=== PATIENT | male | born 1945 | race Caucasian/White ===

== ENCOUNTER 2018-02-20 14:49 | Inpatient (IN) | payer MEDICARE, OTHER ==
[~2018-02-20] VITALS: Ht 175.3 cm; Wt 68.3 kg
[2018-02-20 15:29] LABS: BASO # 0.1 x10^3/uL (0.0-0.2); BASO % 1 % (0-3); EOS # 0.2 x10^3/uL (0.0-0.7); EOS % 2 % (0-3); HEMATOCRIT 39.7 % (39.0-53.0); HEMOGLOBIN 13.5 g/dL (13.0-17.5); LYMPH # 1.2 x10^3/uL (1.0-4.8); LYMPH % 14 % (24-48); MEAN CORPUSCULAR HEMOGLOBIN 32 pg (25-35); MEAN CORPUSCULAR HGB CONC 34 g/dL (31-37); MEAN CORPUSCULAR VOLUME 95 fL (79-100); MONO # 0.9 x10^3/uL (0.0-1.1); MONO % 10 % (0-9); NEUT # 6.6 x10^3uL (1.8-7.7); NEUT % 74 % (31-73); PLATELET COUNT 337 x10^3/uL (140-400); RED BLOOD COUNT 4.16 x10^6/uL (4.30-5.70); RED CELL DISTRIBUTION WIDTH 12.3 % (11.5-14.5)
--- NOTE | 2018-02-20 15:29 | PHYS DOC ---
Adult General Chief Complaint Chief Complaint: PSYCH EVALUATION HPI HPI 72-year-old male presents via EMS for medical clearance and behavioral health admission. The patient has precluded her with her behavioral health department. The patient was stated to be agitated and aggressive at his care facility. He was given 1 g of Depakote in the last 12 hours. He was also given Ativan and Haldol though it is unclear exactly when and what doses. EMS reports that he was pretty "out of it" when they arrived on scene. The patient is sleepy in the ER but arousable. He denies any medical complaints to me. Review of Systems Review of Systems Constitutional: Denies fever or chills [] Eyes: Denies change in visual acuity, redness, or eye pain [] HENT: Denies nasal congestion or sore throat [] Respiratory: Denies cough or shortness of breath [] Cardiovascular: No additional information not addressed in HPI [] GI: Denies abdominal pain, nausea, vomiting, bloody stools or diarrhea [] : Denies dysuria or hematuria [] Musculoskeletal: Denies back pain or joint pain [] Integument: Denies rash or skin lesions [] Neurologic: Denies headache, focal weakness or sensory changes [] Endocrine: Denies polyuria or polydipsia [] All other systems were reviewed and found to be within normal limits, except as documented in this note. Physical Exam Physical Exam Constitutional: Well developed, well nourished, no acute distress, non-toxic appearance. Sleepy.[] HENT: Normocephalic, atraumatic, bilateral external ears normal, oropharynx moist, no oral exudates, nose normal. [] Eyes: PERRLA, EOMI, conjunctiva normal, no discharge. [] Neck: Normal range of motion, no tenderness, supple, no stridor. [] Cardiovascular:Heart rate regular rhythm, no murmur [] Lungs & Thorax: Bilateral breath sounds clear to auscultation [] Abdomen: Bowel sounds normal, soft, no tenderness, no masses, no pulsatile masses. [] Skin: Warm, dry, no erythema, no rash. [] Back: No tenderness, no CVA tenderness. [] Extremities: No tenderness, no cyanosis, no clubbing, ROM intact, no edema. [] Neurologic: Alert, normal motor function, normal sensory function, no focal deficits noted. Dementia[] Psychologic: Affect normal, judgement normal, mood normal. : Catheter in place[] EKG EKG Sinus rhythm, rate 60, leftward axis, no ST elevations or depressions.[] Radiology/Procedures Radiology/Procedures [] Course & Med Decision Making Course & Med Decision Making Pertinent Labs and Imaging studies reviewed. (See chart for details) Patient's labs are unremarkable. His EKG is unremarkable. The patient is much more awake, alert and responsive since arrival. He is medically stable for admission to special care hospital. [] Dragon Disclaimer Dragon Disclaimer This electronic medical record was generated, in whole or in part, using a voice recognition dictation system. Departure Departure: Referrals: NON,STAFF (PCP) LOTTIE FARRELL DO Feb 20, 2018 15:29
[2018-02-20 15:41] LABS: AMORPHOUS SEDIMENT,UR PRESENT /HPF; BACTERIA,URINE FEW /HPF (0-FEW); BILIRUBIN,URINE NEG (NEG); CLARITY,URINE HAZY; COLOR,URINE YELLOW; GLUCOSE,URINE NEG (NEG); NITRITE,URINE NEG (NEG); SQUAMOUS EPITHELIAL CELL,UR OCC /LPF; UROBILINOGEN,URINE 1 mg/dL (0.2 mg/dL)
[2018-02-20 15:46] LABS: ALBUMIN 2.6 g/dL (3.4-5.0); ALBUMIN/GLOBULIN RATIO 0.7 (1.0-1.7); CALCIUM 8.8 mg/dL (8.5-10.1); CREATININE 1.1 mg/dL (0.7-1.3); MAGNESIUM 2.2 mg/dL (1.8-2.4); POTASSIUM 4.1 mmol/L (3.5-5.1); TOTAL BILIRUBIN 0.9 mg/dL (0.2-1.0); TOTAL PROTEIN 6.6 g/dL (6.4-8.2)
[2018-02-20 16:20] LABS: VAL ACID 57 mcg/mL (50-100)
[2018-02-20 17:45] VITALS: BP 119/78
[2018-02-20] MEDS ORDERED: TAMSULOSIN 0.4 MG CAP.ER.24H. PO PRN (18:30)
[2018-02-20] MEDS ORDERED: ATOR20TA58 PO (18:34)
[2018-02-20] MEDS ORDERED: ATEN100T PO (18:34)
[2018-02-20] MEDS ORDERED: TAMS0.4C97 PO (18:34)
[2018-02-20] MEDS ORDERED: ACET325T9 PO (18:34)
[2018-02-20] MEDS ORDERED: CHOL100013 PO (18:34)
[2018-02-20] MEDS ORDERED: LORA0.5T PO (18:34)
[2018-02-20] MEDS ORDERED: CLOP75TA57 PO (18:34)
[2018-02-20] MEDS ORDERED: DIVA125C2 PO (18:34)
[2018-02-20] MEDS ORDERED: DOCU-109 PO (18:34)
[2018-02-20] MEDS ORDERED: MAG HYDROX/AL HYDROX/SIMETH 30 ML ORAL.SUSP PO PRN (18:45)
[2018-02-20] MEDS ORDERED: MAGNESIUM HYDROXIDE 2,400 MG/30 ML ORAL.SUSP. PO PRN (18:45)
[2018-02-20] MEDS: DOCUSATE SODIUM 100 MG CAPSULE PO SCH (21:28)
[2018-02-20] MEDS: ATORVASTATIN CALCIUM 20 MG TABLET PO SCH (21:28)
[2018-02-20] MEDS: DIVALPROEX 125 MG CAP.SPRINK PO SCH (21:28)
[2018-02-20] MEDS: NYSTATIN TOPICAL POWDER 15GM BOTTLE. TP SCH (21:29)
--- NOTE | 2018-02-20 23:06 | EKG ---
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
[2018-02-21 05:17] VITALS: BP 122/75
[2018-02-21] MEDS: DIVALPROEX 125 MG CAP.SPRINK PO SCH ×4 (08:44→19:53)
[2018-02-21] MEDS: DOCUSATE SODIUM 100 MG CAPSULE PO SCH ×3 (08:44→19:53)
[2018-02-21] MEDS: CLOPIDOGREL BISULFATE 75 MG TABLET PO SCH ×2 (08:48→08:58)
[2018-02-21] MEDS: CHOLECALCIFEROL (VITAMIN D3) 1,000 UNIT TABLET PO SCH ×2 (08:48→08:59)
[2018-02-21] MEDS: NYSTATIN TOPICAL POWDER 15GM BOTTLE. TP SCH ×3 (08:49→19:53)
[2018-02-21] MEDS: ATENOLOL 50 MG TABLET PO SCH ×2 (08:49→08:59)
[2018-02-21 10:38] LABS: THYROID STIM HORMONE (TSH) 1.021 uIU/mL (0.358-3.740)
[2018-02-21 11:09] LABS: THYROXINE 6.1 ug/dL (4.5-12.0)
--- NOTE | 2018-02-21 14:27 | CONS ---
DATE OF CONSULTATION: 02/20/2018 REASON FOR CONSULTATION: Medical management. HISTORY OF PRESENT ILLNESS: The patient is a 72-year-old male patient, a resident at [facility], who was admitted to Senior Behavioral Unit on account of refusing medication. He is agitated and hallucinating. He was physically and verbally aggressive, all this in a background of dementia with behavioral disturbances and was here for inpatient psychiatric stabilization. PAST MEDICAL HISTORY: Significant for hypertension, hyperlipidemia, benign prostatic hypertrophy. The patient has also history of TIA, urinary retention, and subdural hematoma together with Parkinson's disease. PAST SURGICAL HISTORY: Unobtainable. ALLERGIES: He has no known drug allergies. MEDICATIONS: He is currently on following medications: He is on tamsulosin for Flomax 0.4 mg at bedtime, Plavix 75 mg daily, atorvastatin 20 mg at bedtime, atenolol 100 mg daily, acetaminophen 650 mg every 4 hours, Depakote Sprinkle 500 mg 3 times a day, lorazepam 1 mg every 8 hours, Colace 100 mg p.o. b.i.d., cholecalciferol or vitamin D [employer] once a day. REVIEW OF SYSTEMS: Unobtainable. FAMILY HISTORY: Unobtainable. SOCIAL HISTORY: The patient said he is . He has 2 children. He never smoked, does not drink alcohol; however, he refused to answer his previous occupation. PHYSICAL EXAMINATION: GENERAL: When I examined him, he was sitting comfortably in his chair, in no apparent respiratory distress. There was no pallor, jaundice, cyanosis, or thyromegaly. No jugular venous distention. No lower limb edema. VITAL SIGNS: His heart rate was 70, blood pressure was 122/75, temperature was 97.8, respiratory rate was 18, and oxygen saturation was 97%. HEAD, EYES, EARS, NOSE, AND THROAT: Showed normocephalic, atraumatic. NECK: Supple. HEART: Showed normal first and second heart sounds. No gallop, rub, or murmur. CHEST: Clear to auscultation. No crepitation or rhonchi. ABDOMEN: Distended, soft, nontender. No guarding or rigidity. No organomegaly. All hernial orifices intact. Bowel sounds normal. NEUROLOGIC: He was demented, but there is no obvious lateralizing sign. All his cranial nerves are intact. He moves extremities without difficulty; however, he seemed to be mostly chair bound, although he managed to transfer with minimal assistance. SKIN: Showed that he has seborrheic dermatitis. He has apparently benign prostatic hypertrophy with urinary retention requiring indwelling Pires catheter. LABORATORY DATA: His lab work showed a white cell count of 9000, hemoglobin 13.5, hematocrit 39.7, MCV 95, and platelet count of 337,000 with normal manual differential. His serum sodium was 143, potassium 4.1, chloride 104, bicarbonate 29, anion gap of 10, BUN 11, creatinine is 1.1, estimated GFR was 66 mL per minute. His glucose was 92, calcium was 8.8, magnesium was 2.2. His serum iron was 47, TIBC 146, and iron saturation was 32%. His total bilirubin, AST, ALT, alkaline phosphatase were normal. Total protein was 6.6, albumin was 2.6. Serum triglyceride was 52, total cholesterol 136, LDL was 95, VLDL was 10, and HDL cholesterol was 31, total cholesterol to HDL cholesterol ratio was 4. TSH was 1.021. Total T4 and total T3 were within normal range. His urinalysis was essentially unremarkable and the urine was negative for nitrite, leukocyte esterase, and there is no bacteria. His valproic acid was 57 mcg/mL, which is well within therapeutic range. IMPRESSION: In summary, this is a 72-year-old male patient who was admitted on account of refusing his medications, agitated, hallucinating, physically and verbally aggressive, all this in a background of dementia with behavioral disturbances. The patient has multiple medical problems including hyperlipidemia, hypertension, benign prostatic hypertrophy. He has also urinary retention, subdural hematoma, Parkinson's disease and very prominent seborrheic dermatitis. The patient seems to be stable from medical point of view. I will obviously review all the lab work that are still pending at the time of this dictation and make any necessary recommendations. Thank you, Dr. Rice, for allowing me to participate in the care of this patient. LUIGI MCKEON MD DR: YENI/lilly JOB#: [id number] / [id number]
[2018-02-21 16:12] VITALS: BP 146/82
[2018-02-21] MEDS: ATORVASTATIN CALCIUM 20 MG TABLET PO SCH (19:53)
[2018-02-21 23:07] LABS: HEMOGLOBIN A1C 5.2 % (4.8-5.6)
--- NOTE | 2018-02-22 00:16 | PSYEV ---
DATE OF SERVICE: SUBJECTIVE: This 72-year-old male was admitted to inpatient program, Senior Behavioral Unit at [facility] as a transfer from the medical floor. The patient apparently a resident at [facility] and according to the staff, he has been refusing medications, increased agitation, having hallucinations physically and verbally abusive towards the staff and other residents. The patient was tried on Ativan 1 mg, also Haldol IM, tried on Depakote, but the patient continues to exhibit problems which is not controllable and staff at the [facility] not able to manage his behavior. The patient also has been confused. He has a diagnosis of dementia. HISTORY OF PRESENT ILLNESS: The patient has been a resident at [place], [place]. The patient has a diagnosis of dementia and the patient has been a management problem. The patient also difficult to redirect. The patient currently withdrawn, able to make eye contact, but most of the answers were monosyllabic. He was not able to hold a conversation. The patient is also on wheelchair, he is a fall risk. The patient requires total assistance with ADLs. PAST PSYCHIATRIC HISTORY: No information available whether the patient being hospitalized to any Psych Unit before. The patient currently on Depakote 500 mg t.i.d., lorazepam 1 mg q. 8 hours p.r.n. PAST MEDICAL HISTORY: He has a history of hypertension, hyperlipidemia, benign prostate hypertrophy. The patient has a history of TIA, history of falls, subdural hematoma, also Parkinson's disease. ALLERGIES: The patient is not having any allergies to medications. MEDICATIONS: The patient's current medication for his medical problems include Flomax 0.4 mg at bedtime, Plavix 75 mg daily, Lipitor 20 mg at bedtime, atenolol 100 mg daily. PSYCHOSOCIAL HISTORY: The patient is unable to give much information. Most of the answers are monosyllabic. The patient is , has 2 children. No history of any alcohol or drugs in the past. The patient apparently admitted to the half-way at [facility] on 02/07/2018. Apparently he had a UTI. The patient had multiple falls. Also, history of urinary retention. The patient was sent to [facility] for medical problems. The patient is also incontinent of bowel and has Pires catheter in place. The patient is unable to provide much information with regard to his past history, his education and the job. His is the DPOA. FAMILY HISTORY: None available. MENTAL STATUS EXAMINATION: The patient appeared to be of stated age, able to make eye contact, but slow to respond to questions mostly monosyllabic answers. The patient is on wheelchair. He is a high fall risk. Speech is monotone, decreased rate and rhythm. The patient is not able to hold a conversation. The patient also having problems with his executive functioning. The patient is not able to take care of his needs. The patient has to be fed. The patient is disoriented to time, place and person. His memory is not testable. The patient's judgment is impaired. Insight limited. STRENGTHS: Supportive family. WEAKNESSES: The patient is totally dependent on the staff for his ADLs and also has significant dementia and multiple medical problems. ADMITTING DIAGNOSES: AXIS I: 1. Dementia, most likely Alzheimer's versus vascular with behavior problems. 2. Generalized anxiety disorder. 3. Impulse control disorder, unspecified. AXIS II: None. AXIS III: Hypertension, hyperlipidemia, history of transient ischemic attacks, history of subdural hematoma, Parkinson's disease, benign prostatic hypertrophy, and fall risk. INITIAL TREATMENT PLAN: The patient is admitted to the unit for further observation and treatment. The patient will continue on his medications including Depakote and lorazepam p.r.n. for the time being. We will check his Depakote level. Dr. Sanchez will be following for medical issues. The patient will be encouraged to attend all the activities. The patient will be also monitored for fall risk. ESTIMATED LENGTH OF STAY: 7-10 days. KYA BARNEY MD DR: GIRISH/lilly JOB#: [id number] / [id number]
[2018-02-22 05:50] VITALS: BP 161/84
[2018-02-22] MEDS: LORazepam 1 MG TABLET PO PRN (06:07)
[2018-02-22] MEDS: DOCUSATE SODIUM 100 MG CAPSULE PO SCH ×3 (08:29→19:45)
[2018-02-22] MEDS: CLOPIDOGREL BISULFATE 75 MG TABLET PO SCH (08:29)
[2018-02-22] MEDS: DIVALPROEX 125 MG CAP.SPRINK PO SCH ×3 (08:29→19:45)
[2018-02-22] MEDS: ATENOLOL 50 MG TABLET PO SCH (08:30)
[2018-02-22] MEDS: CHOLECALCIFEROL (VITAMIN D3) 1,000 UNIT TABLET PO SCH (08:30)
[2018-02-22] MEDS: NYSTATIN TOPICAL POWDER 15GM BOTTLE. TP SCH ×2 (08:32→19:48)
[2018-02-22 17:18] VITALS: BP 113/58
--- NOTE | 2018-02-22 18:57 | PN ---
DATE: 02/22/2018 SUBJECTIVE: The patient was seen today, met with the staff, chart reviewed. The patient's behavior remains the same, is withdrawn, isolative, on wheelchair. The patient responds with monosyllabic answers, able to make eye contact, but not able to hold a conversation. He is confused, limited interaction. OBSERVATION: VITAL SIGNS: Temperature 97.7, blood pressure 161/84, pulse 91, respirations 19, O2 sat 100%. Slept about 5 hours last night. The patient's appetite is fair. MEDICATIONS: The patient's medications reviewed. Currently on Depakote 500 mg t.i.d. p.o., lorazepam 1 mg q. 8 hours p.r.n. The patient's lab reviewed. ASSESSMENT: Dementia, most likely Alzheimer's versus vascular with behavior problems, generalized anxiety disorder, impulse control disorder, unspecified. The patient's Depakote level was 57. PLAN: To continue with the treatment. KYA BARNEY MD DR: GIRISH/lilly JOB#: [id number] / [id number]
[2018-02-22] MEDS: ATORVASTATIN CALCIUM 20 MG TABLET PO SCH (19:45)
[2018-02-23 06:12] VITALS: BP 152/94
[2018-02-23] MEDS: CHOLECALCIFEROL (VITAMIN D3) 1,000 UNIT TABLET PO SCH (08:50)
[2018-02-23] MEDS: DIVALPROEX 125 MG CAP.SPRINK PO SCH ×3 (08:50→20:47)
[2018-02-23] MEDS: CLOPIDOGREL BISULFATE 75 MG TABLET PO SCH (08:50)
[2018-02-23] MEDS: NYSTATIN TOPICAL POWDER 15GM BOTTLE. TP SCH ×2 (08:51→20:48)
[2018-02-23] MEDS: DOCUSATE SODIUM 100 MG CAPSULE PO SCH ×2 (08:52→20:47)
[2018-02-23] MEDS: ATENOLOL 50 MG TABLET PO SCH (08:53)
[2018-02-23] MEDS: LORazepam 1 MG TABLET PO PRN (08:57)
[2018-02-23 15:55] VITALS: BP 117/69
--- NOTE | 2018-02-23 19:58 | PDOC ---
Exam Note: Pavel Note: Please also refer to the separate dictated note~for this date of service dictated separately.~Patient seen individually. Discussed the patient with Nursing staff reviewed the chart.~Reviewed interim history and current functioning. Reviewed vital signs,~Labs/ Radiology~and current medications noted below. Continue current treatment with the changes noted in the dictated addendum note Assessment: Vital Signs: Vital Signs Date Time Temp Pulse Resp B/P (MAP) Pulse Ox O2 Delivery O2 Flow Rate FiO2 02/23/18 15:55 98.9 73 16 117/69 (85) 99 02/22/18 05:50 Room Air I&O Intake and Output 02/23/18 07:00 Intake Total 460 ml Output Total 650 ml Balance -190 ml Intake Oral 460 ml Output Urine Total 650 ml Current Medications: Meds: Current Medications Acetaminophen (Tylenol) 650 mg PRN Q4HRS PRN PO PAIN / TEMP; Start 02/20/18 at 18:30 Atorvastatin Calcium (Lipitor) 20 mg QHS PO Last administered on 02/22/18at 19: 45; Start 02/20/18 at 21:00 Clopidogrel Bisulfate (Plavix) 75 mg DAILY PO Last administered on 02/23/18at 08:50; Start 02/21/18 at 09:00 Tamsulosin HCl (Flomax) 0.4 mg PRN QHS PRN PO retention; Start 02/20/18 at 18: 30 Atenolol (Tenormin) 100 mg DAILY PO Last administered on 02/23/18at 08:53; Start 02/21/18 at 09:00 Vitamin D (Vitamin D3) 2,000 unit DAILY PO Last administered on 02/23/18at 08: 50; Start 02/21/18 at 09:00 Divalproex Sodium (Depakote Sprinkles) 500 mg TID PO Last administered on 02/23at 13:14; Start 02/20/18 at 21:00 Docusate Sodium (Colace) 100 mg BID PO Last administered on 02/23/18at 08:52; Start 02/20/18 at 21:00 Lorazepam (Ativan) 1 mg PRN Q8HRS PRN PO ANXIETY / AGITATION Last administered on 02/23/18at 08:57; Start 02/20/18 at 19:00 Multi-Ingredient Ointment (Analgesic [place]) 1 devika PRN QID PRN TP MUSCLE PAIN; Start 02/20/18 at 18:45 Al Hydroxide/Mg Hydroxide (Mylanta Plus Xs) 15 ml PRN AFTMEALHC PRN PO DYSPEPSIA; Start 02/20/18 at 18:45 Magnesium Hydroxide (Milk Of Magnesia) 2,400 mg PRN QHS PRN PO CONSTIPATION; Start 02/20/18 at 18:45 Nystatin (Nystop) 1 devika BID TP Last administered on 02/23/18at 08:51; Start at 21:00 Bupropion HCl (Wellbutrin) 75 mg DAILY PO ; Start 02/24/18 at 09:00; Stop at 08:59 Bupropion HCl (Wellbutrin) 75 mg BIDACBL PO ; Start 02/27/18 at 08:00 Active Scripts Active Reported Plavix (Clopidogrel Bisulfate) 75 Mg Tablet 75 Mg PO DAILY Lorazepam 0.5 Mg Tablet 1 Mg PO PRN Q8HRS PRN Flomax (Tamsulosin Hcl) 0.4 Mg Cap.er.24h 0.4 Mg PO HS PRN Depakote Sprinkle (Divalproex Sodium) 125 Mg Cap.sprink 500 Mg PO TID Colace (Docusate Sodium) 100 Mg Capsule 100 Mg PO BID Vitamin D (Cholecalciferol (Vitamin D3)) 1,000 Unit Capsule 2,000 Unit PO DAILY Atorvastatin Calcium 20 Mg Tablet 20 Mg PO QHS Atenolol 100 Mg Tablet 100 Mg PO DAILY Tylenol (Acetaminophen) 325 Mg Tablet 650 Mg PO PRN Q4HRS PRN I have reviewed the current psychotropics carefully including drug interactions. Risk benefit ratio favors no change other than as noted in my dictated progress note. CANDELARIA JORGE MD Feb 23, 2018 19:58
[2018-02-23] MEDS: ATORVASTATIN CALCIUM 20 MG TABLET PO SCH (20:47)
[2018-02-24 06:14] VITALS: BP 133/83
[2018-02-24 06:41] VITALS: BP 147/87
[2018-02-24] MEDS: LORazepam 1 MG TABLET PO PRN (08:38)
[2018-02-24] MEDS: DIVALPROEX 125 MG CAP.SPRINK PO SCH ×3 (08:39→20:59)
[2018-02-24] MEDS: ATENOLOL 50 MG TABLET PO SCH (08:44)
[2018-02-24] MEDS: DOCUSATE SODIUM 100 MG CAPSULE PO SCH ×2 (08:44→20:59)
[2018-02-24] MEDS: CHOLECALCIFEROL (VITAMIN D3) 1,000 UNIT TABLET PO SCH (08:45)
[2018-02-24] MEDS: CLOPIDOGREL BISULFATE 75 MG TABLET PO SCH (08:45)
[2018-02-24] MEDS: buPROPion 75 MG TABLET PO SCH (08:46)
[2018-02-24] MEDS: NYSTATIN TOPICAL POWDER 15GM BOTTLE. TP SCH ×2 (14:45→20:59)
[2018-02-24 16:30] VITALS: BP 160/74
--- NOTE | 2018-02-24 19:48 | PDOC ---
Exam Note: Pavel Note: Please also refer to the separate dictated note~for this date of service dictated separately.~Patient seen individually. Discussed the patient with Nursing staff reviewed the chart.~Reviewed interim history and current functioning. Reviewed vital signs,~Labs/ Radiology~and current medications noted below. Continue current treatment with the changes noted in the dictated addendum note Assessment: Vital Signs: Vital Signs Date Time Temp Pulse Resp B/P (MAP) Pulse Ox O2 Delivery O2 Flow Rate FiO2 02/24/18 16:30 98.8 79 18 160/74 (102) 98 02/22/18 05:50 Room Air I&O Intake and Output 02/24/18 07:00 Intake Total 720 ml Balance 720 ml Intake Oral 720 ml # Bowel Movements 2 Current Medications: Meds: Current Medications Acetaminophen (Tylenol) 650 mg PRN Q4HRS PRN PO PAIN / TEMP; Start 02/20/18 at 18:30 Atorvastatin Calcium (Lipitor) 20 mg QHS PO Last administered on 02/23/18at 20: 47; Start 02/20/18 at 21:00 Clopidogrel Bisulfate (Plavix) 75 mg DAILY PO Last administered on 02/24/18at 08:45; Start 02/21/18 at 09:00 Tamsulosin HCl (Flomax) 0.4 mg PRN QHS PRN PO retention; Start 02/20/18 at 18: 30 Atenolol (Tenormin) 100 mg DAILY PO Last administered on 02/24/18at 08:44; Start 02/21/18 at 09:00 Vitamin D (Vitamin D3) 2,000 unit DAILY PO Last administered on 02/24/18at 08: 45; Start 02/21/18 at 09:00 Divalproex Sodium (Depakote Sprinkles) 500 mg TID PO Last administered on 02/24at 14:35; Start 02/20/18 at 21:00 Docusate Sodium (Colace) 100 mg BID PO Last administered on 02/24/18at 08:44; Start 02/20/18 at 21:00 Lorazepam (Ativan) 1 mg PRN Q8HRS PRN PO ANXIETY / AGITATION Last administered on 02/24/18at 08:38; Start 02/20/18 at 19:00 Multi-Ingredient Ointment (Analgesic [place]) 1 devika PRN QID PRN TP MUSCLE PAIN; Start 02/20/18 at 18:45 Al Hydroxide/Mg Hydroxide (Mylanta Plus Xs) 15 ml PRN AFTMEALHC PRN PO DYSPEPSIA; Start 02/20/18 at 18:45 Magnesium Hydroxide (Milk Of Magnesia) 2,400 mg PRN QHS PRN PO CONSTIPATION; Start 02/20/18 at 18:45 Nystatin (Nystop) 1 devika BID TP Last administered on 02/24/18at 14:45; Start at 21:00 Bupropion HCl (Wellbutrin) 75 mg DAILY PO Last administered on 02/24/18at 08:46 ; Start 02/24/18 at 09:00; Stop 02/27/18 at 08:59 Bupropion HCl (Wellbutrin) 75 mg BIDACBL PO ; Start 02/27/18 at 08:00 Active Scripts Active Reported Plavix (Clopidogrel Bisulfate) 75 Mg Tablet 75 Mg PO DAILY Lorazepam 0.5 Mg Tablet 1 Mg PO PRN Q8HRS PRN Flomax (Tamsulosin Hcl) 0.4 Mg Cap.er.24h 0.4 Mg PO HS PRN Depakote Sprinkle (Divalproex Sodium) 125 Mg Cap.sprink 500 Mg PO TID Colace (Docusate Sodium) 100 Mg Capsule 100 Mg PO BID Vitamin D (Cholecalciferol (Vitamin D3)) 1,000 Unit Capsule 2,000 Unit PO DAILY Atorvastatin Calcium 20 Mg Tablet 20 Mg PO QHS Atenolol 100 Mg Tablet 100 Mg PO DAILY Tylenol (Acetaminophen) 325 Mg Tablet 650 Mg PO PRN Q4HRS PRN I have reviewed the current psychotropics carefully including drug interactions. Risk benefit ratio favors no change other than as noted in my dictated progress note. 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
[2018-02-24] MEDS: ATORVASTATIN CALCIUM 20 MG TABLET PO SCH (20:59)
--- NOTE | 2018-02-25 01:29 | PN ---
DATE: 02/23/2018 PSYCHIATRIC PROGRESS NOTE This late entry 02/23/2018 covers elements not covered in my initial note. SUBJECTIVE: I met with the patient in the evening. The patient slept 6-1/2 hours previous evening. He remains confused, anxious at times. Nursing staff feels he is alert, oriented x 3. Apparently he seemed to know he was at [place] and it was near [place], but when I assessed him, this was not so. REVIEW OF SYSTEMS: Ambulation impaired, in wheelchair. No CV, , pulmonary, eye, ENT system symptoms on review. Reliability poor. MENTAL STATUS EXAM: Oriented to himself. Insight, judgment, recent memory is impaired. Language function intact. He was trying to grab me and my arm, and was aggressive and nursing staff and the staff assisted me. No active suicidal or homicidal ideation. LABORATORY DATA: Reviewed. IMPRESSION: Major neurocognitive disorder, Alzheimer, vascular, rule out Lewy body with delusion, depression, behavioral disturbance; anxiety disorder, unspecified; impulse control disorder, unspecified; psychotic disorder, unspecified. PLAN: Continue Depakote 500 b.i.d., Ativan p.r.n., Valproic acid level therapeutic at 57. Start Wellbutrin 75 mg a.m. for 3 days, then 75 mg b.i.d. as a mood stabilizer and to help with some of his mood lability, mood symptoms. CANDELARIA JORGE MD DR: LOVE/lilly JOB#: [id number] / [id number]
[2018-02-25 05:56] VITALS: BP 134/85
[2018-02-25] MEDS: DOCUSATE SODIUM 100 MG CAPSULE PO SCH ×2 (09:19→19:02)
[2018-02-25] MEDS: buPROPion 75 MG TABLET PO SCH (09:19)
[2018-02-25] MEDS: CHOLECALCIFEROL (VITAMIN D3) 1,000 UNIT TABLET PO SCH (09:19)
[2018-02-25] MEDS: CLOPIDOGREL BISULFATE 75 MG TABLET PO SCH (09:19)
[2018-02-25] MEDS: ATENOLOL 50 MG TABLET PO SCH (09:20)
[2018-02-25] MEDS: NYSTATIN TOPICAL POWDER 15GM BOTTLE. TP SCH ×2 (09:20→19:03)
[2018-02-25] MEDS: DIVALPROEX 125 MG CAP.SPRINK PO SCH ×3 (09:20→19:02)
[2018-02-25 16:07] VITALS: BP 125/78
[2018-02-25] MEDS: ATORVASTATIN CALCIUM 20 MG TABLET PO SCH (19:02)
--- NOTE | 2018-02-25 20:06 | PDOC ---
Exam Note: Pavel Note: Please also refer to the separate dictated note~for this date of service dictated separately.~Patient seen individually. Discussed the patient with Nursing staff reviewed the chart.~Reviewed interim history and current functioning. Reviewed vital signs,~Labs/ Radiology~and current medications noted below. Continue current treatment with the changes noted in the dictated addendum note Assessment: Vital Signs: Vital Signs Date Time Temp Pulse Resp B/P (MAP) Pulse Ox O2 Delivery O2 Flow Rate FiO2 02/25/18 16:07 98.7 70 16 125/78 (94) 98 02/22/18 05:50 Room Air I&O Intake and Output 02/25/18 07:00 Intake Total 1300 ml Balance 1300 ml Intake Oral 1300 ml Current Medications: Meds: Current Medications Acetaminophen (Tylenol) 650 mg PRN Q4HRS PRN PO PAIN / TEMP; Start 02/20/18 at 18:30 Atorvastatin Calcium (Lipitor) 20 mg QHS PO Last administered on 02/25/18at 19: 02; Start 02/20/18 at 21:00 Clopidogrel Bisulfate (Plavix) 75 mg DAILY PO Last administered on 02/25/18at 09:19; Start 02/21/18 at 09:00 Tamsulosin HCl (Flomax) 0.4 mg PRN QHS PRN PO retention; Start 02/20/18 at 18: 30 Atenolol (Tenormin) 100 mg DAILY PO Last administered on 02/25/18at 09:20; Start 02/21/18 at 09:00 Vitamin D (Vitamin D3) 2,000 unit DAILY PO Last administered on 02/25/18at 09: 19; Start 02/21/18 at 09:00 Divalproex Sodium (Depakote Sprinkles) 500 mg TID PO Last administered on 02/25at 19:02; Start 02/20/18 at 21:00 Docusate Sodium (Colace) 100 mg BID PO Last administered on 02/25/18at 19:02; Start 02/20/18 at 21:00 Lorazepam (Ativan) 1 mg PRN Q8HRS PRN PO ANXIETY / AGITATION Last administered on 02/24/18at 08:38; Start 02/20/18 at 19:00 Multi-Ingredient Ointment (Analgesic [place]) 1 devika PRN QID PRN TP MUSCLE PAIN; Start 02/20/18 at 18:45 Al Hydroxide/Mg Hydroxide (Mylanta Plus Xs) 15 ml PRN AFTMEALHC PRN PO DYSPEPSIA; Start 02/20/18 at 18:45 Magnesium Hydroxide (Milk Of Magnesia) 2,400 mg PRN QHS PRN PO CONSTIPATION; Start 02/20/18 at 18:45 Nystatin (Nystop) 1 devika BID TP Last administered on 02/25/18at 19:03; Start at 21:00 Bupropion HCl (Wellbutrin) 75 mg DAILY PO Last administered on 02/25/18at 09:19 ; Start 02/24/18 at 09:00; Stop 02/27/18 at 08:59 Bupropion HCl (Wellbutrin) 75 mg BIDACBL PO ; Start 02/27/18 at 08:00 Active Scripts Active Reported Plavix (Clopidogrel Bisulfate) 75 Mg Tablet 75 Mg PO DAILY Lorazepam 0.5 Mg Tablet 1 Mg PO PRN Q8HRS PRN Flomax (Tamsulosin Hcl) 0.4 Mg Cap.er.24h 0.4 Mg PO HS PRN Depakote Sprinkle (Divalproex Sodium) 125 Mg Cap.sprink 500 Mg PO TID Colace (Docusate Sodium) 100 Mg Capsule 100 Mg PO BID Vitamin D (Cholecalciferol (Vitamin D3)) 1,000 Unit Capsule 2,000 Unit PO DAILY Atorvastatin Calcium 20 Mg Tablet 20 Mg PO QHS Atenolol 100 Mg Tablet 100 Mg PO DAILY Tylenol (Acetaminophen) 325 Mg Tablet 650 Mg PO PRN Q4HRS PRN I have reviewed the current psychotropics carefully including drug interactions. Risk benefit ratio favors no change other than as noted in my dictated progress note. 

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
[2018-02-26 05:57] VITALS: BP 141/77
[2018-02-26] MEDS: buPROPion 75 MG TABLET PO SCH (07:53)
[2018-02-26] MEDS: DIVALPROEX 125 MG CAP.SPRINK PO SCH (07:53)
[2018-02-26] MEDS: DOCUSATE SODIUM 100 MG CAPSULE PO SCH ×2 (07:53→20:20)
[2018-02-26] MEDS: CHOLECALCIFEROL (VITAMIN D3) 1,000 UNIT TABLET PO SCH (07:53)
[2018-02-26] MEDS: ATENOLOL 50 MG TABLET PO SCH (07:54)
[2018-02-26] MEDS: NYSTATIN TOPICAL POWDER 15GM BOTTLE. TP SCH ×2 (07:54→20:23)
[2018-02-26] MEDS: CLOPIDOGREL BISULFATE 75 MG TABLET PO SCH (07:54)
[2018-02-26 15:45] VITALS: BP 124/75
[2018-02-26] MEDS: ATORVASTATIN CALCIUM 20 MG TABLET PO SCH (20:20)
[2018-02-26] MEDS: DIVALPROEX ER 500 MG TAB.ER.24H PO SCH (20:23)
--- NOTE | 2018-02-26 23:09 | PDOC ---
Exam Note: Pavel Note: Please also refer to the separate dictated note~for this date of service dictated separately.~Patient seen individually. Discussed the patient with Nursing staff reviewed the chart.~Reviewed interim history and current functioning. Reviewed vital signs,~Labs/ Radiology~and current medications noted below. Continue current treatment with the changes noted in the dictated addendum note Assessment: Vital Signs: Vital Signs Date Time Temp Pulse Resp B/P (MAP) Pulse Ox O2 Delivery O2 Flow Rate FiO2 02/26/18 15:45 98.0 66 16 124/75 (91) 100 Room Air I&O Intake and Output 02/26/18 07:01 Intake Total 960 ml Balance 960 ml Intake Oral 960 ml # Bowel Movements 1 Current Medications: Meds: Current Medications Acetaminophen (Tylenol) 650 mg PRN Q4HRS PRN PO PAIN / TEMP; Start 02/20/18 at 18:30 Atorvastatin Calcium (Lipitor) 20 mg QHS PO Last administered on 02/26/18at 20: 20; Start 02/20/18 at 21:00 Clopidogrel Bisulfate (Plavix) 75 mg DAILY PO Last administered on 02/26/18at 07:54; Start 02/21/18 at 09:00 Tamsulosin HCl (Flomax) 0.4 mg PRN QHS PRN PO retention; Start 02/20/18 at 18: 30 Atenolol (Tenormin) 100 mg DAILY PO Last administered on 02/26/18at 07:54; Start 02/21/18 at 09:00 Vitamin D (Vitamin D3) 2,000 unit DAILY PO Last administered on 02/26/18at 07: 53; Start 02/21/18 at 09:00 Divalproex Sodium (Depakote Sprinkles) 500 mg TID PO Last administered on 02/26at 07:53; Start 02/20/18 at 21:00; Stop 02/26/18 at 10:36; Status DC Docusate Sodium (Colace) 100 mg BID PO Last administered on 02/26/18at 20:20; Start 02/20/18 at 21:00 Lorazepam (Ativan) 1 mg PRN Q8HRS PRN PO ANXIETY / AGITATION Last administered on 02/24/18at 08:38; Start 02/20/18 at 19:00 Multi-Ingredient Ointment (Analgesic [place]) 1 devika PRN QID PRN TP MUSCLE PAIN; Start 02/20/18 at 18:45 Al Hydroxide/Mg Hydroxide (Mylanta Plus Xs) 15 ml PRN AFTMEALHC PRN PO DYSPEPSIA; Start 02/20/18 at 18:45 Magnesium Hydroxide (Milk Of Magnesia) 2,400 mg PRN QHS PRN PO CONSTIPATION; Start 02/20/18 at 18:45 Nystatin (Nystop) 1 devika BID TP Last administered on 02/26/18at 20:23; Start at 21:00 Bupropion HCl (Wellbutrin) 75 mg DAILY PO Last administered on 02/26/18at 07:53 ; Start 02/24/18 at 09:00; Stop 02/27/18 at 08:59 Bupropion HCl (Wellbutrin) 75 mg BIDACBL PO ; Start 02/27/18 at 08:00 Divalproex Sodium (Depakote Er) 1,000 mg QHS PO Last administered on at 20:23; Start 02/26/18 at 21:00 Active Scripts Active Reported Plavix (Clopidogrel Bisulfate) 75 Mg Tablet 75 Mg PO DAILY Lorazepam 0.5 Mg Tablet 1 Mg PO PRN Q8HRS PRN Flomax (Tamsulosin Hcl) 0.4 Mg Cap.er.24h 0.4 Mg PO HS PRN Depakote Sprinkle (Divalproex Sodium) 125 Mg Cap.sprink 500 Mg PO TID Colace (Docusate Sodium) 100 Mg Capsule 100 Mg PO BID Vitamin D (Cholecalciferol (Vitamin D3)) 1,000 Unit Capsule 2,000 Unit PO DAILY Atorvastatin Calcium 20 Mg Tablet 20 Mg PO QHS Atenolol 100 Mg Tablet 100 Mg PO DAILY Tylenol (Acetaminophen) 325 Mg Tablet 650 Mg PO PRN Q4HRS PRN I have reviewed the current psychotropics carefully including drug interactions. Risk benefit ratio favors no change other than as noted in my dictated progress note. 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
[2018-02-27 06:34] VITALS: BP 164/99
[2018-02-27] MEDS: NYSTATIN TOPICAL POWDER 15GM BOTTLE. TP SCH ×2 (07:51→19:47)
[2018-02-27] MEDS: buPROPion 75 MG TABLET PO SCH ×3 (07:51→11:30)
[2018-02-27] MEDS: CHOLECALCIFEROL (VITAMIN D3) 1,000 UNIT TABLET PO SCH ×2 (07:51→09:00)
[2018-02-27] MEDS: ATENOLOL 50 MG TABLET PO SCH ×2 (07:51→09:00)
[2018-02-27] MEDS: DOCUSATE SODIUM 100 MG CAPSULE PO SCH ×3 (07:51→19:46)
[2018-02-27] MEDS: CLOPIDOGREL BISULFATE 75 MG TABLET PO SCH ×2 (07:51→09:00)
[2018-02-27 10:10] LABS: BASO # 0.1 x10^3/uL (0.0-0.2); BASO % 1 % (0-3); EOS # 0.1 x10^3/uL (0.0-0.7); EOS % 1 % (0-3); HEMATOCRIT 42.3 % (39.0-53.0); HEMOGLOBIN 14.2 g/dL (13.0-17.5); LYMPH # 1.3 x10^3/uL (1.0-4.8); LYMPH % 11 % (24-48); MEAN CORPUSCULAR HEMOGLOBIN 32 pg (25-35); MEAN CORPUSCULAR HGB CONC 34 g/dL (31-37); MEAN CORPUSCULAR VOLUME 96 fL (79-100); MONO # 0.9 x10^3/uL (0.0-1.1); MONO % 7 % (0-9); NEUT # 9.8 x10^3uL (1.8-7.7); NEUT % 81 % (31-73); PLATELET COUNT 243 x10^3/uL (140-400); RED BLOOD COUNT 4.41 x10^6/uL (4.30-5.70); RED CELL DISTRIBUTION WIDTH 12.6 % (11.5-14.5); WHITE BLOOD COUNT 12.1 x10^3/uL (4.0-11.0)
[2018-02-27 10:17] LABS: ALBUMIN 2.9 g/dL (3.4-5.0); ALBUMIN/GLOBULIN RATIO 0.7 (1.0-1.7); CALCIUM 8.8 mg/dL (8.5-10.1); CREATININE 1.5 mg/dL (0.7-1.3); GFR 46.1; POTASSIUM 4.3 mmol/L (3.5-5.1); TOTAL BILIRUBIN 0.7 mg/dL (0.2-1.0); TOTAL PROTEIN 6.9 g/dL (6.4-8.2)
[2018-02-27 15:31] VITALS: BP 117/78
[2018-02-27] MEDS: DIVALPROEX ER 500 MG TAB.ER.24H PO SCH (19:46)
[2018-02-27] MEDS: ATORVASTATIN CALCIUM 20 MG TABLET PO SCH (19:46)
[2018-02-27 22:38] LABS: BILIRUBIN,URINE NEG (NEG); CLARITY,URINE TURBID; COLOR,URINE AMBER; GLUCOSE,URINE NEG (NEG)
[2018-02-27 22:39] LABS: BACTERIA,URINE MOD /HPF (0-FEW); HYALINE CASTS, URINE MANY /HPF; NITRITE,URINE NEG (NEG); UROBILINOGEN,URINE 0.2 mg/dL (0.2 mg/dL)
--- NOTE | 2018-02-27 22:39 | PN ---
DATE: 02/25/2018 This is a late entry for 02/25/2018 and covers elements not covered in my initial note. SUBJECTIVE: I met with the patient in the evening. The patient slept 4-3/4 hours previous night. He sleeps off and on during the day, less aggressive. REVIEW OF SYSTEMS: Ambulation impaired, in wheelchair. No CV, , pulmonary, eye, ENT system symptoms on review. MENTAL STATUS EXAM: Oriented to himself and situation. Speech has moderate latency, often responses monosyllabic. Abstraction fair, computation impaired, language function intact. Mood and affect somewhat anxious, labile, but improved. LABORATORY DATA: Reviewed. IMPRESSION: Unchanged from initial note. PLAN: No change from initial note. MAN Diony JORGE MD DR: LOVE/lilly JOB#: [id number] / [id number]
--- NOTE | 2018-02-27 22:49 | PDOC ---
Exam Note: Pavel Note: Please also refer to the separate dictated note~for this date of service dictated separately.~Patient seen individually. Discussed the patient with Nursing staff reviewed the chart.~Reviewed interim history and current functioning. Reviewed vital signs,~Labs/ Radiology~and current medications noted below. Continue current treatment with the changes noted in the dictated addendum note Assessment: Vital Signs: Vital Signs Date Time Temp Pulse Resp B/P (MAP) Pulse Ox O2 Delivery O2 Flow Rate FiO2 02/27/18 15:31 98.8 74 20 117/78 (91) 99 02/27/18 06:34 Room Air I&O Intake and Output 02/27/18 07:01 Intake Total 965 ml Balance 965 ml Intake Oral 965 ml # Bowel Movements 1 Labs: Laboratory Tests Test 02/27/18 09:40 02/27/18 21:30 White Blood Count 12.1 x10^3/uL (4.0-11.0) H Red Blood Count 4.41 x10^6/uL (4.30-5.70) Hemoglobin 14.2 g/dL (13.0-17.5) Hematocrit 42.3 % (39.0-53.0) Mean Corpuscular Volume 96 fL (79-100) Mean Corpuscular Hemoglobin 32 pg (25-35) Mean Corpuscular Hemoglobin Concent 34 g/dL (31-37) Red Cell Distribution Width 12.6 % (11.5-14.5) Platelet Count 243 x10^3/uL (140-400) Neutrophils (%) (Auto) 81 % (31-73) H Lymphocytes (%) (Auto) 11 % (24-48) L Monocytes (%) (Auto) 7 % (0-9) Eosinophils (%) (Auto) 1 % (0-3) Basophils (%) (Auto) 1 % (0-3) Neutrophils # (Auto) 9.8 x10^3uL (1.8-7.7) H Lymphocytes # (Auto) 1.3 x10^3/uL (1.0-4.8) Monocytes # (Auto) 0.9 x10^3/uL (0.0-1.1) Eosinophils # (Auto) 0.1 x10^3/uL (0.0-0.7) Basophils # (Auto) 0.1 x10^3/uL (0.0-0.2) Sodium Level 141 mmol/L (136-145) Potassium Level 4.3 mmol/L (3.5-5.1) Chloride Level 104 mmol/L (98-107) Carbon Dioxide Level 26 mmol/L (21-32) Anion Gap 11 (6-14) Blood Urea Nitrogen 18 mg/dL (8-26) Creatinine 1.5 mg/dL (0.7-1.3) H Estimated GFR (Cockcroft-Gault) 46.1 BUN/Creatinine Ratio 12 (6-20) Glucose Level 145 mg/dL (70-99) H Calcium Level 8.8 mg/dL (8.5-10.1) Total Bilirubin 0.7 mg/dL (0.2-1.0) Aspartate Amino Transferase (AST) 18 U/L (15-37) Alanine Aminotransferase (ALT) 18 U/L (16-63) Alkaline Phosphatase 65 U/L (46-116) Total Protein 6.9 g/dL (6.4-8.2) Albumin 2.9 g/dL (3.4-5.0) L Albumin/Globulin Ratio 0.7 (1.0-1.7) L Urine Collection Type Unknown Urine Color Cyn Urine Clarity Turbid Urine pH 5.5 Urine Specific [place] 1.025 Urine Protein 100 mg/dl (NEG-TRACE) Urine Glucose (UA) Neg mg/dL (NEG) Urine Ketones (Stick) 15 mg/dL (NEG) Urine Blood Neg (NEG) Urine Nitrite Neg (NEG) Urine Bilirubin Neg (NEG) Urine Urobilinogen Dipstick 0.2 mg/dL (0.2 mg/dL) Urine Leukocyte Esterase Trace (NEG) Urine RBC 3-5 /HPF (0-2) Urine WBC 11-20 /HPF (0-4) Urine Squamous Epithelial Cells None /LPF Urine Bacteria Mod /HPF (0-FEW) Urine Hyaline Casts Many /HPF Urine Mucus Marked /LPF Current Medications: Meds: Current Medications Acetaminophen (Tylenol) 650 mg PRN Q4HRS PRN PO PAIN / TEMP; Start 02/20/18 at 18:30 Atorvastatin Calcium (Lipitor) 20 mg QHS PO Last administered on 02/27/18at 19: 46; Start 02/20/18 at 21:00 Clopidogrel Bisulfate (Plavix) 75 mg DAILY PO Last administered on 02/26/18at 07:54; Start 02/21/18 at 09:00 Tamsulosin HCl (Flomax) 0.4 mg PRN QHS PRN PO retention; Start 02/20/18 at 18: 30 Atenolol (Tenormin) 100 mg DAILY PO Last administered on 02/26/18 07:54; Start 02/21/18 at 09:00 Vitamin D (Vitamin D3) 2,000 unit DAILY PO Last administered on 02/26/18 07: 53; Start 02/21/18 at 09:00 Divalproex Sodium (Depakote Sprinkles) 500 mg TID PO Last administered on 02/26 07:53; Start 02/20/18 at 21:00; Stop 02/26/18 at 10:36; Status DC Docusate Sodium (Colace) 100 mg BID PO Last administered on 02/27/18at 19:46; Start 02/20/18 at 21:00 Lorazepam (Ativan) 1 mg PRN Q8HRS PRN PO ANXIETY / AGITATION Last administered on 02/24/18at 08:38; Start 02/20/18 at 19:00 Multi-Ingredient Ointment (Analgesic [place]) 1 devika PRN QID PRN TP MUSCLE PAIN; Start 02/20/18 at 18:45 Al Hydroxide/Mg Hydroxide (Mylanta Plus Xs) 15 ml PRN AFTMEALHC PRN PO DYSPEPSIA; Start 02/20/18 at 18:45 Magnesium Hydroxide (Milk Of Magnesia) 2,400 mg PRN QHS PRN PO CONSTIPATION; Start 02/20/18 at 18:45 Nystatin (Nystop) 1 devika BID TP Last administered on 02/27/18at 19:47; Start at 21:00 Bupropion HCl (Wellbutrin) 75 mg DAILY PO Last administered on 02/26/18at 07:53 ; Start 02/24/18 at 09:00; Stop 02/27/18 at 08:59; Status DC Bupropion HCl (Wellbutrin) 75 mg BIDACBL PO ; Start 02/27/18 at 08:00 Divalproex Sodium (Depakote Er) 1,000 mg QHS PO Last administered on at 19:46; Start 02/26/18 at 21:00 Active Scripts Active Reported Plavix (Clopidogrel Bisulfate) 75 Mg Tablet 75 Mg PO DAILY Lorazepam 0.5 Mg Tablet 1 Mg PO PRN Q8HRS PRN Flomax (Tamsulosin Hcl) 0.4 Mg Cap.er.24h 0.4 Mg PO HS PRN Depakote Sprinkle (Divalproex Sodium) 125 Mg Cap.sprink 500 Mg PO TID Colace (Docusate Sodium) 100 Mg Capsule 100 Mg PO BID Vitamin D (Cholecalciferol (Vitamin D3)) 1,000 Unit Capsule 2,000 Unit PO DAILY Atorvastatin Calcium 20 Mg Tablet 20 Mg PO QHS Atenolol 100 Mg Tablet 100 Mg PO DAILY Tylenol (Acetaminophen) 325 Mg Tablet 650 Mg PO PRN Q4HRS PRN I have reviewed the current psychotropics carefully including drug interactions. Risk benefit ratio favors no change other than as noted in my dictated progress note. 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
[2018-02-28 06:39] VITALS: BP 136/77
[2018-02-28] MEDS: ATENOLOL 50 MG TABLET PO SCH (07:31)
[2018-02-28] MEDS: DOCUSATE SODIUM 100 MG CAPSULE PO SCH ×2 (07:31→19:36)
[2018-02-28] MEDS: buPROPion 75 MG TABLET PO SCH ×2 (07:32→13:40)
[2018-02-28] MEDS: CLOPIDOGREL BISULFATE 75 MG TABLET PO SCH (07:32)
[2018-02-28] MEDS: CHOLECALCIFEROL (VITAMIN D3) 1,000 UNIT TABLET PO SCH (07:32)
[2018-02-28] MEDS: NYSTATIN TOPICAL POWDER 15GM BOTTLE. TP SCH ×2 (07:32→19:49)
--- NOTE | 2018-02-28 09:27 | RAD ---
PROCEDURE: CHEST AP ONLY CLINICAL INDICATION: Leukocytosis. Pt unable to follow breathing instructions COMPARISON: None FINDINGS: No pneumothorax identified. Cardiac and mediastinal contours unremarkable. No pulmonary consolidation or acute airspace disease. No acute osseous abnormalities identified. IMPRESSION: No pulmonary consolidation or acute airspace disease. Electronically signed by: John Cobos DO (02/28/2018 9:23 AM) [facility]
[2018-02-28 16:20] VITALS: BP 130/71
--- NOTE | 2018-02-28 18:38 | PN ---
DATE: 02/26/2018 This late entry 02/26/2018 covers elements not covered in my initial note. SUBJECTIVE: I met with the patient in the evening, staffed at a treatment team meeting with the entire team in the morning and the patient's , Roxanne, attended the conference. Reviewed the patient's diagnosis, progress. feels he takes his medications better with pudding. He does have an expressive aphasia and then the Parkinson's makes his expression even worse. He naps off and on during the day. His past hobbies included sports and reading a lot and spending much time at work. REVIEW OF SYSTEMS: Ambulation impaired, in wheelchair. No CV, , pulmonary, eye, ENT system symptoms on review. Reliability poor. MENTAL STATUS EXAMINATION: Oriented to himself. Insight, judgment, recent and remote memory, attention, concentration, fund of knowledge poor, consistent with his diagnosis. IMPRESSION: Major depressive disorder, recurrent with psychotic features; major neurocognitive disorder, Alzheimer, vascular, possibly Lewy body with delusion, depression, behavioral disturbance. PLAN: The patient is on Depakote Sprinkles 500 mg t.i.d. He is somewhat sedated during the day. We will change it to Depakote ER 1000 mg p.o. at bedtime. Continue Wellbutrin, which is being gradually increased to 75 mg twice a day. Continue rest unchanged for now. CANDELARIA JORGE MD DR: LOVE/lilly JOB#: [id number] / [id number]
[2018-02-28] MEDS: ATORVASTATIN CALCIUM 20 MG TABLET PO SCH (19:36)
[2018-02-28] MEDS: DIVALPROEX 125 MG CAP.SPRINK PO SCH (19:39)
[2018-02-28] MEDS: LORazepam 1 MG TABLET PO PRN (21:30)
--- NOTE | 2018-02-28 22:11 | PDOC ---
Exam Note: Pavel Note: Please also refer to the separate dictated note~for this date of service dictated separately.~Patient seen individually. Discussed the patient with Nursing staff reviewed the chart.~Reviewed interim history and current functioning. Reviewed vital signs,~Labs/ Radiology~and current medications noted below. Continue current treatment with the changes noted in the dictated addendum note Assessment: Vital Signs: Vital Signs Date Time Temp Pulse Resp B/P (MAP) Pulse Ox O2 Delivery O2 Flow Rate FiO2 02/28/18 16:20 97.9 84 20 130/71 (90) 96 02/27/18 06:34 Room Air I&O Intake and Output 02/28/18 07:01 Intake Total 0 ml Balance 0 ml Intake Oral 0 ml Current Medications: Meds: Current Medications Acetaminophen (Tylenol) 650 mg PRN Q4HRS PRN PO PAIN / TEMP; Start 02/20/18 at 18:30 Atorvastatin Calcium (Lipitor) 20 mg QHS PO Last administered on 02/28/18at 19: 36; Start 02/20/18 at 21:00 Clopidogrel Bisulfate (Plavix) 75 mg DAILY PO Last administered on 02/28/18at 07:32; Start 02/21/18 at 09:00 Tamsulosin HCl (Flomax) 0.4 mg PRN QHS PRN PO retention; Start 02/20/18 at 18: 30 Atenolol (Tenormin) 100 mg DAILY PO Last administered on 02/28/18at 07:31; Start 02/21/18 at 09:00 Vitamin D (Vitamin D3) 2,000 unit DAILY PO Last administered on 02/28/18at 07: 32; Start 02/21/18 at 09:00 Divalproex Sodium (Depakote Sprinkles) 500 mg TID PO Last administered on 02/26at 07:53; Start 02/20/18 at 21:00; Stop 02/26/18 at 10:36; Status DC Docusate Sodium (Colace) 100 mg BID PO Last administered on 02/28/18at 19:36; Start 02/20/18 at 21:00 Lorazepam (Ativan) 1 mg PRN Q8HRS PRN PO ANXIETY / AGITATION Last administered on 02/28/18at 21:30; Start 02/20/18 at 19:00 Multi-Ingredient Ointment (Analgesic [place]) 1 devika PRN QID PRN TP MUSCLE PAIN; Start 02/20/18 at 18:45 Al Hydroxide/Mg Hydroxide (Mylanta Plus Xs) 15 ml PRN AFTMEALHC PRN PO DYSPEPSIA; Start 02/20/18 at 18:45 Magnesium Hydroxide (Milk Of Magnesia) 2,400 mg PRN QHS PRN PO CONSTIPATION; Start 02/20/18 at 18:45 Nystatin (Nystop) 1 devika BID TP Last administered on 02/28/18at 19:49; Start at 21:00 Bupropion HCl (Wellbutrin) 75 mg DAILY PO Last administered on 02/26/18at 07:53 ; Start 02/24/18 at 09:00; Stop 02/27/18 at 08:59; Status DC Bupropion HCl (Wellbutrin) 75 mg BIDACBL PO Last administered on 02/28/18at 13: 40; Start 02/27/18 at 08:00 Divalproex Sodium (Depakote Er) 1,000 mg QHS PO Last administered on at 19:46; Start 02/26/18 at 21:00; Stop 02/28/18 at 19:35; Status DC Divalproex Sodium (Depakote Sprinkles) 1,000 mg HS PO Last administered on at 19:39; Start 02/28/18 at 21:00 Active Scripts Active Reported Plavix (Clopidogrel Bisulfate) 75 Mg Tablet 75 Mg PO DAILY Lorazepam 0.5 Mg Tablet 1 Mg PO PRN Q8HRS PRN Flomax (Tamsulosin Hcl) 0.4 Mg Cap.er.24h 0.4 Mg PO HS PRN Depakote Sprinkle (Divalproex Sodium) 125 Mg Cap.sprink 500 Mg PO TID Colace (Docusate Sodium) 100 Mg Capsule 100 Mg PO BID Vitamin D (Cholecalciferol (Vitamin D3)) 1,000 Unit Capsule 2,000 Unit PO DAILY Atorvastatin Calcium 20 Mg Tablet 20 Mg PO QHS Atenolol 100 Mg Tablet 100 Mg PO DAILY Tylenol (Acetaminophen) 325 Mg Tablet 650 Mg PO PRN Q4HRS PRN I have reviewed the current psychotropics carefully including drug interactions. Risk benefit ratio favors no change other than as noted in my dictated progress note. 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
[2018-03-01 06:36] VITALS: BP 142/78
[2018-03-01] MEDS: CLOPIDOGREL BISULFATE 75 MG TABLET PO SCH (07:35)
[2018-03-01] MEDS: DOCUSATE SODIUM 100 MG CAPSULE PO SCH ×2 (07:35→21:32)
[2018-03-01] MEDS: ATENOLOL 50 MG TABLET PO SCH (07:35)
[2018-03-01] MEDS: buPROPion 75 MG TABLET PO SCH ×2 (07:35→13:29)
[2018-03-01] MEDS: NYSTATIN TOPICAL POWDER 15GM BOTTLE. TP SCH ×2 (07:36→21:00)
[2018-03-01] MEDS: CHOLECALCIFEROL (VITAMIN D3) 1,000 UNIT TABLET PO SCH (07:36)
[2018-03-01 16:34] VITALS: BP 130/86
--- NOTE | 2018-03-01 17:11 | PN ---
DATE: 03/01/2018 PSYCHIATRIC PROGRESS NOTE This late entry 02/27/2018 covers elements not covered in my initial note. SUBJECTIVE: I met with the patient in the evening. The patient slept 4-3/4 hours previous evening. He remains quite confused, withdrawn. His indicated that he used to love to read and watch sports, but other than that, he would work almost all day every day long hours. may re-share this information. He is compliant with his medications in pudding, has expressive aphasia, somewhat confused, possibly Lewy body dementia with his Parkinson's. He has been somewhat lethargic, slept through breakfast and lunch. Creatinine has increased. He has a Pires is in place, we will defer to Dr. Sanchez. REVIEW OF SYSTEMS: Ambulation impaired, in Broda chair. No CV, , pulmonary, eye, ENT system symptoms on review. Reliability poor. MENTAL STATUS EXAM: Oriented to himself. Insight, judgment, recent and remote memory, attention, concentration, fund of knowledge poor, consistent with his diagnosis mentioned in my initial note. PLAN: No change from initial note. MAN Diony JORGE MD DR: LOVE/lilly JOB#: [id number] / [id number]
--- NOTE | 2018-03-01 17:23 | PN ---
DATE: 02/28/2018 This is a late entry 02/28/2018 covers elements not covered in my initial note. SUBJECTIVE: I met with the patient in the evening. The patient slept 6-3/4 hours previous night. He remains somewhat withdrawn. More awake during the day as compared to the day before. Took his medications. REVIEW OF SYSTEMS: Ambulation impaired, in Broda chair. No CV, , pulmonary, eye, ENT system symptoms on review. MENTAL STATUS EXAM: Oriented to himself. Insight, judgment, recent and remote memory, attention, concentration, fund of knowledge poor, consistent with his diagnosis mentioned in my initial note. IMPRESSION: Major neurocognitive disorder, possibly a Lewy body with delusion, depression, behavioral disturbance, major depressive disorder with psychotic features. Rest unchanged. PLAN: Start Seroquel 25 mg p.o. at bedtime for his mood lability. Gradually increase the Depakote. Maintain Wellbutrin, which is being increased. MAN Diony JORGE MD DR: LOVE/lilly JOB#: [id number] / [id number]
[2018-03-01] MEDS: TAMSULOSIN 0.4 MG CAP.ER.24H. PO SCH (21:32)
[2018-03-01] MEDS: QUEtiapine 25 MG TABLET. PO SCH (21:33)
[2018-03-01] MEDS: MIRTAZAPINE 7.5 MG TABLET. PO SCH (21:33)
[2018-03-01] MEDS: DIVALPROEX 125 MG CAP.SPRINK PO SCH (21:33)
[2018-03-01] MEDS: ATORVASTATIN CALCIUM 20 MG TABLET PO SCH (21:33)
--- NOTE | 2018-03-01 22:57 | PDOC ---
Exam Note: Pavel Note: Please also refer to the separate dictated note~for this date of service dictated separately.~Patient seen individually. Discussed the patient with Nursing staff reviewed the chart.~Reviewed interim history and current functioning. Reviewed vital signs,~Labs/ Radiology~and current medications noted below. Continue current treatment with the changes noted in the dictated addendum note Assessment: Vital Signs: Vital Signs Date Time Temp Pulse Resp B/P (MAP) Pulse Ox O2 Delivery O2 Flow Rate FiO2 03/01/18 16:34 98.5 72 18 130/86 (101) 97 03/01/18 06:36 Room Air I&O Intake and Output 03/01/18 07:01 Intake Total 720 ml Balance 720 ml Intake Oral 720 ml # Bowel Movements 3 Current Medications: Meds: Current Medications Acetaminophen (Tylenol) 650 mg PRN Q4HRS PRN PO PAIN / TEMP; Start 02/20/18 at 18:30 Atorvastatin Calcium (Lipitor) 20 mg QHS PO Last administered on 03/01/18at 21: 33; Start 02/20/18 at 21:00 Clopidogrel Bisulfate (Plavix) 75 mg DAILY PO Last administered on 03/01/18at 07:35; Start 02/21/18 at 09:00 Tamsulosin HCl (Flomax) 0.4 mg PRN QHS PRN PO retention; Start 02/20/18 at 18: 30; Stop 03/01/18 at 11:14; Status DC Atenolol (Tenormin) 100 mg DAILY PO Last administered on 03/01/18at 07:35; Start 02/21/18 at 09:00 Vitamin D (Vitamin D3) 2,000 unit DAILY PO Last administered on 03/01/18at 07: 36; Start 02/21/18 at 09:00 Divalproex Sodium (Depakote Sprinkles) 500 mg TID PO Last administered on 02/26at 07:53; Start 02/20/18 at 21:00; Stop 02/26/18 at 10:36; Status DC Docusate Sodium (Colace) 100 mg BID PO Last administered on 03/01/18at 21:32; Start 02/20/18 at 21:00 Lorazepam (Ativan) 1 mg PRN Q8HRS PRN PO ANXIETY / AGITATION Last administered on 02/28/18at 21:30; Start 02/20/18 at 19:00 Multi-Ingredient Ointment (Analgesic [place]) 1 devika PRN QID PRN TP MUSCLE PAIN; Start 02/20/18 at 18:45 Al Hydroxide/Mg Hydroxide (Mylanta Plus Xs) 15 ml PRN AFTMEALHC PRN PO DYSPEPSIA; Start 02/20/18 at 18:45 Magnesium Hydroxide (Milk Of Magnesia) 2,400 mg PRN QHS PRN PO CONSTIPATION; Start 02/20/18 at 18:45 Nystatin (Nystop) 1 devika BID TP Last administered on 03/01/18at 21:00; Start at 21:00 Bupropion HCl (Wellbutrin) 75 mg DAILY PO Last administered on 02/26/18at 07:53 ; Start 02/24/18 at 09:00; Stop 02/27/18 at 08:59; Status DC Bupropion HCl (Wellbutrin) 75 mg BIDACBL PO Last administered on 03/01/18at 13: 29; Start 02/27/18 at 08:00 Divalproex Sodium (Depakote Er) 1,000 mg QHS PO Last administered on at 19:46; Start 02/26/18 at 21:00; Stop 02/28/18 at 19:35; Status DC Divalproex Sodium (Depakote Sprinkles) 1,000 mg HS PO Last administered on at 21:33; Start 02/28/18 at 21:00 Quetiapine Fumarate (SEROquel) 25 mg QHS PO Last administered on 03/01/18at 21: 33; Start 03/01/18 at 21:00 Tamsulosin HCl (Flomax) 0.4 mg HS PO Last administered on 03/01/18at 21:32; Start 03/01/18 at 21:00 Mirtazapine (Remeron) 7.5 mg QHS PO Last administered on 03/01/18 21:33; Start 03/01/18 at 21:00 Active Scripts Active Reported Plavix (Clopidogrel Bisulfate) 75 Mg Tablet 75 Mg PO DAILY Lorazepam 0.5 Mg Tablet 1 Mg PO PRN Q8HRS PRN Flomax (Tamsulosin Hcl) 0.4 Mg Cap.er.24h 0.4 Mg PO HS PRN Depakote Sprinkle (Divalproex Sodium) 125 Mg Cap.sprink 500 Mg PO TID Colace (Docusate Sodium) 100 Mg Capsule 100 Mg PO BID Vitamin D (Cholecalciferol (Vitamin D3)) 1,000 Unit Capsule 2,000 Unit PO DAILY Atorvastatin Calcium 20 Mg Tablet 20 Mg PO QHS Atenolol 100 Mg Tablet 100 Mg PO DAILY Tylenol (Acetaminophen) 325 Mg Tablet 650 Mg PO PRN Q4HRS PRN I have reviewed the current psychotropics carefully including drug interactions. Risk benefit ratio favors no change other than as noted in my dictated progress note. 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
[2018-03-02 06:27] VITALS: BP 139/85
[2018-03-02 07:07] LABS: BASO # 0.1 x10^3/uL (0.0-0.2); BASO % 1 % (0-3); EOS # 0.2 x10^3/uL (0.0-0.7); EOS % 2 % (0-3); HEMATOCRIT 40.6 % (39.0-53.0); HEMOGLOBIN 13.5 g/dL (13.0-17.5); LYMPH % 26 % (24-48); MEAN CORPUSCULAR HEMOGLOBIN 32 pg (25-35); MEAN CORPUSCULAR HGB CONC 33 g/dL (31-37); MEAN CORPUSCULAR VOLUME 96 fL (79-100); MONO # 1.2 x10^3/uL (0.0-1.1); MONO % 15 % (0-9); NEUT # 4.4 x10^3uL (1.8-7.7); NEUT % 56 % (31-73); PLATELET COUNT 156 x10^3/uL (140-400); RED BLOOD COUNT 4.22 x10^6/uL (4.30-5.70); RED CELL DISTRIBUTION WIDTH 13.2 % (11.5-14.5); WHITE BLOOD COUNT 7.8 x10^3/uL (4.0-11.0)
[2018-03-02 07:31] LABS: ALBUMIN 2.8 g/dL (3.4-5.0); ALBUMIN/GLOBULIN RATIO 0.8 (1.0-1.7); ALK PHOS 56 U/L (46-116); ALT (SGPT) 32 U/L (16-63); ANION GAP 9 (6-14); AST (SGOT) 28 U/L (15-37); BLOOD UREA NITROGEN 29 mg/dL (8-26); BUN/CREATININE RATIO 24 (6-20); CALCIUM 8.6 mg/dL (8.5-10.1); CARBON DIOXIDE 28 mmol/L (21-32); CHLORIDE 110 mmol/L (98-107); CREATININE 1.2 mg/dL (0.7-1.3); GFR 59.7; GLUCOSE 79 mg/dL (70-99); POTASSIUM 3.6 mmol/L (3.5-5.1); SODIUM 147 mmol/L (136-145); TOTAL BILIRUBIN 0.3 mg/dL (0.2-1.0); TOTAL PROTEIN 6.3 g/dL (6.4-8.2)
[2018-03-02 07:32] LABS: VAL ACID 33 mcg/mL (50-100)
[2018-03-02] MEDS: ATENOLOL 50 MG TABLET PO SCH (07:44)
[2018-03-02] MEDS: CLOPIDOGREL BISULFATE 75 MG TABLET PO SCH (07:44)
[2018-03-02] MEDS: NYSTATIN TOPICAL POWDER 15GM BOTTLE. TP SCH ×2 (07:44→20:26)
[2018-03-02] MEDS: buPROPion 75 MG TABLET PO SCH ×2 (07:44→12:12)
[2018-03-02] MEDS: DOCUSATE SODIUM 100 MG CAPSULE PO SCH ×2 (07:44→20:25)
[2018-03-02] MEDS: CHOLECALCIFEROL (VITAMIN D3) 1,000 UNIT TABLET PO SCH (07:44)
[2018-03-02 16:21] VITALS: BP 109/69
--- NOTE | 2018-03-02 18:58 | PDOC ---
Exam Note: Pavel Note: Please also refer to the separate dictated note~for this date of service dictated separately.~Patient seen individually. Discussed the patient with Nursing staff reviewed the chart.~Reviewed interim history and current functioning. Reviewed vital signs,~Labs/ Radiology~and current medications noted below. Continue current treatment with the changes noted in the dictated addendum note Assessment: Vital Signs: Vital Signs Date Time Temp Pulse Resp B/P (MAP) Pulse Ox O2 Delivery O2 Flow Rate FiO2 03/02/18 16:21 98.0 64 18 109/69 (82) 97 Room Air I&O Intake and Output 03/02/18 07:01 Intake Total 1440 ml Output Total 500 ml Balance 940 ml Intake Oral 1440 ml Output Urine Total 500 ml Labs: Laboratory Tests Test 03/02/18 06:52 White Blood Count 7.8 x10^3/uL (4.0-11.0) Red Blood Count 4.22 x10^6/uL (4.30-5.70) L Hemoglobin 13.5 g/dL (13.0-17.5) Hematocrit 40.6 % (39.0-53.0) Mean Corpuscular Volume 96 fL (79-100) Mean Corpuscular Hemoglobin 32 pg (25-35) Mean Corpuscular Hemoglobin Concent 33 g/dL (31-37) Red Cell Distribution Width 13.2 % (11.5-14.5) Platelet Count 156 x10^3/uL (140-400) Neutrophils (%) (Auto) 56 % (31-73) Lymphocytes (%) (Auto) 26 % (24-48) Monocytes (%) (Auto) 15 % (0-9) H Eosinophils (%) (Auto) 2 % (0-3) Basophils (%) (Auto) 1 % (0-3) Neutrophils # (Auto) 4.4 x10^3uL (1.8-7.7) Lymphocytes # (Auto) 2.0 x10^3/uL (1.0-4.8) Monocytes # (Auto) 1.2 x10^3/uL (0.0-1.1) H Eosinophils # (Auto) 0.2 x10^3/uL (0.0-0.7) Basophils # (Auto) 0.1 x10^3/uL (0.0-0.2) Sodium Level 147 mmol/L (136-145) H Potassium Level 3.6 mmol/L (3.5-5.1) Chloride Level 110 mmol/L (98-107) H Carbon Dioxide Level 28 mmol/L (21-32) Anion Gap 9 (6-14) Blood Urea Nitrogen 29 mg/dL (8-26) H Creatinine 1.2 mg/dL (0.7-1.3) Estimated GFR (Cockcroft-Gault) 59.7 BUN/Creatinine Ratio 24 (6-20) H Glucose Level 79 mg/dL (70-99) Calcium Level 8.6 mg/dL (8.5-10.1) Total Bilirubin 0.3 mg/dL (0.2-1.0) Aspartate Amino Transferase (AST) 28 U/L (15-37) Alanine Aminotransferase (ALT) 32 U/L (16-63) Alkaline Phosphatase 56 U/L (46-116) Total Protein 6.3 g/dL (6.4-8.2) L Albumin 2.8 g/dL (3.4-5.0) L Albumin/Globulin Ratio 0.8 (1.0-1.7) L Valproic Acid Level 33 mcg/mL (50-100) L Valproic Acid Last Dose Date 03/01/18 Valproic Acid Last Dose Time 2100 Current Medications: Meds: Current Medications Acetaminophen (Tylenol) 650 mg PRN Q4HRS PRN PO PAIN / TEMP; Start 02/20/18 at 18:30 Atorvastatin Calcium (Lipitor) 20 mg QHS PO Last administered on 03/01/18at 21: 33; Start 02/20/18 at 21:00 Clopidogrel Bisulfate (Plavix) 75 mg DAILY PO Last administered on 03/02/18at 07:44; Start 02/21/18 at 09:00 Tamsulosin HCl (Flomax) 0.4 mg PRN QHS PRN PO retention; Start 02/20/18 at 18: 30; Stop 03/01/18 at 11:14; Status DC Atenolol (Tenormin) 100 mg DAILY PO Last administered on 03/02/18at 07:44; Start 02/21/18 at 09:00 Vitamin D (Vitamin D3) 2,000 unit DAILY PO Last administered on 03/02/18at 07: 44; Start 02/21/18 at 09:00 Divalproex Sodium (Depakote Sprinkles) 500 mg TID PO Last administered on 02/26at 07:53; Start 02/20/18 at 21:00; Stop 02/26/18 at 10:36; Status DC Docusate Sodium (Colace) 100 mg BID PO Last administered on 03/02/18at 07:44; Start 02/20/18 at 21:00 Lorazepam (Ativan) 1 mg PRN Q8HRS PRN PO ANXIETY / AGITATION Last administered on 02/28/18at 21:30; Start 02/20/18 at 19:00 Multi-Ingredient Ointment (Analgesic [place]) 1 devika PRN QID PRN TP MUSCLE PAIN; Start 02/20/18 at 18:45 Al Hydroxide/Mg Hydroxide (Mylanta Plus Xs) 15 ml PRN AFTMEALHC PRN PO DYSPEPSIA; Start 02/20/18 at 18:45 Magnesium Hydroxide (Milk Of Magnesia) 2,400 mg PRN QHS PRN PO CONSTIPATION; Start 02/20/18 at 18:45 Nystatin (Nystop) 1 devika BID TP Last administered on 03/01/18at 21:00; Start at 21:00 Bupropion HCl (Wellbutrin) 75 mg DAILY PO Last administered on 02/26/18at 07:53 ; Start 02/24/18 at 09:00; Stop 02/27/18 at 08:59; Status DC Bupropion HCl (Wellbutrin) 75 mg BIDACBL PO Last administered on 03/02/18at 12: 12; Start 02/27/18 at 08:00 Divalproex Sodium (Depakote Er) 1,000 mg QHS PO Last administered on at 19:46; Start 02/26/18 at 21:00; Stop 02/28/18 at 19:35; Status DC Divalproex Sodium (Depakote Sprinkles) 1,000 mg HS PO Last administered on at 21:33; Start 02/28/18 at 21:00 Quetiapine Fumarate (SEROquel) 25 mg QHS PO Last administered on 03/01/18at 21: 33; Start 12/23/18 at 21:00 Tamsulosin HCl (Flomax) 0.4 mg HS PO Last administered on 03/01/18at 21:32; Start 03/01/18 at 21:00 Mirtazapine (Remeron) 7.5 mg QHS PO Last administered on 03/01/18at 21:33; Start 03/01/18 at 21:00 Active Scripts Active Reported Plavix (Clopidogrel Bisulfate) 75 Mg Tablet 75 Mg PO DAILY Lorazepam 0.5 Mg Tablet 1 Mg PO PRN Q8HRS PRN Flomax (Tamsulosin Hcl) 0.4 Mg Cap.er.24h 0.4 Mg PO HS PRN Depakote Sprinkle (Divalproex Sodium) 125 Mg Cap.sprink 500 Mg PO TID Colace (Docusate Sodium) 100 Mg Capsule 100 Mg PO BID Vitamin D (Cholecalciferol (Vitamin D3)) 1,000 Unit Capsule 2,000 Unit PO DAILY Atorvastatin Calcium 20 Mg Tablet 20 Mg PO QHS Atenolol 100 Mg Tablet 100 Mg PO DAILY Tylenol (Acetaminophen) 325 Mg Tablet 650 Mg PO PRN Q4HRS PRN I have reviewed the current psychotropics carefully including drug interactions. Risk benefit ratio favors no change other than as noted in my dictated progress note. 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
[2018-03-02] MEDS: QUEtiapine 25 MG TABLET. PO SCH (20:25)
[2018-03-02] MEDS: MIRTAZAPINE 7.5 MG TABLET. PO SCH (20:25)
[2018-03-02] MEDS: ATORVASTATIN CALCIUM 20 MG TABLET PO SCH (20:25)
[2018-03-02] MEDS: TAMSULOSIN 0.4 MG CAP.ER.24H. PO SCH (20:26)
[2018-03-02] MEDS: DIVALPROEX 125 MG CAP.SPRINK PO SCH (20:26)
[2018-03-03 06:11] VITALS: BP 121/77
[2018-03-03] MEDS: DOCUSATE SODIUM 100 MG CAPSULE PO SCH ×2 (07:35→18:50)
[2018-03-03] MEDS: CLOPIDOGREL BISULFATE 75 MG TABLET PO SCH (07:35)
[2018-03-03] MEDS: CHOLECALCIFEROL (VITAMIN D3) 1,000 UNIT TABLET PO SCH (07:36)
[2018-03-03] MEDS: ATENOLOL 50 MG TABLET PO SCH (07:36)
[2018-03-03] MEDS: buPROPion 75 MG TABLET PO SCH ×2 (07:36→13:48)
[2018-03-03] MEDS: NYSTATIN TOPICAL POWDER 15GM BOTTLE. TP SCH ×2 (07:37→18:50)
[2018-03-03 16:49] VITALS: BP 98/58
[2018-03-03] MEDS: LORazepam 1 MG TABLET PO PRN (17:50)
[2018-03-03] MEDS: ATORVASTATIN CALCIUM 20 MG TABLET PO SCH (18:50)
[2018-03-03] MEDS: QUEtiapine 25 MG TABLET. PO SCH (18:50)
[2018-03-03] MEDS: MIRTAZAPINE 7.5 MG TABLET. PO SCH (18:50)
[2018-03-03] MEDS: DIVALPROEX 125 MG CAP.SPRINK PO SCH (18:50)
[2018-03-03] MEDS: TAMSULOSIN 0.4 MG CAP.ER.24H. PO SCH (18:50)
--- NOTE | 2018-03-03 19:05 | PDOC ---
Exam Note: Pavel Note: Please also refer to the separate dictated note~for this date of service dictated separately.~Patient seen individually. Discussed the patient with Nursing staff reviewed the chart.~Reviewed interim history and current functioning. Reviewed vital signs,~Labs/ Radiology~and current medications noted below. Continue current treatment with the changes noted in the dictated addendum note Assessment: Vital Signs: Vital Signs Date Time Temp Pulse Resp B/P (MAP) Pulse Ox O2 Delivery O2 Flow Rate FiO2 03/03/18 16:49 98.0 92 18 98/58 (71) 95 03/03/18 06:11 Room Air I&O Intake and Output 03/03/18 07:01 Intake Total 1200 ml Output Total 300 ml Balance 900 ml Intake Oral 1200 ml Output Urine Total 300 ml Current Medications: Meds: Current Medications Acetaminophen (Tylenol) 650 mg PRN Q4HRS PRN PO PAIN / TEMP; Start 02/20/18 at 18:30 Atorvastatin Calcium (Lipitor) 20 mg QHS PO Last administered on 03/03/18at 18: 50; Start 02/20/18 at 21:00 Clopidogrel Bisulfate (Plavix) 75 mg DAILY PO Last administered on 03/03/18at 07:35; Start 02/21/18 at 09:00 Tamsulosin HCl (Flomax) 0.4 mg PRN QHS PRN PO retention; Start 02/20/18 at 18: 30; Stop 03/01/18 at 11:14; Status DC Atenolol (Tenormin) 100 mg DAILY PO Last administered on 03/03/18 07:36; Start 02/21/18 at 09:00 Vitamin D (Vitamin D3) 2,000 unit DAILY PO Last administered on 03/03/18at 07: 36; Start 02/21/18 at 09:00 Divalproex Sodium (Depakote Sprinkles) 500 mg TID PO Last administered on 02/26at 07:53; Start 02/20/18 at 21:00; Stop 02/26/18 at 10:36; Status DC Docusate Sodium (Colace) 100 mg BID PO Last administered on 03/03/18at 18:50; Start 02/20/18 at 21:00 Lorazepam (Ativan) 1 mg PRN Q8HRS PRN PO ANXIETY / AGITATION Last administered on 03/03/18 17:50; Start 02/20/18 at 19:00 Multi-Ingredient Ointment (Analgesic [place]) 1 devika PRN QID PRN TP MUSCLE PAIN; Start 02/20/18 at 18:45 Al Hydroxide/Mg Hydroxide (Mylanta Plus Xs) 15 ml PRN AFTMEALHC PRN PO DYSPEPSIA; Start 02/20/18 at 18:45 Magnesium Hydroxide (Milk Of Magnesia) 2,400 mg PRN QHS PRN PO CONSTIPATION; Start 02/20/18 at 18:45 Nystatin (Nystop) 1 devika BID TP Last administered on 03/03/18 18:50; Start at 21:00 Bupropion HCl (Wellbutrin) 75 mg DAILY PO Last administered on 02/26/18at 07:53 ; Start 02/24/18 at 09:00; Stop 02/27/18 at 08:59; Status DC Bupropion HCl (Wellbutrin) 75 mg BIDACBL PO Last administered on 03/03/18at 13: 48; Start 02/27/18 at 08:00 Divalproex Sodium (Depakote Er) 1,000 mg QHS PO Last administered on at 19:46; Start 02/26/18 at 21:00; Stop 02/28/18 at 19:35; Status DC Divalproex Sodium (Depakote Sprinkles) 1,000 mg HS PO Last administered on at 18:50; Start 02/28/18 at 21:00 Quetiapine Fumarate (SEROquel) 25 mg QHS PO Last administered on 03/03/18at 18: 50; Start 03/01/18 at 21:00 Tamsulosin HCl (Flomax) 0.4 mg HS PO Last administered on 03/02/18at 20:26; Start 03/01/18 at 21:00; Stop 03/03/18 at 12:25; Status DC Mirtazapine (Remeron) 7.5 mg QHS PO Last administered on 03/03/18at 18:50; Start 03/01/18 at 21:00 Tamsulosin HCl (Flomax) 0.4 mg BID PO Last administered on 03/03/18at 18:50; Start 03/03/18 at 21:00 Active Scripts Active Reported Plavix (Clopidogrel Bisulfate) 75 Mg Tablet 75 Mg PO DAILY Lorazepam 0.5 Mg Tablet 1 Mg PO PRN Q8HRS PRN Flomax (Tamsulosin Hcl) 0.4 Mg Cap.er.24h 0.4 Mg PO HS PRN Depakote Sprinkle (Divalproex Sodium) 125 Mg Cap.sprink 500 Mg PO TID Colace (Docusate Sodium) 100 Mg Capsule 100 Mg PO BID Vitamin D (Cholecalciferol (Vitamin D3)) 1,000 Unit Capsule 2,000 Unit PO DAILY Atorvastatin Calcium 20 Mg Tablet 20 Mg PO QHS Atenolol 100 Mg Tablet 100 Mg PO DAILY Tylenol (Acetaminophen) 325 Mg Tablet 650 Mg PO PRN Q4HRS PRN I have reviewed the current psychotropics carefully including drug interactions. Risk benefit ratio favors no change other than as noted in my dictated progress note. 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
--- NOTE | 2018-03-03 19:24 | PN ---
DATE: 03/01/2018 PSYCHIATRIC PROGRESS NOTE This late entry 03/01/2018 covers elements not covered in my initial note. SUBJECTIVE: I met with the patient in the evening. The patient slept just half hour previous night and he was combative at night, received Ativan by syringe. REVIEW OF SYSTEMS: No CV, , pulmonary, eye system symptoms on review. Ambulation impaired, in Broda chair. MENTAL STATUS EXAM: Oriented to himself. Insight, judgment, recent and remote memory, attention, concentration, fund of knowledge poor, consistent with his diagnosis. IMPRESSION: Major neurocognitive disorder, multifactorial, Alzheimer, vascular, possibly Lewy body with delusion, depression, behavioral disturbance; anxiety disorder, unspecified; impulse control disorder, unspecified. PLAN: Start Remeron 7.5 mg p.o. at bedtime. Continue Depakote, Ativan p.r.n., Wellbutrin, Seroquel for now. CANDELARIA JORGE MD DR: LOVE/lilly JOB#: [id number] / [id number]
--- NOTE | 2018-03-03 19:41 | PN ---
DATE: 03/02/2018 This is a late entry 03/02/2018 covers elements not covered in my initial note. SUBJECTIVE: I met with the patient in the evening. The patient slept 5-1/2 hours previous night, which is quite an improvement from the night before. He slept just half an hour. Remeron seems to be helping this. He remains confused, somewhat labile at times, but less so than before. REVIEW OF SYSTEMS: Ambulation impaired, in broda chair. No CV, , pulmonary, eye, ENT system symptoms on review. Reliability poor. MENTAL STATUS EXAM: Oriented to himself. Insight, judgment, recent and remote memory, attention, concentration, fund of knowledge poor, consistent with his diagnosis. IMPRESSION: Major neurocognitive disorder, Alzheimer, vascular, possibly Lewy body with delusion, depression, behavioral disturbance; anxiety disorder, unspecified. Rest unchanged. PLAN: No change from initial note. MAN Diony JORGE MD DR: LOVE/lilly JOB#: [id number] / [id number]
[2018-03-04 05:45] VITALS: BP 153/81
[2018-03-04] MEDS: buPROPion 75 MG TABLET PO SCH ×2 (08:01→11:48)
[2018-03-04] MEDS: CHOLECALCIFEROL (VITAMIN D3) 1,000 UNIT TABLET PO SCH (08:01)
[2018-03-04] MEDS: CLOPIDOGREL BISULFATE 75 MG TABLET PO SCH (08:01)
[2018-03-04] MEDS: ATENOLOL 50 MG TABLET PO SCH (08:02)
[2018-03-04] MEDS: DOCUSATE SODIUM 100 MG CAPSULE PO SCH ×2 (08:02→19:34)
[2018-03-04] MEDS: TAMSULOSIN 0.4 MG CAP.ER.24H. PO SCH ×2 (08:04→19:34)
[2018-03-04] MEDS: NYSTATIN TOPICAL POWDER 15GM BOTTLE. TP SCH ×2 (08:04→19:44)
[2018-03-04 16:50] VITALS: BP 108/69
[2018-03-04 19:26] LABS: VAL ACID 38 mcg/mL (50-100)
[2018-03-04] MEDS: MIRTAZAPINE 7.5 MG TABLET. PO SCH (19:33)
[2018-03-04] MEDS: QUEtiapine 25 MG TABLET. PO SCH (19:33)
[2018-03-04] MEDS: ATORVASTATIN CALCIUM 20 MG TABLET PO SCH (19:33)
[2018-03-04] MEDS: DIVALPROEX ER 500 MG TAB.ER.24H PO SCH (19:44)
[2018-03-04] MEDS: AMOXICILLIN 250 MG CAPSULE PO SCH (19:44)
--- NOTE | 2018-03-04 22:50 | PDOC ---
Exam Note: Pavel Note: Please also refer to the separate dictated note~for this date of service dictated separately.~Patient seen individually. Discussed the patient with Nursing staff reviewed the chart.~Reviewed interim history and current functioning. Reviewed vital signs,~Labs/ Radiology~and current medications noted below. Continue current treatment with the changes noted in the dictated addendum note Assessment: Vital Signs: Vital Signs Date Time Temp Pulse Resp B/P (MAP) Pulse Ox O2 Delivery O2 Flow Rate FiO2 03/04/18 16:50 98.6 64 16 108/69 (82) 98 03/04/18 05:45 Room Air I&O Intake and Output 03/04/18 07:01 Intake Total 1280 ml Balance 1280 ml Intake Oral 1280 ml Labs: Laboratory Tests Test 03/04/18 18:45 Valproic Acid Level 38 mcg/mL (50-100) L Valproic Acid Last Dose Date 03/03/18 Valproic Acid Last Dose Time 2100 Current Medications: Meds: Current Medications Acetaminophen (Tylenol) 650 mg PRN Q4HRS PRN PO PAIN / TEMP; Start 02/20/18 at 18:30 Atorvastatin Calcium (Lipitor) 20 mg QHS PO Last administered on 03/04/18at 19: 33; Start 02/20/18 at 21:00 Clopidogrel Bisulfate (Plavix) 75 mg DAILY PO Last administered on 03/04/18at 08:01; Start 02/21/18 at 09:00 Tamsulosin HCl (Flomax) 0.4 mg PRN QHS PRN PO retention; Start 02/20/18 at 18: 30; Stop 03/01/18 at 11:14; Status DC Atenolol (Tenormin) 100 mg DAILY PO Last administered on 03/04/18at 08:02; Start 02/21/18 at 09:00 Vitamin D (Vitamin D3) 2,000 unit DAILY PO Last administered on 03/04/18at 08: 01; Start 02/21/18 at 09:00 Divalproex Sodium (Depakote Sprinkles) 500 mg TID PO Last administered on 02/26at 07:53; Start 02/20/18 at 21:00; Stop 02/26/18 at 10:36; Status DC Docusate Sodium (Colace) 100 mg BID PO Last administered on 03/04/18at 19:34; Start 02/20/18 at 21:00 Lorazepam (Ativan) 1 mg PRN Q8HRS PRN PO ANXIETY / AGITATION Last administered on 03/03/18 17:50; Start 02/20/18 at 19:00 Multi-Ingredient Ointment (Analgesic [place]) 1 devika PRN QID PRN TP MUSCLE PAIN; Start 02/20/18 at 18:45 Al Hydroxide/Mg Hydroxide (Mylanta Plus Xs) 15 ml PRN AFTMEALHC PRN PO DYSPEPSIA; Start 02/20/18 at 18:45 Magnesium Hydroxide (Milk Of Magnesia) 2,400 mg PRN QHS PRN PO CONSTIPATION; Start 02/20/18 at 18:45 Nystatin (Nystop) 1 devika BID TP Last administered on 03/04/18at 19:44; Start at 21:00 Bupropion HCl (Wellbutrin) 75 mg DAILY PO Last administered on 02/26/18 07:53 ; Start 02/24/18 at 09:00; Stop 02/27/18 at 08:59; Status DC Bupropion HCl (Wellbutrin) 75 mg BIDACBL PO Last administered on 03/04/18at 11: 48; Start 02/27/18 at 08:00 Divalproex Sodium (Depakote Er) 1,000 mg QHS PO Last administered on at 19:46; Start 02/26/18 at 21:00; Stop 02/28/18 at 19:35; Status DC Divalproex Sodium (Depakote Sprinkles) 1,000 mg HS PO Last administered on at 18:50; Start 02/28/18 at 21:00; Stop 03/04/18 at 18:24; Status DC Quetiapine Fumarate (SEROquel) 25 mg QHS PO Last administered on 03/04/18at 19: 33; Start 03/01/18 at 21:00 Tamsulosin HCl (Flomax) 0.4 mg HS PO Last administered on 03/02/18at 20:26; Start 03/01/18 at 21:00; Stop 03/03/18 at 12:25; Status DC Mirtazapine (Remeron) 7.5 mg QHS PO Last administered on 03/04/18 19:33; Start 03/01/18 at 21:00 Tamsulosin HCl (Flomax) 0.4 mg BID PO Last administered on 03/04/18 19:34; Start 03/03/18 at 21:00 Amoxicillin (Amoxil) 500 mg [id number] PO Last administered on 03/04/18 19:44; Start 03/04/18 at 21:00; Stop 03/11/20 at 20:59 Divalproex Sodium (Depakote Er) 500 mg BID PO Last administered on 03/04/18 19:44; Start 03/04/18 at 21:00 Active Scripts Active Reported Plavix (Clopidogrel Bisulfate) 75 Mg Tablet 75 Mg PO DAILY Lorazepam 0.5 Mg Tablet 1 Mg PO PRN Q8HRS PRN Flomax (Tamsulosin Hcl) 0.4 Mg Cap.er.24h 0.4 Mg PO HS PRN Depakote Sprinkle (Divalproex Sodium) 125 Mg Cap.sprink 500 Mg PO TID Colace (Docusate Sodium) 100 Mg Capsule 100 Mg PO BID Vitamin D (Cholecalciferol (Vitamin D3)) 1,000 Unit Capsule 2,000 Unit PO DAILY Atorvastatin Calcium 20 Mg Tablet 20 Mg PO QHS Atenolol 100 Mg Tablet 100 Mg PO DAILY Tylenol (Acetaminophen) 325 Mg Tablet 650 Mg PO PRN Q4HRS PRN I have reviewed the current psychotropics carefully including drug interactions. Risk benefit ratio favors no change other than as noted in my dictated progress note. 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
--- NOTE | 2018-03-05 01:10 | PN ---
DATE: 03/03/2018 PSYCHIATRIC PROGRESS NOTE This late entry 03/03/2018 covers elements not covered in my initial note. SUBJECTIVE: I met with the patient in the evening. The patient slept 6 hours previous night. He remains confused in a Broda chair. No CV, , pulmonary, eye, ENT system symptoms on review. He has been restless at times, more compliant. Pires has been removed. MENTAL STATUS EXAM: Oriented to himself. Insight, judgment, recent and remote memory, attention, concentration, fund of knowledge poor, consistent with his diagnosis mentioned in my initial note. IMPRESSION: Major neurocognitive disorder, Alzheimer, vascular, possibly Lewy body with delusion, depression, behavioral disturbance. Rest unchanged. PLAN: No change from initial note. MAN Diony JORGE MD DR: LOVE/lilly JOB#: [id number] / [id number]
[2018-03-05 05:53] VITALS: BP 130/67
[2018-03-05] MEDS: AMOXICILLIN 250 MG CAPSULE PO SCH ×3 (08:08→19:43)
[2018-03-05] MEDS: CLOPIDOGREL BISULFATE 75 MG TABLET PO SCH (08:08)
[2018-03-05] MEDS: DOCUSATE SODIUM 100 MG CAPSULE PO SCH ×2 (08:09→19:43)
[2018-03-05] MEDS: ATENOLOL 50 MG TABLET PO SCH (08:09)
[2018-03-05] MEDS: DIVALPROEX ER 500 MG TAB.ER.24H PO SCH ×2 (08:09→19:44)
[2018-03-05] MEDS: CHOLECALCIFEROL (VITAMIN D3) 1,000 UNIT TABLET PO SCH (08:09)
[2018-03-05] MEDS: buPROPion 75 MG TABLET PO SCH ×2 (08:09→11:37)
[2018-03-05] MEDS: TAMSULOSIN 0.4 MG CAP.ER.24H. PO SCH ×2 (08:10→19:44)
[2018-03-05] MEDS: NYSTATIN TOPICAL POWDER 15GM BOTTLE. TP SCH ×2 (08:10→20:38)
[2018-03-05 16:12] VITALS: BP 123/77
[2018-03-05] MEDS: QUEtiapine 25 MG TABLET. PO SCH (19:43)
[2018-03-05] MEDS: ATORVASTATIN CALCIUM 20 MG TABLET PO SCH (19:43)
[2018-03-05] MEDS: MIRTAZAPINE 7.5 MG TABLET. PO SCH (19:44)
[2018-03-05] MEDS: LACTOBACILLUS RHAMNOSUS GG 1 CAPSULE. PO SCH (19:52)
--- NOTE | 2018-03-05 22:47 | PDOC ---
Exam Note: Pavel Note: Please also refer to the separate dictated note~for this date of service dictated separately.~Patient seen individually. Discussed the patient with Nursing staff reviewed the chart.~Reviewed interim history and current functioning. Reviewed vital signs,~Labs/ Radiology~and current medications noted below. Continue current treatment with the changes noted in the dictated addendum note Assessment: Vital Signs: Vital Signs Date Time Temp Pulse Resp B/P (MAP) Pulse Ox O2 Delivery O2 Flow Rate FiO2 03/05/18 16:12 97.2 63 16 123/77 (92) 98 03/04/18 05:45 Room Air I&O Intake and Output 03/05/18 07:01 Intake Total 1440 ml Output Total 500 ml Balance 940 ml Intake Oral 1440 ml Output Urine Total 500 ml Current Medications: Meds: Current Medications Acetaminophen (Tylenol) 650 mg PRN Q4HRS PRN PO PAIN / TEMP; Start 02/20/18 at 18:30 Atorvastatin Calcium (Lipitor) 20 mg QHS PO Last administered on 03/05/18at 19: 43; Start 02/20/18 at 21:00 Clopidogrel Bisulfate (Plavix) 75 mg DAILY PO Last administered on 03/05/18at 08:08; Start 02/21/18 at 09:00 Tamsulosin HCl (Flomax) 0.4 mg PRN QHS PRN PO retention; Start 02/20/18 at 18: 30; Stop 03/01/18 at 11:14; Status DC Atenolol (Tenormin) 100 mg DAILY PO Last administered on 03/05/18at 08:09; Start 02/21/18 at 09:00 Vitamin D (Vitamin D3) 2,000 unit DAILY PO Last administered on 03/05/18at 08: 09; Start 02/21/18 at 09:00 Divalproex Sodium (Depakote Sprinkles) 500 mg TID PO Last administered on 02/26at 07:53; Start 02/20/18 at 21:00; Stop 02/26/18 at 10:36; Status DC Docusate Sodium (Colace) 100 mg BID PO Last administered on 03/05/18at 19:43; Start 02/20/18 at 21:00 Lorazepam (Ativan) 1 mg PRN Q8HRS PRN PO ANXIETY / AGITATION Last administered on 03/03/18at 17:50; Start 02/20/18 at 19:00 Multi-Ingredient Ointment (Analgesic [place]) 1 devika PRN QID PRN TP MUSCLE PAIN; Start 02/20/18 at 18:45 Al Hydroxide/Mg Hydroxide (Mylanta Plus Xs) 15 ml PRN AFTMEALHC PRN PO DYSPEPSIA; Start 02/20/18 at 18:45 Magnesium Hydroxide (Milk Of Magnesia) 2,400 mg PRN QHS PRN PO CONSTIPATION; Start 02/20/18 at 18:45 Nystatin (Nystop) 1 devika BID TP Last administered on 03/05/18at 20:38; Start at 21:00 Bupropion HCl (Wellbutrin) 75 mg DAILY PO Last administered on 02/26/18 07:53 ; Start 02/24/18 at 09:00; Stop 02/27/18 at 08:59; Status DC Bupropion HCl (Wellbutrin) 75 mg BIDACBL PO Last administered on 03/05/18at 11: 37; Start 02/27/18 at 08:00 Divalproex Sodium (Depakote Er) 1,000 mg QHS PO Last administered on at 19:46; Start 02/26/18 at 21:00; Stop 02/28/18 at 19:35; Status DC Divalproex Sodium (Depakote Sprinkles) 1,000 mg HS PO Last administered on at 18:50; Start 02/28/18 at 21:00; Stop 03/04/18 at 18:24; Status DC Quetiapine Fumarate (SEROquel) 25 mg QHS PO Last administered on 03/05/18at 19: 43; Start 03/01/18 at 21:00 Tamsulosin HCl (Flomax) 0.4 mg HS PO Last administered on 03/02/18at 20:26; Start 03/01/18 at 21:00; Stop 03/03/18 at 12:25; Status DC Mirtazapine (Remeron) 7.5 mg QHS PO Last administered on 03/05/18at 19:44; Start 03/01/18 at 21:00 Tamsulosin HCl (Flomax) 0.4 mg BID PO Last administered on 03/05/18 19:44; Start 03/03/18 at 21:00 Amoxicillin (Amoxil) 500 mg [id number] PO Last administered on 03/05/18 19:43; Start 03/04/18 at 21:00; Stop 03/11/20 at 20:59 Divalproex Sodium (Depakote Er) 500 mg BID PO Last administered on 03/05/18 19:44; Start 03/04/18 at 21:00; Stop 03/05/18 at 23:00 Lactobacillus Rhamnosus (Culturelle) 1 cap BID PO Last administered on 19:52; Start 03/05/18 at 21:00 Divalproex Sodium (Depakote Er) 1,000 mg QHS PO ; Start 03/06/18 at 21:00 Active Scripts Active Reported Plavix (Clopidogrel Bisulfate) 75 Mg Tablet 75 Mg PO DAILY Lorazepam 0.5 Mg Tablet 1 Mg PO PRN Q8HRS PRN Flomax (Tamsulosin Hcl) 0.4 Mg Cap.er.24h 0.4 Mg PO HS PRN Depakote Sprinkle (Divalproex Sodium) 125 Mg Cap.sprink 500 Mg PO TID Colace (Docusate Sodium) 100 Mg Capsule 100 Mg PO BID Vitamin D (Cholecalciferol (Vitamin D3)) 1,000 Unit Capsule 2,000 Unit PO DAILY Atorvastatin Calcium 20 Mg Tablet 20 Mg PO QHS Atenolol 100 Mg Tablet 100 Mg PO DAILY Tylenol (Acetaminophen) 325 Mg Tablet 650 Mg PO PRN Q4HRS PRN I have reviewed the current psychotropics carefully including drug interactions. Risk benefit ratio favors no change other than as noted in my dictated progress note. 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
[2018-03-06 06:06] VITALS: BP 137/66
[2018-03-06] MEDS: TAMSULOSIN 0.4 MG CAP.ER.24H. PO SCH ×2 (08:09→19:45)
[2018-03-06] MEDS: AMOXICILLIN 250 MG CAPSULE PO SCH ×3 (08:09→19:44)
[2018-03-06] MEDS: ATENOLOL 50 MG TABLET PO SCH (08:09)
[2018-03-06] MEDS: CHOLECALCIFEROL (VITAMIN D3) 1,000 UNIT TABLET PO SCH (08:09)
[2018-03-06] MEDS: CLOPIDOGREL BISULFATE 75 MG TABLET PO SCH (08:09)
--- NOTE | 2018-03-06 08:09 | PDOC ---
Exam Note: Pavel Note: S/O: This is a late entry of 03/04/2018. This note covers elements not covered in my initial note. Met with the patient in the evening. The patient slept five and half hours previous night. He has been calm, compliant, confused , agitated the previous night while the of another patient was visiting that patient. ROS: Ambulation impaired in Broda chair. No CV, , Eye, ENT, pulmonary system symptoms on review. Reliability poor. MSE: Oriented to himself. Insight and judgment, recent and remote memory, attention and concentration, fund of knowledge poor consistent with his diagnosis. Plan: He is currently on Depakote Sprinkle 1000 mg h.s. We will change to 500 mg twice a day. Check CBC, CMP, valproic acid level in three days, rest unchanged from initial note. Assessment: Vital Signs: Vital Signs Date Time Temp Pulse Resp B/P (MAP) Pulse Ox O2 Delivery O2 Flow Rate FiO2 03/06/18 06:06 97.3 70 22 137/66 (89) 98 03/04/18 05:45 Room Air I&O Intake and Output 03/06/18 07:01 Intake Total 750 ml Output Total 400 ml Balance 350 ml Intake Oral 750 ml Output Urine Total 400 ml Current Medications: Meds: Current Medications Acetaminophen (Tylenol) 650 mg PRN Q4HRS PRN PO PAIN / TEMP; Start 02/20/18 at 18:30 Atorvastatin Calcium (Lipitor) 20 mg QHS PO Last administered on 03/05/18at 19: 43; Start 02/20/18 at 21:00 Clopidogrel Bisulfate (Plavix) 75 mg DAILY PO Last administered on 03/05/18at 08:08; Start 02/21/18 at 09:00 Tamsulosin HCl (Flomax) 0.4 mg PRN QHS PRN PO retention; Start 02/20/18 at 18: 30; Stop 03/01/18 at 11:14; Status DC Atenolol (Tenormin) 100 mg DAILY PO Last administered on 03/05/18at 08:09; Start 02/21/18 at 09:00 Vitamin D (Vitamin D3) 2,000 unit DAILY PO Last administered on 03/05/18at 08: 09; Start 02/21/18 at 09:00 Divalproex Sodium (Depakote Sprinkles) 500 mg TID PO Last administered on 02/26 07:53; Start 02/20/18 at 21:00; Stop 02/26/18 at 10:36; Status DC Docusate Sodium (Colace) 100 mg BID PO Last administered on 03/05/18 19:43; Start 02/20/18 at 21:00 Lorazepam (Ativan) 1 mg PRN Q8HRS PRN PO ANXIETY / AGITATION Last administered on 03/03/18at 17:50; Start 02/20/18 at 19:00 Multi-Ingredient Ointment (Analgesic [place]) 1 devika PRN QID PRN TP MUSCLE PAIN; Start 02/20/18 at 18:45 Al Hydroxide/Mg Hydroxide (Mylanta Plus Xs) 15 ml PRN AFTMEALHC PRN PO DYSPEPSIA; Start 02/20/18 at 18:45 Magnesium Hydroxide (Milk Of Magnesia) 2,400 mg PRN QHS PRN PO CONSTIPATION; Start 02/20/18 at 18:45 Nystatin (Nystop) 1 devika BID TP Last administered on 03/05/18at 20:38; Start at 21:00 Bupropion HCl (Wellbutrin) 75 mg DAILY PO Last administered on 02/26/18at 07:53 ; Start 02/24/18 at 09:00; Stop 02/27/18 at 08:59; Status DC Bupropion HCl (Wellbutrin) 75 mg BIDACBL PO Last administered on 03/05/18at 11: 37; Start 02/27/18 at 08:00 Divalproex Sodium (Depakote Er) 1,000 mg QHS PO Last administered on at 19:46; Start 02/26/18 at 21:00; Stop 02/28/18 at 19:35; Status DC Divalproex Sodium (Depakote Sprinkles) 1,000 mg HS PO Last administered on at 18:50; Start 02/28/18 at 21:00; Stop 03/04/18 at 18:24; Status DC Quetiapine Fumarate (SEROquel) 25 mg QHS PO Last administered on 03/05/18at 19: 43; Start 03/01/18 at 21:00 Tamsulosin HCl (Flomax) 0.4 mg HS PO Last administered on 03/02/18at 20:26; Start 03/01/18 at 21:00; Stop 03/03/18 at 12:25; Status DC Mirtazapine (Remeron) 7.5 mg QHS PO Last administered on 03/05/18at 19:44; Start 03/01/18 at 21:00 Tamsulosin HCl (Flomax) 0.4 mg BID PO Last administered on 03/05/18 19:44; Start 03/03/18 at 21:00 Amoxicillin (Amoxil) 500 mg [id number] PO Last administered on 03/05/18 19:43; Start 03/04/18 at 21:00; Stop 03/11/20 at 20:59 Divalproex Sodium (Depakote Er) 500 mg BID PO Last administered on 03/05/18 19:44; Start 03/04/18 at 21:00; Stop 03/05/18 at 23:00; Status DC Lactobacillus Rhamnosus (Culturelle) 1 cap BID PO Last administered on at 19:52; Start 03/05/18 at 21:00 Divalproex Sodium (Depakote Er) 1,000 mg QHS PO ; Start 03/06/18 at 21:00 Active Scripts Active Reported Plavix (Clopidogrel Bisulfate) 75 Mg Tablet 75 Mg PO DAILY Lorazepam 0.5 Mg Tablet 1 Mg PO PRN Q8HRS PRN Flomax (Tamsulosin Hcl) 0.4 Mg Cap.er.24h 0.4 Mg PO HS PRN Depakote Sprinkle (Divalproex Sodium) 125 Mg Cap.sprink 500 Mg PO TID Colace (Docusate Sodium) 100 Mg Capsule 100 Mg PO BID Vitamin D (Cholecalciferol (Vitamin D3)) 1,000 Unit Capsule 2,000 Unit PO DAILY Atorvastatin Calcium 20 Mg Tablet 20 Mg PO QHS Atenolol 100 Mg Tablet 100 Mg PO DAILY Tylenol (Acetaminophen) 325 Mg Tablet 650 Mg PO PRN Q4HRS PRN I have reviewed the current psychotropics carefully including drug interactions. Risk benefit ratio favors no change other than as noted in my dictated progress note. 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
[2018-03-06] MEDS: NYSTATIN TOPICAL POWDER 15GM BOTTLE. TP SCH ×2 (08:10→19:45)
[2018-03-06] MEDS: buPROPion 75 MG TABLET PO SCH ×2 (08:10→14:00)
[2018-03-06] MEDS: DOCUSATE SODIUM 100 MG CAPSULE PO SCH ×2 (08:10→19:45)
[2018-03-06] MEDS: LACTOBACILLUS RHAMNOSUS GG 1 CAPSULE. PO SCH ×2 (08:10→19:44)
[2018-03-06 09:29] LABS: BASO # 0.1 x10^3/uL (0.0-0.2); BASO % 1 % (0-3); EOS # 0.3 x10^3/uL (0.0-0.7); EOS % 4 % (0-3); HEMATOCRIT 33.9 % (39.0-53.0); HEMOGLOBIN 11.6 g/dL (13.0-17.5); LYMPH # 1.6 x10^3/uL (1.0-4.8); LYMPH % 22 % (24-48); MEAN CORPUSCULAR HEMOGLOBIN 33 pg (25-35); MEAN CORPUSCULAR HGB CONC 34 g/dL (31-37); MEAN CORPUSCULAR VOLUME 97 fL (79-100); MONO # 0.9 x10^3/uL (0.0-1.1); MONO % 12 % (0-9); NEUT # 4.4 x10^3uL (1.8-7.7); NEUT % 61 % (31-73); PLATELET COUNT 123 x10^3/uL (140-400); RED CELL DISTRIBUTION WIDTH 13.3 % (11.5-14.5); WHITE BLOOD COUNT 7.2 x10^3/uL (4.0-11.0)
[2018-03-06 09:40] LABS: ALBUMIN 2.4 g/dL (3.4-5.0); ALBUMIN/GLOBULIN RATIO 0.8 (1.0-1.7); CALCIUM 8.1 mg/dL (8.5-10.1); GFR 73.7; POTASSIUM 3.6 mmol/L (3.5-5.1); TOTAL BILIRUBIN 0.4 mg/dL (0.2-1.0); TOTAL PROTEIN 5.5 g/dL (6.4-8.2)
[2018-03-06 09:46] LABS: VAL ACID 42 mcg/mL (50-100)
[2018-03-06 16:43] VITALS: BP 124/77
[2018-03-06] MEDS: ATORVASTATIN CALCIUM 20 MG TABLET PO SCH (19:45)
[2018-03-06] MEDS: MIRTAZAPINE 7.5 MG TABLET. PO SCH (19:45)
[2018-03-06] MEDS: QUEtiapine 25 MG TABLET. PO SCH (19:45)
[2018-03-06] MEDS: DIVALPROEX ER 500 MG TAB.ER.24H PO SCH (19:47)
--- NOTE | 2018-03-06 22:56 | PDOC ---
Exam Note: Pavel Note: Please also refer to the separate dictated note~for this date of service dictated separately.~Patient seen individually. Discussed the patient with Nursing staff reviewed the chart.~Reviewed interim history and current functioning. Reviewed vital signs,~Labs/ Radiology~and current medications noted below. Continue current treatment with the changes noted in the dictated addendum note Assessment: Vital Signs: Vital Signs Date Time Temp Pulse Resp B/P (MAP) Pulse Ox O2 Delivery O2 Flow Rate FiO2 03/06/18 16:43 98.6 81 20 124/77 (93) 99 Room Air I&O Intake and Output 03/06/18 07:01 Intake Total 750 ml Output Total 400 ml Balance 350 ml Intake Oral 750 ml Output Urine Total 400 ml Labs: Laboratory Tests Test 03/06/18 09:15 White Blood Count 7.2 x10^3/uL (4.0-11.0) Red Blood Count 3.50 x10^6/uL (4.30-5.70) L Hemoglobin 11.6 g/dL (13.0-17.5) L Hematocrit 33.9 % (39.0-53.0) L Mean Corpuscular Volume 97 fL (79-100) Mean Corpuscular Hemoglobin 33 pg (25-35) Mean Corpuscular Hemoglobin Concent 34 g/dL (31-37) Red Cell Distribution Width 13.3 % (11.5-14.5) Platelet Count 123 x10^3/uL (140-400) L Neutrophils (%) (Auto) 61 % (31-73) Lymphocytes (%) (Auto) 22 % (24-48) L Monocytes (%) (Auto) 12 % (0-9) H Eosinophils (%) (Auto) 4 % (0-3) H Basophils (%) (Auto) 1 % (0-3) Neutrophils # (Auto) 4.4 x10^3uL (1.8-7.7) Lymphocytes # (Auto) 1.6 x10^3/uL (1.0-4.8) Monocytes # (Auto) 0.9 x10^3/uL (0.0-1.1) Eosinophils # (Auto) 0.3 x10^3/uL (0.0-0.7) Basophils # (Auto) 0.1 x10^3/uL (0.0-0.2) Sodium Level 144 mmol/L (136-145) Potassium Level 3.6 mmol/L (3.5-5.1) Chloride Level 110 mmol/L (98-107) H Carbon Dioxide Level 27 mmol/L (21-32) Anion Gap 7 (6-14) Blood Urea Nitrogen 21 mg/dL (8-26) Creatinine 1.0 mg/dL (0.7-1.3) Estimated GFR (Cockcroft-Gault) 73.7 BUN/Creatinine Ratio 21 (6-20) H Glucose Level 88 mg/dL (70-99) Calcium Level 8.1 mg/dL (8.5-10.1) L Total Bilirubin 0.4 mg/dL (0.2-1.0) Aspartate Amino Transferase (AST) 17 U/L (15-37) Alanine Aminotransferase (ALT) 25 U/L (16-63) Alkaline Phosphatase 50 U/L (46-116) Total Protein 5.5 g/dL (6.4-8.2) L Albumin 2.4 g/dL (3.4-5.0) L Albumin/Globulin Ratio 0.8 (1.0-1.7) L Valproic Acid Level 42 mcg/mL (50-100) L Valproic Acid Last Dose Date [id number] Valproic Acid Last Dose Time 2100 Current Medications: Meds: Current Medications Acetaminophen (Tylenol) 650 mg PRN Q4HRS PRN PO PAIN / TEMP; Start 02/20/18 at 18:30 Atorvastatin Calcium (Lipitor) 20 mg QHS PO Last administered on 03/06/18at 19: 45; Start 02/20/18 at 21:00 Clopidogrel Bisulfate (Plavix) 75 mg DAILY PO Last administered on 03/06/18at 08:09; Start 02/21/18 at 09:00 Tamsulosin HCl (Flomax) 0.4 mg PRN QHS PRN PO retention; Start 02/20/18 at 18: 30; Stop 03/01/18 at 11:14; Status DC Atenolol (Tenormin) 100 mg DAILY PO Last administered on 03/06/18at 08:09; Start 02/21/18 at 09:00 Vitamin D (Vitamin D3) 2,000 unit DAILY PO Last administered on 03/06/18at 08: 09; Start 02/21/18 at 09:00 Divalproex Sodium (Depakote Sprinkles) 500 mg TID PO Last administered on 02/26 07:53; Start 02/20/18 at 21:00; Stop 02/26/18 at 10:36; Status DC Docusate Sodium (Colace) 100 mg BID PO Last administered on 03/06/18 19:45; Start 02/20/18 at 21:00 Lorazepam (Ativan) 1 mg PRN Q8HRS PRN PO ANXIETY / AGITATION Last administered on 03/03/18at 17:50; Start 02/20/18 at 19:00 Multi-Ingredient Ointment (Analgesic [place]) 1 devika PRN QID PRN TP MUSCLE PAIN; Start 02/20/18 at 18:45 Al Hydroxide/Mg Hydroxide (Mylanta Plus Xs) 15 ml PRN AFTMEALHC PRN PO DYSPEPSIA; Start 02/20/18 at 18:45 Magnesium Hydroxide (Milk Of Magnesia) 2,400 mg PRN QHS PRN PO CONSTIPATION; Start 02/20/18 at 18:45 Nystatin (Nystop) 1 devika BID TP Last administered on 03/06/18 19:45; Start at 21:00 Bupropion HCl (Wellbutrin) 75 mg DAILY PO Last administered on 02/26/18 07:53 ; Start 02/24/18 at 09:00; Stop 02/27/18 at 08:59; Status DC Bupropion HCl (Wellbutrin) 75 mg BIDACBL PO Last administered on 03/06/18at 08: 10; Start 02/27/18 at 08:00 Divalproex Sodium (Depakote Er) 1,000 mg QHS PO Last administered on at 19:46; Start 02/26/18 at 21:00; Stop 02/28/18 at 19:35; Status DC Divalproex Sodium (Depakote Sprinkles) 1,000 mg HS PO Last administered on 18:50; Start 02/28/18 at 21:00; Stop 03/04/18 at 18:24; Status DC Quetiapine Fumarate (SEROquel) 25 mg QHS PO Last administered on 03/06/18 19: 45; Start 03/01/18 at 21:00 Tamsulosin HCl (Flomax) 0.4 mg HS PO Last administered on 03/02/18 20:26; Start 03/01/18 at 21:00; Stop 03/03/18 at 12:25; Status DC Mirtazapine (Remeron) 7.5 mg QHS PO Last administered on 03/06/18 19:45; Start 03/01/18 at 21:00 Tamsulosin HCl (Flomax) 0.4 mg BID PO Last administered on 03/06/18 19:45; Start 03/03/18 at 21:00 Amoxicillin (Amoxil) 500 mg [id number] PO Last administered on 03/06/18 19:44; Start 03/04/18 at 21:00; Stop 03/11/20 at 20:59 Divalproex Sodium (Depakote Er) 500 mg BID PO Last administered on 03/05/18 19:44; Start 03/04/18 at 21:00; Stop 03/05/18 at 23:00; Status DC Lactobacillus Rhamnosus (Culturelle) 1 cap BID PO Last administered on 19:44; Start 03/05/18 at 21:00 Divalproex Sodium (Depakote Er) 1,000 mg QHS PO Last administered on 19:47; Start 03/06/18 at 21:00 Active Scripts Active Reported Plavix (Clopidogrel Bisulfate) 75 Mg Tablet 75 Mg PO DAILY Lorazepam 0.5 Mg Tablet 1 Mg PO PRN Q8HRS PRN Flomax (Tamsulosin Hcl) 0.4 Mg Cap.er.24h 0.4 Mg PO HS PRN Depakote Sprinkle (Divalproex Sodium) 125 Mg Cap.sprink 500 Mg PO TID Colace (Docusate Sodium) 100 Mg Capsule 100 Mg PO BID Vitamin D (Cholecalciferol (Vitamin D3)) 1,000 Unit Capsule 2,000 Unit PO DAILY Atorvastatin Calcium 20 Mg Tablet 20 Mg PO QHS Atenolol 100 Mg Tablet 100 Mg PO DAILY Tylenol (Acetaminophen) 325 Mg Tablet 650 Mg PO PRN Q4HRS PRN I have reviewed the current psychotropics carefully including drug interactions. Risk benefit ratio favors no change other than as noted in my dictated progress note. 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
[2018-03-07 05:46] VITALS: BP 129/79
--- NOTE | 2018-03-07 07:37 | PN ---
DATE: 03/05/2018 PSYCHIATRIC PROGRESS NOTE This late entry 03/05/2018 covers elements not covered in my initial note. SUBJECTIVE: I met with the patient in the evening. The patient slept 3-3/4 hours previous night. He was restless at night. During the day on 03/05/2018, he has not been aggressive, somewhat drowsy, and we will change the Depakote ER 500 mg twice a day back to 1 g p.o. at bedtime to help with daytime sedation. REVIEW OF SYSTEMS: Ambulation impaired, in Broda chair. No CV, , pulmonary, eye, ENT system symptoms on review. Reliability poor. MENTAL STATUS EXAM: Oriented to himself. Insight, judgment, recent and remote memory, attention, concentration, fund of knowledge poor, consistent with his diagnosis. IMPRESSION: Major neurocognitive disorder, possibly Lewy body with delusion, depression, behavioral disturbance; anxiety disorder, unspecified. Rest unchanged. PLAN: As noted above, Depakote will be changed. Rest unchanged from initial note. MAN Diony JORGE MD DR: LOVE/lilly JOB#: [id number] / [id number]
[2018-03-07] MEDS: AMOXICILLIN 250 MG CAPSULE PO SCH ×3 (08:13→20:01)
[2018-03-07] MEDS: ATENOLOL 50 MG TABLET PO SCH (08:13)
[2018-03-07] MEDS: CLOPIDOGREL BISULFATE 75 MG TABLET PO SCH (08:14)
[2018-03-07] MEDS: CHOLECALCIFEROL (VITAMIN D3) 1,000 UNIT TABLET PO SCH (08:14)
[2018-03-07] MEDS: buPROPion 75 MG TABLET PO SCH ×2 (08:14→14:23)
[2018-03-07] MEDS: TAMSULOSIN 0.4 MG CAP.ER.24H. PO SCH ×2 (08:14→20:01)
[2018-03-07] MEDS: DOCUSATE SODIUM 100 MG CAPSULE PO SCH ×2 (08:14→20:01)
[2018-03-07] MEDS: LACTOBACILLUS RHAMNOSUS GG 1 CAPSULE. PO SCH ×2 (08:14→20:02)
[2018-03-07] MEDS: NYSTATIN TOPICAL POWDER 15GM BOTTLE. TP SCH ×2 (08:14→20:02)
[2018-03-07] MEDS: LORazepam 1 MG TABLET PO PRN ×2 (09:55→17:12)
[2018-03-07 15:49] VITALS: BP 107/69
[2018-03-07] MEDS: ATORVASTATIN CALCIUM 20 MG TABLET PO SCH (20:01)
[2018-03-07] MEDS: MIRTAZAPINE 7.5 MG TABLET. PO SCH (20:01)
[2018-03-07] MEDS: QUEtiapine 25 MG TABLET. PO SCH (20:01)
[2018-03-07] MEDS: DIVALPROEX ER 500 MG TAB.ER.24H PO SCH (20:02)
--- NOTE | 2018-03-07 22:06 | PDOC ---
Exam Note: Pavel Note: Please also refer to the separate dictated note~for this date of service dictated separately.~Patient seen individually. Discussed the patient with Nursing staff reviewed the chart.~Reviewed interim history and current functioning. Reviewed vital signs,~Labs/ Radiology~and current medications noted below. Continue current treatment with the changes noted in the dictated addendum note Assessment: Vital Signs: Vital Signs Date Time Temp Pulse Resp B/P (MAP) Pulse Ox O2 Delivery O2 Flow Rate FiO2 03/07/18 15:49 97.6 76 19 107/69 (82) 99 Room Air I&O Intake and Output 03/07/18 07:01 Intake Total 480 ml Output Total 950 ml Balance -470 ml Intake Oral 480 ml Output Urine Total 950 ml # Bowel Movements 1 Current Medications: Meds: Current Medications Acetaminophen (Tylenol) 650 mg PRN Q4HRS PRN PO PAIN / TEMP; Start 02/20/18 at 18:30 Atorvastatin Calcium (Lipitor) 20 mg QHS PO Last administered on 03/07/18at 20: 01; Start 02/20/18 at 21:00 Clopidogrel Bisulfate (Plavix) 75 mg DAILY PO Last administered on 03/07/18at 08:14; Start 02/21/18 at 09:00 Tamsulosin HCl (Flomax) 0.4 mg PRN QHS PRN PO retention; Start 02/20/18 at 18: 30; Stop 03/01/18 at 11:14; Status DC Atenolol (Tenormin) 100 mg DAILY PO Last administered on 03/07/18at 08:13; Start 02/21/18 at 09:00 Vitamin D (Vitamin D3) 2,000 unit DAILY PO Last administered on 03/07/18at 08: 14; Start 02/21/18 at 09:00 Divalproex Sodium (Depakote Sprinkles) 500 mg TID PO Last administered on 02/26at 07:53; Start 02/20/18 at 21:00; Stop 02/26/18 at 10:36; Status DC Docusate Sodium (Colace) 100 mg BID PO Last administered on 03/07/18at 20:01; Start 02/20/18 at 21:00 Lorazepam (Ativan) 1 mg PRN Q8HRS PRN PO ANXIETY / AGITATION Last administered on 03/07/18 17:12; Start 02/20/18 at 19:00 Multi-Ingredient Ointment (Analgesic [place]) 1 devika PRN QID PRN TP MUSCLE PAIN; Start 02/20/18 at 18:45 Al Hydroxide/Mg Hydroxide (Mylanta Plus Xs) 15 ml PRN AFTMEALHC PRN PO DYSPEPSIA Last administered on 03/07/18 09:56; Start 02/20/18 at 18:45 Magnesium Hydroxide (Milk Of Magnesia) 2,400 mg PRN QHS PRN PO CONSTIPATION; Start 02/20/18 at 18:45 Nystatin (Nystop) 1 devika BID TP Last administered on 03/07/18 20:02; Start at 21:00 Bupropion HCl (Wellbutrin) 75 mg DAILY PO Last administered on 02/26/18 07:53 ; Start 02/24/18 at 09:00; Stop 02/27/18 at 08:59; Status DC Bupropion HCl (Wellbutrin) 75 mg BIDACBL PO Last administered on 03/07/18 14: 23; Start 02/27/18 at 08:00 Divalproex Sodium (Depakote Er) 1,000 mg QHS PO Last administered on at 19:46; Start 02/26/18 at 21:00; Stop 02/28/18 at 19:35; Status DC Divalproex Sodium (Depakote Sprinkles) 1,000 mg HS PO Last administered on at 18:50; Start 02/28/18 at 21:00; Stop 03/04/18 at 18:24; Status DC Quetiapine Fumarate (SEROquel) 25 mg QHS PO Last administered on 03/07/18 20: 01; Start 03/01/18 at 21:00 Tamsulosin HCl (Flomax) 0.4 mg HS PO Last administered on 03/02/18at 20:26; Start 03/01/18 at 21:00; Stop 03/03/18 at 12:25; Status DC Mirtazapine (Remeron) 7.5 mg QHS PO Last administered on 03/07/18at 20:01; Start 03/01/18 at 21:00 Tamsulosin HCl (Flomax) 0.4 mg BID PO Last administered on 03/07/18 20:01; Start 03/03/18 at 21:00 Amoxicillin (Amoxil) 500 mg [id number] PO Last administered on 03/07/18 20:01; Start 03/04/18 at 21:00; Stop 03/11/20 at 20:59 Divalproex Sodium (Depakote Er) 500 mg BID PO Last administered on 03/05/18 19:44; Start 03/04/18 at 21:00; Stop 03/05/18 at 23:00; Status DC Lactobacillus Rhamnosus (Culturelle) 1 cap BID PO Last administered on 20:02; Start 03/05/18 at 21:00 Divalproex Sodium (Depakote Er) 1,000 mg QHS PO Last administered on 20:02; Start 03/06/18 at 21:00 Active Scripts Active Reported Plavix (Clopidogrel Bisulfate) 75 Mg Tablet 75 Mg PO DAILY Lorazepam 0.5 Mg Tablet 1 Mg PO PRN Q8HRS PRN Flomax (Tamsulosin Hcl) 0.4 Mg Cap.er.24h 0.4 Mg PO HS PRN Depakote Sprinkle (Divalproex Sodium) 125 Mg Cap.sprink 500 Mg PO TID Colace (Docusate Sodium) 100 Mg Capsule 100 Mg PO BID Vitamin D (Cholecalciferol (Vitamin D3)) 1,000 Unit Capsule 2,000 Unit PO DAILY Atorvastatin Calcium 20 Mg Tablet 20 Mg PO QHS Atenolol 100 Mg Tablet 100 Mg PO DAILY Tylenol (Acetaminophen) 325 Mg Tablet 650 Mg PO PRN Q4HRS PRN I have reviewed the current psychotropics carefully including drug interactions. Risk benefit ratio favors no change other than as noted in my dictated progress note. 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
[2018-03-08 06:32] VITALS: BP 104/70
[2018-03-08] MEDS: buPROPion 75 MG TABLET PO SCH ×2 (08:35→12:13)
[2018-03-08] MEDS: AMOXICILLIN 250 MG CAPSULE PO SCH ×3 (08:35→19:35)
[2018-03-08] MEDS: LACTOBACILLUS RHAMNOSUS GG 1 CAPSULE. PO SCH ×2 (08:36→19:35)
[2018-03-08] MEDS: DOCUSATE SODIUM 100 MG CAPSULE PO SCH ×2 (08:36→19:36)
[2018-03-08] MEDS: CLOPIDOGREL BISULFATE 75 MG TABLET PO SCH (08:36)
[2018-03-08] MEDS: TAMSULOSIN 0.4 MG CAP.ER.24H. PO SCH ×2 (08:36→19:35)
[2018-03-08] MEDS: ATENOLOL 50 MG TABLET PO SCH ×2 (08:37→19:36)
[2018-03-08] MEDS: NYSTATIN TOPICAL POWDER 15GM BOTTLE. TP SCH ×2 (08:38→19:37)
[2018-03-08] MEDS: CHOLECALCIFEROL (VITAMIN D3) 1,000 UNIT TABLET PO SCH (08:39)
[2018-03-08 16:15] VITALS: BP 110/69
[2018-03-08] MEDS: ATORVASTATIN CALCIUM 20 MG TABLET PO SCH (19:35)
[2018-03-08] MEDS: DIVALPROEX ER 500 MG TAB.ER.24H PO SCH (19:35)
[2018-03-08] MEDS: MIRTAZAPINE 7.5 MG TABLET. PO SCH (19:35)
[2018-03-08] MEDS: QUEtiapine 25 MG TABLET. PO SCH (19:36)
--- NOTE | 2018-03-08 23:17 | PDOC ---
Exam Note: Pavel Note: Please also refer to the separate dictated note~for this date of service dictated separately.~Patient seen individually. Discussed the patient with Nursing staff reviewed the chart.~Reviewed interim history and current functioning. Reviewed vital signs,~Labs/ Radiology~and current medications noted below. Continue current treatment with the changes noted in the dictated addendum note Assessment: Vital Signs: Vital Signs Date Time Temp Pulse Resp B/P (MAP) Pulse Ox O2 Delivery O2 Flow Rate FiO2 03/08/18 19:36 70 110/69 03/08/18 16:15 98.2 17 98 03/07/18 15:49 Room Air I&O Intake and Output 03/08/18 07:01 Intake Total 1445 ml Output Total 1800 ml Balance -355 ml Intake Oral 1445 ml Output Urine Total 1800 ml # Bowel Movements 2 Current Medications: Meds: Current Medications Acetaminophen (Tylenol) 650 mg PRN Q4HRS PRN PO PAIN / TEMP; Start 02/20/18 at 18:30 Atorvastatin Calcium (Lipitor) 20 mg QHS PO Last administered on 03/08/18at 19: 35; Start 02/20/18 at 21:00 Clopidogrel Bisulfate (Plavix) 75 mg DAILY PO Last administered on 03/08/18 08:36; Start 02/21/18 at 09:00 Tamsulosin HCl (Flomax) 0.4 mg PRN QHS PRN PO retention; Start 02/20/18 at 18: 30; Stop 03/01/18 at 11:14; Status DC Atenolol (Tenormin) 100 mg DAILY PO Last administered on 03/08/18 19:36; Start 02/21/18 at 09:00 Vitamin D (Vitamin D3) 2,000 unit DAILY PO Last administered on 03/08/18 08: 39; Start 02/21/18 at 09:00 Divalproex Sodium (Depakote Sprinkles) 500 mg TID PO Last administered on 02/26at 07:53; Start 02/20/18 at 21:00; Stop 02/26/18 at 10:36; Status DC Docusate Sodium (Colace) 100 mg BID PO Last administered on 03/08/18 19:36; Start 02/20/18 at 21:00 Lorazepam (Ativan) 1 mg PRN Q8HRS PRN PO ANXIETY / AGITATION Last administered on 03/07/18 17:12; Start 02/20/18 at 19:00 Multi-Ingredient Ointment (Analgesic [place]) 1 devika PRN QID PRN TP MUSCLE PAIN; Start 02/20/18 at 18:45 Al Hydroxide/Mg Hydroxide (Mylanta Plus Xs) 15 ml PRN AFTMEALHC PRN PO DYSPEPSIA Last administered on 03/07/18 09:56; Start 02/20/18 at 18:45 Magnesium Hydroxide (Milk Of Magnesia) 2,400 mg PRN QHS PRN PO CONSTIPATION; Start 02/20/18 at 18:45 Nystatin (Nystop) 1 devika BID TP Last administered on 03/08/18 19:37; Start at 21:00 Bupropion HCl (Wellbutrin) 75 mg DAILY PO Last administered on 02/26/18 07:53 ; Start 02/24/18 at 09:00; Stop 02/27/18 at 08:59; Status DC Bupropion HCl (Wellbutrin) 75 mg BIDACBL PO Last administered on 03/08/18at 12: 13; Start 02/27/18 at 08:00 Divalproex Sodium (Depakote Er) 1,000 mg QHS PO Last administered on at 19:46; Start 02/26/18 at 21:00; Stop 02/28/18 at 19:35; Status DC Divalproex Sodium (Depakote Sprinkles) 1,000 mg HS PO Last administered on at 18:50; Start 02/28/18 at 21:00; Stop 03/04/18 at 18:24; Status DC Quetiapine Fumarate (SEROquel) 25 mg QHS PO Last administered on 03/08/18at 19: 36; Start 03/01/18 at 21:00 Tamsulosin HCl (Flomax) 0.4 mg HS PO Last administered on 03/02/18at 20:26; Start 03/01/18 at 21:00; Stop 03/03/18 at 12:25; Status DC Mirtazapine (Remeron) 7.5 mg QHS PO Last administered on 03/08/18at 19:35; Start 03/01/18 at 21:00 Tamsulosin HCl (Flomax) 0.4 mg BID PO Last administered on 03/08/18 19:35; Start 03/03/18 at 21:00 Amoxicillin (Amoxil) 500 mg [id number] PO Last administered on 03/08/18 19:35; Start 03/04/18 at 21:00; Stop 03/11/20 at 20:59 Divalproex Sodium (Depakote Er) 500 mg BID PO Last administered on 03/05/18 19:44; Start 03/04/18 at 21:00; Stop 03/05/18 at 23:00; Status DC Lactobacillus Rhamnosus (Culturelle) 1 cap BID PO Last administered on 19:35; Start 03/05/18 at 21:00 Divalproex Sodium (Depakote Er) 1,000 mg QHS PO Last administered on 19:35; Start 03/06/18 at 21:00 Active Scripts Active Reported Plavix (Clopidogrel Bisulfate) 75 Mg Tablet 75 Mg PO DAILY Lorazepam 0.5 Mg Tablet 1 Mg PO PRN Q8HRS PRN Flomax (Tamsulosin Hcl) 0.4 Mg Cap.er.24h 0.4 Mg PO HS PRN Depakote Sprinkle (Divalproex Sodium) 125 Mg Cap.sprink 500 Mg PO TID Colace (Docusate Sodium) 100 Mg Capsule 100 Mg PO BID Vitamin D (Cholecalciferol (Vitamin D3)) 1,000 Unit Capsule 2,000 Unit PO DAILY Atorvastatin Calcium 20 Mg Tablet 20 Mg PO QHS Atenolol 100 Mg Tablet 100 Mg PO DAILY Tylenol (Acetaminophen) 325 Mg Tablet 650 Mg PO PRN Q4HRS PRN I have reviewed the current psychotropics carefully including drug interactions. Risk benefit ratio favors no change other than as noted in my dictated progress note. 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
[2018-03-09 05:48] VITALS: BP 141/83
[2018-03-09] MEDS: buPROPion 75 MG TABLET PO SCH ×2 (07:44→12:35)
[2018-03-09] MEDS: AMOXICILLIN 250 MG CAPSULE PO SCH ×3 (07:44→19:52)
[2018-03-09] MEDS: TAMSULOSIN 0.4 MG CAP.ER.24H. PO SCH ×2 (07:45→19:52)
[2018-03-09] MEDS: CLOPIDOGREL BISULFATE 75 MG TABLET PO SCH (07:45)
[2018-03-09] MEDS: CHOLECALCIFEROL (VITAMIN D3) 1,000 UNIT TABLET PO SCH (07:45)
[2018-03-09] MEDS: LACTOBACILLUS RHAMNOSUS GG 1 CAPSULE. PO SCH ×2 (07:45→19:52)
[2018-03-09] MEDS: DOCUSATE SODIUM 100 MG CAPSULE PO SCH ×2 (07:45→19:52)
[2018-03-09] MEDS: NYSTATIN TOPICAL POWDER 15GM BOTTLE. TP SCH ×2 (07:45→19:53)
[2018-03-09 16:55] VITALS: BP 106/65
[2018-03-09] MEDS: DIVALPROEX ER 500 MG TAB.ER.24H PO SCH (19:52)
[2018-03-09] MEDS: ATORVASTATIN CALCIUM 20 MG TABLET PO SCH (19:52)
[2018-03-09] MEDS: MIRTAZAPINE 7.5 MG TABLET. PO SCH (19:52)
[2018-03-09] MEDS: QUEtiapine 25 MG TABLET. PO SCH (19:52)
--- NOTE | 2018-03-09 22:50 | PDOC ---
Exam Note: Pavel Note: Please also refer to the separate dictated note~for this date of service dictated separately.~Patient seen individually. Discussed the patient with Nursing staff reviewed the chart.~Reviewed interim history and current functioning. Reviewed vital signs,~Labs/ Radiology~and current medications noted below. Continue current treatment with the changes noted in the dictated addendum note Assessment: Vital Signs: Vital Signs Date Time Temp Pulse Resp B/P (MAP) Pulse Ox O2 Delivery O2 Flow Rate FiO2 03/09/18 16:55 98.6 65 18 106/65 (79) 95 03/07/18 15:49 Room Air I&O Intake and Output 03/09/18 07:01 Intake Total 940 ml Output Total 600 ml Balance 340 ml Intake Oral 940 ml Output Urine Total 600 ml # Bowel Movements 1 Current Medications: Meds: Current Medications Acetaminophen (Tylenol) 650 mg PRN Q4HRS PRN PO PAIN / TEMP; Start 02/20/18 at 18:30 Atorvastatin Calcium (Lipitor) 20 mg QHS PO Last administered on 03/09/18at 19: 52; Start 02/20/18 at 21:00 Clopidogrel Bisulfate (Plavix) 75 mg DAILY PO Last administered on 03/09/18at 07:45; Start 02/21/18 at 09:00 Tamsulosin HCl (Flomax) 0.4 mg PRN QHS PRN PO retention; Start 02/20/18 at 18: 30; Stop 03/01/18 at 11:14; Status DC Atenolol (Tenormin) 100 mg DAILY PO Last administered on 03/08/18at 19:36; Start 02/21/18 at 09:00 Vitamin D (Vitamin D3) 2,000 unit DAILY PO Last administered on 03/09/18at 07: 45; Start 02/21/18 at 09:00 Divalproex Sodium (Depakote Sprinkles) 500 mg TID PO Last administered on 02/26at 07:53; Start 02/20/18 at 21:00; Stop 02/26/18 at 10:36; Status DC Docusate Sodium (Colace) 100 mg BID PO Last administered on 03/09/18at 19:52; Start 02/20/18 at 21:00 Lorazepam (Ativan) 1 mg PRN Q8HRS PRN PO ANXIETY / AGITATION Last administered on 03/07/18 17:12; Start 02/20/18 at 19:00 Multi-Ingredient Ointment (Analgesic [place]) 1 devika PRN QID PRN TP MUSCLE PAIN; Start 02/20/18 at 18:45 Al Hydroxide/Mg Hydroxide (Mylanta Plus Xs) 15 ml PRN AFTMEALHC PRN PO DYSPEPSIA Last administered on 03/07/18 09:56; Start 02/20/18 at 18:45 Magnesium Hydroxide (Milk Of Magnesia) 2,400 mg PRN QHS PRN PO CONSTIPATION; Start 02/20/18 at 18:45 Nystatin (Nystop) 1 devika BID TP Last administered on 03/09/18 19:53; Start at 21:00 Bupropion HCl (Wellbutrin) 75 mg DAILY PO Last administered on 02/26/18 07:53 ; Start 02/24/18 at 09:00; Stop 02/27/18 at 08:59; Status DC Bupropion HCl (Wellbutrin) 75 mg BIDACBL PO Last administered on 03/09/18at 12: 35; Start 02/27/18 at 08:00 Divalproex Sodium (Depakote Er) 1,000 mg QHS PO Last administered on at 19:46; Start 02/26/18 at 21:00; Stop 02/28/18 at 19:35; Status DC Divalproex Sodium (Depakote Sprinkles) 1,000 mg HS PO Last administered on at 18:50; Start 02/28/18 at 21:00; Stop 03/04/18 at 18:24; Status DC Quetiapine Fumarate (SEROquel) 25 mg QHS PO Last administered on 03/09/18at 19: 52; Start 03/01/18 at 21:00 Tamsulosin HCl (Flomax) 0.4 mg HS PO Last administered on 03/02/18at 20:26; Start 03/01/18 at 21:00; Stop 03/03/18 at 12:25; Status DC Mirtazapine (Remeron) 7.5 mg QHS PO Last administered on 03/09/18at 19:52; Start 03/01/18 at 21:00 Tamsulosin HCl (Flomax) 0.4 mg BID PO Last administered on 03/09/18 19:52; Start 03/03/18 at 21:00 Amoxicillin (Amoxil) 500 mg [id number] PO Last administered on 03/09/18 19:52; Start 03/04/18 at 21:00; Stop 03/11/20 at 20:59 Divalproex Sodium (Depakote Er) 500 mg BID PO Last administered on 03/05/18 19:44; Start 03/04/18 at 21:00; Stop 03/05/18 at 23:00; Status DC Lactobacillus Rhamnosus (Culturelle) 1 cap BID PO Last administered on 19:52; Start 03/05/18 at 21:00 Divalproex Sodium (Depakote Er) 1,000 mg QHS PO Last administered on 19:52; Start 03/06/18 at 21:00 Active Scripts Active Reported Plavix (Clopidogrel Bisulfate) 75 Mg Tablet 75 Mg PO DAILY Lorazepam 0.5 Mg Tablet 1 Mg PO PRN Q8HRS PRN Flomax (Tamsulosin Hcl) 0.4 Mg Cap.er.24h 0.4 Mg PO HS PRN Depakote Sprinkle (Divalproex Sodium) 125 Mg Cap.sprink 500 Mg PO TID Colace (Docusate Sodium) 100 Mg Capsule 100 Mg PO BID Vitamin D (Cholecalciferol (Vitamin D3)) 1,000 Unit Capsule 2,000 Unit PO DAILY Atorvastatin Calcium 20 Mg Tablet 20 Mg PO QHS Atenolol 100 Mg Tablet 100 Mg PO DAILY Tylenol (Acetaminophen) 325 Mg Tablet 650 Mg PO PRN Q4HRS PRN I have reviewed the current psychotropics carefully including drug interactions. Risk benefit ratio favors no change other than as noted in my dictated progress note. 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
--- NOTE | 2018-03-10 02:37 | PN ---
DATE: 03/07/2018 This late entry 03/07/2018 covers elements not covered in my initial note. SUBJECTIVE: I met with the patient in the evening. The patient slept 5 hours previous night. He has not been aggressive, a little restless, but if he has walked, he does much better, compliant with medications. REVIEW OF SYSTEMS: Ambulation impaired, in Broda chair. No CV, , pulmonary, eye, ENT system symptoms on review. Reliability varies. MENTAL STATUS EXAM: Oriented to himself. Insight, judgment, recent and remote memory, attention, concentration, fund of knowledge poor, consistent with his diagnosis. At other times, he is much more oriented, consistent with his Lewy body dementia. IMPRESSION: Major neurocognitive disorder, Lewy body with delusion, depression, behavioral disturbance. Rest unchanged. PLAN: No change from initial note. MAN Diony JORGE MD DR: LOVE/lilly JOB#: [id number] / [id number]
--- NOTE | 2018-03-10 02:51 | PN ---
DATE: 03/08/2018 PSYCHIATRIC PROGRESS NOTE This is a late entry of 03/08/2018 covers elements not covered in my initial note. SUBJECTIVE: I met with the patient in the evening. The patient slept 8-1/2 hours previous evening. He was agitated in the evening, somewhat anxious, restless, more confused at sometimes than others consistent with his Lewy body diagnosis. REVIEW OF SYSTEMS: Ambulation impaired, in Broda chair. No CV, , pulmonary, eye, ENT system symptoms on review. Reliability varies. MENTAL STATUS EXAM: Oriented to himself. Insight, judgment, recent and remote memory, attention, concentration, fund of knowledge poor, consistent with his diagnosis mentioned in my initial note. PLAN: No change from initial note. MAN Diony JORGE MD DR: LOVE/lilly JOB#: [id number] / [id number]
--- NOTE | 2018-03-10 03:06 | PN ---
DATE: 03/06/2018 PSYCHIATRIC PROGRESS NOTE This late entry 03/06/2018 covers elements not covered in my initial note. SUBJECTIVE: I met with the patient in the evening and staffed at a treatment team meeting with the entire team earlier in the day and the patient's , Roxanne and daughter Julianne attended the conference. We reviewed the patient's history at length. He has been somewhat restless, more so in the evening. Valproic acid level is 42. Urine was somewhat dark, course of Amoxil will complete on March 11. REVIEW OF SYSTEMS: Ambulation impaired, in Broda chair. No CV, , pulmonary, eye, ENT system symptoms on review. Reliability poor. MENTAL STATUS EXAM: Oriented to himself and situation. Speech, often responses monosyllabic. Abstraction fair, computation impaired, language function intact. Attention span short. At times, he seems much more oriented than other times, consistent with his diagnosis of possible Lewy body dementia. LABORATORY DATA: Reviewed. IMPRESSION: Major neurocognitive disorder, Lewy body with delusion, depression, behavioral disturbance; anxiety disorder, unspecified; impulse control disorder, unspecified. PLAN: Continue psychotropics from initial note. Wellbutrin, Depakote along with Seroquel and Remeron. CANDELARIA JORGE MD DR: LOVE/lilly JOB#: [id number] / [id number]
[2018-03-10 06:09] VITALS: BP 162/80
[2018-03-10] MEDS: CHOLECALCIFEROL (VITAMIN D3) 1,000 UNIT TABLET PO SCH (07:50)
[2018-03-10] MEDS: LACTOBACILLUS RHAMNOSUS GG 1 CAPSULE. PO SCH ×2 (07:50→19:28)
[2018-03-10] MEDS: AMOXICILLIN 250 MG CAPSULE PO SCH ×3 (07:51→19:28)
[2018-03-10] MEDS: NYSTATIN TOPICAL POWDER 15GM BOTTLE. TP SCH (07:51)
[2018-03-10] MEDS: DOCUSATE SODIUM 100 MG CAPSULE PO SCH ×2 (07:51→19:28)
[2018-03-10] MEDS: buPROPion 75 MG TABLET PO SCH ×2 (07:51→12:18)
[2018-03-10] MEDS: ATENOLOL 50 MG TABLET PO SCH (07:51)
[2018-03-10] MEDS: TAMSULOSIN 0.4 MG CAP.ER.24H. PO SCH ×2 (07:51→19:28)
[2018-03-10] MEDS: CLOPIDOGREL BISULFATE 75 MG TABLET PO SCH (07:51)
[2018-03-10 16:33] VITALS: BP 118/64
[2018-03-10] MEDS: LORazepam 1 MG TABLET PO PRN (19:28)
[2018-03-10] MEDS: MIRTAZAPINE 7.5 MG TABLET. PO SCH (19:28)
[2018-03-10] MEDS: ATORVASTATIN CALCIUM 20 MG TABLET PO SCH (19:28)
[2018-03-10] MEDS: DIVALPROEX ER 500 MG TAB.ER.24H PO SCH (19:28)
[2018-03-10] MEDS: QUEtiapine 25 MG TABLET. PO SCH (19:28)
--- NOTE | 2018-03-10 23:00 | PDOC ---
Exam Note: Pavel Note: Please also refer to the separate dictated note~for this date of service dictated separately.~Patient seen individually. Discussed the patient with Nursing staff reviewed the chart.~Reviewed interim history and current functioning. Reviewed vital signs,~Labs/ Radiology~and current medications noted below. Continue current treatment with the changes noted in the dictated addendum note Assessment: Vital Signs: Vital Signs Date Time Temp Pulse Resp B/P (MAP) Pulse Ox O2 Delivery O2 Flow Rate FiO2 03/10/18 16:33 98.6 68 20 118/64 (82) 100 03/07/18 15:49 Room Air I&O Intake and Output 03/10/18 07:01 Intake Total 1200 ml Output Total 1175 ml Balance 25 ml Intake Oral 1200 ml Output Urine Total 1175 ml # Voids 1 # Bowel Movements 1 Current Medications: Meds: Current Medications Acetaminophen (Tylenol) 650 mg PRN Q4HRS PRN PO PAIN / TEMP; Start 02/20/18 at 18:30 Atorvastatin Calcium (Lipitor) 20 mg QHS PO Last administered on 03/10/18 19:28 ; Start 02/20/18 at 21:00 Clopidogrel Bisulfate (Plavix) 75 mg DAILY PO Last administered on 03/10/18 07: 51; Start 02/21/18 at 09:00 Tamsulosin HCl (Flomax) 0.4 mg PRN QHS PRN PO retention; Start 02/20/18 at 18: 30; Stop 03/01/18 at 11:14; Status DC Atenolol (Tenormin) 100 mg DAILY PO Last administered on 03/10/18 07:51; Start 02/21/18 at 09:00 Vitamin D (Vitamin D3) 2,000 unit DAILY PO Last administered on 03/10/18 07:50 ; Start 02/21/18 at 09:00 Divalproex Sodium (Depakote Sprinkles) 500 mg TID PO Last administered on 02/26at 07:53; Start 02/20/18 at 21:00; Stop 02/26/18 at 10:36; Status DC Docusate Sodium (Colace) 100 mg BID PO Last administered on 03/10/18 19:28; Start 02/20/18 at 21:00 Lorazepam (Ativan) 1 mg PRN Q8HRS PRN PO ANXIETY / AGITATION Last administered on 03/10/18 19:28; Start 02/20/18 at 19:00 Multi-Ingredient Ointment (Analgesic [place]) 1 devika PRN QID PRN TP MUSCLE PAIN; Start 02/20/18 at 18:45 Al Hydroxide/Mg Hydroxide (Mylanta Plus Xs) 15 ml PRN AFTMEALHC PRN PO DYSPEPSIA Last administered on 03/07/18at 09:56; Start 02/20/18 at 18:45 Magnesium Hydroxide (Milk Of Magnesia) 2,400 mg PRN QHS PRN PO CONSTIPATION; Start 02/20/18 at 18:45 Nystatin (Nystop) 1 devika BID TP Last administered on 03/10/18 07:51; Start at 21:00 Bupropion HCl (Wellbutrin) 75 mg DAILY PO Last administered on 02/26/18at 07:53 ; Start 02/24/18 at 09:00; Stop 02/27/18 at 08:59; Status DC Bupropion HCl (Wellbutrin) 75 mg BIDACBL PO Last administered on 03/10/18at 12:18 ; Start 02/27/18 at 08:00 Divalproex Sodium (Depakote Er) 1,000 mg QHS PO Last administered on at 19:46; Start 02/26/18 at 21:00; Stop 02/28/18 at 19:35; Status DC Divalproex Sodium (Depakote Sprinkles) 1,000 mg HS PO Last administered on at 18:50; Start 02/28/18 at 21:00; Stop 03/04/18 at 18:24; Status DC Quetiapine Fumarate (SEROquel) 25 mg QHS PO Last administered on 03/10/18 19:28 ; Start 03/01/18 at 21:00 Tamsulosin HCl (Flomax) 0.4 mg HS PO Last administered on 03/02/18at 20:26; Start 03/01/18 at 21:00; Stop 03/03/18 at 12:25; Status DC Mirtazapine (Remeron) 7.5 mg QHS PO Last administered on 03/10/18 19:28; Start 03/01/18 at 21:00 Tamsulosin HCl (Flomax) 0.4 mg BID PO Last administered on 03/10/18 19:28; Start 03/03/18 at 21:00 Amoxicillin (Amoxil) 500 mg [id number] PO Last administered on 03/10/18 19:28; Start 03/04/18 at 21:00; Stop 03/11/20 at 20:59 Divalproex Sodium (Depakote Er) 500 mg BID PO Last administered on 03/05/18at 19:44; Start 03/04/18 at 21:00; Stop 03/05/18 at 23:00; Status DC Lactobacillus Rhamnosus (Culturelle) 1 cap BID PO Last administered on 19:28; Start 03/05/18 at 21:00 Divalproex Sodium (Depakote Er) 1,000 mg QHS PO Last administered on 03/10/18 19:28; Start 03/06/18 at 21:00 Quetiapine Fumarate (SEROquel) 12.5 mg DAILY@1700 PO ; Start 03/11/18 at 17:00 Active Scripts Active Reported Plavix (Clopidogrel Bisulfate) 75 Mg Tablet 75 Mg PO DAILY Lorazepam 0.5 Mg Tablet 1 Mg PO PRN Q8HRS PRN Flomax (Tamsulosin Hcl) 0.4 Mg Cap.er.24h 0.4 Mg PO HS PRN Depakote Sprinkle (Divalproex Sodium) 125 Mg Cap.sprink 500 Mg PO TID Colace (Docusate Sodium) 100 Mg Capsule 100 Mg PO BID Vitamin D (Cholecalciferol (Vitamin D3)) 1,000 Unit Capsule 2,000 Unit PO DAILY Atorvastatin Calcium 20 Mg Tablet 20 Mg PO QHS Atenolol 100 Mg Tablet 100 Mg PO DAILY Tylenol (Acetaminophen) 325 Mg Tablet 650 Mg PO PRN Q4HRS PRN I have reviewed the current psychotropics carefully including drug interactions. Risk benefit ratio favors no change other than as noted in my dictated progress note. 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
--- NOTE | 2018-03-11 02:27 | PN ---
DATE: 03/09/2018 PSYCHIATRIC PROGRESS NOTE This late entry, date of service 03/09/2018, covers elements not covered in my initial note. SUBJECTIVE: I met with the patient in the evening. The patient slept 7-1/4 hours previous night. He remains somewhat withdrawn, anxious, more coherent during certain times of the day, much more confused late in the evening. He did have a nap, does better with PT, OT, walking around the unit, compliant with his medications. REVIEW OF SYSTEMS: Ambulation impaired, in wheelchair. No CV, , eye, ENT or pulmonary system symptoms on review. Reliability poor. MENTAL STATUS EXAMINATION: Oriented to himself. Insight, judgment, recent memory is impaired. Language function intact. Attention span short. Mood and affect, lability is improved. LABORATORY DATA: Reviewed. IMPRESSION: Major neurocognitive disorder, Lewy body, Alzheimer, vascular with delusion, depression. Rest unchanged. PLAN: No change from initial note. CANDELAIRA JORGE MD DR: LOVE/lilly JOB#: [id number] / [id number]
[2018-03-11] MEDS: NYSTATIN TOPICAL POWDER 15GM BOTTLE. TP SCH ×3 (02:52→19:59)
[2018-03-11 05:42] VITALS: BP 128/74
[2018-03-11] MEDS: buPROPion 75 MG TABLET PO SCH ×2 (07:54→12:17)
[2018-03-11] MEDS: TAMSULOSIN 0.4 MG CAP.ER.24H. PO SCH ×2 (07:54→19:35)
[2018-03-11] MEDS: AMOXICILLIN 250 MG CAPSULE PO SCH ×3 (07:54→19:35)
[2018-03-11] MEDS: DOCUSATE SODIUM 100 MG CAPSULE PO SCH ×2 (07:54→19:36)
[2018-03-11] MEDS: CHOLECALCIFEROL (VITAMIN D3) 1,000 UNIT TABLET PO SCH (07:55)
[2018-03-11] MEDS: ATENOLOL 50 MG TABLET PO SCH (07:55)
[2018-03-11] MEDS: CLOPIDOGREL BISULFATE 75 MG TABLET PO SCH (07:55)
[2018-03-11] MEDS: LACTOBACILLUS RHAMNOSUS GG 1 CAPSULE. PO SCH ×2 (07:55→19:35)
[2018-03-11] MEDS ORDERED: LOPERAMIDE 2 MG CAPSULE PO PRN (16:15)
[2018-03-11] MEDS: QUEtiapine 25 MG TABLET. PO SCH ×2 (16:16→19:35)
[2018-03-11 16:29] VITALS: BP 125/79
[2018-03-11] MEDS: LORazepam 1 MG TABLET PO PRN (19:35)
[2018-03-11] MEDS: ATORVASTATIN CALCIUM 20 MG TABLET PO SCH (19:35)
[2018-03-11] MEDS: MIRTAZAPINE 15 MG TABLET PO SCH (19:35)
[2018-03-11] MEDS: DIVALPROEX ER 500 MG TAB.ER.24H PO SCH (19:36)
--- NOTE | 2018-03-11 22:51 | PDOC ---
Exam Note: Pavel Note: Please also refer to the separate dictated note~for this date of service dictated separately.~Patient seen individually. Discussed the patient with Nursing staff reviewed the chart.~Reviewed interim history and current functioning. Reviewed vital signs,~Labs/ Radiology~and current medications noted below. Continue current treatment with the changes noted in the dictated addendum note Assessment: Vital Signs: Vital Signs Date Time Temp Pulse Resp B/P (MAP) Pulse Ox O2 Delivery O2 Flow Rate FiO2 03/11/18 16:29 97.6 74 20 125/79 (94) 99 Room Air I&O Intake and Output 03/11/18 07:01 Intake Total 1080 ml Output Total 550 ml Balance 530 ml Intake Oral 1080 ml Output Urine Total 550 ml Current Medications: Meds: Current Medications Acetaminophen (Tylenol) 650 mg PRN Q4HRS PRN PO PAIN / TEMP; Start 02/20/18 at 18:30 Atorvastatin Calcium (Lipitor) 20 mg QHS PO Last administered on 03/11/18 19:35 ; Start 02/20/18 at 21:00 Clopidogrel Bisulfate (Plavix) 75 mg DAILY PO Last administered on 03/11/18 07: 55; Start 02/21/18 at 09:00 Tamsulosin HCl (Flomax) 0.4 mg PRN QHS PRN PO retention; Start 02/20/18 at 18: 30; Stop 03/01/18 at 11:14; Status DC Atenolol (Tenormin) 100 mg DAILY PO Last administered on 03/11/18 07:55; Start 02/21/18 at 09:00 Vitamin D (Vitamin D3) 2,000 unit DAILY PO Last administered on 03/11/18 07:55 ; Start 02/21/18 at 09:00 Divalproex Sodium (Depakote Sprinkles) 500 mg TID PO Last administered on 02/26at 07:53; Start 02/20/18 at 21:00; Stop 02/26/18 at 10:36; Status DC Docusate Sodium (Colace) 100 mg BID PO Last administered on 03/11/18 19:36; Start 02/20/18 at 21:00 Lorazepam (Ativan) 1 mg PRN Q8HRS PRN PO ANXIETY / AGITATION Last administered on 1/2/19at 19:35; Start 02/20/18 at 19:00 Multi-Ingredient Ointment (Analgesic [place]) 1 devika PRN QID PRN TP MUSCLE PAIN; Start 02/20/18 at 18:45 Al Hydroxide/Mg Hydroxide (Mylanta Plus Xs) 15 ml PRN AFTMEALHC PRN PO DYSPEPSIA Last administered on 03/07/18at 09:56; Start 02/20/18 at 18:45 Magnesium Hydroxide (Milk Of Magnesia) 2,400 mg PRN QHS PRN PO CONSTIPATION; Start 02/20/18 at 18:45 Nystatin (Nystop) 1 devika BID TP Last administered on 03/11/18 07:56; Start at 21:00 Bupropion HCl (Wellbutrin) 75 mg DAILY PO Last administered on 02/26/18at 07:53 ; Start 02/24/18 at 09:00; Stop 02/27/18 at 08:59; Status DC Bupropion HCl (Wellbutrin) 75 mg BIDACBL PO Last administered on 03/11/18at 12:17 ; Start 02/27/18 at 08:00 Divalproex Sodium (Depakote Er) 1,000 mg QHS PO Last administered on at 19:46; Start 02/26/18 at 21:00; Stop 02/28/18 at 19:35; Status DC Divalproex Sodium (Depakote Sprinkles) 1,000 mg HS PO Last administered on at 18:50; Start 02/28/18 at 21:00; Stop 03/04/18 at 18:24; Status DC Quetiapine Fumarate (SEROquel) 25 mg QHS PO Last administered on 03/11/18at 19:35 ; Start 03/01/18 at 21:00 Tamsulosin HCl (Flomax) 0.4 mg HS PO Last administered on 03/02/18at 20:26; Start 03/01/18 at 21:00; Stop 03/03/18 at 12:25; Status DC Mirtazapine (Remeron) 7.5 mg QHS PO Last administered on 03/10/18at 19:28; Start 03/01/18 at 21:00; Stop 03/11/18 at 18:17; Status DC Tamsulosin HCl (Flomax) 0.4 mg BID PO Last administered on 03/11/18 19:35; Start 03/03/18 at 21:00 Amoxicillin (Amoxil) 500 mg [id number] PO Last administered on 03/11/18 19:35; Start 03/04/18 at 21:00; Stop 03/11/20 at 20:59 Divalproex Sodium (Depakote Er) 500 mg BID PO Last administered on 03/05/18at 19:44; Start 03/04/18 at 21:00; Stop 03/05/18 at 23:00; Status DC Lactobacillus Rhamnosus (Culturelle) 1 cap BID PO Last administered on 19:35; Start 03/05/18 at 21:00 Divalproex Sodium (Depakote Er) 1,000 mg QHS PO Last administered on 03/11/18 19:36; Start 03/06/18 at 21:00 Quetiapine Fumarate (SEROquel) 12.5 mg DAILY@1700 PO Last administered on 16:16; Start 03/11/18 at 17:00 Loperamide HCl (Imodium) 2 mg PRN Q1HR PRN PO DIARRHEA Last administered on 03/11 16:16; Start 03/11/18 at 16:15 Mirtazapine (Remeron) 15 mg QHS PO Last administered on 03/11/18 19:35; Start 03/11/18 at 21:00 Active Scripts Active Reported Plavix (Clopidogrel Bisulfate) 75 Mg Tablet 75 Mg PO DAILY Lorazepam 0.5 Mg Tablet 1 Mg PO PRN Q8HRS PRN Flomax (Tamsulosin Hcl) 0.4 Mg Cap.er.24h 0.4 Mg PO HS PRN Depakote Sprinkle (Divalproex Sodium) 125 Mg Cap.sprink 500 Mg PO TID Colace (Docusate Sodium) 100 Mg Capsule 100 Mg PO BID Vitamin D (Cholecalciferol (Vitamin D3)) 1,000 Unit Capsule 2,000 Unit PO DAILY Atorvastatin Calcium 20 Mg Tablet 20 Mg PO QHS Atenolol 100 Mg Tablet 100 Mg PO DAILY Tylenol (Acetaminophen) 325 Mg Tablet 650 Mg PO PRN Q4HRS PRN I have reviewed the current psychotropics carefully including drug interactions. Risk benefit ratio favors no change other than as noted in my dictated progress note. 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
--- NOTE | 2018-03-12 00:13 | PN ---
DATE: 03/10/2018 PSYCHIATRIC PROGRESS NOTE This late entry 03/10/2018 covers elements not covered in my initial note. SUBJECTIVE: I met with the patient in the evening. The patient slept 5 hours previous night. Pires had to be replaced due to urinary retention and he has been more anxious, restless since then. He is otherwise compliant with meds and cares. REVIEW OF SYSTEMS: Ambulation impaired, in Broda chair. No CV, , pulmonary, eye, ENT system symptoms on review. Reliability poor. MENTAL STATUS EXAM: Oriented to himself. Insight, judgment, recent and remote memory, attention, concentration, fund of knowledge poor, consistent with his diagnosis. His cognition and psychosis varies quite a bit during the day consistent with his diagnosis of Lewy body dementia. IMPRESSION: Dementia, Lewy body with delusion, depression; anxiety disorder, unspecified. Rest unchanged. PLAN: Add Seroquel 12.5 mg at 5 p.m. Rest unchanged from initial note. MAN Diony JORGE MD DR: LOVE/lilly JOB#: [id number] / [id number]
[2018-03-12 05:52] VITALS: BP 149/76
[2018-03-12] MEDS: TAMSULOSIN 0.4 MG CAP.ER.24H. PO SCH ×2 (08:21→20:56)
[2018-03-12] MEDS: LACTOBACILLUS RHAMNOSUS GG 1 CAPSULE. PO SCH ×2 (08:21→20:56)
[2018-03-12] MEDS: CLOPIDOGREL BISULFATE 75 MG TABLET PO SCH (08:21)
[2018-03-12] MEDS: buPROPion 75 MG TABLET PO SCH ×2 (08:21→15:42)
[2018-03-12] MEDS: CHOLECALCIFEROL (VITAMIN D3) 1,000 UNIT TABLET PO SCH (08:22)
[2018-03-12] MEDS: AMOXICILLIN 250 MG CAPSULE PO SCH ×3 (08:22→20:55)
[2018-03-12] MEDS: DOCUSATE SODIUM 100 MG CAPSULE PO SCH ×2 (08:22→20:55)
[2018-03-12] MEDS: ATENOLOL 50 MG TABLET PO SCH (08:22)
[2018-03-12] MEDS: NYSTATIN TOPICAL POWDER 15GM BOTTLE. TP SCH ×2 (08:24→20:56)
[2018-03-12 14:41] VITALS: BP 96/68
[2018-03-12 16:04] VITALS: BP 119/72
[2018-03-12] MEDS: QUEtiapine 25 MG TABLET. PO SCH ×2 (16:41→20:56)
[2018-03-12] MEDS: ATORVASTATIN CALCIUM 20 MG TABLET PO SCH (20:55)
[2018-03-12] MEDS: DIVALPROEX ER 500 MG TAB.ER.24H PO SCH (20:56)
[2018-03-12] MEDS: MIRTAZAPINE 15 MG TABLET PO SCH (20:56)
--- NOTE | 2018-03-12 23:03 | PDOC ---
Exam Note: Pavel Note: Please also refer to the separate dictated note~for this date of service dictated separately.~Patient seen individually. Discussed the patient with Nursing staff reviewed the chart.~Reviewed interim history and current functioning. Reviewed vital signs,~Labs/ Radiology~and current medications noted below. Continue current treatment with the changes noted in the dictated addendum note Assessment: Vital Signs: Vital Signs Date Time Temp Pulse Resp B/P (MAP) Pulse Ox O2 Delivery O2 Flow Rate FiO2 03/12/18 16:04 98.0 77 20 119/72 (88) 96 Room Air I&O Intake and Output 03/12/18 07:01 Intake Total 1200 ml Output Total 2400 ml Balance -1200 ml Intake Oral 1200 ml Output Urine Total 2400 ml # Bowel Movements 2 Current Medications: Meds: Current Medications Acetaminophen (Tylenol) 650 mg PRN Q4HRS PRN PO PAIN / TEMP; Start 02/20/18 at 18:30 Atorvastatin Calcium (Lipitor) 20 mg QHS PO Last administered on 03/12/18 20:55 ; Start 02/20/18 at 21:00 Clopidogrel Bisulfate (Plavix) 75 mg DAILY PO Last administered on 03/12/18 08: 21; Start 02/21/18 at 09:00 Tamsulosin HCl (Flomax) 0.4 mg PRN QHS PRN PO retention; Start 02/20/18 at 18: 30; Stop 03/01/18 at 11:14; Status DC Atenolol (Tenormin) 100 mg DAILY PO Last administered on 03/12/18 08:22; Start 02/21/18 at 09:00 Vitamin D (Vitamin D3) 2,000 unit DAILY PO Last administered on 03/12/18 08:22 ; Start 02/21/18 at 09:00 Divalproex Sodium (Depakote Sprinkles) 500 mg TID PO Last administered on 02/26at 07:53; Start 02/20/18 at 21:00; Stop 02/26/18 at 10:36; Status DC Docusate Sodium (Colace) 100 mg BID PO Last administered on 03/12/18 20:55; Start 02/20/18 at 21:00 Lorazepam (Ativan) 1 mg PRN Q8HRS PRN PO ANXIETY / AGITATION Last administered on 03/11/18 19:35; Start 02/20/18 at 19:00 Multi-Ingredient Ointment (Analgesic [place]) 1 devika PRN QID PRN TP MUSCLE PAIN; Start 02/20/18 at 18:45 Al Hydroxide/Mg Hydroxide (Mylanta Plus Xs) 15 ml PRN AFTMEALHC PRN PO DYSPEPSIA Last administered on 03/07/18at 09:56; Start 02/20/18 at 18:45 Magnesium Hydroxide (Milk Of Magnesia) 2,400 mg PRN QHS PRN PO CONSTIPATION; Start 02/20/18 at 18:45 Nystatin (Nystop) 1 devika BID TP Last administered on 03/12/18 20:56; Start at 21:00 Bupropion HCl (Wellbutrin) 75 mg DAILY PO Last administered on 02/26/18at 07:53 ; Start 02/24/18 at 09:00; Stop 02/27/18 at 08:59; Status DC Bupropion HCl (Wellbutrin) 75 mg BIDACBL PO Last administered on 03/12/18 15:42 ; Start 02/27/18 at 08:00 Divalproex Sodium (Depakote Er) 1,000 mg QHS PO Last administered on at 19:46; Start 02/26/18 at 21:00; Stop 02/28/18 at 19:35; Status DC Divalproex Sodium (Depakote Sprinkles) 1,000 mg HS PO Last administered on at 18:50; Start 02/28/18 at 21:00; Stop 03/04/18 at 18:24; Status DC Quetiapine Fumarate (SEROquel) 25 mg QHS PO Last administered on 03/11/18 19:35 ; Start 03/01/18 at 21:00; Stop 03/12/18 at 11:05; Status DC Tamsulosin HCl (Flomax) 0.4 mg HS PO Last administered on 03/02/18at 20:26; Start 03/01/18 at 21:00; Stop 03/03/18 at 12:25; Status DC Mirtazapine (Remeron) 7.5 mg QHS PO Last administered on 03/10/18 19:28; Start 03/01/18 at 21:00; Stop 03/11/18 at 18:17; Status DC Tamsulosin HCl (Flomax) 0.4 mg BID PO Last administered on 03/12/18 20:56; Start 03/03/18 at 21:00 Amoxicillin (Amoxil) 500 mg [id number] PO Last administered on 03/12/18 20:55; Start 03/04/18 at 21:00; Stop 03/14/20 at 20:59 Divalproex Sodium (Depakote Er) 500 mg BID PO Last administered on 03/05/18at 19:44; Start 03/04/18 at 21:00; Stop 03/05/18 at 23:00; Status DC Lactobacillus Rhamnosus (Culturelle) 1 cap BID PO Last administered on 20:56; Start 03/05/18 at 21:00 Divalproex Sodium (Depakote Er) 1,000 mg QHS PO Last administered on 03/12/18 20:56; Start 03/06/18 at 21:00 Quetiapine Fumarate (SEROquel) 12.5 mg DAILY@1700 PO Last administered on 16:41; Start 03/11/18 at 17:00 Loperamide HCl (Imodium) 2 mg PRN Q1HR PRN PO DIARRHEA Last administered on 03/11 16:16; Start 03/11/18 at 16:15 Mirtazapine (Remeron) 15 mg QHS PO Last administered on 03/12/18 20:56; Start 03/11/18 at 21:00 Quetiapine Fumarate (SEROquel) 25 mg BID PO Last administered on 03/12/18 20:56 ; Start 03/12/18 at 21:00 Active Scripts Active Reported Plavix (Clopidogrel Bisulfate) 75 Mg Tablet 75 Mg PO DAILY Lorazepam 0.5 Mg Tablet 1 Mg PO PRN Q8HRS PRN Flomax (Tamsulosin Hcl) 0.4 Mg Cap.er.24h 0.4 Mg PO HS PRN Depakote Sprinkle (Divalproex Sodium) 125 Mg Cap.sprink 500 Mg PO TID Colace (Docusate Sodium) 100 Mg Capsule 100 Mg PO BID Vitamin D (Cholecalciferol (Vitamin D3)) 1,000 Unit Capsule 2,000 Unit PO DAILY Atorvastatin Calcium 20 Mg Tablet 20 Mg PO QHS Atenolol 100 Mg Tablet 100 Mg PO DAILY Tylenol (Acetaminophen) 325 Mg Tablet 650 Mg PO PRN Q4HRS PRN I have reviewed the current psychotropics carefully including drug interactions. Risk benefit ratio favors no change other than as noted in my dictated progress note. 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
[2018-03-13 05:41] VITALS: BP 106/65
[2018-03-13] MEDS: TAMSULOSIN 0.4 MG CAP.ER.24H. PO SCH ×2 (07:55→20:53)
[2018-03-13] MEDS: QUEtiapine 25 MG TABLET. PO SCH ×3 (07:55→20:53)
[2018-03-13] MEDS: buPROPion 75 MG TABLET PO SCH ×2 (07:56→12:45)
[2018-03-13] MEDS: CHOLECALCIFEROL (VITAMIN D3) 1,000 UNIT TABLET PO SCH (07:56)
[2018-03-13] MEDS: CLOPIDOGREL BISULFATE 75 MG TABLET PO SCH (07:56)
[2018-03-13] MEDS: DOCUSATE SODIUM 100 MG CAPSULE PO SCH ×2 (07:56→20:53)
[2018-03-13] MEDS: LACTOBACILLUS RHAMNOSUS GG 1 CAPSULE. PO SCH ×2 (07:56→20:53)
[2018-03-13] MEDS: ATENOLOL 50 MG TABLET PO SCH (07:57)
[2018-03-13] MEDS: AMOXICILLIN 250 MG CAPSULE PO SCH ×3 (07:57→20:54)
[2018-03-13] MEDS: NYSTATIN TOPICAL POWDER 15GM BOTTLE. TP SCH ×2 (07:58→20:54)
[2018-03-13 17:04] VITALS: BP 97/61
--- NOTE | 2018-03-13 17:06 | PN ---
DATE: 03/11/2018 PSYCHIATRIC PROGRESS NOTE This late entry 03/11/2018 covers elements not covered in my initial note. SUBJECTIVE: I met with the patient in the evening. The patient slept 6 hours previous night, has been somewhat "grouchy, angry, upset" per nursing report. He takes his medications crushed. REVIEW OF SYSTEMS: Ambulation impaired, in Broda chair. No CV, , pulmonary, eye, ENT system symptoms on review. Reliability poor. MENTAL STATUS EXAM: Oriented to himself. Insight, judgment, recent and remote memory, attention, concentration, fund of knowledge poor, consistent with his diagnosis. IMPRESSION: Major neurocognitive disorder, Lewy body with delusion, depression, behavioral disturbance. Rest unchanged. PLAN: Increase Remeron from 7.5 at bedtime to 15 mg at bedtime for his insomnia. Rest unchanged from initial note. MAN Diony JORGE MD DR: LOVE/lilly JOB#: [id number] / [id number]
[2018-03-13] MEDS: ATORVASTATIN CALCIUM 20 MG TABLET PO SCH (20:53)
[2018-03-13] MEDS: MIRTAZAPINE 15 MG TABLET PO SCH (20:53)
[2018-03-13] MEDS: DIVALPROEX ER 500 MG TAB.ER.24H PO SCH (20:54)
--- NOTE | 2018-03-13 22:49 | PDOC ---
Exam Note: Pavel Note: Please also refer to the separate dictated note~for this date of service dictated separately.~Patient seen individually. Discussed the patient with Nursing staff reviewed the chart.~Reviewed interim history and current functioning. Reviewed vital signs,~Labs/ Radiology~and current medications noted below. Continue current treatment with the changes noted in the dictated addendum note Assessment: Vital Signs: Vital Signs Date Time Temp Pulse Resp B/P (MAP) Pulse Ox O2 Delivery O2 Flow Rate FiO2 03/13/18 17:04 97.8 83 18 97/61 (73) 99 03/12/18 16:04 Room Air I&O Intake and Output 03/13/18 07:01 Intake Total 600 ml Output Total 800 ml Balance -200 ml Intake Oral 600 ml Output Urine Total 800 ml Current Medications: Meds: Current Medications Acetaminophen (Tylenol) 650 mg PRN Q4HRS PRN PO PAIN / TEMP; Start 02/20/18 at 18:30 Atorvastatin Calcium (Lipitor) 20 mg QHS PO Last administered on 03/13/18 20:53 ; Start 02/20/18 at 21:00 Clopidogrel Bisulfate (Plavix) 75 mg DAILY PO Last administered on 03/13/18 07: 56; Start 02/21/18 at 09:00 Tamsulosin HCl (Flomax) 0.4 mg PRN QHS PRN PO retention; Start 02/20/18 at 18: 30; Stop 03/01/18 at 11:14; Status DC Atenolol (Tenormin) 100 mg DAILY PO Last administered on 03/13/18 07:57; Start 02/21/18 at 09:00 Vitamin D (Vitamin D3) 2,000 unit DAILY PO Last administered on 03/13/18 07:56 ; Start 02/21/18 at 09:00 Divalproex Sodium (Depakote Sprinkles) 500 mg TID PO Last administered on 02/26 07:53; Start 02/20/18 at 21:00; Stop 02/26/18 at 10:36; Status DC Docusate Sodium (Colace) 100 mg BID PO Last administered on 03/13/18 20:53; Start 02/20/18 at 21:00 Lorazepam (Ativan) 1 mg PRN Q8HRS PRN PO ANXIETY / AGITATION Last administered on 03/11/18 19:35; Start 02/20/18 at 19:00 Multi-Ingredient Ointment (Analgesic [place]) 1 devika PRN QID PRN TP MUSCLE PAIN; Start 02/20/18 at 18:45 Al Hydroxide/Mg Hydroxide (Mylanta Plus Xs) 15 ml PRN AFTMEALHC PRN PO DYSPEPSIA Last administered on 03/07/18at 09:56; Start 02/20/18 at 18:45 Magnesium Hydroxide (Milk Of Magnesia) 2,400 mg PRN QHS PRN PO CONSTIPATION; Start 02/20/18 at 18:45 Nystatin (Nystop) 1 devika BID TP Last administered on 03/13/18 20:54; Start at 21:00 Bupropion HCl (Wellbutrin) 75 mg DAILY PO Last administered on 02/26/18at 07:53 ; Start 02/24/18 at 09:00; Stop 02/27/18 at 08:59; Status DC Bupropion HCl (Wellbutrin) 75 mg BIDACBL PO Last administered on 03/13/18 12:45 ; Start 02/27/18 at 08:00 Divalproex Sodium (Depakote Er) 1,000 mg QHS PO Last administered on at 19:46; Start 02/26/18 at 21:00; Stop 02/28/18 at 19:35; Status DC Divalproex Sodium (Depakote Sprinkles) 1,000 mg HS PO Last administered on at 18:50; Start 02/28/18 at 21:00; Stop 03/04/18 at 18:24; Status DC Quetiapine Fumarate (SEROquel) 25 mg QHS PO Last administered on 03/11/18 19:35 ; Start 03/01/18 at 21:00; Stop 03/12/18 at 11:05; Status DC Tamsulosin HCl (Flomax) 0.4 mg HS PO Last administered on 03/02/18at 20:26; Start 03/01/18 at 21:00; Stop 03/03/18 at 12:25; Status DC Mirtazapine (Remeron) 7.5 mg QHS PO Last administered on 03/10/18 19:28; Start 03/01/18 at 21:00; Stop 03/11/18 at 18:17; Status DC Tamsulosin HCl (Flomax) 0.4 mg BID PO Last administered on 03/13/18 20:53; Start 03/03/18 at 21:00 Amoxicillin (Amoxil) 500 mg [id number] PO Last administered on 03/13/18 20:54; Start 03/04/18 at 21:00; Stop 03/14/20 at 20:59 Divalproex Sodium (Depakote Er) 500 mg BID PO Last administered on 03/05/18at 19:44; Start 03/04/18 at 21:00; Stop 03/05/18 at 23:00; Status DC Lactobacillus Rhamnosus (Culturelle) 1 cap BID PO Last administered on 20:53; Start 03/05/18 at 21:00 Divalproex Sodium (Depakote Er) 1,000 mg QHS PO Last administered on 03/13/18 20:54; Start 03/06/18 at 21:00 Quetiapine Fumarate (SEROquel) 12.5 mg DAILY@1700 PO Last administered on 17:07; Start 03/11/18 at 17:00 Loperamide HCl (Imodium) 2 mg PRN Q1HR PRN PO DIARRHEA Last administered on 03/11 16:16; Start 03/11/18 at 16:15 Mirtazapine (Remeron) 15 mg QHS PO Last administered on 03/13/18 20:53; Start 03/11/18 at 21:00 Quetiapine Fumarate (SEROquel) 25 mg BID PO Last administered on 03/13/18 07:55 ; Start 03/12/18 at 21:00; Stop 03/13/18 at 16:36; Status DC Quetiapine Fumarate (SEROquel) 25 mg QHS PO Last administered on 03/13/18 20:53 ; Start 03/13/18 at 21:00 Active Scripts Active Reported Plavix (Clopidogrel Bisulfate) 75 Mg Tablet 75 Mg PO DAILY Lorazepam 0.5 Mg Tablet 1 Mg PO PRN Q8HRS PRN Flomax (Tamsulosin Hcl) 0.4 Mg Cap.er.24h 0.4 Mg PO HS PRN Depakote Sprinkle (Divalproex Sodium) 125 Mg Cap.sprink 500 Mg PO TID Colace (Docusate Sodium) 100 Mg Capsule 100 Mg PO BID Vitamin D (Cholecalciferol (Vitamin D3)) 1,000 Unit Capsule 2,000 Unit PO DAILY Atorvastatin Calcium 20 Mg Tablet 20 Mg PO QHS Atenolol 100 Mg Tablet 100 Mg PO DAILY Tylenol (Acetaminophen) 325 Mg Tablet 650 Mg PO PRN Q4HRS PRN I have reviewed the current psychotropics carefully including drug interactions. Risk benefit ratio favors no change other than as noted in my dictated progress note. 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
--- NOTE | 2018-03-14 04:05 | PN ---
DATE: 03/12/2018 This late entry 03/12/2018 covers elements not covered in my initial note. SUBJECTIVE: I met with the patient in the evening and staffed a treatment team meeting with the entire team in the morning and the patient's , Roxanne, attended the treatment team meeting. We reviewed his history at length and progress. He received Ativan the previous evening due to agitation, was agitated at shift change, partly due to the Pires bag, zamorano bag in place. He crawled out of bed at night. Appetite 90%. Slept 6-1/2 hours. REVIEW OF SYSTEMS: Ambulation impaired, in Broda chair. No CV, , pulmonary, eye, ENT system symptoms on review. Reliability poor. MENTAL STATUS EXAM: Oriented to himself and situation. Insight, judgment, recent and remote memory, attention, concentration, fund of knowledge poor, consistent with his diagnosis. IMPRESSION: Major neurocognitive disorder, Lewy body with delusion, depression, behavioral disturbance; anxiety disorder, unspecified; impulse control disorder, unspecified. Rest unchanged. PLAN: Continue psychotropics from initial note. Start Seroquel 12.5 mg 9 a.m., 3:00 p.m. Rest unchanged. MAN Diony JORGE MD DR: LOVE/lilly JOB#: [id number] / [id number]
[2018-03-14 05:47] VITALS: BP 137/79
[2018-03-14 07:06] LABS: BASO # 0.1 x10^3/uL (0.0-0.2); BASO % 1 % (0-3); EOS # 0.3 x10^3/uL (0.0-0.7); EOS % 4 % (0-3); HEMATOCRIT 33.7 % (39.0-53.0); HEMOGLOBIN 11.4 g/dL (13.0-17.5); LYMPH # 1.7 x10^3/uL (1.0-4.8); LYMPH % 19 % (24-48); MEAN CORPUSCULAR HEMOGLOBIN 33 pg (25-35); MEAN CORPUSCULAR HGB CONC 34 g/dL (31-37); MEAN CORPUSCULAR VOLUME 97 fL (79-100); MONO # 1.1 x10^3/uL (0.0-1.1); MONO % 12 % (0-9); NEUT # 5.7 x10^3uL (1.8-7.7); NEUT % 64 % (31-73); PLATELET COUNT 149 x10^3/uL (140-400); RED BLOOD COUNT 3.48 x10^6/uL (4.30-5.70); RED CELL DISTRIBUTION WIDTH 14.4 % (11.5-14.5); WHITE BLOOD COUNT 8.9 x10^3/uL (4.0-11.0)
[2018-03-14 07:17] LABS: ALBUMIN 2.4 g/dL (3.4-5.0); ALBUMIN/GLOBULIN RATIO 0.7 (1.0-1.7); CALCIUM 7.7 mg/dL (8.5-10.1); CREATININE 1.2 mg/dL (0.7-1.3); GFR 59.7; POTASSIUM 3.6 mmol/L (3.5-5.1); TOTAL BILIRUBIN 0.3 mg/dL (0.2-1.0); TOTAL PROTEIN 5.7 g/dL (6.4-8.2)
[2018-03-14] MEDS: buPROPion 75 MG TABLET PO SCH ×2 (08:45→11:30)
[2018-03-14] MEDS: AMOXICILLIN 250 MG CAPSULE PO SCH ×3 (08:46→19:28)
[2018-03-14] MEDS: LACTOBACILLUS RHAMNOSUS GG 1 CAPSULE. PO SCH ×2 (08:46→19:28)
[2018-03-14] MEDS: DOCUSATE SODIUM 100 MG CAPSULE PO SCH ×2 (08:46→19:29)
[2018-03-14] MEDS: CLOPIDOGREL BISULFATE 75 MG TABLET PO SCH (08:46)
[2018-03-14] MEDS: TAMSULOSIN 0.4 MG CAP.ER.24H. PO SCH ×2 (08:46→19:28)
[2018-03-14] MEDS: ATENOLOL 50 MG TABLET PO SCH (08:47)
[2018-03-14] MEDS: NYSTATIN TOPICAL POWDER 15GM BOTTLE. TP SCH ×2 (08:47→19:29)
[2018-03-14] MEDS: CHOLECALCIFEROL (VITAMIN D3) 1,000 UNIT TABLET PO SCH (08:47)
[2018-03-14] MEDS: LORazepam 1 MG TABLET PO PRN ×2 (11:47→20:44)
[2018-03-14 16:21] VITALS: BP 122/60
[2018-03-14] MEDS: QUEtiapine 25 MG TABLET. PO SCH ×2 (17:21→19:29)
[2018-03-14] MEDS: MIRTAZAPINE 15 MG TABLET PO SCH (19:28)
[2018-03-14] MEDS: ATORVASTATIN CALCIUM 20 MG TABLET PO SCH (19:28)
[2018-03-14] MEDS: DIVALPROEX ER 500 MG TAB.ER.24H PO SCH (19:29)
--- NOTE | 2018-03-14 21:09 | PDOC ---
Exam Note: Pavel Note: Please also refer to the separate dictated note~for this date of service dictated separately.~Patient seen individually. Discussed the patient with Nursing staff reviewed the chart.~Reviewed interim history and current functioning. Reviewed vital signs,~Labs/ Radiology~and current medications noted below. Continue current treatment with the changes noted in the dictated addendum note Assessment: Vital Signs: Vital Signs Date Time Temp Pulse Resp B/P (MAP) Pulse Ox O2 Delivery O2 Flow Rate FiO2 03/14/18 16:21 98.2 66 18 122/60 (80) 99 Room Air I&O Intake and Output 03/14/18 07:01 Intake Total 960 ml Output Total 450 ml Balance 510 ml Intake Oral 960 ml Output Urine Total 450 ml # Bowel Movements 1 Labs: Laboratory Tests Test 03/14/18 06:42 White Blood Count 8.9 x10^3/uL (4.0-11.0) Red Blood Count 3.48 x10^6/uL (4.30-5.70) L Hemoglobin 11.4 g/dL (13.0-17.5) L Hematocrit 33.7 % (39.0-53.0) L Mean Corpuscular Volume 97 fL (79-100) Mean Corpuscular Hemoglobin 33 pg (25-35) Mean Corpuscular Hemoglobin Concent 34 g/dL (31-37) Red Cell Distribution Width 14.4 % (11.5-14.5) Platelet Count 149 x10^3/uL (140-400) Neutrophils (%) (Auto) 64 % (31-73) Lymphocytes (%) (Auto) 19 % (24-48) L Monocytes (%) (Auto) 12 % (0-9) H Eosinophils (%) (Auto) 4 % (0-3) H Basophils (%) (Auto) 1 % (0-3) Neutrophils # (Auto) 5.7 x10^3uL (1.8-7.7) Lymphocytes # (Auto) 1.7 x10^3/uL (1.0-4.8) Monocytes # (Auto) 1.1 x10^3/uL (0.0-1.1) Eosinophils # (Auto) 0.3 x10^3/uL (0.0-0.7) Basophils # (Auto) 0.1 x10^3/uL (0.0-0.2) Sodium Level 147 mmol/L (136-145) H Potassium Level 3.6 mmol/L (3.5-5.1) Chloride Level 111 mmol/L (98-107) H Carbon Dioxide Level 29 mmol/L (21-32) Anion Gap 7 (6-14) Blood Urea Nitrogen 19 mg/dL (8-26) Creatinine 1.2 mg/dL (0.7-1.3) Estimated GFR (Cockcroft-Gault) 59.7 BUN/Creatinine Ratio 16 (6-20) Glucose Level 89 mg/dL (70-99) Calcium Level 7.7 mg/dL (8.5-10.1) L Total Bilirubin 0.3 mg/dL (0.2-1.0) Aspartate Amino Transferase (AST) 17 U/L (15-37) Alanine Aminotransferase (ALT) 24 U/L (16-63) Alkaline Phosphatase 50 U/L (46-116) Total Protein 5.7 g/dL (6.4-8.2) L Albumin 2.4 g/dL (3.4-5.0) L Albumin/Globulin Ratio 0.7 (1.0-1.7) L Current Medications: Meds: Current Medications Acetaminophen (Tylenol) 650 mg PRN Q4HRS PRN PO PAIN / TEMP; Start 02/20/18 at 18:30 Atorvastatin Calcium (Lipitor) 20 mg QHS PO Last administered on 03/14/18 19:28 ; Start 02/20/18 at 21:00 Clopidogrel Bisulfate (Plavix) 75 mg DAILY PO Last administered on 03/14/18 08: 46; Start 02/21/18 at 09:00 Tamsulosin HCl (Flomax) 0.4 mg PRN QHS PRN PO retention; Start 02/20/18 at 18: 30; Stop 03/01/18 at 11:14; Status DC Atenolol (Tenormin) 100 mg DAILY PO Last administered on 03/14/18 08:47; Start 02/21/18 at 09:00 Vitamin D (Vitamin D3) 2,000 unit DAILY PO Last administered on 03/14/18 08:47 ; Start 02/21/18 at 09:00 Divalproex Sodium (Depakote Sprinkles) 500 mg TID PO Last administered on 02/26 07:53; Start 02/20/18 at 21:00; Stop 02/26/18 at 10:36; Status DC Docusate Sodium (Colace) 100 mg BID PO Last administered on 03/14/18 19:29; Start 02/20/18 at 21:00 Lorazepam (Ativan) 1 mg PRN Q8HRS PRN PO ANXIETY / AGITATION Last administered on 03/14/18 20:44; Start 02/20/18 at 19:00 Multi-Ingredient Ointment (Analgesic [place]) 1 devika PRN QID PRN TP MUSCLE PAIN; Start 02/20/18 at 18:45 Al Hydroxide/Mg Hydroxide (Mylanta Plus Xs) 15 ml PRN AFTMEALHC PRN PO DYSPEPSIA Last administered on 03/07/18 09:56; Start 02/20/18 at 18:45 Magnesium Hydroxide (Milk Of Magnesia) 2,400 mg PRN QHS PRN PO CONSTIPATION; Start 02/20/18 at 18:45 Nystatin (Nystop) 1 devika BID TP Last administered on 03/14/18 19:29; Start at 21:00 Bupropion HCl (Wellbutrin) 75 mg DAILY PO Last administered on 02/26/18 07:53 ; Start 02/24/18 at 09:00; Stop 02/27/18 at 08:59; Status DC Bupropion HCl (Wellbutrin) 75 mg BIDACBL PO Last administered on 03/14/18 08:45 ; Start 02/27/18 at 08:00 Divalproex Sodium (Depakote Er) 1,000 mg QHS PO Last administered on at 19:46; Start 02/26/18 at 21:00; Stop 02/28/18 at 19:35; Status DC Divalproex Sodium (Depakote Sprinkles) 1,000 mg HS PO Last administered on 18:50; Start 02/28/18 at 21:00; Stop 03/04/18 at 18:24; Status DC Quetiapine Fumarate (SEROquel) 25 mg QHS PO Last administered on 03/11/18 19:35 ; Start 03/01/18 at 21:00; Stop 03/12/18 at 11:05; Status DC Tamsulosin HCl (Flomax) 0.4 mg HS PO Last administered on 03/02/18 20:26; Start 03/01/18 at 21:00; Stop 03/03/18 at 12:25; Status DC Mirtazapine (Remeron) 7.5 mg QHS PO Last administered on 03/10/18 19:28; Start 03/01/18 at 21:00; Stop 03/11/18 at 18:17; Status DC Tamsulosin HCl (Flomax) 0.4 mg BID PO Last administered on 03/14/18 19:28; Start 03/03/18 at 21:00 Amoxicillin (Amoxil) 500 mg [id number] PO Last administered on 03/14/18 19:28; Start 03/04/18 at 21:00; Stop 03/14/20 at 20:59 Divalproex Sodium (Depakote Er) 500 mg BID PO Last administered on 03/05/18at 19:44; Start 03/04/18 at 21:00; Stop 03/05/18 at 23:00; Status DC Lactobacillus Rhamnosus (Culturelle) 1 cap BID PO Last administered on 19:28; Start 03/05/18 at 21:00 Divalproex Sodium (Depakote Er) 1,000 mg QHS PO Last administered on 03/14/18 19:29; Start 03/06/18 at 21:00 Quetiapine Fumarate (SEROquel) 12.5 mg DAILY@1700 PO Last administered on 17:21; Start 03/11/18 at 17:00 Loperamide HCl (Imodium) 2 mg PRN Q1HR PRN PO DIARRHEA Last administered on 03/11 16:16; Start 03/11/18 at 16:15 Mirtazapine (Remeron) 15 mg QHS PO Last administered on 03/14/18 19:28; Start 03/11/18 at 21:00 Quetiapine Fumarate (SEROquel) 25 mg BID PO Last administered on 03/13/18 07:55 ; Start 03/12/18 at 21:00; Stop 03/13/18 at 16:36; Status DC Quetiapine Fumarate (SEROquel) 25 mg QHS PO Last administered on 03/14/18at 19:29 ; Start 03/13/18 at 21:00 Olanzapine (ZyPREXA ZYDIS) 2.5 mg PRN Q2HR PRN PO PSYCHOSIS Last administered on 03/14/18at 19:29; Start 03/14/18 at 12:00 Active Scripts Active Reported Plavix (Clopidogrel Bisulfate) 75 Mg Tablet 75 Mg PO DAILY Lorazepam 0.5 Mg Tablet 1 Mg PO PRN Q8HRS PRN Flomax (Tamsulosin Hcl) 0.4 Mg Cap.er.24h 0.4 Mg PO HS PRN Depakote Sprinkle (Divalproex Sodium) 125 Mg Cap.sprink 500 Mg PO TID Colace (Docusate Sodium) 100 Mg Capsule 100 Mg PO BID Vitamin D (Cholecalciferol (Vitamin D3)) 1,000 Unit Capsule 2,000 Unit PO DAILY Atorvastatin Calcium 20 Mg Tablet 20 Mg PO QHS Atenolol 100 Mg Tablet 100 Mg PO DAILY Tylenol (Acetaminophen) 325 Mg Tablet 650 Mg PO PRN Q4HRS PRN I have reviewed the current psychotropics carefully including drug interactions. Risk benefit ratio favors no change other than as noted in my dictated progress note. 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
--- NOTE | 2018-03-14 22:11 | PN ---
DATE: 03/14/2018 PSYCHIATRIC PROGRESS NOTE This note covers elements not covered in my initial note of 03/14/2018. SUBJECTIVE: I met with the patient in the evening and I have been called by the nursing staff several times earlier in the day. The patient has been having a very difficult day today. He has been agitated, physically striking out at staff. He received Zyprexa at noon and then again at 7:30 p.m. He has had to be taken to the quiet area because of his worsening agitation, psychosis. He slept 4 hours previous evening. REVIEW OF SYSTEMS: Ambulation impaired, in Broda chair. No CV, , pulmonary, eye, ENT system symptoms on review. Reliability poor. MENTAL STATUS EXAM: Oriented to himself. Insight, judgment, recent memory is impaired. Language function is intact. Attention span is short. Mood and affect remains labile. Again, his presentation seems consistent with his diagnosis of Lewy body. LABORATORY DATA: Reviewed. IMPRESSION: Major neurocognitive disorder, Lewy body with delusion, depression, behavioral disturbance, anxiety disorder, unspecified; impulse control disorder, unspecified. PLAN: Start trazodone 50 mg at bedtime p.r.n. insomnia, july repeat x 1. Maintain Depakote ER 1000 mg at bedtime, Ativan 1 mg q. 8 hours p.r.n., Wellbutrin 75 mg b.i.d., Seroquel ____ mg at bedtime, Remeron 15 mg at bedtime. Make further adjustments as clinically indicated. MAN Diony JORGE MD DR: LOVE/lilly JOB#: [id number] / [id number]
[2018-03-14] MEDS: traZODone 50 MG TABLET. PO PRN (23:21)
[2018-03-15 06:26] VITALS: BP 174/82
[2018-03-15] MEDS: AMOXICILLIN 250 MG CAPSULE PO SCH (09:14)
[2018-03-15] MEDS: LACTOBACILLUS RHAMNOSUS GG 1 CAPSULE. PO SCH (09:14)
[2018-03-15] MEDS: CLOPIDOGREL BISULFATE 75 MG TABLET PO SCH (09:20)
[2018-03-15] MEDS: DOCUSATE SODIUM 100 MG CAPSULE PO SCH ×2 (09:20→20:12)
[2018-03-15] MEDS: TAMSULOSIN 0.4 MG CAP.ER.24H. PO SCH ×2 (09:20→20:12)
[2018-03-15] MEDS: buPROPion 75 MG TABLET PO SCH ×2 (09:20→12:06)
[2018-03-15] MEDS: ATENOLOL 50 MG TABLET PO SCH (09:22)
[2018-03-15] MEDS: CHOLECALCIFEROL (VITAMIN D3) 1,000 UNIT TABLET PO SCH (09:22)
[2018-03-15] MEDS: NYSTATIN TOPICAL POWDER 15GM BOTTLE. TP SCH ×2 (09:22→20:12)
--- NOTE | 2018-03-15 12:05 | PN ---
DATE: 03/13/2018 PSYCHIATRIC PROGRESS NOTE This late entry 03/13/2018 covers elements, not covered in my initial note. SUBJECTIVE: I met with the patient in the evening. The patient slept 6 hours previous night. He had an episode of being unresponsive the day before. Dr. Sanchez is looking into it medically, appears somewhat drowsy during the day on 03/13/2018, restless at times. REVIEW OF SYSTEMS: Ambulation impaired, in Broda chair. No CV, , pulmonary, eye, ENT system symptoms on review. MENTAL STATUS EXAM: Oriented to himself and situation. Speech coherent, abstraction fair, computation impaired, language function intact, attention span short. Mood and affect somewhat anxious, labile at times. LABORATORY DATA: Reviewed. IMPRESSION: Major neurocognitive disorder, probably Lewy body with delusion, depression, behavioral disturbance. Rest unchanged. PLAN: No change from initial note other than noted above and we will carefully observe for any further episodes of non-responsiveness. We will go ahead and stop the Seroquel 25 mg at 9:00 a.m., but continue at bedtime 12.5 at 1700. Hopefully, discontinuing the morning Seroquel will help with daytime sedation. CANDELARIA JORGE MD DR: LOVE/lilly JOB#: [id number] / [id number]
[2018-03-15 16:11] VITALS: BP 141/89
[2018-03-15] MEDS: LORazepam 1 MG TABLET PO PRN (17:18)
[2018-03-15] MEDS: QUEtiapine 25 MG TABLET. PO SCH ×2 (17:18→20:12)
[2018-03-15] MEDS: MIRTAZAPINE 15 MG TABLET PO SCH (20:12)
[2018-03-15] MEDS: ATORVASTATIN CALCIUM 20 MG TABLET PO SCH (20:12)
[2018-03-15] MEDS: DIVALPROEX ER 500 MG TAB.ER.24H PO SCH (20:12)
[2018-03-15] MEDS: DIVALPROEX 125 MG CAP.SPRINK PO SCH (22:25)
--- NOTE | 2018-03-15 22:50 | PDOC ---
Exam Note: Pavel Note: Please also refer to the separate dictated note~for this date of service dictated separately.~Patient seen individually. Discussed the patient with Nursing staff reviewed the chart.~Reviewed interim history and current functioning. Reviewed vital signs,~Labs/ Radiology~and current medications noted below. Continue current treatment with the changes noted in the dictated addendum note Assessment: Vital Signs: Vital Signs Date Time Temp Pulse Resp B/P (MAP) Pulse Ox O2 Delivery O2 Flow Rate FiO2 03/15/18 16:11 99.0 89 20 141/89 (106) 99 03/14/18 16:21 Room Air I&O Intake and Output 03/15/18 07:01 Intake Total 1110 ml Output Total 1075 ml Balance 35 ml Intake Oral 1110 ml Output Urine Total 1075 ml Current Medications: Meds: Current Medications Acetaminophen (Tylenol) 650 mg PRN Q4HRS PRN PO PAIN / TEMP; Start 02/20/18 at 18:30 Atorvastatin Calcium (Lipitor) 20 mg QHS PO Last administered on 03/15/18 20:12 ; Start 02/20/18 at 21:00 Clopidogrel Bisulfate (Plavix) 75 mg DAILY PO Last administered on 03/15/18 09: 20; Start 02/21/18 at 09:00 Tamsulosin HCl (Flomax) 0.4 mg PRN QHS PRN PO retention; Start 02/20/18 at 18: 30; Stop 03/01/18 at 11:14; Status DC Atenolol (Tenormin) 100 mg DAILY PO Last administered on 03/15/18 09:22; Start 02/21/18 at 09:00 Vitamin D (Vitamin D3) 2,000 unit DAILY PO Last administered on 03/15/18 09:22 ; Start 02/21/18 at 09:00 Divalproex Sodium (Depakote Sprinkles) 500 mg TID PO Last administered on 02/26at 07:53; Start 02/20/18 at 21:00; Stop 02/26/18 at 10:36; Status DC Docusate Sodium (Colace) 100 mg BID PO Last administered on 03/15/18 20:12; Start 02/20/18 at 21:00 Lorazepam (Ativan) 1 mg PRN Q8HRS PRN PO ANXIETY / AGITATION Last administered on 03/15/18 17:18; Start 02/20/18 at 19:00 Multi-Ingredient Ointment (Analgesic [place]) 1 devika PRN QID PRN TP MUSCLE PAIN; Start 02/20/18 at 18:45 Al Hydroxide/Mg Hydroxide (Mylanta Plus Xs) 15 ml PRN AFTMEALHC PRN PO DYSPEPSIA Last administered on 03/07/18at 09:56; Start 02/20/18 at 18:45 Magnesium Hydroxide (Milk Of Magnesia) 2,400 mg PRN QHS PRN PO CONSTIPATION; Start 02/20/18 at 18:45 Nystatin (Nystop) 1 devika BID TP Last administered on 03/15/18 20:12; Start at 21:00 Bupropion HCl (Wellbutrin) 75 mg DAILY PO Last administered on 02/26/18at 07:53 ; Start 02/24/18 at 09:00; Stop 02/27/18 at 08:59; Status DC Bupropion HCl (Wellbutrin) 75 mg BIDACBL PO Last administered on 03/15/18at 12:06 ; Start 02/27/18 at 08:00 Divalproex Sodium (Depakote Er) 1,000 mg QHS PO Last administered on at 19:46; Start 02/26/18 at 21:00; Stop 02/28/18 at 19:35; Status DC Divalproex Sodium (Depakote Sprinkles) 1,000 mg HS PO Last administered on at 18:50; Start 02/28/18 at 21:00; Stop 03/04/18 at 18:24; Status DC Quetiapine Fumarate (SEROquel) 25 mg QHS PO Last administered on 03/11/18 19:35 ; Start 03/01/18 at 21:00; Stop 03/12/18 at 11:05; Status DC Tamsulosin HCl (Flomax) 0.4 mg HS PO Last administered on 03/02/18at 20:26; Start 03/01/18 at 21:00; Stop 03/03/18 at 12:25; Status DC Mirtazapine (Remeron) 7.5 mg QHS PO Last administered on 03/10/18 19:28; Start 03/01/18 at 21:00; Stop 03/11/18 at 18:17; Status DC Tamsulosin HCl (Flomax) 0.4 mg BID PO Last administered on 03/15/18 20:12; Start 03/03/18 at 21:00 Amoxicillin (Amoxil) 500 mg [id number] PO Last administered on 03/14/18 19:28; Start 03/04/18 at 21:00; Stop 03/15/18 at 09:14; Status DC Divalproex Sodium (Depakote Er) 500 mg BID PO Last administered on 03/05/18at 19:44; Start 03/04/18 at 21:00; Stop 03/05/18 at 23:00; Status DC Lactobacillus Rhamnosus (Culturelle) 1 cap BID PO Last administered on 19:28; Start 03/05/18 at 21:00; Stop 03/15/18 at 09:14; Status DC Divalproex Sodium (Depakote Er) 1,000 mg QHS PO Last administered on 03/14/18 19:29; Start 03/06/18 at 21:00; Stop 03/15/18 at 21:12; Status DC Quetiapine Fumarate (SEROquel) 12.5 mg DAILY@1700 PO Last administered on 17:18; Start 03/11/18 at 17:00 Loperamide HCl (Imodium) 2 mg PRN Q1HR PRN PO DIARRHEA Last administered on 03/11 16:16; Start 03/11/18 at 16:15 Mirtazapine (Remeron) 15 mg QHS PO Last administered on 03/15/18 20:12; Start 03/11/18 at 21:00 Quetiapine Fumarate (SEROquel) 25 mg BID PO Last administered on 03/13/18 07:55 ; Start 03/12/18 at 21:00; Stop 03/13/18 at 16:36; Status DC Quetiapine Fumarate (SEROquel) 25 mg QHS PO Last administered on 03/15/18 20:12 ; Start 03/13/18 at 21:00 Olanzapine (ZyPREXA ZYDIS) 2.5 mg PRN Q2HR PRN PO PSYCHOSIS Last administered on 1/6/19at 14:43; Start 03/14/18 at 12:00 Trazodone HCl (Desyrel) 50 mg PRN QHS PRN PO INSOMNIA, MAY REPEAT X1 Last administered on 03/14/18at 23:21; Start 03/14/18 at 21:45 Buspirone HCl (Buspar) 5 mg [id number] PO ; Start 03/16/18 at 09:00 Divalproex Sodium (Depakote Sprinkles) 500 mg BID PO Last administered on at 22:25; Start 03/15/18 at 21:15 Active Scripts Active Reported Plavix (Clopidogrel Bisulfate) 75 Mg Tablet 75 Mg PO DAILY Lorazepam 0.5 Mg Tablet 1 Mg PO PRN Q8HRS PRN Flomax (Tamsulosin Hcl) 0.4 Mg Cap.er.24h 0.4 Mg PO HS PRN Depakote Sprinkle (Divalproex Sodium) 125 Mg Cap.sprink 500 Mg PO TID Colace (Docusate Sodium) 100 Mg Capsule 100 Mg PO BID Vitamin D (Cholecalciferol (Vitamin D3)) 1,000 Unit Capsule 2,000 Unit PO DAILY Atorvastatin Calcium 20 Mg Tablet 20 Mg PO QHS Atenolol 100 Mg Tablet 100 Mg PO DAILY Tylenol (Acetaminophen) 325 Mg Tablet 650 Mg PO PRN Q4HRS PRN I have reviewed the current psychotropics carefully including drug interactions. Risk benefit ratio favors no change other than as noted in my dictated progress note. 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
[2018-03-16 05:45] VITALS: BP 126/73
[2018-03-16] MEDS: CLOPIDOGREL BISULFATE 75 MG TABLET PO SCH (07:50)
[2018-03-16] MEDS: DIVALPROEX 125 MG CAP.SPRINK PO SCH ×2 (07:50→20:24)
[2018-03-16] MEDS: buPROPion 75 MG TABLET PO SCH ×2 (07:50→13:59)
[2018-03-16] MEDS: TAMSULOSIN 0.4 MG CAP.ER.24H. PO SCH ×2 (07:51→20:26)
[2018-03-16] MEDS: ATENOLOL 50 MG TABLET PO SCH (07:51)
[2018-03-16] MEDS: DOCUSATE SODIUM 100 MG CAPSULE PO SCH ×2 (07:54→20:25)
[2018-03-16] MEDS: CHOLECALCIFEROL (VITAMIN D3) 1,000 UNIT TABLET PO SCH (07:54)
[2018-03-16] MEDS: busPIRone 5 MG TABLET. PO SCH ×2 (07:56→16:11)
[2018-03-16] MEDS: NYSTATIN TOPICAL POWDER 15GM BOTTLE. TP SCH ×2 (07:56→20:26)
[2018-03-16 16:11] VITALS: BP 137/75
[2018-03-16] MEDS: QUEtiapine 25 MG TABLET. PO SCH ×2 (16:12→20:24)
[2018-03-16] MEDS: MIRTAZAPINE 15 MG TABLET PO SCH (20:24)
[2018-03-16] MEDS: ATORVASTATIN CALCIUM 20 MG TABLET PO SCH (20:24)
--- NOTE | 2018-03-16 22:41 | PDOC ---
Exam Note: Pavel Note: Please also refer to the separate dictated note~for this date of service dictated separately.~Patient seen individually. Discussed the patient with Nursing staff reviewed the chart.~Reviewed interim history and current functioning. Reviewed vital signs,~Labs/ Radiology~and current medications noted below. Continue current treatment with the changes noted in the dictated addendum note Assessment: Vital Signs: Vital Signs Date Time Temp Pulse Resp B/P (MAP) Pulse Ox O2 Delivery O2 Flow Rate FiO2 03/16/18 16:11 98.1 79 20 137/75 (95) 99 03/14/18 16:21 Room Air I&O Intake and Output 03/16/18 07:01 Intake Total 600 ml Output Total 650 ml Balance -50 ml Intake Oral 600 ml Output Urine Total 650 ml Current Medications: Meds: Current Medications Acetaminophen (Tylenol) 650 mg PRN Q4HRS PRN PO PAIN / TEMP; Start 02/20/18 at 18:30 Atorvastatin Calcium (Lipitor) 20 mg QHS PO Last administered on 03/16/18 20:24 ; Start 02/20/18 at 21:00 Clopidogrel Bisulfate (Plavix) 75 mg DAILY PO Last administered on 03/16/18 07: 50; Start 02/21/18 at 09:00 Tamsulosin HCl (Flomax) 0.4 mg PRN QHS PRN PO retention; Start 02/20/18 at 18: 30; Stop 03/01/18 at 11:14; Status DC Atenolol (Tenormin) 100 mg DAILY PO Last administered on 03/16/18 07:51; Start 02/21/18 at 09:00 Vitamin D (Vitamin D3) 2,000 unit DAILY PO Last administered on 03/16/18 07:54 ; Start 02/21/18 at 09:00 Divalproex Sodium (Depakote Sprinkles) 500 mg TID PO Last administered on 02/26 07:53; Start 02/20/18 at 21:00; Stop 02/26/18 at 10:36; Status DC Docusate Sodium (Colace) 100 mg BID PO Last administered on 03/16/18 20:25; Start 02/20/18 at 21:00 Lorazepam (Ativan) 1 mg PRN Q8HRS PRN PO ANXIETY / AGITATION Last administered on 03/15/18 17:18; Start 02/20/18 at 19:00 Multi-Ingredient Ointment (Analgesic [place]) 1 devika PRN QID PRN TP MUSCLE PAIN; Start 02/20/18 at 18:45 Al Hydroxide/Mg Hydroxide (Mylanta Plus Xs) 15 ml PRN AFTMEALHC PRN PO DYSPEPSIA Last administered on 03/07/18at 09:56; Start 02/20/18 at 18:45 Magnesium Hydroxide (Milk Of Magnesia) 2,400 mg PRN QHS PRN PO CONSTIPATION; Start 02/20/18 at 18:45 Nystatin (Nystop) 1 devika BID TP Last administered on 03/16/18 20:26; Start at 21:00 Bupropion HCl (Wellbutrin) 75 mg DAILY PO Last administered on 02/26/18at 07:53 ; Start 02/24/18 at 09:00; Stop 02/27/18 at 08:59; Status DC Bupropion HCl (Wellbutrin) 75 mg BIDACBL PO Last administered on 03/16/18at 13:59 ; Start 02/27/18 at 08:00 Divalproex Sodium (Depakote Er) 1,000 mg QHS PO Last administered on at 19:46; Start 02/26/18 at 21:00; Stop 02/28/18 at 19:35; Status DC Divalproex Sodium (Depakote Sprinkles) 1,000 mg HS PO Last administered on at 18:50; Start 02/28/18 at 21:00; Stop 03/04/18 at 18:24; Status DC Quetiapine Fumarate (SEROquel) 25 mg QHS PO Last administered on 03/11/18 19:35 ; Start 03/01/18 at 21:00; Stop 03/12/18 at 11:05; Status DC Tamsulosin HCl (Flomax) 0.4 mg HS PO Last administered on 03/02/18at 20:26; Start 03/01/18 at 21:00; Stop 03/03/18 at 12:25; Status DC Mirtazapine (Remeron) 7.5 mg QHS PO Last administered on 03/10/18 19:28; Start 03/01/18 at 21:00; Stop 03/11/18 at 18:17; Status DC Tamsulosin HCl (Flomax) 0.4 mg BID PO Last administered on 03/16/18 20:26; Start 03/03/18 at 21:00 Amoxicillin (Amoxil) 500 mg [id number] PO Last administered on 03/14/18 19:28; Start 03/04/18 at 21:00; Stop 03/15/18 at 09:14; Status DC Divalproex Sodium (Depakote Er) 500 mg BID PO Last administered on 03/05/18at 19:44; Start 03/04/18 at 21:00; Stop 03/05/18 at 23:00; Status DC Lactobacillus Rhamnosus (Culturelle) 1 cap BID PO Last administered on 19:28; Start 03/05/18 at 21:00; Stop 03/15/18 at 09:14; Status DC Divalproex Sodium (Depakote Er) 1,000 mg QHS PO Last administered on 03/14/18 19:29; Start 03/06/18 at 21:00; Stop 03/15/18 at 21:12; Status DC Quetiapine Fumarate (SEROquel) 12.5 mg DAILY@1700 PO Last administered on 16:12; Start 03/11/18 at 17:00 Loperamide HCl (Imodium) 2 mg PRN Q1HR PRN PO DIARRHEA Last administered on 03/11 16:16; Start 03/11/18 at 16:15 Mirtazapine (Remeron) 15 mg QHS PO Last administered on 03/16/18 20:24; Start 03/11/18 at 21:00 Quetiapine Fumarate (SEROquel) 25 mg BID PO Last administered on 03/13/18 07:55 ; Start 03/12/18 at 21:00; Stop 03/13/18 at 16:36; Status DC Quetiapine Fumarate (SEROquel) 25 mg QHS PO Last administered on 03/16/18 20:24 ; Start 03/13/18 at 21:00 Olanzapine (ZyPREXA ZYDIS) 2.5 mg PRN Q2HR PRN PO PSYCHOSIS Last administered on 1/7/19at 20:24; Start 03/14/18 at 12:00 Trazodone HCl (Desyrel) 50 mg PRN QHS PRN PO INSOMNIA, MAY REPEAT X1 Last administered on 03/14/18at 23:21; Start 03/14/18 at 21:45 Buspirone HCl (Buspar) 5 mg [id number] PO Last administered on 03/16/18at 16:11; Start 03/16/18 at 09:00 Divalproex Sodium (Depakote Sprinkles) 500 mg BID PO Last administered on at 20:24; Start 03/15/18 at 21:15 Active Scripts Active Reported Plavix (Clopidogrel Bisulfate) 75 Mg Tablet 75 Mg PO DAILY Lorazepam 0.5 Mg Tablet 1 Mg PO PRN Q8HRS PRN Flomax (Tamsulosin Hcl) 0.4 Mg Cap.er.24h 0.4 Mg PO HS PRN Depakote Sprinkle (Divalproex Sodium) 125 Mg Cap.sprink 500 Mg PO TID Colace (Docusate Sodium) 100 Mg Capsule 100 Mg PO BID Vitamin D (Cholecalciferol (Vitamin D3)) 1,000 Unit Capsule 2,000 Unit PO DAILY Atorvastatin Calcium 20 Mg Tablet 20 Mg PO QHS Atenolol 100 Mg Tablet 100 Mg PO DAILY Tylenol (Acetaminophen) 325 Mg Tablet 650 Mg PO PRN Q4HRS PRN I have reviewed the current psychotropics carefully including drug interactions. Risk benefit ratio favors no change other than as noted in my dictated progress note. 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
[2018-03-17 05:41] VITALS: BP 131/77
--- NOTE | 2018-03-17 09:32 | PN ---
DATE: 03/15/2018 PSYCHIATRIC PROGRESS NOTE This late entry 03/15/2018 covers elements, not covered in my initial note. SUBJECTIVE: I met with the patient in the evening. The patient slept 4-1/2 hours previous night. He has been agitated intermittently, received Zyprexa and Ativan p.r.n., had to be placed in the quiet room, very anxious, confused. REVIEW OF SYSTEMS: Ambulation impaired, in Broda chair. No CV, , pulmonary, eye, ENT system symptoms on review. MENTAL STATUS EXAM: Oriented to himself and situation. Speech, often responses monosyllabic. Abstraction fair, computation impaired, language function intact, attention span short. Mood and affect remains labile, anxious. LABORATORY DATA: Reviewed. IMPRESSION: Dementia, Lewy body with delusion, depression; anxiety disorder, unspecified. Rest unchanged. PLAN: Continue psychotropics from initial note, start BuSpar 5 mg at 9 a.m. and 5 p.m. MAN Diony JORGE MD DR: LOVE/lilly JOB#: [id number] / [id number]
[2018-03-17] MEDS: CLOPIDOGREL BISULFATE 75 MG TABLET PO SCH (12:07)
[2018-03-17] MEDS: ATENOLOL 50 MG TABLET PO SCH (12:07)
[2018-03-17] MEDS: DOCUSATE SODIUM 100 MG CAPSULE PO SCH ×2 (12:07→19:24)
[2018-03-17] MEDS: CHOLECALCIFEROL (VITAMIN D3) 1,000 UNIT TABLET PO SCH (12:07)
[2018-03-17] MEDS: TAMSULOSIN 0.4 MG CAP.ER.24H. PO SCH ×2 (12:07→19:24)
[2018-03-17] MEDS: busPIRone 5 MG TABLET. PO SCH ×2 (12:07→16:20)
[2018-03-17] MEDS: buPROPion 75 MG TABLET PO SCH ×2 (12:07→14:16)
[2018-03-17] MEDS: DIVALPROEX 125 MG CAP.SPRINK PO SCH ×2 (12:07→19:23)
[2018-03-17] MEDS: NYSTATIN TOPICAL POWDER 15GM BOTTLE. TP SCH ×2 (12:08→19:24)
[2018-03-17 15:51] VITALS: BP 146/64
[2018-03-17] MEDS: QUEtiapine 25 MG TABLET. PO SCH ×2 (16:20→19:24)
[2018-03-17] MEDS: ATORVASTATIN CALCIUM 20 MG TABLET PO SCH (19:24)
[2018-03-17] MEDS: MIRTAZAPINE 15 MG TABLET PO SCH (19:24)
[2018-03-17] MEDS: traZODone 50 MG TABLET. PO PRN (19:24)
--- NOTE | 2018-03-17 23:01 | PDOC ---
Exam Note: Pavel Note: Please also refer to the separate dictated note~for this date of service dictated separately.~Patient seen individually. Discussed the patient with Nursing staff reviewed the chart.~Reviewed interim history and current functioning. Reviewed vital signs,~Labs/ Radiology~and current medications noted below. Continue current treatment with the changes noted in the dictated addendum note Assessment: Vital Signs: Vital Signs Date Time Temp Pulse Resp B/P (MAP) Pulse Ox O2 Delivery O2 Flow Rate FiO2 03/17/18 15:51 99.4 83 18 146/64 (91) 91 03/14/18 16:21 Room Air I&O Intake and Output 03/17/18 07:01 Intake Total 1080 ml Output Total 975 ml Balance 105 ml Intake Oral 1080 ml Output Urine Total 975 ml Current Medications: Meds: Current Medications Acetaminophen (Tylenol) 650 mg PRN Q4HRS PRN PO PAIN / TEMP; Start 02/20/18 at 18:30 Atorvastatin Calcium (Lipitor) 20 mg QHS PO Last administered on 03/17/18 19:24 ; Start 02/20/18 at 21:00 Clopidogrel Bisulfate (Plavix) 75 mg DAILY PO Last administered on 03/17/18 12: 07; Start 02/21/18 at 09:00 Tamsulosin HCl (Flomax) 0.4 mg PRN QHS PRN PO retention; Start 02/20/18 at 18: 30; Stop 03/01/18 at 11:14; Status DC Atenolol (Tenormin) 100 mg DAILY PO Last administered on 03/17/18 12:07; Start 02/21/18 at 09:00 Vitamin D (Vitamin D3) 2,000 unit DAILY PO Last administered on 03/17/18 12:07 ; Start 02/21/18 at 09:00 Divalproex Sodium (Depakote Sprinkles) 500 mg TID PO Last administered on 02/26at 07:53; Start 02/20/18 at 21:00; Stop 02/26/18 at 10:36; Status DC Docusate Sodium (Colace) 100 mg BID PO Last administered on 03/17/18 19:24; Start 02/20/18 at 21:00 Lorazepam (Ativan) 1 mg PRN Q8HRS PRN PO ANXIETY / AGITATION Last administered on 03/15/18 17:18; Start 02/20/18 at 19:00 Multi-Ingredient Ointment (Analgesic [place]) 1 devika PRN QID PRN TP MUSCLE PAIN; Start 02/20/18 at 18:45 Al Hydroxide/Mg Hydroxide (Mylanta Plus Xs) 15 ml PRN AFTMEALHC PRN PO DYSPEPSIA Last administered on 03/07/18at 09:56; Start 02/20/18 at 18:45 Magnesium Hydroxide (Milk Of Magnesia) 2,400 mg PRN QHS PRN PO CONSTIPATION; Start 02/20/18 at 18:45 Nystatin (Nystop) 1 devika BID TP Last administered on 03/17/18 19:24; Start at 21:00 Bupropion HCl (Wellbutrin) 75 mg DAILY PO Last administered on 02/26/18at 07:53 ; Start 02/24/18 at 09:00; Stop 02/27/18 at 08:59; Status DC Bupropion HCl (Wellbutrin) 75 mg BIDACBL PO Last administered on 03/17/18at 14:16 ; Start 02/27/18 at 08:00; Stop 03/17/18 at 18:46; Status DC Divalproex Sodium (Depakote Er) 1,000 mg QHS PO Last administered on at 19:46; Start 02/26/18 at 21:00; Stop 02/28/18 at 19:35; Status DC Divalproex Sodium (Depakote Sprinkles) 1,000 mg HS PO Last administered on at 18:50; Start 02/28/18 at 21:00; Stop 03/04/18 at 18:24; Status DC Quetiapine Fumarate (SEROquel) 25 mg QHS PO Last administered on 03/11/18at 19:35 ; Start 03/01/18 at 21:00; Stop 03/12/18 at 11:05; Status DC Tamsulosin HCl (Flomax) 0.4 mg HS PO Last administered on 03/02/18at 20:26; Start 03/01/18 at 21:00; Stop 03/03/18 at 12:25; Status DC Mirtazapine (Remeron) 7.5 mg QHS PO Last administered on 03/10/18 19:28; Start 03/01/18 at 21:00; Stop 03/11/18 at 18:17; Status DC Tamsulosin HCl (Flomax) 0.4 mg BID PO Last administered on 03/17/18 19:24; Start 03/03/18 at 21:00 Amoxicillin (Amoxil) 500 mg [id number] PO Last administered on 03/14/18 19:28; Start 03/04/18 at 21:00; Stop 03/15/18 at 09:14; Status DC Divalproex Sodium (Depakote Er) 500 mg BID PO Last administered on 03/05/18at 19:44; Start 03/04/18 at 21:00; Stop 03/05/18 at 23:00; Status DC Lactobacillus Rhamnosus (Culturelle) 1 cap BID PO Last administered on 19:28; Start 03/05/18 at 21:00; Stop 03/15/18 at 09:14; Status DC Divalproex Sodium (Depakote Er) 1,000 mg QHS PO Last administered on 03/14/18 19:29; Start 03/06/18 at 21:00; Stop 03/15/18 at 21:12; Status DC Quetiapine Fumarate (SEROquel) 12.5 mg DAILY@1700 PO Last administered on 16:20; Start 03/11/18 at 17:00; Stop 03/17/18 at 18:46; Status DC Loperamide HCl (Imodium) 2 mg PRN Q1HR PRN PO DIARRHEA Last administered on 03/11 16:16; Start 03/11/18 at 16:15 Mirtazapine (Remeron) 15 mg QHS PO Last administered on 03/17/18 19:24; Start 03/11/18 at 21:00 Quetiapine Fumarate (SEROquel) 25 mg BID PO Last administered on 03/13/18 07:55 ; Start 03/12/18 at 21:00; Stop 03/13/18 at 16:36; Status DC Quetiapine Fumarate (SEROquel) 25 mg QHS PO Last administered on 03/17/18 19:24 ; Start 1/4/19 at 21:00 Olanzapine (ZyPREXA ZYDIS) 2.5 mg PRN Q2HR PRN PO PSYCHOSIS Last administered on 03/17/18 14:16; Start 03/14/18 at 12:00 Trazodone HCl (Desyrel) 50 mg PRN QHS PRN PO INSOMNIA, MAY REPEAT X1 Last administered on 03/17/18 19:24; Start 03/14/18 at 21:45 Buspirone HCl (Buspar) 5 mg [id number] PO Last administered on 03/17/18 16:20; Start 03/16/18 at 09:00 Divalproex Sodium (Depakote Sprinkles) 500 mg BID PO Last administered on 19:23; Start 03/15/18 at 21:15 Quetiapine Fumarate (SEROquel) 12.5 mg 0900,1700 PO ; Start 03/18/18 at 09:00 Active Scripts Active Reported Plavix (Clopidogrel Bisulfate) 75 Mg Tablet 75 Mg PO DAILY Lorazepam 0.5 Mg Tablet 1 Mg PO PRN Q8HRS PRN Flomax (Tamsulosin Hcl) 0.4 Mg Cap.er.24h 0.4 Mg PO HS PRN Depakote Sprinkle (Divalproex Sodium) 125 Mg Cap.sprink 500 Mg PO TID Colace (Docusate Sodium) 100 Mg Capsule 100 Mg PO BID Vitamin D (Cholecalciferol (Vitamin D3)) 1,000 Unit Capsule 2,000 Unit PO DAILY Atorvastatin Calcium 20 Mg Tablet 20 Mg PO QHS Atenolol 100 Mg Tablet 100 Mg PO DAILY Tylenol (Acetaminophen) 325 Mg Tablet 650 Mg PO PRN Q4HRS PRN I have reviewed the current psychotropics carefully including drug interactions. Risk benefit ratio favors no change other than as noted in my dictated progress note. 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
--- NOTE | 2018-03-18 05:49 | PN ---
DATE: 03/16/2018 PSYCHIATRIC PROGRESS NOTE This late entry 03/16/2018 covers elements, not covered in my initial note. SUBJECTIVE: I met with the patient in the evening. The patient slept 4-3/4 hours previous night. He did well the previous night, but during the day today on 03/16/2018, he has been more agitated, banging his walker on the wall amongst other things. Anxious, restless, grabbing at me as I met with him and held his hand. REVIEW OF SYSTEMS: Ambulation impaired, in Broda chair. No CV, , pulmonary, eye, ENT system symptoms on review. Reliability poor. MENTAL STATUS EXAM: Oriented to himself. Insight, judgment, recent and remote memory, attention, concentration, fund of knowledge poor, consistent with his diagnosis mentioned in my initial note. PLAN: No change from initial note. MAN Diony JORGE MD DR: LOVE/lilly JOB#: [id number] / [id number]
[2018-03-18 05:58] VITALS: BP 145/78
[2018-03-18] MEDS: busPIRone 5 MG TABLET. PO SCH (11:19)
[2018-03-18] MEDS: TAMSULOSIN 0.4 MG CAP.ER.24H. PO SCH ×2 (11:19→19:49)
[2018-03-18] MEDS: DOCUSATE SODIUM 100 MG CAPSULE PO SCH ×2 (11:20→19:49)
[2018-03-18] MEDS: CLOPIDOGREL BISULFATE 75 MG TABLET PO SCH (11:20)
[2018-03-18] MEDS: NYSTATIN TOPICAL POWDER 15GM BOTTLE. TP SCH ×2 (11:20→19:49)
[2018-03-18] MEDS: DIVALPROEX 125 MG CAP.SPRINK PO SCH ×2 (11:20→19:49)
[2018-03-18] MEDS: ATENOLOL 50 MG TABLET PO SCH (11:20)
[2018-03-18] MEDS: CHOLECALCIFEROL (VITAMIN D3) 1,000 UNIT TABLET PO SCH (11:20)
[2018-03-18] MEDS: QUEtiapine 25 MG TABLET. PO SCH ×3 (11:22→19:49)
[2018-03-18 16:26] VITALS: BP 129/83
[2018-03-18] MEDS: LORazepam 1 MG TABLET PO PRN (16:59)
[2018-03-18] MEDS: busPIRone 10 MG TABLET. PO SCH (16:59)
--- NOTE | 2018-03-18 17:31 | PN ---
DATE: 03/17/2018 PSYCHIATRIC PROGRESS NOTE This is a late entry 03/17/2018, covers elements not covered in my initial note. SUBJECTIVE: I met with the patient in the evening. The patient slept 6 hours previous night. He has been somewhat irritable, agitated, sarcastic. He did have his and daughter visit him earlier over lunch time. He was previously ramming his walker into obstacles in front of him. Part of this is probably due to his Parkinson's, but he is quite impulsive, obsessive, anxious as well contributing to this. REVIEW OF SYSTEMS: Ambulation impaired, in wheelchair, difficulty with his ambulation and stiffness and movement disorder secondary to Parkinson's. No CV, , pulmonary, eye, ENT system symptoms on review. Reliability poor. MENTAL STATUS EXAM: Oriented to himself and situation. Speech often responses monosyllabic, has some latency. Abstraction fair, computation impaired, language function intact, attention span short. Mood and affect remain somewhat anxious, labile. LABORATORY DATA: Reviewed. IMPRESSION: Major neurocognitive disorder, probably Lewy body with delusion, depression; anxiety disorder, unspecified; impulse control disorder, unspecified. PLAN: It is possible that the Wellbutrin is worsening his irritability and we will stop it. Start Seroquel 12.5 mg at 0900 and continue at 12.5 at 1700 25 at bedtime together with BuSpar 5 mg twice a day, Remeron 15 mg at bedtime. MAN Diony JORGE MD DR: LOVE/lilly JOB#: [id number] / [id number]
[2018-03-18] MEDS: ATORVASTATIN CALCIUM 20 MG TABLET PO SCH (19:49)
[2018-03-18] MEDS: MIRTAZAPINE 15 MG TABLET PO SCH (19:49)
--- NOTE | 2018-03-18 22:50 | PDOC ---
Exam Note: Pavel Note: Please also refer to the separate dictated note~for this date of service dictated separately.~Patient seen individually. Discussed the patient with Nursing staff reviewed the chart.~Reviewed interim history and current functioning. Reviewed vital signs,~Labs/ Radiology~and current medications noted below. Continue current treatment with the changes noted in the dictated addendum note Assessment: Vital Signs: Vital Signs Date Time Temp Pulse Resp B/P (MAP) Pulse Ox O2 Delivery O2 Flow Rate FiO2 03/18/18 16:26 97.6 65 21 129/83 (98) 100 03/14/18 16:21 Room Air I&O Intake and Output 03/18/18 07:01 Intake Total 580 ml Output Total 2350 ml Balance -1770 ml Intake Oral 580 ml Output Urine Total 2350 ml # Bowel Movements 2 Current Medications: Meds: Current Medications Acetaminophen (Tylenol) 650 mg PRN Q4HRS PRN PO PAIN / TEMP; Start 02/20/18 at 18:30 Atorvastatin Calcium (Lipitor) 20 mg QHS PO Last administered on 03/18/18 19:49 ; Start 02/20/18 at 21:00 Clopidogrel Bisulfate (Plavix) 75 mg DAILY PO Last administered on 03/18/18 11: 20; Start 02/21/18 at 09:00 Tamsulosin HCl (Flomax) 0.4 mg PRN QHS PRN PO retention; Start 02/20/18 at 18: 30; Stop 03/01/18 at 11:14; Status DC Atenolol (Tenormin) 100 mg DAILY PO Last administered on 03/18/18 11:20; Start 02/21/18 at 09:00 Vitamin D (Vitamin D3) 2,000 unit DAILY PO Last administered on 03/18/18 11:20 ; Start 02/21/18 at 09:00 Divalproex Sodium (Depakote Sprinkles) 500 mg TID PO Last administered on 02/26at 07:53; Start 02/20/18 at 21:00; Stop 02/26/18 at 10:36; Status DC Docusate Sodium (Colace) 100 mg BID PO Last administered on 03/18/18 19:49; Start 02/20/18 at 21:00 Lorazepam (Ativan) 1 mg PRN Q8HRS PRN PO ANXIETY / AGITATION Last administered on 03/18/18 16:59; Start 02/20/18 at 19:00 Multi-Ingredient Ointment (Analgesic [place]) 1 devika PRN QID PRN TP MUSCLE PAIN; Start 02/20/18 at 18:45 Al Hydroxide/Mg Hydroxide (Mylanta Plus Xs) 15 ml PRN AFTMEALHC PRN PO DYSPEPSIA Last administered on 03/07/18at 09:56; Start 02/20/18 at 18:45 Magnesium Hydroxide (Milk Of Magnesia) 2,400 mg PRN QHS PRN PO CONSTIPATION; Start 02/20/18 at 18:45 Nystatin (Nystop) 1 devika BID TP Last administered on 03/18/18 19:49; Start at 21:00 Bupropion HCl (Wellbutrin) 75 mg DAILY PO Last administered on 02/26/18at 07:53 ; Start 02/24/18 at 09:00; Stop 02/27/18 at 08:59; Status DC Bupropion HCl (Wellbutrin) 75 mg BIDACBL PO Last administered on 03/17/18 14:16 ; Start 02/27/18 at 08:00; Stop 03/17/18 at 18:46; Status DC Divalproex Sodium (Depakote Er) 1,000 mg QHS PO Last administered on at 19:46; Start 02/26/18 at 21:00; Stop 02/28/18 at 19:35; Status DC Divalproex Sodium (Depakote Sprinkles) 1,000 mg HS PO Last administered on at 18:50; Start 02/28/18 at 21:00; Stop 03/04/18 at 18:24; Status DC Quetiapine Fumarate (SEROquel) 25 mg QHS PO Last administered on 03/11/18at 19:35 ; Start 03/01/18 at 21:00; Stop 03/12/18 at 11:05; Status DC Tamsulosin HCl (Flomax) 0.4 mg HS PO Last administered on 03/02/18at 20:26; Start 03/01/18 at 21:00; Stop 03/03/18 at 12:25; Status DC Mirtazapine (Remeron) 7.5 mg QHS PO Last administered on 03/10/18 19:28; Start 03/01/18 at 21:00; Stop 03/11/18 at 18:17; Status DC Tamsulosin HCl (Flomax) 0.4 mg BID PO Last administered on 03/18/18 19:49; Start 03/03/18 at 21:00 Amoxicillin (Amoxil) 500 mg [id number] PO Last administered on 03/14/18 19:28; Start 03/04/18 at 21:00; Stop 03/15/18 at 09:14; Status DC Divalproex Sodium (Depakote Er) 500 mg BID PO Last administered on 03/05/18at 19:44; Start 03/04/18 at 21:00; Stop 03/05/18 at 23:00; Status DC Lactobacillus Rhamnosus (Culturelle) 1 cap BID PO Last administered on 19:28; Start 03/05/18 at 21:00; Stop 03/15/18 at 09:14; Status DC Divalproex Sodium (Depakote Er) 1,000 mg QHS PO Last administered on 03/14/18 19:29; Start 03/06/18 at 21:00; Stop 03/15/18 at 21:12; Status DC Quetiapine Fumarate (SEROquel) 12.5 mg DAILY@1700 PO Last administered on 16:20; Start 03/11/18 at 17:00; Stop 03/17/18 at 18:46; Status DC Loperamide HCl (Imodium) 2 mg PRN Q1HR PRN PO DIARRHEA Last administered on 03/11 16:16; Start 03/11/18 at 16:15 Mirtazapine (Remeron) 15 mg QHS PO Last administered on 03/18/18 19:49; Start 03/11/18 at 21:00 Quetiapine Fumarate (SEROquel) 25 mg BID PO Last administered on 03/13/18 07:55 ; Start 03/12/18 at 21:00; Stop 03/13/18 at 16:36; Status DC Quetiapine Fumarate (SEROquel) 25 mg QHS PO Last administered on 03/18/18 19:49 ; Start 03/13/18 at 21:00 Olanzapine (ZyPREXA ZYDIS) 2.5 mg PRN Q2HR PRN PO PSYCHOSIS Last administered on 03/17/18 14:16; Start 03/14/18 at 12:00 Trazodone HCl (Desyrel) 50 mg PRN QHS PRN PO INSOMNIA, MAY REPEAT X1 Last administered on 03/17/18 19:24; Start 03/14/18 at 21:45 Buspirone HCl (Buspar) 5 mg [id number] PO Last administered on 03/18/18 11:19; Start 03/16/18 at 09:00; Stop 03/18/18 at 14:47; Status DC Divalproex Sodium (Depakote Sprinkles) 500 mg BID PO Last administered on 19:49; Start 03/15/18 at 21:15 Quetiapine Fumarate (SEROquel) 12.5 mg 0900,1700 PO Last administered on 16:59; Start 03/18/18 at 09:00 Buspirone HCl (Buspar) 10 mg BID@0900,1700 PO Last administered on 03/18/18 16: 59; Start 03/18/18 at 17:00 Active Scripts Active Reported Plavix (Clopidogrel Bisulfate) 75 Mg Tablet 75 Mg PO DAILY Lorazepam 0.5 Mg Tablet 1 Mg PO PRN Q8HRS PRN Flomax (Tamsulosin Hcl) 0.4 Mg Cap.er.24h 0.4 Mg PO HS PRN Depakote Sprinkle (Divalproex Sodium) 125 Mg Cap.sprink 500 Mg PO TID Colace (Docusate Sodium) 100 Mg Capsule 100 Mg PO BID Vitamin D (Cholecalciferol (Vitamin D3)) 1,000 Unit Capsule 2,000 Unit PO DAILY Atorvastatin Calcium 20 Mg Tablet 20 Mg PO QHS Atenolol 100 Mg Tablet 100 Mg PO DAILY Tylenol (Acetaminophen) 325 Mg Tablet 650 Mg PO PRN Q4HRS PRN I have reviewed the current psychotropics carefully including drug interactions. Risk benefit ratio favors no change other than as noted in my dictated progress note. 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
[2018-03-19 05:57] VITALS: BP 150/85
[2018-03-19] MEDS: TAMSULOSIN 0.4 MG CAP.ER.24H. PO SCH ×2 (09:41→19:22)
[2018-03-19] MEDS: DIVALPROEX 125 MG CAP.SPRINK PO SCH ×2 (09:41→19:21)
[2018-03-19] MEDS: DOCUSATE SODIUM 100 MG CAPSULE PO SCH ×2 (09:41→19:22)
[2018-03-19] MEDS: busPIRone 10 MG TABLET. PO SCH ×2 (09:41→17:19)
[2018-03-19] MEDS: CLOPIDOGREL BISULFATE 75 MG TABLET PO SCH (09:42)
[2018-03-19] MEDS: QUEtiapine 25 MG TABLET. PO SCH ×3 (09:42→19:21)
[2018-03-19] MEDS: NYSTATIN TOPICAL POWDER 15GM BOTTLE. TP SCH ×2 (09:45→19:22)
[2018-03-19] MEDS: CHOLECALCIFEROL (VITAMIN D3) 1,000 UNIT TABLET PO SCH (09:45)
[2018-03-19] MEDS: ATENOLOL 50 MG TABLET PO SCH (10:13)
[2018-03-19 16:00] VITALS: BP 96/62
[2018-03-19] MEDS: LORazepam 1 MG TABLET PO PRN (19:22)
[2018-03-19] MEDS: MIRTAZAPINE 15 MG TABLET PO SCH (19:22)
[2018-03-19] MEDS: ATORVASTATIN CALCIUM 20 MG TABLET PO SCH (19:22)
[2018-03-19] MEDS ORDERED: OLANZapine IM 10 MG VIAL. IM ONE (19:45)
[2018-03-19] MEDS: MEMANTINE 5 MG TABLET. PO SCH (20:36)
--- NOTE | 2018-03-19 22:58 | PDOC ---
Exam Note: Pavel Note: Please also refer to the separate dictated note~for this date of service dictated separately.~Patient seen individually. Discussed the patient with Nursing staff reviewed the chart.~Reviewed interim history and current functioning. Reviewed vital signs,~Labs/ Radiology~and current medications noted below. Continue current treatment with the changes noted in the dictated addendum note Assessment: Vital Signs: Vital Signs Date Time Temp Pulse Resp B/P (MAP) Pulse Ox O2 Delivery O2 Flow Rate FiO2 03/19/18 16:00 98.6 81 19 96/62 (73) 98 Room Air I&O Intake and Output 03/19/18 07:01 Intake Total 560 ml Output Total 300 ml Balance 260 ml Intake Oral 560 ml Output Urine Total 300 ml # Bowel Movements 1 Current Medications: Meds: Current Medications Acetaminophen (Tylenol) 650 mg PRN Q4HRS PRN PO PAIN / TEMP; Start 02/20/18 at 18:30 Atorvastatin Calcium (Lipitor) 20 mg QHS PO Last administered on 03/19/18 19: 22; Start 02/20/18 at 21:00 Clopidogrel Bisulfate (Plavix) 75 mg DAILY PO Last administered on 03/19/18 09 :42; Start 02/21/18 at 09:00 Tamsulosin HCl (Flomax) 0.4 mg PRN QHS PRN PO retention; Start 02/20/18 at 18: 30; Stop 03/01/18 at 11:14; Status DC Atenolol (Tenormin) 100 mg DAILY PO Last administered on 03/18/18 11:20; Start 02/21/18 at 09:00 Vitamin D (Vitamin D3) 2,000 unit DAILY PO Last administered on 03/19/18at 09:45 ; Start 02/21/18 at 09:00 Divalproex Sodium (Depakote Sprinkles) 500 mg TID PO Last administered on 02/26at 07:53; Start 02/20/18 at 21:00; Stop 02/26/18 at 10:36; Status DC Docusate Sodium (Colace) 100 mg BID PO Last administered on 03/19/18 19:22; Start 02/20/18 at 21:00 Lorazepam (Ativan) 1 mg PRN Q8HRS PRN PO ANXIETY / AGITATION Last administered on 1/10/19at 19:22; Start 02/20/18 at 19:00 Multi-Ingredient Ointment (Analgesic [place]) 1 devika PRN QID PRN TP MUSCLE PAIN; Start 02/20/18 at 18:45 Al Hydroxide/Mg Hydroxide (Mylanta Plus Xs) 15 ml PRN AFTMEALHC PRN PO DYSPEPSIA Last administered on 03/07/18at 09:56; Start 02/20/18 at 18:45 Magnesium Hydroxide (Milk Of Magnesia) 2,400 mg PRN QHS PRN PO CONSTIPATION; Start 02/20/18 at 18:45 Nystatin (Nystop) 1 devika BID TP Last administered on 03/19/18 19:22; Start at 21:00 Bupropion HCl (Wellbutrin) 75 mg DAILY PO Last administered on 02/26/18at 07:53 ; Start 02/24/18 at 09:00; Stop 02/27/18 at 08:59; Status DC Bupropion HCl (Wellbutrin) 75 mg BIDACBL PO Last administered on 03/17/18at 14:16 ; Start 02/27/18 at 08:00; Stop 03/17/18 at 18:46; Status DC Divalproex Sodium (Depakote Er) 1,000 mg QHS PO Last administered on at 19:46; Start 02/26/18 at 21:00; Stop 02/28/18 at 19:35; Status DC Divalproex Sodium (Depakote Sprinkles) 1,000 mg HS PO Last administered on at 18:50; Start 02/28/18 at 21:00; Stop 03/04/18 at 18:24; Status DC Quetiapine Fumarate (SEROquel) 25 mg QHS PO Last administered on 03/11/18 19:35 ; Start 03/01/18 at 21:00; Stop 03/12/18 at 11:05; Status DC Tamsulosin HCl (Flomax) 0.4 mg HS PO Last administered on 03/02/18 20:26; Start 03/01/18 at 21:00; Stop 03/03/18 at 12:25; Status DC Mirtazapine (Remeron) 7.5 mg QHS PO Last administered on 1/1/19at 19:28; Start 03/01/18 at 21:00; Stop 03/11/18 at 18:17; Status DC Tamsulosin HCl (Flomax) 0.4 mg BID PO Last administered on 03/19/18 19:22; Start 03/03/18 at 21:00 Amoxicillin (Amoxil) 500 mg [id number] PO Last administered on 03/14/18 19:28; Start 03/04/18 at 21:00; Stop 03/15/18 at 09:14; Status DC Divalproex Sodium (Depakote Er) 500 mg BID PO Last administered on 03/05/18at 19:44; Start 03/04/18 at 21:00; Stop 03/05/18 at 23:00; Status DC Lactobacillus Rhamnosus (Culturelle) 1 cap BID PO Last administered on 19:28; Start 03/05/18 at 21:00; Stop 03/15/18 at 09:14; Status DC Divalproex Sodium (Depakote Er) 1,000 mg QHS PO Last administered on 03/14/18 19:29; Start 03/06/18 at 21:00; Stop 03/15/18 at 21:12; Status DC Quetiapine Fumarate (SEROquel) 12.5 mg DAILY@1700 PO Last administered on 16:20; Start 03/11/18 at 17:00; Stop 03/17/18 at 18:46; Status DC Loperamide HCl (Imodium) 2 mg PRN Q1HR PRN PO DIARRHEA Last administered on 03/11 16:16; Start 03/11/18 at 16:15 Mirtazapine (Remeron) 15 mg QHS PO Last administered on 03/19/18 19:22; Start 03/11/18 at 21:00 Quetiapine Fumarate (SEROquel) 25 mg BID PO Last administered on 03/13/18 07:55 ; Start 03/12/18 at 21:00; Stop 03/13/18 at 16:36; Status DC Quetiapine Fumarate (SEROquel) 25 mg QHS PO Last administered on 03/19/18 19: 21; Start 03/13/18 at 21:00 Olanzapine (ZyPREXA ZYDIS) 2.5 mg PRN Q2HR PRN PO PSYCHOSIS Last administered on 03/17/18at 14:16; Start 03/14/18 at 12:00 Trazodone HCl (Desyrel) 50 mg PRN QHS PRN PO INSOMNIA, MAY REPEAT X1 Last administered on 03/17/18at 19:24; Start 03/14/18 at 21:45 Buspirone HCl (Buspar) 5 mg [id number] PO Last administered on 03/18/18at 11:19; Start 03/16/18 at 09:00; Stop 03/18/18 at 14:47; Status DC Divalproex Sodium (Depakote Sprinkles) 500 mg BID PO Last administered on at 19:21; Start 03/15/18 at 21:15 Quetiapine Fumarate (SEROquel) 12.5 mg 0900,1700 PO Last administered on at 17:19; Start 03/18/18 at 09:00 Buspirone HCl (Buspar) 10 mg BID@0900,1700 PO Last administered on 03/19/18at 17 :19; Start 03/18/18 at 17:00 Rivastigmine (Exelon) 1 patch DAILY TD ; Start 03/20/18 at 09:00; Stop 03/24/18 at 11:00 Rivastigmine (Exelon) 1 patch DAILY TD ; Start 03/25/18 at 09:00 Memantine (Namenda) 5 mg HS PO ; Start 03/19/18 at 21:00; Stop 03/21/18 at 23:00 Memantine (Namenda) 5 mg BID PO ; Start 03/22/18 at 09:00 Olanzapine (ZyPREXA IM) 5 mg 1X ONCE IM Last administered on 03/19/18at 20:05; Start 03/19/18 at 19:45; Stop 03/19/18 at 19:46; Status DC Active Scripts Active Reported Plavix (Clopidogrel Bisulfate) 75 Mg Tablet 75 Mg PO DAILY Lorazepam 0.5 Mg Tablet 1 Mg PO PRN Q8HRS PRN Flomax (Tamsulosin Hcl) 0.4 Mg Cap.er.24h 0.4 Mg PO HS PRN Depakote Sprinkle (Divalproex Sodium) 125 Mg Cap.sprink 500 Mg PO TID Colace (Docusate Sodium) 100 Mg Capsule 100 Mg PO BID Vitamin D (Cholecalciferol (Vitamin D3)) 1,000 Unit Capsule 2,000 Unit PO DAILY Atorvastatin Calcium 20 Mg Tablet 20 Mg PO QHS Atenolol 100 Mg Tablet 100 Mg PO DAILY Tylenol (Acetaminophen) 325 Mg Tablet 650 Mg PO PRN Q4HRS PRN I have reviewed the current psychotropics carefully including drug interactions. Risk benefit ratio favors no change other than as noted in my dictated progress note. 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
--- NOTE | 2018-03-19 23:35 | PN ---
DATE: 03/18/2018 This late entry for 03/18/2018 covers elements not covered in my initial note. SUBJECTIVE: I met with the patient in the evening and he was staffed at a treatment team meeting with the entire team earlier in the day. The patient slept 4-1/2 hours average, previous night slept 2-1/4 hours. Appetite 60%, somewhat intrusive with his wheelchair, going into the rooms of other patients, oblivious of what he is doing. Agitated in the evening, stomping his walker on the wall. REVIEW OF SYSTEMS: Ambulation impaired. No CV, , pulmonary, eye system symptoms on review. MENTAL STATUS EXAM: Oriented to himself. Insight, judgment, recent and remote memory, attention, concentration, fund of knowledge poor, consistent with his diagnosis. At times, he seems more oriented than other times consistent with his diagnosis. IMPRESSION: Major neurocognitive disorder, Lewy body with delusion, depression, behavioral disturbance. Rest unchanged. PLAN: We will increase the BuSpar from 5 mg twice a day to 10 mg twice a day. Rest psychotropics unchanged from initial note. MAN Diony JORGE MD DR: LOVE/lilly JOB#: [id number] / [id number]
--- NOTE | 2018-03-19 23:50 | PN ---
DATE: 03/19/2018 This note covers elements not covered in my initial note of 03/19/2018. SUBJECTIVE: I met with the patient in the afternoon. The patient slept 5 hours previous night. He did well at night, but during the day, he has had a labile mood. He takes his medications "grudgingly" per nursing report. He is anxious, somewhat restless. REVIEW OF SYSTEMS: Ambulation impaired, in wheelchair. No CV, , pulmonary, eye, ENT system symptoms on review. Gait unsteady. Reliability poor. MENTAL STATUS EXAM: Oriented to himself, at times to situation. Speech at times somewhat pressured, has some latency at other times. Abstraction fair, computation impaired, language function intact, attention span short. Mood and affect remain somewhat labile. LABORATORY DATA: Reviewed. IMPRESSION: Major neurocognitive disorder, probably Lewy body with delusion, depression, behavioral disturbance; anxiety disorder, unspecified. Rest unchanged. PLAN: No change from initial note, but given his diagnosis of Lewy body dementia, we will add Exelon patch 4.6 mg a day for 5 days, then 9.5 mg a day thereafter and Namenda 5 mg at bedtime for 3 days and then 5 mg b.i.d. Continue rest unchanged. MAN Diony JORGE MD DR: LOVE/nts JOB#: [id number] / [id number]
[2018-03-20 05:39] VITALS: BP 162/89
[2018-03-20] MEDS: DIVALPROEX 125 MG CAP.SPRINK PO SCH ×2 (11:55→20:04)
[2018-03-20] MEDS: DOCUSATE SODIUM 100 MG CAPSULE PO SCH ×2 (11:55→20:02)
[2018-03-20] MEDS: CLOPIDOGREL BISULFATE 75 MG TABLET PO SCH (11:56)
[2018-03-20] MEDS: CHOLECALCIFEROL (VITAMIN D3) 1,000 UNIT TABLET PO SCH (11:56)
[2018-03-20] MEDS: TAMSULOSIN 0.4 MG CAP.ER.24H. PO SCH ×2 (11:56→20:02)
[2018-03-20] MEDS: busPIRone 10 MG TABLET. PO SCH ×2 (11:56→17:04)
[2018-03-20] MEDS: ATENOLOL 50 MG TABLET PO SCH (11:56)
[2018-03-20] MEDS: QUEtiapine 25 MG TABLET. PO SCH ×2 (11:57→17:04)
[2018-03-20] MEDS: NYSTATIN TOPICAL POWDER 15GM BOTTLE. TP SCH ×2 (12:00→20:02)
[2018-03-20] MEDS: RIVASTIGMINE 4.6MG PATCH. TD SCH (12:03)
[2018-03-20 15:01] VITALS: BP 112/73
[2018-03-20] MEDS: LORazepam 1 MG TABLET PO PRN (17:04)
[2018-03-20] MEDS ORDERED: OLANZapine IM 10 MG VIAL. IM ONE (19:15)
[2018-03-20] MEDS ORDERED: QUEtiapine 25 MG TABLET. PO PRN (19:30)
[2018-03-20] MEDS: MEMANTINE 5 MG TABLET. PO SCH (20:03)
[2018-03-20] MEDS: MIRTAZAPINE 15 MG TABLET PO SCH (20:03)
[2018-03-20] MEDS: ATORVASTATIN CALCIUM 20 MG TABLET PO SCH (20:03)
[2018-03-20] MEDS: QUEtiapine 50 MG TABLET. PO SCH (20:05)
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
[2018-03-21] MEDS: traZODone 50 MG TABLET. PO PRN (01:22)
[2018-03-21 06:44] VITALS: BP 123/77
[2018-03-21 09:26] LABS: BASO # 0.1 x10^3/uL (0.0-0.2); BASO % 1 % (0-3); EOS # 0.5 x10^3/uL (0.0-0.7); EOS % 6 % (0-3); HEMATOCRIT 33.9 % (39.0-53.0); HEMOGLOBIN 11.6 g/dL (13.0-17.5); LYMPH # 1.7 x10^3/uL (1.0-4.8); LYMPH % 21 % (24-48); MEAN CORPUSCULAR HEMOGLOBIN 33 pg (25-35); MEAN CORPUSCULAR HGB CONC 34 g/dL (31-37); MEAN CORPUSCULAR VOLUME 97 fL (79-100); MONO # 1.3 x10^3/uL (0.0-1.1); MONO % 16 % (0-9); NEUT # 4.5 x10^3uL (1.8-7.7); NEUT % 56 % (31-73); PLATELET COUNT 148 x10^3/uL (140-400); RED BLOOD COUNT 3.49 x10^6/uL (4.30-5.70); RED CELL DISTRIBUTION WIDTH 14.9 % (11.5-14.5); WHITE BLOOD COUNT 8.1 x10^3/uL (4.0-11.0)
[2018-03-21 09:29] LABS: ALBUMIN 2.6 g/dL (3.4-5.0); ALBUMIN/GLOBULIN RATIO 0.8 (1.0-1.7); CREATININE 1.1 mg/dL (0.7-1.3); POTASSIUM 3.6 mmol/L (3.5-5.1); TOTAL BILIRUBIN 0.5 mg/dL (0.2-1.0); TOTAL PROTEIN 5.7 g/dL (6.4-8.2)
[2018-03-21] MEDS: DOCUSATE SODIUM 100 MG CAPSULE PO SCH ×2 (11:55→20:19)
[2018-03-21] MEDS: DIVALPROEX 125 MG CAP.SPRINK PO SCH ×2 (11:55→20:20)
[2018-03-21] MEDS: busPIRone 10 MG TABLET. PO SCH ×2 (11:55→16:40)
[2018-03-21] MEDS: TAMSULOSIN 0.4 MG CAP.ER.24H. PO SCH ×2 (11:55→20:19)
[2018-03-21] MEDS: CLOPIDOGREL BISULFATE 75 MG TABLET PO SCH (12:00)
[2018-03-21] MEDS: QUEtiapine 25 MG TABLET. PO SCH ×2 (12:00→16:40)
[2018-03-21] MEDS: RIVASTIGMINE 4.6MG PATCH. TD SCH (12:01)
[2018-03-21] MEDS: ATENOLOL 50 MG TABLET PO SCH (12:01)
[2018-03-21] MEDS: CHOLECALCIFEROL (VITAMIN D3) 1,000 UNIT TABLET PO SCH (12:01)
[2018-03-21] MEDS: NYSTATIN TOPICAL POWDER 15GM BOTTLE. TP SCH ×2 (12:02→20:20)
[2018-03-21 15:53] VITALS: BP 128/84
[2018-03-21] MEDS: LORazepam 1 MG TABLET PO PRN (16:40)
[2018-03-21] MEDS ORDERED: OLANZapine IM 10 MG VIAL. IM ONE ×2 (17:30→19:45)
[2018-03-21] MEDS: ATORVASTATIN CALCIUM 20 MG TABLET PO SCH (20:19)
[2018-03-21] MEDS: MEMANTINE 5 MG TABLET. PO SCH (20:19)
[2018-03-21] MEDS: MIRTAZAPINE 15 MG TABLET PO SCH (20:19)
[2018-03-21] MEDS: QUEtiapine 50 MG TABLET. PO SCH (20:20)
[2018-03-22 06:14] VITALS: BP 122/74
[2018-03-22] MEDS: DOCUSATE SODIUM 100 MG CAPSULE PO SCH ×2 (11:06→20:12)
[2018-03-22] MEDS: DIVALPROEX 125 MG CAP.SPRINK PO SCH ×2 (11:06→20:11)
[2018-03-22] MEDS: busPIRone 10 MG TABLET. PO SCH ×2 (11:06→17:09)
[2018-03-22] MEDS: TAMSULOSIN 0.4 MG CAP.ER.24H. PO SCH ×2 (11:26→20:11)
[2018-03-22] MEDS: CHOLECALCIFEROL (VITAMIN D3) 1,000 UNIT TABLET PO SCH (11:27)
[2018-03-22] MEDS: QUEtiapine 25 MG TABLET. PO SCH ×2 (11:27→17:10)
[2018-03-22] MEDS: NYSTATIN TOPICAL POWDER 15GM BOTTLE. TP SCH ×2 (11:27→20:12)
[2018-03-22] MEDS: RIVASTIGMINE 4.6MG PATCH. TD SCH (11:27)
[2018-03-22] MEDS: CLOPIDOGREL BISULFATE 75 MG TABLET PO SCH (11:27)
[2018-03-22] MEDS: MEMANTINE 5 MG TABLET. PO SCH ×2 (11:28→20:12)
[2018-03-22] MEDS: ATENOLOL 50 MG TABLET PO SCH (11:31)
[2018-03-22 16:00] VITALS: BP 116/59
[2018-03-22] MEDS: OLANZapine IM 10 MG VIAL. IM PRN (16:32)
--- NOTE | 2018-03-22 18:49 | PN ---
DATE: 03/22/2018 SUBJECTIVE: The patient was seen today, met with the staff, chart reviewed. The patient continues to receive p.r.n. medications because of the behavior problems. Tend to get very aggressive with the staff. The patient also exhibits some unpredictable behavior, explosive temper and also exhibiting poor impulse control. OBSERVATION: VITAL SIGNS: Temperature 97.5, blood pressure 122/74, respirations 16, pulse 65 and his O2 sat 99%. Slept about 5 hours last night. MEDICATIONS: Reviewed. Currently on Exelon patch, Namenda, BuSpar, Seroquel, and Depakote. The patient is also on mirtazapine 15 mg at night and trazodone 50 mg at night p.r.n. for sleep. The patient is not exhibiting any side effects. The patient's lab reviewed. The patient did not have any falls. ASSESSMENT: 1. Dementia, most likely Alzheimer's versus vascular with behavior problems. 2. Generalized anxiety disorder. 3. Impulse control disorder, unspecified. PLAN: To continue with the treatment. KYA BARNEY MD DR: GIRISH/lilly JOB#: [id number] / [id number]
[2018-03-22] MEDS: ATORVASTATIN CALCIUM 20 MG TABLET PO SCH (20:11)
[2018-03-22] MEDS: QUEtiapine 50 MG TABLET. PO SCH (20:12)
[2018-03-22] MEDS: MIRTAZAPINE 15 MG TABLET PO SCH (20:12)
[2018-03-22] MEDS: traZODone 50 MG TABLET. PO PRN (22:48)
[2018-03-22] MEDS: LORazepam 1 MG TABLET PO PRN (23:48)
[2018-03-23 06:26] VITALS: BP 194/96
[2018-03-23 06:42] VITALS: BP 156/84
[2018-03-23] MEDS: TAMSULOSIN 0.4 MG CAP.ER.24H. PO SCH ×2 (11:22→20:06)
[2018-03-23] MEDS: DIVALPROEX 125 MG CAP.SPRINK PO SCH ×2 (11:22→20:07)
[2018-03-23] MEDS: DOCUSATE SODIUM 100 MG CAPSULE PO SCH ×2 (11:22→20:07)
[2018-03-23] MEDS: busPIRone 10 MG TABLET. PO SCH ×2 (11:22→16:18)
[2018-03-23] MEDS: MEMANTINE 5 MG TABLET. PO SCH ×2 (11:23→20:07)
[2018-03-23] MEDS: QUEtiapine 25 MG TABLET. PO SCH ×2 (11:23→16:18)
[2018-03-23] MEDS: CLOPIDOGREL BISULFATE 75 MG TABLET PO SCH (11:23)
[2018-03-23] MEDS: ATENOLOL 50 MG TABLET PO SCH (11:24)
[2018-03-23] MEDS: NYSTATIN TOPICAL POWDER 15GM BOTTLE. TP SCH ×2 (11:25→21:05)
[2018-03-23] MEDS: RIVASTIGMINE 4.6MG PATCH. TD SCH (11:25)
[2018-03-23] MEDS: CHOLECALCIFEROL (VITAMIN D3) 1,000 UNIT TABLET PO SCH (11:25)
[2018-03-23] MEDS: ACETAMINOPHEN 325 MG TABLET PO PRN (11:52)
[2018-03-23 16:40] VITALS: BP 106/66
[2018-03-23] MEDS: MIRTAZAPINE 15 MG TABLET PO SCH (20:06)
[2018-03-23] MEDS: QUEtiapine 50 MG TABLET. PO SCH (20:07)
[2018-03-23] MEDS: ATORVASTATIN CALCIUM 20 MG TABLET PO SCH (20:07)
--- NOTE | 2018-03-23 20:34 | RAD ---
CT HEAD WO CONTRAST Indication: Patient fell and hit head and right shoulder, pain Exposure: One or more of the following individualized dose reduction techniques were utilized for this examination: 1. Automated exposure control 2. Adjustment of the mA and/or kV according to patient size 3. Use of iterative reconstruction technique. Comparison: None are available. Contrast: None FINDINGS: Posterior fossa is unremarkable. No evidence of acute intracranial hemorrhage or abnormal extra-axial fluid collection. No evidence of mass effect or midline shift. Low-density in the white matter bilaterally, a nonspecific finding, but which is commonly due to chronic small vessel ischemic disease in a patient of this age. Prominence of ventricles and sulci, compatible with involutional change or atrophy. Intracranial arterial calcifications are identified. Visualized orbits are unremarkable. Mucosal thickening in the left frontal sinus. No evidence of depressed skull fracture, although a point of impact is not known. Impression: Severe white matter low-density is nonspecific but commonly due to chronic small vessel ischemic disease in this age group. Atrophy. No acute intracranial hemorrhage. Electronically signed by: Jose Joseph MD (03/23/2018 8:30 PM) [id number]
[2018-03-23] MEDS: OLANZapine IM 10 MG VIAL. IM PRN (21:01)
[2018-03-23] MEDS: traZODone 50 MG TABLET. PO PRN (21:34)
--- NOTE | 2018-03-24 00:14 | RAD ---
SHOULDER 2+V RIGHT History: Patient fell and hit head and right shoulder, pain. Comparison: None are available No acute fracture or bone destruction. Joints and soft tissues appear intact. Impression: No acute radiographic abnormality Electronically signed by: Jose Joseph MD (03/23/2018 10:03 PM) [id number]
[2018-03-24 05:54] VITALS: BP 146/78
[2018-03-24 08:00] LABS: VAL ACID 31 mcg/mL (50-100)
--- NOTE | 2018-03-24 09:18 | PDOC ---
Exam Note: Pavel Note: Late entry for DOS 03/23/2018. Please also refer to the separate dictated note~ for this date of service dictated separately.~Patient seen individually. Discussed the patient with Nursing staff reviewed the chart.~Reviewed interim history and current functioning. Reviewed vital signs,~Labs/ Radiology~and current medications noted below. Continue current treatment with the changes noted in the dictated addendum note Assessment: Vital Signs: VS - Last 72 Hours, by Label Date Time Temp Pulse Resp B/P (MAP) Pulse Ox O2 Delivery O2 Flow Rate FiO2 03/24/18 05:54 97.4 72 20 146/78 (100) 100 03/23/18 16:40 98.4 79 16 106/66 (79) 98 03/23/18 11:24 74 156/84 03/23/18 06:42 156/84 (108) 03/23/18 06:26 97.9 74 18 194/96 (128) 93 03/22/18 16:00 98.0 94 18 116/59 (78) 98 03/22/18 06:14 97.5 65 16 122/74 (90) 99 03/21/18 15:53 97.4 73 20 128/84 (99) 98 Room Air 03/21/18 12:01 72 123/77 Vital Signs Date Time Temp Pulse Resp B/P (MAP) Pulse Ox O2 Delivery O2 Flow Rate FiO2 03/24/18 05:54 97.4 72 20 146/78 (100) 100 03/21/18 15:53 Room Air I&O Intake and Output 03/24/18 07:01 Intake Total 1080 ml Balance 1080 ml Intake Oral 1080 ml # Bowel Movements 1 Labs: Laboratory Tests Test 03/24/18 07:40 Valproic Acid Level 31 mcg/mL (50-100) L Valproic Acid Last Dose Date 03/23/18 Valproic Acid Last Dose Time 2100 Current Medications: Meds: Current Medications Acetaminophen (Tylenol) 650 mg PRN Q4HRS PRN PO PAIN / TEMP Last administered on 03/23/18at 11:52; Start 02/20/18 at 18:30 Atorvastatin Calcium (Lipitor) 20 mg QHS PO Last administered on 03/23/18at 20: 07; Start 02/20/18 at 21:00 Clopidogrel Bisulfate (Plavix) 75 mg DAILY PO Last administered on 03/23/18 11 :23; Start 02/21/18 at 09:00 Tamsulosin HCl (Flomax) 0.4 mg PRN QHS PRN PO retention; Start 02/20/18 at 18: 30; Stop 03/01/18 at 11:14; Status DC Atenolol (Tenormin) 100 mg DAILY PO Last administered on 03/23/18 11:24; Start 02/21/18 at 09:00 Vitamin D (Vitamin D3) 2,000 unit DAILY PO Last administered on 03/23/18 11:25 ; Start 02/21/18 at 09:00 Divalproex Sodium (Depakote Sprinkles) 500 mg TID PO Last administered on 02/26 07:53; Start 02/20/18 at 21:00; Stop 02/26/18 at 10:36; Status DC Docusate Sodium (Colace) 100 mg BID PO Last administered on 03/23/18 20:07; Start 02/20/18 at 21:00 Lorazepam (Ativan) 1 mg PRN Q8HRS PRN PO ANXIETY / AGITATION Last administered on 03/22/18 23:48; Start 02/20/18 at 19:00 Multi-Ingredient Ointment (Analgesic [place]) 1 devika PRN QID PRN TP MUSCLE PAIN; Start 02/20/18 at 18:45 Al Hydroxide/Mg Hydroxide (Mylanta Plus Xs) 15 ml PRN AFTMEALHC PRN PO DYSPEPSIA Last administered on 03/07/18at 09:56; Start 02/20/18 at 18:45 Magnesium Hydroxide (Milk Of Magnesia) 2,400 mg PRN QHS PRN PO CONSTIPATION; Start 02/20/18 at 18:45 Nystatin (Nystop) 1 devika BID TP Last administered on 03/23/18 21:05; Start at 21:00 Bupropion HCl (Wellbutrin) 75 mg DAILY PO Last administered on 02/26/18 07:53 ; Start 02/24/18 at 09:00; Stop 02/27/18 at 08:59; Status DC Bupropion HCl (Wellbutrin) 75 mg BIDACBL PO Last administered on 03/17/18 14:16 ; Start 02/27/18 at 08:00; Stop 03/17/18 at 18:46; Status DC Divalproex Sodium (Depakote Er) 1,000 mg QHS PO Last administered on at 19:46; Start 02/26/18 at 21:00; Stop 02/28/18 at 19:35; Status DC Divalproex Sodium (Depakote Sprinkles) 1,000 mg HS PO Last administered on at 18:50; Start 02/28/18 at 21:00; Stop 03/04/18 at 18:24; Status DC Quetiapine Fumarate (SEROquel) 25 mg QHS PO Last administered on 03/11/18 19:35 ; Start 03/01/18 at 21:00; Stop 03/12/18 at 11:05; Status DC Tamsulosin HCl (Flomax) 0.4 mg HS PO Last administered on 03/02/18at 20:26; Start 03/01/18 at 21:00; Stop 03/03/18 at 12:25; Status DC Mirtazapine (Remeron) 7.5 mg QHS PO Last administered on 03/10/18 19:28; Start 03/01/18 at 21:00; Stop 03/11/18 at 18:17; Status DC Tamsulosin HCl (Flomax) 0.4 mg BID PO Last administered on 03/23/18at 20:06; Start 03/03/18 at 21:00 Amoxicillin (Amoxil) 500 mg [id number] PO Last administered on 03/14/18 19:28; Start 03/04/18 at 21:00; Stop 03/15/18 at 09:14; Status DC Divalproex Sodium (Depakote Er) 500 mg BID PO Last administered on 03/05/18at 19:44; Start 03/04/18 at 21:00; Stop 03/05/18 at 23:00; Status DC Lactobacillus Rhamnosus (Culturelle) 1 cap BID PO Last administered on 19:28; Start 03/05/18 at 21:00; Stop 03/15/18 at 09:14; Status DC Divalproex Sodium (Depakote Er) 1,000 mg QHS PO Last administered on 03/14/18 19:29; Start 03/06/18 at 21:00; Stop 03/15/18 at 21:12; Status DC Quetiapine Fumarate (SEROquel) 12.5 mg DAILY@1700 PO Last administered on 16:20; Start 03/11/18 at 17:00; Stop 03/17/18 at 18:46; Status DC Loperamide HCl (Imodium) 2 mg PRN Q1HR PRN PO DIARRHEA Last administered on 03/11 16:16; Start 03/11/18 at 16:15 Mirtazapine (Remeron) 15 mg QHS PO Last administered on 03/23/18 20:06; Start 03/11/18 at 21:00 Quetiapine Fumarate (SEROquel) 25 mg BID PO Last administered on 03/13/18 07:55 ; Start 03/12/18 at 21:00; Stop 03/13/18 at 16:36; Status DC Quetiapine Fumarate (SEROquel) 25 mg QHS PO Last administered on 03/19/18 19: 21; Start 03/13/18 at 21:00; Stop 03/20/18 at 19:30; Status DC Olanzapine (ZyPREXA ZYDIS) 2.5 mg PRN Q2HR PRN PO PSYCHOSIS Last administered on 03/23/18at 13:50; Start 03/14/18 at 12:00 Trazodone HCl (Desyrel) 50 mg PRN QHS PRN PO INSOMNIA, MAY REPEAT X1 Last administered on 03/22/18at 22:48; Start 03/14/18 at 21:45 Buspirone HCl (Buspar) 5 mg [id number] PO Last administered on 03/18/18at 11:19; Start 03/16/18 at 09:00; Stop 03/18/18 at 14:47; Status DC Divalproex Sodium (Depakote Sprinkles) 500 mg BID PO Last administered on 20:07; Start 03/15/18 at 21:15 Quetiapine Fumarate (SEROquel) 12.5 mg 0900,1700 PO Last administered on 16:18; Start 03/18/18 at 09:00 Buspirone HCl (Buspar) 10 mg BID@0900,1700 PO Last administered on 03/23/18at 16 :18; Start 03/18/18 at 17:00 Rivastigmine (Exelon) 1 patch DAILY TD Last administered on 03/23/18at 11:25; Start 03/20/18 at 09:00; Stop 03/24/18 at 11:00 Rivastigmine (Exelon) 1 patch DAILY TD ; Start 03/25/18 at 09:00 Memantine (Namenda) 5 mg HS PO Last administered on 03/21/18at 20:19; Start 12/26 at 21:00; Stop 03/21/18 at 23:00; Status DC Memantine (Namenda) 5 mg BID PO Last administered on 03/23/18at 20:07; Start at 09:00 Olanzapine (ZyPREXA IM) 5 mg 1X ONCE IM Last administered on 03/19/18at 20:05; Start 03/19/18 at 19:45; Stop 03/19/18 at 19:46; Status DC Olanzapine (ZyPREXA IM) 5 mg 1X ONCE IM Last administered on 03/20/18at 19:39; Start 03/20/18 at 19:15; Stop 03/20/18 at 19:16; Status DC Quetiapine Fumarate (SEROquel) 50 mg QHS PO Last administered on 03/23/18at 20: 07; Start 03/20/18 at 21:00 Quetiapine Fumarate (SEROquel) 25 mg PRN Q8HRS PRN PO agitation/aggression; Start 03/20/18 at 19:30 Olanzapine (ZyPREXA IM) 5 mg 1X ONCE IM Last administered on 03/21/18at 17:18; Start 03/21/18 at 17:30; Stop 03/21/18 at 17:31; Status DC Olanzapine (ZyPREXA IM) 5 mg 1X ONCE IM Last administered on 03/21/18at 19:45; Start 03/21/18 at 19:45; Stop 03/21/18 at 19:46; Status DC Olanzapine (ZyPREXA IM) 5 mg DAILY PRN IM PSYCHOSIS Last administered on at 21:01; Start 03/22/18 at 11:45 Sertraline HCl (Zoloft) 25 mg DAILY PO ; Start 03/24/18 at 09:00; Stop 03/25/18 at 11:00 Sertraline HCl (Zoloft) 50 mg DAILY PO ; Start 03/26/18 at 09:00 Active Scripts Active Reported Plavix (Clopidogrel Bisulfate) 75 Mg Tablet 75 Mg PO DAILY Lorazepam 0.5 Mg Tablet 1 Mg PO PRN Q8HRS PRN Flomax (Tamsulosin Hcl) 0.4 Mg Cap.er.24h 0.4 Mg PO HS PRN Depakote Sprinkle (Divalproex Sodium) 125 Mg Cap.sprink 500 Mg PO TID Colace (Docusate Sodium) 100 Mg Capsule 100 Mg PO BID Vitamin D (Cholecalciferol (Vitamin D3)) 1,000 Unit Capsule 2,000 Unit PO DAILY Atorvastatin Calcium 20 Mg Tablet 20 Mg PO QHS Atenolol 100 Mg Tablet 100 Mg PO DAILY Tylenol (Acetaminophen) 325 Mg Tablet 650 Mg PO PRN Q4HRS PRN I have reviewed the current psychotropics carefully including drug interactions. Risk benefit ratio favors no change other than as noted in my dictated progress note. 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
[2018-03-24] MEDS: CLOPIDOGREL BISULFATE 75 MG TABLET PO SCH (12:02)
[2018-03-24] MEDS: MEMANTINE 5 MG TABLET. PO SCH (12:02)
[2018-03-24] MEDS: RIVASTIGMINE 4.6MG PATCH. TD SCH (12:02)
[2018-03-24] MEDS: DIVALPROEX 125 MG CAP.SPRINK PO SCH ×2 (12:02→19:18)
[2018-03-24] MEDS: CHOLECALCIFEROL (VITAMIN D3) 1,000 UNIT TABLET PO SCH (12:02)
[2018-03-24] MEDS: QUEtiapine 25 MG TABLET. PO SCH ×2 (12:03→17:36)
[2018-03-24] MEDS: DOCUSATE SODIUM 100 MG CAPSULE PO SCH ×2 (12:03→19:19)
[2018-03-24] MEDS: TAMSULOSIN 0.4 MG CAP.ER.24H. PO SCH ×2 (12:03→19:19)
[2018-03-24] MEDS: ATENOLOL 50 MG TABLET PO SCH (12:03)
[2018-03-24] MEDS: busPIRone 10 MG TABLET. PO SCH ×2 (12:03→17:36)
[2018-03-24] MEDS: NYSTATIN TOPICAL POWDER 15GM BOTTLE. TP SCH ×2 (12:04→19:19)
[2018-03-24] MEDS: SERTRALINE 25 MG TABLET. PO SCH (12:05)
[2018-03-24 16:40] VITALS: BP 110/47
[2018-03-24] MEDS: traZODone 50 MG TABLET. PO PRN (19:18)
[2018-03-24] MEDS: QUEtiapine 50 MG TABLET. PO SCH (19:18)
[2018-03-24] MEDS: MIRTAZAPINE 15 MG TABLET PO SCH (19:18)
[2018-03-24] MEDS: ATORVASTATIN CALCIUM 20 MG TABLET PO SCH (19:19)
[2018-03-24] MEDS: ACETAMINOPHEN 325 MG TABLET PO PRN (19:29)
[2018-03-24] MEDS: MEMANTINE 10 MG TABLET. PO SCH (21:00)
[2018-03-24] MEDS: METHYL SALICYLATE/MENTHOL TOPICAL OINTMENT 29GM TUBE. TP PRN (21:45)
--- NOTE | 2018-03-24 22:44 | PDOC ---
Exam Note: Pavel Note: Please also refer to the separate dictated note~for this date of service dictated separately.~Patient seen individually. Discussed the patient with Nursing staff reviewed the chart.~Reviewed interim history and current functioning. Reviewed vital signs,~Labs/ Radiology~and current medications noted below. Continue current treatment with the changes noted in the dictated addendum note Assessment: Vital Signs: Vital Signs Date Time Temp Pulse Resp B/P (MAP) Pulse Ox O2 Delivery O2 Flow Rate FiO2 03/24/18 17:18 98.7 66 16 98 03/24/18 16:40 110/47 (68) 03/21/18 15:53 Room Air I&O Intake and Output 03/24/18 07:01 Intake Total 1080 ml Balance 1080 ml Intake Oral 1080 ml # Bowel Movements 1 Labs: Laboratory Tests Test 03/24/18 07:40 Valproic Acid Level 31 mcg/mL (50-100) L Valproic Acid Last Dose Date 03/23/18 Valproic Acid Last Dose Time 2100 Current Medications: Meds: Current Medications Acetaminophen (Tylenol) 650 mg PRN Q4HRS PRN PO PAIN / TEMP Last administered on 03/24/18 19:29; Start 02/20/18 at 18:30 Atorvastatin Calcium (Lipitor) 20 mg QHS PO Last administered on 03/24/18 19: 19; Start 02/20/18 at 21:00 Clopidogrel Bisulfate (Plavix) 75 mg DAILY PO Last administered on 03/24/18 12 :02; Start 02/21/18 at 09:00 Tamsulosin HCl (Flomax) 0.4 mg PRN QHS PRN PO retention; Start 02/20/18 at 18: 30; Stop 03/01/18 at 11:14; Status DC Atenolol (Tenormin) 100 mg DAILY PO Last administered on 03/24/18 12:03; Start 02/21/18 at 09:00 Vitamin D (Vitamin D3) 2,000 unit DAILY PO Last administered on 03/24/18 12:02 ; Start 02/21/18 at 09:00 Divalproex Sodium (Depakote Sprinkles) 500 mg TID PO Last administered on 02/26at 07:53; Start 02/20/18 at 21:00; Stop 02/26/18 at 10:36; Status DC Docusate Sodium (Colace) 100 mg BID PO Last administered on 03/24/18 19:19; Start 02/20/18 at 21:00 Lorazepam (Ativan) 1 mg PRN Q8HRS PRN PO ANXIETY / AGITATION Last administered on 03/22/18 23:48; Start 02/20/18 at 19:00 Multi-Ingredient Ointment (Analgesic [place]) 1 devika PRN QID PRN TP MUSCLE PAIN Last administered on 03/24/18 21:45; Start 02/20/18 at 18:45 Al Hydroxide/Mg Hydroxide (Mylanta Plus Xs) 15 ml PRN AFTMEALHC PRN PO DYSPEPSIA Last administered on 03/07/18 09:56; Start 02/20/18 at 18:45 Magnesium Hydroxide (Milk Of Magnesia) 2,400 mg PRN QHS PRN PO CONSTIPATION; Start 02/20/18 at 18:45 Nystatin (Nystop) 1 devika BID TP Last administered on 03/24/18 19:19; Start at 21:00 Bupropion HCl (Wellbutrin) 75 mg DAILY PO Last administered on 02/26/18at 07:53 ; Start 02/24/18 at 09:00; Stop 02/27/18 at 08:59; Status DC Bupropion HCl (Wellbutrin) 75 mg BIDACBL PO Last administered on 03/17/18 14:16 ; Start 02/27/18 at 08:00; Stop 03/17/18 at 18:46; Status DC Divalproex Sodium (Depakote Er) 1,000 mg QHS PO Last administered on at 19:46; Start 02/26/18 at 21:00; Stop 02/28/18 at 19:35; Status DC Divalproex Sodium (Depakote Sprinkles) 1,000 mg HS PO Last administered on at 18:50; Start 02/28/18 at 21:00; Stop 03/04/18 at 18:24; Status DC Quetiapine Fumarate (SEROquel) 25 mg QHS PO Last administered on 03/11/18 19:35 ; Start 03/01/18 at 21:00; Stop 03/12/18 at 11:05; Status DC Tamsulosin HCl (Flomax) 0.4 mg HS PO Last administered on 03/02/18at 20:26; Start 03/01/18 at 21:00; Stop 03/03/18 at 12:25; Status DC Mirtazapine (Remeron) 7.5 mg QHS PO Last administered on 03/10/18 19:28; Start 03/01/18 at 21:00; Stop 03/11/18 at 18:17; Status DC Tamsulosin HCl (Flomax) 0.4 mg BID PO Last administered on 03/24/18 19:19; Start 03/03/18 at 21:00 Amoxicillin (Amoxil) 500 mg [id number] PO Last administered on 03/14/18 19:28; Start 03/04/18 at 21:00; Stop 03/15/18 at 09:14; Status DC Divalproex Sodium (Depakote Er) 500 mg BID PO Last administered on 03/05/18at 19:44; Start 03/04/18 at 21:00; Stop 03/05/18 at 23:00; Status DC Lactobacillus Rhamnosus (Culturelle) 1 cap BID PO Last administered on 19:28; Start 03/05/18 at 21:00; Stop 03/15/18 at 09:14; Status DC Divalproex Sodium (Depakote Er) 1,000 mg QHS PO Last administered on 03/14/18 19:29; Start 03/06/18 at 21:00; Stop 03/15/18 at 21:12; Status DC Quetiapine Fumarate (SEROquel) 12.5 mg DAILY@1700 PO Last administered on 16:20; Start 03/11/18 at 17:00; Stop 03/17/18 at 18:46; Status DC Loperamide HCl (Imodium) 2 mg PRN Q1HR PRN PO DIARRHEA Last administered on 03/11 16:16; Start 03/11/18 at 16:15 Mirtazapine (Remeron) 15 mg QHS PO Last administered on 03/24/18 19:18; Start 03/11/18 at 21:00 Quetiapine Fumarate (SEROquel) 25 mg BID PO Last administered on 03/13/18 07:55 ; Start 03/12/18 at 21:00; Stop 03/13/18 at 16:36; Status DC Quetiapine Fumarate (SEROquel) 25 mg QHS PO Last administered on 03/19/18at 19: 21; Start 03/13/18 at 21:00; Stop 03/20/18 at 19:30; Status DC Olanzapine (ZyPREXA ZYDIS) 2.5 mg PRN Q2HR PRN PO PSYCHOSIS Last administered on 03/24/18 15:09; Start 03/14/18 at 12:00 Trazodone HCl (Desyrel) 50 mg PRN QHS PRN PO INSOMNIA, MAY REPEAT X1 Last administered on 03/24/18 19:18; Start 03/14/18 at 21:45 Buspirone HCl (Buspar) 5 mg [id number] PO Last administered on 03/18/18 11:19; Start 03/16/18 at 09:00; Stop 03/18/18 at 14:47; Status DC Divalproex Sodium (Depakote Sprinkles) 500 mg BID PO Last administered on 19:18; Start 03/15/18 at 21:15 Quetiapine Fumarate (SEROquel) 12.5 mg 0900,1700 PO Last administered on 17:36; Start 03/18/18 at 09:00 Buspirone HCl (Buspar) 10 mg BID@0900,1700 PO Last administered on 03/24/18 17 :36; Start 03/18/18 at 17:00 Rivastigmine (Exelon) 1 patch DAILY TD Last administered on 03/24/18at 12:02; Start 03/20/18 at 09:00; Stop 03/24/18 at 11:01; Status DC Rivastigmine (Exelon) 1 patch DAILY TD ; Start 03/25/18 at 09:00 Memantine (Namenda) 5 mg HS PO Last administered on 03/21/18at 20:19; Start 12/26 at 21:00; Stop 03/21/18 at 23:00; Status DC Memantine (Namenda) 5 mg BID PO Last administered on 03/24/18at 12:02; Start at 09:00; Stop 03/24/18 at 17:21; Status DC Olanzapine (ZyPREXA IM) 5 mg 1X ONCE IM Last administered on 03/19/18at 20:05; Start 03/19/18 at 19:45; Stop 03/19/18 at 19:46; Status DC Olanzapine (ZyPREXA IM) 5 mg 1X ONCE IM Last administered on 03/20/18at 19:39; Start 03/20/18 at 19:15; Stop 03/20/18 at 19:16; Status DC Quetiapine Fumarate (SEROquel) 50 mg QHS PO Last administered on 03/24/18at 19: 18; Start 03/20/18 at 21:00 Quetiapine Fumarate (SEROquel) 25 mg PRN Q8HRS PRN PO agitation/aggression; Start 03/20/18 at 19:30 Olanzapine (ZyPREXA IM) 5 mg 1X ONCE IM Last administered on 03/21/18at 17:18; Start 03/21/18 at 17:30; Stop 03/21/18 at 17:31; Status DC Olanzapine (ZyPREXA IM) 5 mg 1X ONCE IM Last administered on 03/21/18at 19:45; Start 03/21/18 at 19:45; Stop 03/21/18 at 19:46; Status DC Olanzapine (ZyPREXA IM) 5 mg DAILY PRN IM PSYCHOSIS Last administered on at 21:01; Start 03/22/18 at 11:45 Sertraline HCl (Zoloft) 25 mg DAILY PO Last administered on 03/24/18at 12:05; Start 03/24/18 at 09:00; Stop 03/25/18 at 11:00 Sertraline HCl (Zoloft) 50 mg DAILY PO ; Start 03/26/18 at 09:00 Memantine (Namenda) 10 mg BID PO ; Start 03/24/18 at 21:00 Active Scripts Active Reported Plavix (Clopidogrel Bisulfate) 75 Mg Tablet 75 Mg PO DAILY Lorazepam 0.5 Mg Tablet 1 Mg PO PRN Q8HRS PRN Flomax (Tamsulosin Hcl) 0.4 Mg Cap.er.24h 0.4 Mg PO HS PRN Depakote Sprinkle (Divalproex Sodium) 125 Mg Cap.sprink 500 Mg PO TID Colace (Docusate Sodium) 100 Mg Capsule 100 Mg PO BID Vitamin D (Cholecalciferol (Vitamin D3)) 1,000 Unit Capsule 2,000 Unit PO DAILY Atorvastatin Calcium 20 Mg Tablet 20 Mg PO QHS Atenolol 100 Mg Tablet 100 Mg PO DAILY Tylenol (Acetaminophen) 325 Mg Tablet 650 Mg PO PRN Q4HRS PRN I have reviewed the current psychotropics carefully including drug interactions. Risk benefit ratio favors no change other than as noted in my dictated progress note. 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
--- NOTE | 2018-03-25 02:02 | PN ---
DATE: 03/23/2018 PSYCHIATRIC PROGRESS NOTE This late entry 03/23/2018 covers elements not covered in my initial note. SUBJECTIVE: I met with the patient in the evening. The patient slept 4-1/4 hours previous night. He has been agitated, at times anxious, restless, faith his wheelchair into different things and into the reed. His visited him. He remains anxious. REVIEW OF SYSTEMS: Ambulation impaired with walker. No CV, , pulmonary, eye system symptoms on review. He has his parkinsonian tremors and gait disturbance. MENTAL STATUS EXAM: Oriented to himself and situation. Speech has some latency, coherent. Abstraction fair, computation impaired, language function intact, attention span short. Mood and affect remain somewhat labile. Reviewed the patient with Dr. Torres who had covered for me for the past few days. He had been started on Zyprexa IM daily per Dr. Torres due to his marked agitation. IMPRESSION: Major neurocognitive disorder, Lewy body with delusion, depression, behavioral disturbance; anxiety disorder, unspecified; impulse control disorder, unspecified. PLAN: Start Zoloft 25 mg a day, increasing in 2 days to 50 mg a day. Check valproic acid level in the morning of 03/24/2018 and then adjust the Depakote thereafter. His urine looks concentrated. Sodium is 147. We will defer to Dr. Sanchez for now. MAN Diony JORGE MD DR: LOVE/lilly JOB#: [id number] / [id number]
[2018-03-25 05:47] VITALS: BP 149/80
[2018-03-25] MEDS: TAMSULOSIN 0.4 MG CAP.ER.24H. PO SCH ×2 (11:23→19:20)
[2018-03-25] MEDS: DIVALPROEX 125 MG CAP.SPRINK PO SCH ×2 (11:23→19:20)
[2018-03-25] MEDS: busPIRone 10 MG TABLET. PO SCH ×2 (11:23→17:22)
[2018-03-25] MEDS: CLOPIDOGREL BISULFATE 75 MG TABLET PO SCH (11:23)
[2018-03-25] MEDS: ATENOLOL 50 MG TABLET PO SCH (11:24)
[2018-03-25] MEDS: QUEtiapine 25 MG TABLET. PO SCH ×2 (11:24→17:22)
[2018-03-25] MEDS: CHOLECALCIFEROL (VITAMIN D3) 1,000 UNIT TABLET PO SCH (11:24)
[2018-03-25] MEDS: DOCUSATE SODIUM 100 MG CAPSULE PO SCH ×2 (11:25→19:21)
[2018-03-25] MEDS: SERTRALINE 25 MG TABLET. PO SCH (11:25)
[2018-03-25] MEDS: NYSTATIN TOPICAL POWDER 15GM BOTTLE. TP SCH ×2 (11:26→19:22)
[2018-03-25] MEDS: MEMANTINE 10 MG TABLET. PO SCH ×2 (11:26→19:20)
[2018-03-25] MEDS: RIVASTIGMINE 9.5MG PATCH. TD SCH (11:27)
[2018-03-25 15:52] VITALS: BP 114/72
[2018-03-25] MEDS: LORazepam 1 MG TABLET PO PRN (18:10)
[2018-03-25] MEDS: ATORVASTATIN CALCIUM 20 MG TABLET PO SCH (19:20)
[2018-03-25] MEDS: QUEtiapine 50 MG TABLET. PO SCH (19:20)
[2018-03-25] MEDS: MIRTAZAPINE 15 MG TABLET PO SCH (19:21)
[2018-03-25] MEDS: traZODone 50 MG TABLET. PO PRN (21:29)
[2018-03-25] MEDS: ACETAMINOPHEN 325 MG TABLET PO PRN (21:29)
[2018-03-25] MEDS: METHYL SALICYLATE/MENTHOL TOPICAL OINTMENT 29GM TUBE. TP PRN (21:30)
--- NOTE | 2018-03-25 22:45 | PDOC ---
Exam Note: Pavel Note: Please also refer to the separate dictated note~for this date of service dictated separately.~Patient seen individually. Discussed the patient with Nursing staff reviewed the chart.~Reviewed interim history and current functioning. Reviewed vital signs,~Labs/ Radiology~and current medications noted below. Continue current treatment with the changes noted in the dictated addendum note Assessment: Vital Signs: Vital Signs Date Time Temp Pulse Resp B/P (MAP) Pulse Ox O2 Delivery O2 Flow Rate FiO2 03/25/18 15:52 98.2 71 16 114/72 (86) 98 03/21/18 15:53 Room Air I&O Intake and Output 03/25/18 07:01 Intake Total 2950 ml Output Total 600 ml Balance 2350 ml Intake Oral 2950 ml Output Urine Total 600 ml # Bowel Movements 1 Current Medications: Meds: Current Medications Acetaminophen (Tylenol) 650 mg PRN Q4HRS PRN PO PAIN / TEMP Last administered on 03/25/18 21:29; Start 02/20/18 at 18:30 Atorvastatin Calcium (Lipitor) 20 mg QHS PO Last administered on 03/25/18 19: 20; Start 02/20/18 at 21:00 Clopidogrel Bisulfate (Plavix) 75 mg DAILY PO Last administered on 03/25/18 11 :23; Start 02/21/18 at 09:00 Tamsulosin HCl (Flomax) 0.4 mg PRN QHS PRN PO retention; Start 02/20/18 at 18: 30; Stop 03/01/18 at 11:14; Status DC Atenolol (Tenormin) 100 mg DAILY PO Last administered on 03/25/18 11:24; Start 02/21/18 at 09:00 Vitamin D (Vitamin D3) 2,000 unit DAILY PO Last administered on 03/25/18 11:24 ; Start 02/21/18 at 09:00 Divalproex Sodium (Depakote Sprinkles) 500 mg TID PO Last administered on 02/26at 07:53; Start 02/20/18 at 21:00; Stop 02/26/18 at 10:36; Status DC Docusate Sodium (Colace) 100 mg BID PO Last administered on 03/25/18 19:21; Start 02/20/18 at 21:00 Lorazepam (Ativan) 1 mg PRN Q8HRS PRN PO ANXIETY / AGITATION Last administered on 03/25/18 18:10; Start 02/20/18 at 19:00 Multi-Ingredient Ointment (Analgesic [place]) 1 devika PRN QID PRN TP MUSCLE PAIN Last administered on 03/25/18 21:30; Start 02/20/18 at 18:45 Al Hydroxide/Mg Hydroxide (Mylanta Plus Xs) 15 ml PRN AFTMEALHC PRN PO DYSPEPSIA Last administered on 03/07/18at 09:56; Start 02/20/18 at 18:45 Magnesium Hydroxide (Milk Of Magnesia) 2,400 mg PRN QHS PRN PO CONSTIPATION; Start 02/20/18 at 18:45 Nystatin (Nystop) 1 devika BID TP Last administered on 03/25/18 19:22; Start at 21:00 Bupropion HCl (Wellbutrin) 75 mg DAILY PO Last administered on 02/26/18at 07:53 ; Start 02/24/18 at 09:00; Stop 02/27/18 at 08:59; Status DC Bupropion HCl (Wellbutrin) 75 mg BIDACBL PO Last administered on 03/17/18 14:16 ; Start 02/27/18 at 08:00; Stop 03/17/18 at 18:46; Status DC Divalproex Sodium (Depakote Er) 1,000 mg QHS PO Last administered on at 19:46; Start 02/26/18 at 21:00; Stop 02/28/18 at 19:35; Status DC Divalproex Sodium (Depakote Sprinkles) 1,000 mg HS PO Last administered on at 18:50; Start 02/28/18 at 21:00; Stop 03/04/18 at 18:24; Status DC Quetiapine Fumarate (SEROquel) 25 mg QHS PO Last administered on 03/11/18 19:35 ; Start 03/01/18 at 21:00; Stop 03/12/18 at 11:05; Status DC Tamsulosin HCl (Flomax) 0.4 mg HS PO Last administered on 03/02/18at 20:26; Start 03/01/18 at 21:00; Stop 03/03/18 at 12:25; Status DC Mirtazapine (Remeron) 7.5 mg QHS PO Last administered on 03/10/18 19:28; Start 03/01/18 at 21:00; Stop 03/11/18 at 18:17; Status DC Tamsulosin HCl (Flomax) 0.4 mg BID PO Last administered on 03/25/18 19:20; Start 03/03/18 at 21:00 Amoxicillin (Amoxil) 500 mg [id number] PO Last administered on 03/14/18 19:28; Start 03/04/18 at 21:00; Stop 03/15/18 at 09:14; Status DC Divalproex Sodium (Depakote Er) 500 mg BID PO Last administered on 03/05/18at 19:44; Start 03/04/18 at 21:00; Stop 03/05/18 at 23:00; Status DC Lactobacillus Rhamnosus (Culturelle) 1 cap BID PO Last administered on 19:28; Start 03/05/18 at 21:00; Stop 03/15/18 at 09:14; Status DC Divalproex Sodium (Depakote Er) 1,000 mg QHS PO Last administered on 03/14/18 19:29; Start 03/06/18 at 21:00; Stop 03/15/18 at 21:12; Status DC Quetiapine Fumarate (SEROquel) 12.5 mg DAILY@1700 PO Last administered on 16:20; Start 03/11/18 at 17:00; Stop 03/17/18 at 18:46; Status DC Loperamide HCl (Imodium) 2 mg PRN Q1HR PRN PO DIARRHEA Last administered on 03/11 16:16; Start 03/11/18 at 16:15 Mirtazapine (Remeron) 15 mg QHS PO Last administered on 03/25/18 19:21; Start 03/11/18 at 21:00 Quetiapine Fumarate (SEROquel) 25 mg BID PO Last administered on 03/13/18at 07:55 ; Start 03/12/18 at 21:00; Stop 03/13/18 at 16:36; Status DC Quetiapine Fumarate (SEROquel) 25 mg QHS PO Last administered on 03/19/18at 19: 21; Start 03/13/18 at 21:00; Stop 03/20/18 at 19:30; Status DC Olanzapine (ZyPREXA ZYDIS) 2.5 mg PRN Q2HR PRN PO PSYCHOSIS Last administered on 03/24/18at 15:09; Start 03/14/18 at 12:00 Trazodone HCl (Desyrel) 50 mg PRN QHS PRN PO INSOMNIA, MAY REPEAT X1 Last administered on 03/25/18at 21:29; Start 03/14/18 at 21:45 Buspirone HCl (Buspar) 5 mg [id number] PO Last administered on 03/18/18at 11:19; Start 03/16/18 at 09:00; Stop 03/18/18 at 14:47; Status DC Divalproex Sodium (Depakote Sprinkles) 500 mg BID PO Last administered on at 19:20; Start 03/15/18 at 21:15 Quetiapine Fumarate (SEROquel) 12.5 mg 0900,1700 PO Last administered on at 17:22; Start 03/18/18 at 09:00 Buspirone HCl (Buspar) 10 mg BID@0900,1700 PO Last administered on 03/25/18at 17 :22; Start 03/18/18 at 17:00 Rivastigmine (Exelon) 1 patch DAILY TD Last administered on 03/24/18at 12:02; Start 03/20/18 at 09:00; Stop 03/24/18 at 11:01; Status DC Rivastigmine (Exelon) 1 patch DAILY TD Last administered on 03/25/18at 11:27; Start 03/25/18 at 09:00 Memantine (Namenda) 5 mg HS PO Last administered on 03/21/18at 20:19; Start 12/26 at 21:00; Stop 03/21/18 at 23:00; Status DC Memantine (Namenda) 5 mg BID PO Last administered on 03/24/18at 12:02; Start at 09:00; Stop 03/24/18 at 17:21; Status DC Olanzapine (ZyPREXA IM) 5 mg 1X ONCE IM Last administered on 03/19/18at 20:05; Start 03/19/18 at 19:45; Stop 03/19/18 at 19:46; Status DC Olanzapine (ZyPREXA IM) 5 mg 1X ONCE IM Last administered on 03/20/18at 19:39; Start 03/20/18 at 19:15; Stop 03/20/18 at 19:16; Status DC Quetiapine Fumarate (SEROquel) 50 mg QHS PO Last administered on 03/25/18at 19: 20; Start 03/20/18 at 21:00 Quetiapine Fumarate (SEROquel) 25 mg PRN Q8HRS PRN PO agitation/aggression; Start 03/20/18 at 19:30 Olanzapine (ZyPREXA IM) 5 mg 1X ONCE IM Last administered on 03/21/18at 17:18; Start 03/21/18 at 17:30; Stop 03/21/18 at 17:31; Status DC Olanzapine (ZyPREXA IM) 5 mg 1X ONCE IM Last administered on 03/21/18at 19:45; Start 03/21/18 at 19:45; Stop 03/21/18 at 19:46; Status DC Olanzapine (ZyPREXA IM) 5 mg DAILY PRN IM PSYCHOSIS Last administered on at 21:01; Start 03/22/18 at 11:45 Sertraline HCl (Zoloft) 25 mg DAILY PO Last administered on 03/25/18at 11:25; Start 03/24/18 at 09:00; Stop 03/25/18 at 11:00; Status DC Sertraline HCl (Zoloft) 50 mg DAILY PO ; Start 03/26/18 at 09:00 Memantine (Namenda) 10 mg BID PO Last administered on 03/25/18at 19:20; Start at 21:00 Active Scripts Active Reported Plavix (Clopidogrel Bisulfate) 75 Mg Tablet 75 Mg PO DAILY Lorazepam 0.5 Mg Tablet 1 Mg PO PRN Q8HRS PRN Flomax (Tamsulosin Hcl) 0.4 Mg Cap.er.24h 0.4 Mg PO HS PRN Depakote Sprinkle (Divalproex Sodium) 125 Mg Cap.sprink 500 Mg PO TID Colace (Docusate Sodium) 100 Mg Capsule 100 Mg PO BID Vitamin D (Cholecalciferol (Vitamin D3)) 1,000 Unit Capsule 2,000 Unit PO DAILY Atorvastatin Calcium 20 Mg Tablet 20 Mg PO QHS Atenolol 100 Mg Tablet 100 Mg PO DAILY Tylenol (Acetaminophen) 325 Mg Tablet 650 Mg PO PRN Q4HRS PRN I have reviewed the current psychotropics carefully including drug interactions. Risk benefit ratio favors no change other than as noted in my dictated progress note. 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
--- NOTE | 2018-03-26 03:09 | PN ---
DATE: 03/24/2018 PSYCHIATRIC PROGRESS NOTE This late entry 03/24/2018, covers elements not covered in my initial note. SUBJECTIVE: I met with the patient in the evening. The patient slept 6-3/4 hours previous night. He remains intermittently agitated, confused, quite labile consistent with his Lewy body dementia. He did have a fall previous night and was agitated, twisted his walker. X-ray of the shoulder was negative. CT head x-ray negative. He is on one-on-one status since then. He slept in about 4 hours morning of 03/24/2018 till noon time. Intermittently agitated, sarcastic. He has been receiving IM Zyprexa scheduled. REVIEW OF SYSTEMS: No CV, , pulmonary, eye system symptoms on review. Gait unsteady with wheelchair. MENTAL STATUS EXAM: Oriented to himself and situation. Speech is coherent, somewhat rapid at times. Abstraction fair, computation impaired, language function intact, attention span short. Mood and affect remain somewhat labile. LABORATORY DATA: Reviewed. IMPRESSION: Major neurocognitive disorder, Lewy body with delusion, depression, behavioral disturbance. Rest unchanged. PLAN: Increase Seroquel gradually, but he is on Depakote Sprinkles 500 b.i.d., level is 42; Ativan p.r.n.; Seroquel; Remeron; BuSpar 10 mg twice a day; Exelon patch. Namenda 5 mg b.i.d. We will increase to 10 mg b.i.d. Continue trazodone p.r.n., Zoloft 50 mg a day. MAN Diony JORGE MD DR: LOVE/lilly JOB#: [id number] / [id number]
[2018-03-26 05:17] VITALS: BP 120/76
[2018-03-26] MEDS: TAMSULOSIN 0.4 MG CAP.ER.24H. PO SCH ×2 (11:43→19:11)
[2018-03-26] MEDS: busPIRone 10 MG TABLET. PO SCH ×2 (11:43→16:58)
[2018-03-26] MEDS: DOCUSATE SODIUM 100 MG CAPSULE PO SCH ×2 (11:43→19:11)
[2018-03-26] MEDS: RIVASTIGMINE 9.5MG PATCH. TD SCH (11:43)
[2018-03-26] MEDS: DIVALPROEX 125 MG CAP.SPRINK PO SCH ×2 (11:43→19:09)
[2018-03-26] MEDS: QUEtiapine 25 MG TABLET. PO SCH ×2 (11:43→16:57)
[2018-03-26] MEDS: CLOPIDOGREL BISULFATE 75 MG TABLET PO SCH (11:44)
[2018-03-26] MEDS: MEMANTINE 10 MG TABLET. PO SCH ×2 (11:44→19:05)
[2018-03-26] MEDS: CHOLECALCIFEROL (VITAMIN D3) 1,000 UNIT TABLET PO SCH (11:44)
[2018-03-26] MEDS: ATENOLOL 50 MG TABLET PO SCH (11:45)
[2018-03-26] MEDS: NYSTATIN TOPICAL POWDER 15GM BOTTLE. TP SCH ×2 (11:45→19:14)
[2018-03-26] MEDS: SERTRALINE 50 MG TABLET. PO SCH (11:48)
[2018-03-26 15:55] VITALS: BP 108/56
[2018-03-26] MEDS: ACETAMINOPHEN 325 MG TABLET PO PRN (16:58)
[2018-03-26] MEDS: MIRTAZAPINE 15 MG TABLET PO SCH (19:05)
[2018-03-26] MEDS: ATORVASTATIN CALCIUM 20 MG TABLET PO SCH (19:12)
[2018-03-26] MEDS: QUEtiapine 50 MG TABLET. PO SCH (19:13)
[2018-03-26] MEDS: METHYL SALICYLATE/MENTHOL TOPICAL OINTMENT 29GM TUBE. TP PRN (19:15)
[2018-03-26] MEDS: traZODone 50 MG TABLET. PO PRN (20:29)
[2018-03-26] MEDS: LORazepam 1 MG TABLET PO PRN (21:07)
--- NOTE | 2018-03-26 23:15 | PDOC ---
Exam Note: Pavel Note: Please also refer to the separate dictated note~for this date of service dictated separately.~Patient seen individually. Discussed the patient with Nursing staff reviewed the chart.~Reviewed interim history and current functioning. Reviewed vital signs,~Labs/ Radiology~and current medications noted below. Continue current treatment with the changes noted in the dictated addendum note Assessment: Vital Signs: Vital Signs Date Time Temp Pulse Resp B/P (MAP) Pulse Ox O2 Delivery O2 Flow Rate FiO2 03/26/18 15:55 98.1 104 20 108/56 (73) 98 Room Air I&O Intake and Output 03/26/18 07:01 Intake Total 1260 ml Output Total 750 ml Balance 510 ml Intake Oral 1260 ml Output Urine Total 750 ml # Bowel Movements 1 Current Medications: Meds: Current Medications Acetaminophen (Tylenol) 650 mg PRN Q4HRS PRN PO PAIN / TEMP Last administered on 03/26/18 16:58; Start 02/20/18 at 18:30 Atorvastatin Calcium (Lipitor) 20 mg QHS PO Last administered on 03/26/18 19: 12; Start 02/20/18 at 21:00 Clopidogrel Bisulfate (Plavix) 75 mg DAILY PO Last administered on 03/26/18 11 :44; Start 02/21/18 at 09:00 Tamsulosin HCl (Flomax) 0.4 mg PRN QHS PRN PO retention; Start 02/20/18 at 18: 30; Stop 03/01/18 at 11:14; Status DC Atenolol (Tenormin) 100 mg DAILY PO Last administered on 03/26/18 11:45; Start 02/21/18 at 09:00 Vitamin D (Vitamin D3) 2,000 unit DAILY PO Last administered on 03/26/18 11:44 ; Start 02/21/18 at 09:00 Divalproex Sodium (Depakote Sprinkles) 500 mg TID PO Last administered on 02/26at 07:53; Start 02/20/18 at 21:00; Stop 02/26/18 at 10:36; Status DC Docusate Sodium (Colace) 100 mg BID PO Last administered on 03/26/18 19:11; Start 02/20/18 at 21:00 Lorazepam (Ativan) 1 mg PRN Q8HRS PRN PO ANXIETY / AGITATION Last administered on 03/26/18 21:07; Start 02/20/18 at 19:00 Multi-Ingredient Ointment (Analgesic [place]) 1 devika PRN QID PRN TP MUSCLE PAIN Last administered on 03/26/18 19:15; Start 02/20/18 at 18:45 Al Hydroxide/Mg Hydroxide (Mylanta Plus Xs) 15 ml PRN AFTMEALHC PRN PO DYSPEPSIA Last administered on 03/07/18at 09:56; Start 02/20/18 at 18:45 Magnesium Hydroxide (Milk Of Magnesia) 2,400 mg PRN QHS PRN PO CONSTIPATION; Start 02/20/18 at 18:45 Nystatin (Nystop) 1 devika BID TP Last administered on 03/26/18 19:14; Start at 21:00 Bupropion HCl (Wellbutrin) 75 mg DAILY PO Last administered on 02/26/18at 07:53 ; Start 02/24/18 at 09:00; Stop 02/27/18 at 08:59; Status DC Bupropion HCl (Wellbutrin) 75 mg BIDACBL PO Last administered on 03/17/18 14:16 ; Start 02/27/18 at 08:00; Stop 03/17/18 at 18:46; Status DC Divalproex Sodium (Depakote Er) 1,000 mg QHS PO Last administered on at 19:46; Start 02/26/18 at 21:00; Stop 02/28/18 at 19:35; Status DC Divalproex Sodium (Depakote Sprinkles) 1,000 mg HS PO Last administered on at 18:50; Start 02/28/18 at 21:00; Stop 03/04/18 at 18:24; Status DC Quetiapine Fumarate (SEROquel) 25 mg QHS PO Last administered on 03/11/18 19:35 ; Start 03/01/18 at 21:00; Stop 03/12/18 at 11:05; Status DC Tamsulosin HCl (Flomax) 0.4 mg HS PO Last administered on 03/02/18at 20:26; Start 03/01/18 at 21:00; Stop 03/03/18 at 12:25; Status DC Mirtazapine (Remeron) 7.5 mg QHS PO Last administered on 03/10/18 19:28; Start 03/01/18 at 21:00; Stop 03/11/18 at 18:17; Status DC Tamsulosin HCl (Flomax) 0.4 mg BID PO Last administered on 03/26/18 19:11; Start 03/03/18 at 21:00 Amoxicillin (Amoxil) 500 mg [id number] PO Last administered on 03/14/18 19:28; Start 03/04/18 at 21:00; Stop 03/15/18 at 09:14; Status DC Divalproex Sodium (Depakote Er) 500 mg BID PO Last administered on 03/05/18at 19:44; Start 03/04/18 at 21:00; Stop 03/05/18 at 23:00; Status DC Lactobacillus Rhamnosus (Culturelle) 1 cap BID PO Last administered on 19:28; Start 03/05/18 at 21:00; Stop 03/15/18 at 09:14; Status DC Divalproex Sodium (Depakote Er) 1,000 mg QHS PO Last administered on 03/14/18 19:29; Start 03/06/18 at 21:00; Stop 03/15/18 at 21:12; Status DC Quetiapine Fumarate (SEROquel) 12.5 mg DAILY@1700 PO Last administered on at 16:20; Start 03/11/18 at 17:00; Stop 03/17/18 at 18:46; Status DC Loperamide HCl (Imodium) 2 mg PRN Q1HR PRN PO DIARRHEA Last administered on 03/11 16:16; Start 03/11/18 at 16:15 Mirtazapine (Remeron) 15 mg QHS PO Last administered on 03/26/18 19:05; Start 03/11/18 at 21:00 Quetiapine Fumarate (SEROquel) 25 mg BID PO Last administered on 03/13/18at 07:55 ; Start 03/12/18 at 21:00; Stop 03/13/18 at 16:36; Status DC Quetiapine Fumarate (SEROquel) 25 mg QHS PO Last administered on 03/19/18at 19: 21; Start 03/13/18 at 21:00; Stop 03/20/18 at 19:30; Status DC Olanzapine (ZyPREXA ZYDIS) 2.5 mg PRN Q2HR PRN PO PSYCHOSIS Last administered on 03/24/18at 15:09; Start 03/14/18 at 12:00; Stop 03/26/18 at 10:20; Status DC Trazodone HCl (Desyrel) 50 mg PRN QHS PRN PO INSOMNIA, MAY REPEAT X1 Last administered on 03/26/18at 20:29; Start 03/14/18 at 21:45 Buspirone HCl (Buspar) 5 mg [id number] PO Last administered on 03/18/18at 11:19; Start 03/16/18 at 09:00; Stop 03/18/18 at 14:47; Status DC Divalproex Sodium (Depakote Sprinkles) 500 mg BID PO Last administered on at 11:43; Start 03/15/18 at 21:15; Stop 03/26/18 at 12:10; Status DC Quetiapine Fumarate (SEROquel) 12.5 mg 0900,1700 PO Last administered on at 16:57; Start 03/18/18 at 09:00 Buspirone HCl (Buspar) 10 mg BID@0900,1700 PO Last administered on 03/26/18at 16 :58; Start 03/18/18 at 17:00 Rivastigmine (Exelon) 1 patch DAILY TD Last administered on 03/24/18at 12:02; Start 03/20/18 at 09:00; Stop 03/24/18 at 11:01; Status DC Rivastigmine (Exelon) 1 patch DAILY TD Last administered on 03/26/18at 11:43; Start 03/25/18 at 09:00 Memantine (Namenda) 5 mg HS PO Last administered on 03/21/18at 20:19; Start 12/26 at 21:00; Stop 03/21/18 at 23:00; Status DC Memantine (Namenda) 5 mg BID PO Last administered on 03/24/18at 12:02; Start at 09:00; Stop 03/24/18 at 17:21; Status DC Olanzapine (ZyPREXA IM) 5 mg 1X ONCE IM Last administered on 03/19/18at 20:05; Start 03/19/18 at 19:45; Stop 03/19/18 at 19:46; Status DC Olanzapine (ZyPREXA IM) 5 mg 1X ONCE IM Last administered on 03/20/18at 19:39; Start 03/20/18 at 19:15; Stop 03/20/18 at 19:16; Status DC Quetiapine Fumarate (SEROquel) 50 mg QHS PO Last administered on 03/26/18at 19: 13; Start 03/20/18 at 21:00 Quetiapine Fumarate (SEROquel) 25 mg PRN Q8HRS PRN PO agitation/aggression; Start 03/20/18 at 19:30 Olanzapine (ZyPREXA IM) 5 mg 1X ONCE IM Last administered on 03/21/18at 17:18; Start 03/21/18 at 17:30; Stop 03/21/18 at 17:31; Status DC Olanzapine (ZyPREXA IM) 5 mg 1X ONCE IM Last administered on 03/21/18at 19:45; Start 03/21/18 at 19:45; Stop 03/21/18 at 19:46; Status DC Olanzapine (ZyPREXA IM) 5 mg DAILY PRN IM PSYCHOSIS Last administered on at 21:01; Start 03/22/18 at 11:45; Stop 03/26/18 at 08:09; Status DC Sertraline HCl (Zoloft) 25 mg DAILY PO Last administered on 03/25/18at 11:25; Start 03/24/18 at 09:00; Stop 03/25/18 at 11:00; Status DC Sertraline HCl (Zoloft) 50 mg DAILY PO Last administered on 03/26/18at 11:48; Start 03/26/18 at 09:00 Memantine (Namenda) 10 mg BID PO Last administered on 03/26/18at 19:05; Start at 21:00 Olanzapine (ZyPREXA ZYDIS) 5 mg PRN Q2HR PRN PO PSYCHOSIS; Start 03/26/18 at 10 :30 Divalproex Sodium (Depakote Sprinkles) 500 mg DAILY PO ; Start 03/27/18 at 09:00 Divalproex Sodium (Depakote Sprinkles) 750 mg HS PO Last administered on at 19:09; Start 03/26/18 at 21:00 Active Scripts Active Reported Plavix (Clopidogrel Bisulfate) 75 Mg Tablet 75 Mg PO DAILY Lorazepam 0.5 Mg Tablet 1 Mg PO PRN Q8HRS PRN Flomax (Tamsulosin Hcl) 0.4 Mg Cap.er.24h 0.4 Mg PO HS PRN Depakote Sprinkle (Divalproex Sodium) 125 Mg Cap.sprink 500 Mg PO TID Colace (Docusate Sodium) 100 Mg Capsule 100 Mg PO BID Vitamin D (Cholecalciferol (Vitamin D3)) 1,000 Unit Capsule 2,000 Unit PO DAILY Atorvastatin Calcium 20 Mg Tablet 20 Mg PO QHS Atenolol 100 Mg Tablet 100 Mg PO DAILY Tylenol (Acetaminophen) 325 Mg Tablet 650 Mg PO PRN Q4HRS PRN I have reviewed the current psychotropics carefully including drug interactions. Risk benefit ratio favors no change other than as noted in my dictated progress note. 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
--- NOTE | 2018-03-27 00:17 | PN ---
DATE: 03/25/2018 PSYCHIATRIC PROGRESS NOTE This is a late entry of 03/25/2018, covers elements not covered in my initial note. SUBJECTIVE: I met with the patient in the evening and met with him in his room. He remains on one-on-one status, remains anxious, restless and is at fall risk. Slept late in the morning, compliant with medications. He gets extremely anxious and then has jerky movements, comes across threatening, can be verbally rather loud and volatile as well. He slept 6-1/4 hours previous evening. REVIEW OF SYSTEMS: Ambulation impaired. No CV, , pulmonary, eye, ENT system symptoms on review. MENTAL STATUS EXAM: Oriented to himself and situation. Speech has some latency, can be rapid at times. Abstraction fair, computation impaired, language function intact, attention span short. Mood and affect remain labile. LABORATORY DATA: Reviewed. IMPRESSION: Major neurocognitive disorder, Lewy body with delusion, depression, behavioral disturbance; anxiety disorder, unspecified; impulse control disorder, unspecified. Rest unchanged. PLAN: Continue psychotropics from initial note. We may need to increase the Depakote further to reach a therapeutic level and adjust the Seroquel. Maintain Remeron, BuSpar, Exelon patch, Namenda. Adjust the Zoloft gradually. CANDELARIA JORGE MD DR: LOVE/lilly JOB#: [id number] / [id number]
[2018-03-27 05:50] VITALS: BP 136/73
[2018-03-27] MEDS: ATENOLOL 50 MG TABLET PO SCH (08:11)
[2018-03-27] MEDS: DOCUSATE SODIUM 100 MG CAPSULE PO SCH ×2 (08:11→19:38)
[2018-03-27] MEDS: CLOPIDOGREL BISULFATE 75 MG TABLET PO SCH (08:11)
[2018-03-27] MEDS: busPIRone 10 MG TABLET. PO SCH ×2 (08:11→17:00)
[2018-03-27] MEDS: MEMANTINE 10 MG TABLET. PO SCH ×2 (08:11→19:38)
[2018-03-27] MEDS: QUEtiapine 25 MG TABLET. PO SCH ×2 (08:11→17:00)
[2018-03-27] MEDS: SERTRALINE 50 MG TABLET. PO SCH (08:12)
[2018-03-27] MEDS: RIVASTIGMINE 9.5MG PATCH. TD SCH (08:12)
[2018-03-27] MEDS: TAMSULOSIN 0.4 MG CAP.ER.24H. PO SCH ×2 (08:12→19:38)
[2018-03-27] MEDS: CHOLECALCIFEROL (VITAMIN D3) 1,000 UNIT TABLET PO SCH (08:12)
[2018-03-27] MEDS: NYSTATIN TOPICAL POWDER 15GM BOTTLE. TP SCH ×2 (08:13→19:39)
[2018-03-27] MEDS: DIVALPROEX 125 MG CAP.SPRINK PO SCH ×2 (08:14→19:39)
[2018-03-27] MEDS: ACETAMINOPHEN 325 MG TABLET PO PRN ×2 (11:48→18:51)
[2018-03-27] MEDS: METHYL SALICYLATE/MENTHOL TOPICAL OINTMENT 29GM TUBE. TP PRN (11:48)
[2018-03-27 16:19] VITALS: BP 128/81
[2018-03-27] MEDS: QUEtiapine 50 MG TABLET. PO SCH (19:38)
[2018-03-27] MEDS: MIRTAZAPINE 15 MG TABLET PO SCH (19:38)
[2018-03-27] MEDS: ATORVASTATIN CALCIUM 20 MG TABLET PO SCH (19:38)
--- NOTE | 2018-03-27 20:47 | PN ---
DATE: 03/26/2018 PSYCHIATRIC PROGRESS NOTE This late entry 03/26/2018 covers elements not covered in my initial note. SUBJECTIVE: I met with the patient in the evening and staffed at a treatment team meeting with the entire team in the morning. The patient's , Roxanne, attended the treatment team meeting. Plans are being made to transition him [facility]. Previous night he was quite agitated around dinnertime, threw a drink on the floor, was agitated, sarcastic, slept 5 hours average. Average appetite 75%. REVIEW OF SYSTEMS: Ambulation impaired. Gait unsteady. MENTAL STATUS EXAMINATION: Oriented to himself. Insight, judgment, recent memory is impaired. Language function is intact. Attention span is short. Mood and affect showing some improved lability less paranoia, less anxiety. LABORATORY DATA: Reviewed. IMPRESSION: Major neurocognitive disorder, Lewy body with delusion, depression; anxiety disorder, unspecified; impulse control disorder, unspecified. PLAN: Valproic acid level is subtherapeutic at 42, increase Depakote Sprinkles from 500 b.i.d. to 500 a.m., 750 at bedtime. Check CBC, CMP, valproic acid level in 3 days. Rest unchanged from initial note. CANDELARIA JORGE MD DR: LOVE/lilly JOB#: [id number] / [id number]
--- NOTE | 2018-03-27 23:58 | PDOC ---
Exam Note: Pavel Note: Please also refer to the separate dictated note~for this date of service dictated separately.~Patient seen individually. Discussed the patient with Nursing staff reviewed the chart.~Reviewed interim history and current functioning. Reviewed vital signs,~Labs/ Radiology~and current medications noted below. Continue current treatment with the changes noted in the dictated addendum note Assessment: Vital Signs: Vital Signs Date Time Temp Pulse Resp B/P (MAP) Pulse Ox O2 Delivery O2 Flow Rate FiO2 03/27/18 16:19 98.2 80 20 128/81 (97) 96 03/27/18 05:50 Room Air I&O Intake and Output 03/27/18 07:01 Intake Total 200 ml Balance 200 ml Intake Oral 200 ml Current Medications: Meds: Current Medications Acetaminophen (Tylenol) 650 mg PRN Q4HRS PRN PO PAIN / TEMP Last administered on 03/27/18 18:51; Start 02/20/18 at 18:30 Atorvastatin Calcium (Lipitor) 20 mg QHS PO Last administered on 03/27/18 19: 38; Start 02/20/18 at 21:00 Clopidogrel Bisulfate (Plavix) 75 mg DAILY PO Last administered on 03/27/18 08 :11; Start 02/21/18 at 09:00 Tamsulosin HCl (Flomax) 0.4 mg PRN QHS PRN PO retention; Start 02/20/18 at 18: 30; Stop 03/01/18 at 11:14; Status DC Atenolol (Tenormin) 100 mg DAILY PO Last administered on 03/27/18 08:11; Start 02/21/18 at 09:00 Vitamin D (Vitamin D3) 2,000 unit DAILY PO Last administered on 03/27/18 08:12 ; Start 02/21/18 at 09:00 Divalproex Sodium (Depakote Sprinkles) 500 mg TID PO Last administered on 02/26at 07:53; Start 02/20/18 at 21:00; Stop 02/26/18 at 10:36; Status DC Docusate Sodium (Colace) 100 mg BID PO Last administered on 03/27/18 19:38; Start 02/20/18 at 21:00 Lorazepam (Ativan) 1 mg PRN Q8HRS PRN PO ANXIETY / AGITATION Last administered on 03/26/18 21:07; Start 02/20/18 at 19:00 Multi-Ingredient Ointment (Analgesic [place]) 1 devika PRN QID PRN TP MUSCLE PAIN Last administered on 03/27/18 11:48; Start 02/20/18 at 18:45 Al Hydroxide/Mg Hydroxide (Mylanta Plus Xs) 15 ml PRN AFTMEALHC PRN PO DYSPEPSIA Last administered on 03/07/18at 09:56; Start 02/20/18 at 18:45 Magnesium Hydroxide (Milk Of Magnesia) 2,400 mg PRN QHS PRN PO CONSTIPATION; Start 02/20/18 at 18:45 Nystatin (Nystop) 1 devika BID TP Last administered on 03/27/18 19:39; Start at 21:00 Bupropion HCl (Wellbutrin) 75 mg DAILY PO Last administered on 02/26/18at 07:53 ; Start 02/24/18 at 09:00; Stop 02/27/18 at 08:59; Status DC Bupropion HCl (Wellbutrin) 75 mg BIDACBL PO Last administered on 03/17/18 14:16 ; Start 02/27/18 at 08:00; Stop 03/17/18 at 18:46; Status DC Divalproex Sodium (Depakote Er) 1,000 mg QHS PO Last administered on at 19:46; Start 02/26/18 at 21:00; Stop 02/28/18 at 19:35; Status DC Divalproex Sodium (Depakote Sprinkles) 1,000 mg HS PO Last administered on at 18:50; Start 02/28/18 at 21:00; Stop 03/04/18 at 18:24; Status DC Quetiapine Fumarate (SEROquel) 25 mg QHS PO Last administered on 03/11/18 19:35 ; Start 03/01/18 at 21:00; Stop 03/12/18 at 11:05; Status DC Tamsulosin HCl (Flomax) 0.4 mg HS PO Last administered on 03/02/18at 20:26; Start 03/01/18 at 21:00; Stop 03/03/18 at 12:25; Status DC Mirtazapine (Remeron) 7.5 mg QHS PO Last administered on 03/10/18 19:28; Start 03/01/18 at 21:00; Stop 03/11/18 at 18:17; Status DC Tamsulosin HCl (Flomax) 0.4 mg BID PO Last administered on 03/27/18 19:38; Start 03/03/18 at 21:00 Amoxicillin (Amoxil) 500 mg [id number] PO Last administered on 03/14/18 19:28; Start 03/04/18 at 21:00; Stop 03/15/18 at 09:14; Status DC Divalproex Sodium (Depakote Er) 500 mg BID PO Last administered on 03/05/18at 19:44; Start 03/04/18 at 21:00; Stop 03/05/18 at 23:00; Status DC Lactobacillus Rhamnosus (Culturelle) 1 cap BID PO Last administered on 19:28; Start 03/05/18 at 21:00; Stop 03/15/18 at 09:14; Status DC Divalproex Sodium (Depakote Er) 1,000 mg QHS PO Last administered on 03/14/18 19:29; Start 03/06/18 at 21:00; Stop 03/15/18 at 21:12; Status DC Quetiapine Fumarate (SEROquel) 12.5 mg DAILY@1700 PO Last administered on 16:20; Start 03/11/18 at 17:00; Stop 03/17/18 at 18:46; Status DC Loperamide HCl (Imodium) 2 mg PRN Q1HR PRN PO DIARRHEA Last administered on 03/11 16:16; Start 03/11/18 at 16:15 Mirtazapine (Remeron) 15 mg QHS PO Last administered on 03/27/18 19:38; Start 03/11/18 at 21:00 Quetiapine Fumarate (SEROquel) 25 mg BID PO Last administered on 03/13/18 07:55 ; Start 03/12/18 at 21:00; Stop 03/13/18 at 16:36; Status DC Quetiapine Fumarate (SEROquel) 25 mg QHS PO Last administered on 1/10/19at 19: 21; Start 03/13/18 at 21:00; Stop 03/20/18 at 19:30; Status DC Olanzapine (ZyPREXA ZYDIS) 2.5 mg PRN Q2HR PRN PO PSYCHOSIS Last administered on 03/24/18at 15:09; Start 03/14/18 at 12:00; Stop 03/26/18 at 10:20; Status DC Trazodone HCl (Desyrel) 50 mg PRN QHS PRN PO INSOMNIA, MAY REPEAT X1 Last administered on 03/26/18at 20:29; Start 03/14/18 at 21:45 Buspirone HCl (Buspar) 5 mg [id number] PO Last administered on 03/18/18at 11:19; Start 03/16/18 at 09:00; Stop 03/18/18 at 14:47; Status DC Divalproex Sodium (Depakote Sprinkles) 500 mg BID PO Last administered on at 11:43; Start 03/15/18 at 21:15; Stop 03/26/18 at 12:10; Status DC Quetiapine Fumarate (SEROquel) 12.5 mg 0900,1700 PO Last administered on at 08:11; Start 03/18/18 at 09:00 Buspirone HCl (Buspar) 10 mg BID@0900,1700 PO Last administered on 03/27/18at 08 :11; Start 03/18/18 at 17:00 Rivastigmine (Exelon) 1 patch DAILY TD Last administered on 03/24/18at 12:02; Start 03/20/18 at 09:00; Stop 03/24/18 at 11:01; Status DC Rivastigmine (Exelon) 1 patch DAILY TD Last administered on 03/27/18at 08:12; Start 03/25/18 at 09:00 Memantine (Namenda) 5 mg HS PO Last administered on 03/21/18at 20:19; Start 12/26 at 21:00; Stop 03/21/18 at 23:00; Status DC Memantine (Namenda) 5 mg BID PO Last administered on 03/24/18at 12:02; Start at 09:00; Stop 03/24/18 at 17:21; Status DC Olanzapine (ZyPREXA IM) 5 mg 1X ONCE IM Last administered on 03/19/18at 20:05; Start 03/19/18 at 19:45; Stop 03/19/18 at 19:46; Status DC Olanzapine (ZyPREXA IM) 5 mg 1X ONCE IM Last administered on 03/20/18at 19:39; Start 03/20/18 at 19:15; Stop 03/20/18 at 19:16; Status DC Quetiapine Fumarate (SEROquel) 50 mg QHS PO Last administered on 03/27/18at 19: 38; Start 03/20/18 at 21:00 Quetiapine Fumarate (SEROquel) 25 mg PRN Q8HRS PRN PO agitation/aggression; Start 03/20/18 at 19:30 Olanzapine (ZyPREXA IM) 5 mg 1X ONCE IM Last administered on 03/21/18at 17:18; Start 03/21/18 at 17:30; Stop 03/21/18 at 17:31; Status DC Olanzapine (ZyPREXA IM) 5 mg 1X ONCE IM Last administered on 03/21/18at 19:45; Start 03/21/18 at 19:45; Stop 03/21/18 at 19:46; Status DC Olanzapine (ZyPREXA IM) 5 mg DAILY PRN IM PSYCHOSIS Last administered on at 21:01; Start 03/22/18 at 11:45; Stop 03/26/18 at 08:09; Status DC Sertraline HCl (Zoloft) 25 mg DAILY PO Last administered on 03/25/18at 11:25; Start 03/24/18 at 09:00; Stop 03/25/18 at 11:00; Status DC Sertraline HCl (Zoloft) 50 mg DAILY PO Last administered on 03/27/18at 08:12; Start 03/26/18 at 09:00 Memantine (Namenda) 10 mg BID PO Last administered on 03/27/18at 19:38; Start at 21:00 Olanzapine (ZyPREXA ZYDIS) 5 mg PRN Q2HR PRN PO PSYCHOSIS; Start 03/26/18 at 10 :30 Divalproex Sodium (Depakote Sprinkles) 500 mg DAILY PO Last administered on at 08:14; Start 03/27/18 at 09:00 Divalproex Sodium (Depakote Sprinkles) 750 mg HS PO Last administered on at 19:39; Start 03/26/18 at 21:00 Active Scripts Active Reported Plavix (Clopidogrel Bisulfate) 75 Mg Tablet 75 Mg PO DAILY Lorazepam 0.5 Mg Tablet 1 Mg PO PRN Q8HRS PRN Flomax (Tamsulosin Hcl) 0.4 Mg Cap.er.24h 0.4 Mg PO HS PRN Depakote Sprinkle (Divalproex Sodium) 125 Mg Cap.sprink 500 Mg PO TID Colace (Docusate Sodium) 100 Mg Capsule 100 Mg PO BID Vitamin D (Cholecalciferol (Vitamin D3)) 1,000 Unit Capsule 2,000 Unit PO DAILY Atorvastatin Calcium 20 Mg Tablet 20 Mg PO QHS Atenolol 100 Mg Tablet 100 Mg PO DAILY Tylenol (Acetaminophen) 325 Mg Tablet 650 Mg PO PRN Q4HRS PRN I have reviewed the current psychotropics carefully including drug interactions. Risk benefit ratio favors no change other than as noted in my dictated progress note. 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
[2018-03-28 05:30] VITALS: BP 139/76
[2018-03-28] MEDS: busPIRone 10 MG TABLET. PO SCH ×2 (12:09→16:37)
[2018-03-28] MEDS: DOCUSATE SODIUM 100 MG CAPSULE PO SCH ×2 (12:09→19:47)
[2018-03-28] MEDS: TAMSULOSIN 0.4 MG CAP.ER.24H. PO SCH ×2 (12:09→19:47)
[2018-03-28] MEDS: DIVALPROEX 125 MG CAP.SPRINK PO SCH ×2 (12:09→19:47)
[2018-03-28] MEDS: MEMANTINE 10 MG TABLET. PO SCH ×2 (12:10→19:47)
[2018-03-28] MEDS: CLOPIDOGREL BISULFATE 75 MG TABLET PO SCH (12:10)
[2018-03-28] MEDS: QUEtiapine 25 MG TABLET. PO SCH ×2 (12:10→16:37)
[2018-03-28] MEDS: ATENOLOL 50 MG TABLET PO SCH (12:11)
[2018-03-28] MEDS: RIVASTIGMINE 9.5MG PATCH. TD SCH (12:12)
[2018-03-28] MEDS: SERTRALINE 50 MG TABLET. PO SCH (12:12)
[2018-03-28] MEDS: CHOLECALCIFEROL (VITAMIN D3) 1,000 UNIT TABLET PO SCH (12:12)
[2018-03-28] MEDS: NYSTATIN TOPICAL POWDER 15GM BOTTLE. TP SCH ×2 (12:13→19:47)
[2018-03-28 15:14] LABS: BASO # 0.1 x10^3/uL (0.0-0.2); BASO % 1 % (0-3); EOS # 0.2 x10^3/uL (0.0-0.7); EOS % 3 % (0-3); HEMATOCRIT 38.6 % (39.0-53.0); HEMOGLOBIN 12.8 g/dL (13.0-17.5); LYMPH # 1.2 x10^3/uL (1.0-4.8); LYMPH % 15 % (24-48); MEAN CORPUSCULAR HEMOGLOBIN 33 pg (25-35); MEAN CORPUSCULAR HGB CONC 33 g/dL (31-37); MEAN CORPUSCULAR VOLUME 98 fL (79-100); MONO # 0.8 x10^3/uL (0.0-1.1); MONO % 10 % (0-9); NEUT # 5.8 x10^3uL (1.8-7.7); NEUT % 72 % (31-73); PLATELET COUNT 193 x10^3/uL (140-400); RED BLOOD COUNT 3.95 x10^6/uL (4.30-5.70); RED CELL DISTRIBUTION WIDTH 15.5 % (11.5-14.5); WHITE BLOOD COUNT 8.1 x10^3/uL (4.0-11.0)
[2018-03-28 15:35] VITALS: BP 117/75
[2018-03-28 15:35] LABS: ALBUMIN 2.7 g/dL (3.4-5.0); ALBUMIN/GLOBULIN RATIO 0.7 (1.0-1.7); CALCIUM 8.7 mg/dL (8.5-10.1); CREATININE 1.1 mg/dL (0.7-1.3); GFR 65.8; TOTAL BILIRUBIN 0.5 mg/dL (0.2-1.0); TOTAL PROTEIN 6.5 g/dL (6.4-8.2)
[2018-03-28] MEDS: MIRTAZAPINE 15 MG TABLET PO SCH (19:47)
[2018-03-28] MEDS: ATORVASTATIN CALCIUM 20 MG TABLET PO SCH (19:47)
[2018-03-28] MEDS: QUEtiapine 50 MG TABLET. PO SCH (19:47)
[2018-03-28] MEDS: traZODone 50 MG TABLET. PO PRN (19:48)
--- NOTE | 2018-03-29 00:01 | PDOC ---
Exam Note: Pavel Note: Please also refer to the separate dictated note~for this date of service dictated separately.~Patient seen individually. Discussed the patient with Nursing staff reviewed the chart.~Reviewed interim history and current functioning. Reviewed vital signs,~Labs/ Radiology~and current medications noted below. Continue current treatment with the changes noted in the dictated addendum note Assessment: Vital Signs: Vital Signs Date Time Temp Pulse Resp B/P (MAP) Pulse Ox O2 Delivery O2 Flow Rate FiO2 03/28/18 15:35 97.6 99 18 117/75 (89) 95 03/27/18 05:50 Room Air I&O Intake and Output 03/29/18 07:01 Intake Total 480 ml Output Total 325 ml Balance 155 ml Intake Oral 480 ml Output Urine Total 325 ml Labs: Laboratory Tests Test 03/28/18 15:09 White Blood Count 8.1 x10^3/uL (4.0-11.0) Red Blood Count 3.95 x10^6/uL (4.30-5.70) L Hemoglobin 12.8 g/dL (13.0-17.5) L Hematocrit 38.6 % (39.0-53.0) L Mean Corpuscular Volume 98 fL (79-100) Mean Corpuscular Hemoglobin 33 pg (25-35) Mean Corpuscular Hemoglobin Concent 33 g/dL (31-37) Red Cell Distribution Width 15.5 % (11.5-14.5) H Platelet Count 193 x10^3/uL (140-400) Neutrophils (%) (Auto) 72 % (31-73) Lymphocytes (%) (Auto) 15 % (24-48) L Monocytes (%) (Auto) 10 % (0-9) H Eosinophils (%) (Auto) 3 % (0-3) Basophils (%) (Auto) 1 % (0-3) Neutrophils # (Auto) 5.8 x10^3uL (1.8-7.7) Lymphocytes # (Auto) 1.2 x10^3/uL (1.0-4.8) Monocytes # (Auto) 0.8 x10^3/uL (0.0-1.1) Eosinophils # (Auto) 0.2 x10^3/uL (0.0-0.7) Basophils # (Auto) 0.1 x10^3/uL (0.0-0.2) Sodium Level 145 mmol/L (136-145) Potassium Level 4.0 mmol/L (3.5-5.1) Chloride Level 108 mmol/L (98-107) H Carbon Dioxide Level 32 mmol/L (21-32) Anion Gap 5 (6-14) L Blood Urea Nitrogen 20 mg/dL (8-26) Creatinine 1.1 mg/dL (0.7-1.3) Estimated GFR (Cockcroft-Gault) 65.8 BUN/Creatinine Ratio 18 (6-20) Glucose Level 114 mg/dL (70-99) H Calcium Level 8.7 mg/dL (8.5-10.1) Total Bilirubin 0.5 mg/dL (0.2-1.0) Aspartate Amino Transferase (AST) 13 U/L (15-37) L Alanine Aminotransferase (ALT) 15 U/L (16-63) L Alkaline Phosphatase 60 U/L (46-116) Total Protein 6.5 g/dL (6.4-8.2) Albumin 2.7 g/dL (3.4-5.0) L Albumin/Globulin Ratio 0.7 (1.0-1.7) L Current Medications: Meds: Current Medications Acetaminophen (Tylenol) 650 mg PRN Q4HRS PRN PO PAIN / TEMP Last administered on 03/27/18 18:51; Start 02/20/18 at 18:30 Atorvastatin Calcium (Lipitor) 20 mg QHS PO Last administered on 03/28/18 19: 47; Start 02/20/18 at 21:00 Clopidogrel Bisulfate (Plavix) 75 mg DAILY PO Last administered on 03/28/18 12 :10; Start 02/21/18 at 09:00 Tamsulosin HCl (Flomax) 0.4 mg PRN QHS PRN PO retention; Start 02/20/18 at 18: 30; Stop 03/01/18 at 11:14; Status DC Atenolol (Tenormin) 100 mg DAILY PO Last administered on 03/28/18 12:11; Start 02/21/18 at 09:00 Vitamin D (Vitamin D3) 2,000 unit DAILY PO Last administered on 03/28/18 12:12 ; Start 02/21/18 at 09:00 Divalproex Sodium (Depakote Sprinkles) 500 mg TID PO Last administered on 02/26at 07:53; Start 02/20/18 at 21:00; Stop 02/26/18 at 10:36; Status DC Docusate Sodium (Colace) 100 mg BID PO Last administered on 03/28/18 19:47; Start 02/20/18 at 21:00 Lorazepam (Ativan) 1 mg PRN Q8HRS PRN PO ANXIETY / AGITATION Last administered on 03/26/18at 21:07; Start 02/20/18 at 19:00 Multi-Ingredient Ointment (Analgesic [place]) 1 devika PRN QID PRN TP MUSCLE PAIN Last administered on 03/27/18 11:48; Start 02/20/18 at 18:45 Al Hydroxide/Mg Hydroxide (Mylanta Plus Xs) 15 ml PRN AFTMEALHC PRN PO DYSPEPSIA Last administered on 03/07/18 09:56; Start 02/20/18 at 18:45 Magnesium Hydroxide (Milk Of Magnesia) 2,400 mg PRN QHS PRN PO CONSTIPATION; Start 02/20/18 at 18:45 Nystatin (Nystop) 1 devika BID TP Last administered on 03/28/18 19:47; Start at 21:00 Bupropion HCl (Wellbutrin) 75 mg DAILY PO Last administered on 02/26/18at 07:53 ; Start 02/24/18 at 09:00; Stop 02/27/18 at 08:59; Status DC Bupropion HCl (Wellbutrin) 75 mg BIDACBL PO Last administered on 03/17/18at 14:16 ; Start 02/27/18 at 08:00; Stop 03/17/18 at 18:46; Status DC Divalproex Sodium (Depakote Er) 1,000 mg QHS PO Last administered on at 19:46; Start 02/26/18 at 21:00; Stop 02/28/18 at 19:35; Status DC Divalproex Sodium (Depakote Sprinkles) 1,000 mg HS PO Last administered on at 18:50; Start 02/28/18 at 21:00; Stop 03/04/18 at 18:24; Status DC Quetiapine Fumarate (SEROquel) 25 mg QHS PO Last administered on 03/11/18 19:35 ; Start 03/01/18 at 21:00; Stop 03/12/18 at 11:05; Status DC Tamsulosin HCl (Flomax) 0.4 mg HS PO Last administered on 03/02/18 20:26; Start 03/01/18 at 21:00; Stop 03/03/18 at 12:25; Status DC Mirtazapine (Remeron) 7.5 mg QHS PO Last administered on 03/10/18 19:28; Start 03/01/18 at 21:00; Stop 03/11/18 at 18:17; Status DC Tamsulosin HCl (Flomax) 0.4 mg BID PO Last administered on 03/28/18 19:47; Start 03/03/18 at 21:00 Amoxicillin (Amoxil) 500 mg [id number] PO Last administered on 03/14/18 19:28; Start 03/04/18 at 21:00; Stop 03/15/18 at 09:14; Status DC Divalproex Sodium (Depakote Er) 500 mg BID PO Last administered on 03/05/18at 19:44; Start 03/04/18 at 21:00; Stop 03/05/18 at 23:00; Status DC Lactobacillus Rhamnosus (Culturelle) 1 cap BID PO Last administered on 19:28; Start 03/05/18 at 21:00; Stop 03/15/18 at 09:14; Status DC Divalproex Sodium (Depakote Er) 1,000 mg QHS PO Last administered on 03/14/18 19:29; Start 03/06/18 at 21:00; Stop 03/15/18 at 21:12; Status DC Quetiapine Fumarate (SEROquel) 12.5 mg DAILY@1700 PO Last administered on 16:20; Start 03/11/18 at 17:00; Stop 03/17/18 at 18:46; Status DC Loperamide HCl (Imodium) 2 mg PRN Q1HR PRN PO DIARRHEA Last administered on 03/11 16:16; Start 03/11/18 at 16:15 Mirtazapine (Remeron) 15 mg QHS PO Last administered on 03/28/18at 19:47; Start 03/11/18 at 21:00 Quetiapine Fumarate (SEROquel) 25 mg BID PO Last administered on 03/13/18at 07:55 ; Start 03/12/18 at 21:00; Stop 03/13/18 at 16:36; Status DC Quetiapine Fumarate (SEROquel) 25 mg QHS PO Last administered on 03/19/18at 19: 21; Start 03/13/18 at 21:00; Stop 03/20/18 at 19:30; Status DC Olanzapine (ZyPREXA ZYDIS) 2.5 mg PRN Q2HR PRN PO PSYCHOSIS Last administered on 03/24/18at 15:09; Start 03/14/18 at 12:00; Stop 03/26/18 at 10:20; Status DC Trazodone HCl (Desyrel) 50 mg PRN QHS PRN PO INSOMNIA, MAY REPEAT X1 Last administered on 03/28/18at 19:48; Start 03/14/18 at 21:45 Buspirone HCl (Buspar) 5 mg [id number] PO Last administered on 03/18/18at 11:19; Start 03/16/18 at 09:00; Stop 03/18/18 at 14:47; Status DC Divalproex Sodium (Depakote Sprinkles) 500 mg BID PO Last administered on at 11:43; Start 03/15/18 at 21:15; Stop 03/26/18 at 12:10; Status DC Quetiapine Fumarate (SEROquel) 12.5 mg 0900,1700 PO Last administered on at 16:37; Start 03/18/18 at 09:00 Buspirone HCl (Buspar) 10 mg BID@0900,1700 PO Last administered on 03/28/18at 16 :37; Start 03/18/18 at 17:00 Rivastigmine (Exelon) 1 patch DAILY TD Last administered on 03/24/18at 12:02; Start 03/20/18 at 09:00; Stop 03/24/18 at 11:01; Status DC Rivastigmine (Exelon) 1 patch DAILY TD Last administered on 1/19/19at 12:12; Start 03/25/18 at 09:00 Memantine (Namenda) 5 mg HS PO Last administered on 03/21/18at 20:19; Start 12/26 at 21:00; Stop 03/21/18 at 23:00; Status DC Memantine (Namenda) 5 mg BID PO Last administered on 03/24/18at 12:02; Start at 09:00; Stop 03/24/18 at 17:21; Status DC Olanzapine (ZyPREXA IM) 5 mg 1X ONCE IM Last administered on 03/19/18at 20:05; Start 03/19/18 at 19:45; Stop 03/19/18 at 19:46; Status DC Olanzapine (ZyPREXA IM) 5 mg 1X ONCE IM Last administered on 03/20/18at 19:39; Start 03/20/18 at 19:15; Stop 03/20/18 at 19:16; Status DC Quetiapine Fumarate (SEROquel) 50 mg QHS PO Last administered on 03/28/18at 19: 47; Start 03/20/18 at 21:00 Quetiapine Fumarate (SEROquel) 25 mg PRN Q8HRS PRN PO agitation/aggression; Start 03/20/18 at 19:30 Olanzapine (ZyPREXA IM) 5 mg 1X ONCE IM Last administered on 03/21/18at 17:18; Start 03/21/18 at 17:30; Stop 03/21/18 at 17:31; Status DC Olanzapine (ZyPREXA IM) 5 mg 1X ONCE IM Last administered on 03/21/18at 19:45; Start 03/21/18 at 19:45; Stop 03/21/18 at 19:46; Status DC Olanzapine (ZyPREXA IM) 5 mg DAILY PRN IM PSYCHOSIS Last administered on at 21:01; Start 03/22/18 at 11:45; Stop 03/26/18 at 08:09; Status DC Sertraline HCl (Zoloft) 25 mg DAILY PO Last administered on 03/25/18at 11:25; Start 03/24/18 at 09:00; Stop 03/25/18 at 11:00; Status DC Sertraline HCl (Zoloft) 50 mg DAILY PO Last administered on 03/28/18 12:12; Start 03/26/18 at 09:00 Memantine (Namenda) 10 mg BID PO Last administered on 03/28/18at 19:47; Start at 21:00 Olanzapine (ZyPREXA ZYDIS) 5 mg PRN Q2HR PRN PO PSYCHOSIS Last administered on 03/28/18 15:44; Start 03/26/18 at 10:30 Divalproex Sodium (Depakote Sprinkles) 500 mg DAILY PO Last administered on at 12:09; Start 03/27/18 at 09:00 Divalproex Sodium (Depakote Sprinkles) 750 mg HS PO Last administered on at 19:47; Start 03/26/18 at 21:00 Active Scripts Active Reported Plavix (Clopidogrel Bisulfate) 75 Mg Tablet 75 Mg PO DAILY Lorazepam 0.5 Mg Tablet 1 Mg PO PRN Q8HRS PRN Flomax (Tamsulosin Hcl) 0.4 Mg Cap.er.24h 0.4 Mg PO HS PRN Depakote Sprinkle (Divalproex Sodium) 125 Mg Cap.sprink 500 Mg PO TID Colace (Docusate Sodium) 100 Mg Capsule 100 Mg PO BID Vitamin D (Cholecalciferol (Vitamin D3)) 1,000 Unit Capsule 2,000 Unit PO DAILY Atorvastatin Calcium 20 Mg Tablet 20 Mg PO QHS Atenolol 100 Mg Tablet 100 Mg PO DAILY Tylenol (Acetaminophen) 325 Mg Tablet 650 Mg PO PRN Q4HRS PRN I have reviewed the current psychotropics carefully including drug interactions. Risk benefit ratio favors no change other than as noted in my dictated progress note. 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
[2018-03-29] MEDS: ACETAMINOPHEN 325 MG TABLET PO PRN (05:26)
[2018-03-29 05:56] VITALS: BP 167/98
[2018-03-29 11:46] LABS: BASO # 0.1 x10^3/uL (0.0-0.2); BASO % 1 % (0-3); EOS # 0.4 x10^3/uL (0.0-0.7); EOS % 6 % (0-3); HEMATOCRIT 35.8 % (39.0-53.0); LYMPH # 1.6 x10^3/uL (1.0-4.8); LYMPH % 23 % (24-48); MEAN CORPUSCULAR HEMOGLOBIN 33 pg (25-35); MEAN CORPUSCULAR HGB CONC 34 g/dL (31-37); MEAN CORPUSCULAR VOLUME 98 fL (79-100); MONO # 0.7 x10^3/uL (0.0-1.1); MONO % 10 % (0-9); NEUT # 4.1 x10^3uL (1.8-7.7); NEUT % 60 % (31-73); PLATELET COUNT 162 x10^3/uL (140-400); RED BLOOD COUNT 3.67 x10^6/uL (4.30-5.70); RED CELL DISTRIBUTION WIDTH 15.4 % (11.5-14.5); WHITE BLOOD COUNT 6.9 x10^3/uL (4.0-11.0)
[2018-03-29] MEDS: DOCUSATE SODIUM 100 MG CAPSULE PO SCH ×2 (11:57→20:28)
[2018-03-29] MEDS: busPIRone 10 MG TABLET. PO SCH ×2 (11:57→17:15)
[2018-03-29 11:58] LABS: ALBUMIN 2.5 g/dL (3.4-5.0); ALBUMIN/GLOBULIN RATIO 0.7 (1.0-1.7); ALK PHOS 58 U/L (46-116); ALT (SGPT) 15 U/L (16-63); ANION GAP 7 (6-14); AST (SGOT) 12 U/L (15-37); BLOOD UREA NITROGEN 17 mg/dL (8-26); BUN/CREATININE RATIO 17 (6-20); CALCIUM 8.3 mg/dL (8.5-10.1); CARBON DIOXIDE 28 mmol/L (21-32); CHLORIDE 109 mmol/L (98-107); GFR 73.5; GLUCOSE 93 mg/dL (70-99); POTASSIUM 3.7 mmol/L (3.5-5.1); SODIUM 144 mmol/L (136-145); TOTAL BILIRUBIN 0.5 mg/dL (0.2-1.0); TOTAL PROTEIN 5.9 g/dL (6.4-8.2)
[2018-03-29] MEDS: TAMSULOSIN 0.4 MG CAP.ER.24H. PO SCH ×2 (11:58→20:28)
[2018-03-29] MEDS: DIVALPROEX 125 MG CAP.SPRINK PO SCH ×2 (11:58→20:28)
[2018-03-29] MEDS: MEMANTINE 10 MG TABLET. PO SCH ×2 (11:58→20:28)
[2018-03-29] MEDS: CLOPIDOGREL BISULFATE 75 MG TABLET PO SCH (11:58)
[2018-03-29] MEDS: QUEtiapine 25 MG TABLET. PO SCH ×2 (11:58→17:15)
[2018-03-29] MEDS: ATENOLOL 50 MG TABLET PO SCH (11:59)
[2018-03-29] MEDS: CHOLECALCIFEROL (VITAMIN D3) 1,000 UNIT TABLET PO SCH (11:59)
[2018-03-29] MEDS: SERTRALINE 50 MG TABLET. PO SCH (11:59)
[2018-03-29] MEDS: RIVASTIGMINE 9.5MG PATCH. TD SCH (12:00)
[2018-03-29] MEDS: NYSTATIN TOPICAL POWDER 15GM BOTTLE. TP SCH ×2 (12:00→20:29)
[2018-03-29 12:01] LABS: VAL ACID 47 mcg/mL (50-100)
[2018-03-29 15:41] VITALS: BP 107/66
[2018-03-29] MEDS: ATORVASTATIN CALCIUM 20 MG TABLET PO SCH (20:29)
[2018-03-29] MEDS: MIRTAZAPINE 15 MG TABLET PO SCH (20:29)
[2018-03-29] MEDS: QUEtiapine 50 MG TABLET. PO SCH (20:29)
--- NOTE | 2018-03-29 22:35 | PDOC ---
Exam Note: Pavel Note: Please also refer to the separate dictated note~for this date of service dictated separately. Discussed the patient with Nursing staff reviewed the chart.~Reviewed interim history and current functioning. Reviewed vital signs,~ Labs/ Radiology~and current medications noted below. Continue current treatment with the changes noted in the dictated addendum note Assessment: Vital Signs: Vital Signs Date Time Temp Pulse Resp B/P (MAP) Pulse Ox O2 Delivery O2 Flow Rate FiO2 03/29/18 15:41 97.6 60 18 107/66 (80) 98 03/27/18 05:50 Room Air I&O Intake and Output 03/29/18 07:01 Intake Total 480 ml Output Total 925 ml Balance -445 ml Intake Oral 480 ml Output Urine Total 925 ml Labs: Laboratory Tests Test 03/29/18 11:33 White Blood Count 6.9 x10^3/uL (4.0-11.0) Red Blood Count 3.67 x10^6/uL (4.30-5.70) L Hemoglobin 12.0 g/dL (13.0-17.5) L Hematocrit 35.8 % (39.0-53.0) L Mean Corpuscular Volume 98 fL (79-100) Mean Corpuscular Hemoglobin 33 pg (25-35) Mean Corpuscular Hemoglobin Concent 34 g/dL (31-37) Red Cell Distribution Width 15.4 % (11.5-14.5) H Platelet Count 162 x10^3/uL (140-400) Neutrophils (%) (Auto) 60 % (31-73) Lymphocytes (%) (Auto) 23 % (24-48) L Monocytes (%) (Auto) 10 % (0-9) H Eosinophils (%) (Auto) 6 % (0-3) H Basophils (%) (Auto) 1 % (0-3) Neutrophils # (Auto) 4.1 x10^3uL (1.8-7.7) Lymphocytes # (Auto) 1.6 x10^3/uL (1.0-4.8) Monocytes # (Auto) 0.7 x10^3/uL (0.0-1.1) Eosinophils # (Auto) 0.4 x10^3/uL (0.0-0.7) Basophils # (Auto) 0.1 x10^3/uL (0.0-0.2) Sodium Level 144 mmol/L (136-145) Potassium Level 3.7 mmol/L (3.5-5.1) Chloride Level 109 mmol/L (98-107) H Carbon Dioxide Level 28 mmol/L (21-32) Anion Gap 7 (6-14) Blood Urea Nitrogen 17 mg/dL (8-26) Creatinine 1.0 mg/dL (0.7-1.3) Estimated GFR (Cockcroft-Gault) 73.5 BUN/Creatinine Ratio 17 (6-20) Glucose Level 93 mg/dL (70-99) Calcium Level 8.3 mg/dL (8.5-10.1) L Total Bilirubin 0.5 mg/dL (0.2-1.0) Aspartate Amino Transferase (AST) 12 U/L (15-37) L Alanine Aminotransferase (ALT) 15 U/L (16-63) L Alkaline Phosphatase 58 U/L (46-116) Total Protein 5.9 g/dL (6.4-8.2) L Albumin 2.5 g/dL (3.4-5.0) L Albumin/Globulin Ratio 0.7 (1.0-1.7) L Valproic Acid Level 47 mcg/mL (50-100) L Valproic Acid Last Dose Date 03/28/18 Valproic Acid Last Dose Time 2100 Current Medications: Meds: Current Medications Acetaminophen (Tylenol) 650 mg PRN Q4HRS PRN PO PAIN / TEMP Last administered on 03/29/18 05:26; Start 02/20/18 at 18:30 Atorvastatin Calcium (Lipitor) 20 mg QHS PO Last administered on 03/29/18 20: 29; Start 02/20/18 at 21:00 Clopidogrel Bisulfate (Plavix) 75 mg DAILY PO Last administered on 03/29/18 11 :58; Start 02/21/18 at 09:00 Tamsulosin HCl (Flomax) 0.4 mg PRN QHS PRN PO retention; Start 02/20/18 at 18: 30; Stop 03/01/18 at 11:14; Status DC Atenolol (Tenormin) 100 mg DAILY PO Last administered on 03/29/18 11:59; Start 02/21/18 at 09:00 Vitamin D (Vitamin D3) 2,000 unit DAILY PO Last administered on 03/29/18 11:59 ; Start 02/21/18 at 09:00 Divalproex Sodium (Depakote Sprinkles) 500 mg TID PO Last administered on 02/26 07:53; Start 02/20/18 at 21:00; Stop 02/26/18 at 10:36; Status DC Docusate Sodium (Colace) 100 mg BID PO Last administered on 03/29/18 20:28; Start 02/20/18 at 21:00 Lorazepam (Ativan) 1 mg PRN Q8HRS PRN PO ANXIETY / AGITATION Last administered on 03/26/18 21:07; Start 02/20/18 at 19:00 Multi-Ingredient Ointment (Analgesic [place]) 1 devika PRN QID PRN TP MUSCLE PAIN Last administered on 03/27/18 11:48; Start 02/20/18 at 18:45 Al Hydroxide/Mg Hydroxide (Mylanta Plus Xs) 15 ml PRN AFTMEALHC PRN PO DYSPEPSIA Last administered on 03/07/18at 09:56; Start 02/20/18 at 18:45 Magnesium Hydroxide (Milk Of Magnesia) 2,400 mg PRN QHS PRN PO CONSTIPATION; Start 02/20/18 at 18:45 Nystatin (Nystop) 1 devika BID TP Last administered on 03/29/18 20:29; Start at 21:00 Bupropion HCl (Wellbutrin) 75 mg DAILY PO Last administered on 02/26/18at 07:53 ; Start 02/24/18 at 09:00; Stop 02/27/18 at 08:59; Status DC Bupropion HCl (Wellbutrin) 75 mg BIDACBL PO Last administered on 03/17/18 14:16 ; Start 02/27/18 at 08:00; Stop 03/17/18 at 18:46; Status DC Divalproex Sodium (Depakote Er) 1,000 mg QHS PO Last administered on at 19:46; Start 02/26/18 at 21:00; Stop 02/28/18 at 19:35; Status DC Divalproex Sodium (Depakote Sprinkles) 1,000 mg HS PO Last administered on 12/ 25/18at 18:50; Start 02/28/18 at 21:00; Stop 03/04/18 at 18:24; Status DC Quetiapine Fumarate (SEROquel) 25 mg QHS PO Last administered on 03/11/18 19:35 ; Start 03/01/18 at 21:00; Stop 03/12/18 at 11:05; Status DC Tamsulosin HCl (Flomax) 0.4 mg HS PO Last administered on 03/02/18at 20:26; Start 03/01/18 at 21:00; Stop 03/03/18 at 12:25; Status DC Mirtazapine (Remeron) 7.5 mg QHS PO Last administered on 03/10/18 19:28; Start 03/01/18 at 21:00; Stop 03/11/18 at 18:17; Status DC Tamsulosin HCl (Flomax) 0.4 mg BID PO Last administered on 03/29/18 20:28; Start 03/03/18 at 21:00 Amoxicillin (Amoxil) 500 mg [id number] PO Last administered on 03/14/18 19:28; Start 03/04/18 at 21:00; Stop 03/15/18 at 09:14; Status DC Divalproex Sodium (Depakote Er) 500 mg BID PO Last administered on 03/05/18at 19:44; Start 03/04/18 at 21:00; Stop 03/05/18 at 23:00; Status DC Lactobacillus Rhamnosus (Culturelle) 1 cap BID PO Last administered on 19:28; Start 03/05/18 at 21:00; Stop 03/15/18 at 09:14; Status DC Divalproex Sodium (Depakote Er) 1,000 mg QHS PO Last administered on 03/14/18 19:29; Start 03/06/18 at 21:00; Stop 03/15/18 at 21:12; Status DC Quetiapine Fumarate (SEROquel) 12.5 mg DAILY@1700 PO Last administered on 16:20; Start 03/11/18 at 17:00; Stop 03/17/18 at 18:46; Status DC Loperamide HCl (Imodium) 2 mg PRN Q1HR PRN PO DIARRHEA Last administered on 03/11 16:16; Start 03/11/18 at 16:15 Mirtazapine (Remeron) 15 mg QHS PO Last administered on 03/29/18at 20:29; Start 03/11/18 at 21:00 Quetiapine Fumarate (SEROquel) 25 mg BID PO Last administered on 03/13/18at 07:55 ; Start 03/12/18 at 21:00; Stop 03/13/18 at 16:36; Status DC Quetiapine Fumarate (SEROquel) 25 mg QHS PO Last administered on 03/19/18at 19: 21; Start 03/13/18 at 21:00; Stop 03/20/18 at 19:30; Status DC Olanzapine (ZyPREXA ZYDIS) 2.5 mg PRN Q2HR PRN PO PSYCHOSIS Last administered on 03/24/18 15:09; Start 03/14/18 at 12:00; Stop 03/26/18 at 10:20; Status DC Trazodone HCl (Desyrel) 50 mg PRN QHS PRN PO INSOMNIA, MAY REPEAT X1 Last administered on 03/28/18at 19:48; Start 03/14/18 at 21:45 Buspirone HCl (Buspar) 5 mg [id number] PO Last administered on 03/18/18 11:19; Start 03/16/18 at 09:00; Stop 03/18/18 at 14:47; Status DC Divalproex Sodium (Depakote Sprinkles) 500 mg BID PO Last administered on at 11:43; Start 03/15/18 at 21:15; Stop 03/26/18 at 12:10; Status DC Quetiapine Fumarate (SEROquel) 12.5 mg 0900,1700 PO Last administered on 17:15; Start 03/18/18 at 09:00 Buspirone HCl (Buspar) 10 mg BID@0900,1700 PO Last administered on 03/29/18at 17 :15; Start 03/18/18 at 17:00 Rivastigmine (Exelon) 1 patch DAILY TD Last administered on 03/24/18at 12:02; Start 03/20/18 at 09:00; Stop 03/24/18 at 11:01; Status DC Rivastigmine (Exelon) 1 patch DAILY TD Last administered on 03/29/18at 12:00; Start 03/25/18 at 09:00 Memantine (Namenda) 5 mg HS PO Last administered on 03/21/18at 20:19; Start 12/26 at 21:00; Stop 03/21/18 at 23:00; Status DC Memantine (Namenda) 5 mg BID PO Last administered on 03/24/18at 12:02; Start at 09:00; Stop 03/24/18 at 17:21; Status DC Olanzapine (ZyPREXA IM) 5 mg 1X ONCE IM Last administered on 03/19/18at 20:05; Start 03/19/18 at 19:45; Stop 03/19/18 at 19:46; Status DC Olanzapine (ZyPREXA IM) 5 mg 1X ONCE IM Last administered on 03/20/18at 19:39; Start 03/20/18 at 19:15; Stop 03/20/18 at 19:16; Status DC Quetiapine Fumarate (SEROquel) 50 mg QHS PO Last administered on 03/29/18at 20: 29; Start 03/20/18 at 21:00 Quetiapine Fumarate (SEROquel) 25 mg PRN Q8HRS PRN PO agitation/aggression; Start 03/20/18 at 19:30 Olanzapine (ZyPREXA IM) 5 mg 1X ONCE IM Last administered on 03/21/18at 17:18; Start 03/21/18 at 17:30; Stop 03/21/18 at 17:31; Status DC Olanzapine (ZyPREXA IM) 5 mg 1X ONCE IM Last administered on 03/21/18at 19:45; Start 03/21/18 at 19:45; Stop 03/21/18 at 19:46; Status DC Olanzapine (ZyPREXA IM) 5 mg DAILY PRN IM PSYCHOSIS Last administered on at 21:01; Start 03/22/18 at 11:45; Stop 03/26/18 at 08:09; Status DC Sertraline HCl (Zoloft) 25 mg DAILY PO Last administered on 03/25/18at 11:25; Start 03/24/18 at 09:00; Stop 03/25/18 at 11:00; Status DC Sertraline HCl (Zoloft) 50 mg DAILY PO Last administered on 03/29/18at 11:59; Start 03/26/18 at 09:00 Memantine (Namenda) 10 mg BID PO Last administered on 03/29/18at 20:28; Start at 21:00 Olanzapine (ZyPREXA ZYDIS) 5 mg PRN Q2HR PRN PO PSYCHOSIS Last administered on 03/28/18at 15:44; Start 03/26/18 at 10:30 Divalproex Sodium (Depakote Sprinkles) 500 mg DAILY PO Last administered on at 11:58; Start 03/27/18 at 09:00; Stop 03/29/18 at 18:25; Status DC Divalproex Sodium (Depakote Sprinkles) 750 mg HS PO Last administered on at 20:28; Start 03/26/18 at 21:00 Divalproex Sodium (Depakote Sprinkles) 750 mg DAILY PO ; Start 03/30/18 at 09:00 Active Scripts Active Reported Plavix (Clopidogrel Bisulfate) 75 Mg Tablet 75 Mg PO DAILY Lorazepam 0.5 Mg Tablet 1 Mg PO PRN Q8HRS PRN Flomax (Tamsulosin Hcl) 0.4 Mg Cap.er.24h 0.4 Mg PO HS PRN Depakote Sprinkle (Divalproex Sodium) 125 Mg Cap.sprink 500 Mg PO TID Colace (Docusate Sodium) 100 Mg Capsule 100 Mg PO BID Vitamin D (Cholecalciferol (Vitamin D3)) 1,000 Unit Capsule 2,000 Unit PO DAILY Atorvastatin Calcium 20 Mg Tablet 20 Mg PO QHS Atenolol 100 Mg Tablet 100 Mg PO DAILY Tylenol (Acetaminophen) 325 Mg Tablet 650 Mg PO PRN Q4HRS PRN I have reviewed the current psychotropics carefully including drug interactions. Risk benefit ratio favors no change other than as noted in my dictated progress note. 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
[2018-03-30 05:59] VITALS: BP 153/77
--- NOTE | 2018-03-30 06:59 | PDOC ---
Exam Note: Pavel Note: PSYCHIATRIC PROGRESS NOTE This late entry 03/27/2018 covers elements, not covered in my initial note. SUBJECTIVE: I met with the patient individually in the evening of 03/27/2018. Reviewed information from nursing staff. Reviewed the chart. He slept off and on all day. He slept 6 hours. He had no breakfast or lunch. He complains of back pain. He refused medications, got some Tylenol, which seemed to help his pain. Family came to visit him. Fluids are being pushed. REVIEW OF SYSTEMS: Ambulation impaired. Gait unsteady. No CV, , Eye, ENT, pulmonary system symptoms on review. MENTAL STATUS EXAMINATION: Oriented to himself. Insight and judgment, recent memory impaired. Language function is intact. Mood and affect, improved lability, less paranoia, less anxiety. LABORATORY DATA: Reviewed. IMPRESSION: Major neurocognitive disorder, Lewy body with delusion, depression. Anxiety disorder, unspecified. Impulse control disorder, unspecified. Plan: I have carefully reviewed current psychotropics. There is no change from my initial note. Assessment: Vital Signs: VS - Last 72 Hours, by Label Date Time Temp Pulse Resp B/P (MAP) Pulse Ox O2 Delivery O2 Flow Rate FiO2 03/30/18 05:59 97.3 65 18 153/77 (102) 97 03/29/18 15:41 97.6 60 18 107/66 (80) 98 03/29/18 11:59 70 167/98 03/29/18 05:56 98.3 70 16 167/98 (121) 99 03/28/18 15:35 97.6 99 18 117/75 (89) 95 03/28/18 12:11 66 139/76 03/28/18 05:30 97.6 66 18 139/76 (97) 94 03/27/18 16:19 98.2 80 20 128/81 (97) 96 03/27/18 08:11 61 136/73 Vital Signs Date Time Temp Pulse Resp B/P (MAP) Pulse Ox O2 Delivery O2 Flow Rate FiO2 03/30/18 05:59 97.3 65 18 153/77 (102) 97 03/27/18 05:50 Room Air I&O Intake and Output 03/30/18 07:01 Intake Total 720 ml Output Total 1375 ml Balance -655 ml Intake Oral 720 ml Output Urine Total 1375 ml # Bowel Movements 1 Labs: Laboratory Tests Test 03/29/18 11:33 White Blood Count 6.9 x10^3/uL (4.0-11.0) Red Blood Count 3.67 x10^6/uL (4.30-5.70) L Hemoglobin 12.0 g/dL (13.0-17.5) L Hematocrit 35.8 % (39.0-53.0) L Mean Corpuscular Volume 98 fL (79-100) Mean Corpuscular Hemoglobin 33 pg (25-35) Mean Corpuscular Hemoglobin Concent 34 g/dL (31-37) Red Cell Distribution Width 15.4 % (11.5-14.5) H Platelet Count 162 x10^3/uL (140-400) Neutrophils (%) (Auto) 60 % (31-73) Lymphocytes (%) (Auto) 23 % (24-48) L Monocytes (%) (Auto) 10 % (0-9) H Eosinophils (%) (Auto) 6 % (0-3) H Basophils (%) (Auto) 1 % (0-3) Neutrophils # (Auto) 4.1 x10^3uL (1.8-7.7) Lymphocytes # (Auto) 1.6 x10^3/uL (1.0-4.8) Monocytes # (Auto) 0.7 x10^3/uL (0.0-1.1) Eosinophils # (Auto) 0.4 x10^3/uL (0.0-0.7) Basophils # (Auto) 0.1 x10^3/uL (0.0-0.2) Sodium Level 144 mmol/L (136-145) Potassium Level 3.7 mmol/L (3.5-5.1) Chloride Level 109 mmol/L (98-107) H Carbon Dioxide Level 28 mmol/L (21-32) Anion Gap 7 (6-14) Blood Urea Nitrogen 17 mg/dL (8-26) Creatinine 1.0 mg/dL (0.7-1.3) Estimated GFR (Cockcroft-Gault) 73.5 BUN/Creatinine Ratio 17 (6-20) Glucose Level 93 mg/dL (70-99) Calcium Level 8.3 mg/dL (8.5-10.1) L Total Bilirubin 0.5 mg/dL (0.2-1.0) Aspartate Amino Transferase (AST) 12 U/L (15-37) L Alanine Aminotransferase (ALT) 15 U/L (16-63) L Alkaline Phosphatase 58 U/L (46-116) Total Protein 5.9 g/dL (6.4-8.2) L Albumin 2.5 g/dL (3.4-5.0) L Albumin/Globulin Ratio 0.7 (1.0-1.7) L Valproic Acid Level 47 mcg/mL (50-100) L Valproic Acid Last Dose Date 03/28/18 Valproic Acid Last Dose Time 2100 Current Medications: Meds: Current Medications Acetaminophen (Tylenol) 650 mg PRN Q4HRS PRN PO PAIN / TEMP Last administered on 03/29/18 05:26; Start 02/20/18 at 18:30 Atorvastatin Calcium (Lipitor) 20 mg QHS PO Last administered on 03/29/18 20: 29; Start 02/20/18 at 21:00 Clopidogrel Bisulfate (Plavix) 75 mg DAILY PO Last administered on 03/29/18 11 :58; Start 02/21/18 at 09:00 Tamsulosin HCl (Flomax) 0.4 mg PRN QHS PRN PO retention; Start 02/20/18 at 18: 30; Stop 03/01/18 at 11:14; Status DC Atenolol (Tenormin) 100 mg DAILY PO Last administered on 03/29/18 11:59; Start 02/21/18 at 09:00 Vitamin D (Vitamin D3) 2,000 unit DAILY PO Last administered on 03/29/18 11:59 ; Start 02/21/18 at 09:00 Divalproex Sodium (Depakote Sprinkles) 500 mg TID PO Last administered on 02/26 07:53; Start 02/20/18 at 21:00; Stop 02/26/18 at 10:36; Status DC Docusate Sodium (Colace) 100 mg BID PO Last administered on 03/29/18 20:28; Start 02/20/18 at 21:00 Lorazepam (Ativan) 1 mg PRN Q8HRS PRN PO ANXIETY / AGITATION Last administered on 1/17/19at 21:07; Start 02/20/18 at 19:00 Multi-Ingredient Ointment (Analgesic [place]) 1 devika PRN QID PRN TP MUSCLE PAIN Last administered on 03/27/18 11:48; Start 02/20/18 at 18:45 Al Hydroxide/Mg Hydroxide (Mylanta Plus Xs) 15 ml PRN AFTMEALHC PRN PO DYSPEPSIA Last administered on 03/07/18 09:56; Start 02/20/18 at 18:45 Magnesium Hydroxide (Milk Of Magnesia) 2,400 mg PRN QHS PRN PO CONSTIPATION; Start 02/20/18 at 18:45 Nystatin (Nystop) 1 devika BID TP Last administered on 03/29/18 20:29; Start at 21:00 Bupropion HCl (Wellbutrin) 75 mg DAILY PO Last administered on 02/26/18at 07:53 ; Start 02/24/18 at 09:00; Stop 02/27/18 at 08:59; Status DC Bupropion HCl (Wellbutrin) 75 mg BIDACBL PO Last administered on 03/17/18 14:16 ; Start 02/27/18 at 08:00; Stop 03/17/18 at 18:46; Status DC Divalproex Sodium (Depakote Er) 1,000 mg QHS PO Last administered on at 19:46; Start 02/26/18 at 21:00; Stop 02/28/18 at 19:35; Status DC Divalproex Sodium (Depakote Sprinkles) 1,000 mg HS PO Last administered on at 18:50; Start 02/28/18 at 21:00; Stop 03/04/18 at 18:24; Status DC Quetiapine Fumarate (SEROquel) 25 mg QHS PO Last administered on 03/11/18 19:35 ; Start 03/01/18 at 21:00; Stop 03/12/18 at 11:05; Status DC Tamsulosin HCl (Flomax) 0.4 mg HS PO Last administered on 03/02/18at 20:26; Start 03/01/18 at 21:00; Stop 03/03/18 at 12:25; Status DC Mirtazapine (Remeron) 7.5 mg QHS PO Last administered on 03/10/18 19:28; Start 03/01/18 at 21:00; Stop 03/11/18 at 18:17; Status DC Tamsulosin HCl (Flomax) 0.4 mg BID PO Last administered on 03/29/18 20:28; Start 03/03/18 at 21:00 Amoxicillin (Amoxil) 500 mg [id number] PO Last administered on 03/14/18 19:28; Start 03/04/18 at 21:00; Stop 03/15/18 at 09:14; Status DC Divalproex Sodium (Depakote Er) 500 mg BID PO Last administered on 03/05/18at 19:44; Start 03/04/18 at 21:00; Stop 03/05/18 at 23:00; Status DC Lactobacillus Rhamnosus (Culturelle) 1 cap BID PO Last administered on 19:28; Start 03/05/18 at 21:00; Stop 03/15/18 at 09:14; Status DC Divalproex Sodium (Depakote Er) 1,000 mg QHS PO Last administered on 03/14/18 19:29; Start 03/06/18 at 21:00; Stop 03/15/18 at 21:12; Status DC Quetiapine Fumarate (SEROquel) 12.5 mg DAILY@1700 PO Last administered on 16:20; Start 03/11/18 at 17:00; Stop 03/17/18 at 18:46; Status DC Loperamide HCl (Imodium) 2 mg PRN Q1HR PRN PO DIARRHEA Last administered on 03/11 16:16; Start 03/11/18 at 16:15 Mirtazapine (Remeron) 15 mg QHS PO Last administered on 03/29/18 20:29; Start 03/11/18 at 21:00 Quetiapine Fumarate (SEROquel) 25 mg BID PO Last administered on 03/13/18 07:55 ; Start 03/12/18 at 21:00; Stop 03/13/18 at 16:36; Status DC Quetiapine Fumarate (SEROquel) 25 mg QHS PO Last administered on 03/19/18 19: 21; Start 03/13/18 at 21:00; Stop 03/20/18 at 19:30; Status DC Olanzapine (ZyPREXA ZYDIS) 2.5 mg PRN Q2HR PRN PO PSYCHOSIS Last administered on 03/24/18at 15:09; Start 03/14/18 at 12:00; Stop 03/26/18 at 10:20; Status DC Trazodone HCl (Desyrel) 50 mg PRN QHS PRN PO INSOMNIA, MAY REPEAT X1 Last administered on 03/28/18at 19:48; Start 03/14/18 at 21:45 Buspirone HCl (Buspar) 5 mg [id number] PO Last administered on 03/18/18at 11:19; Start 03/16/18 at 09:00; Stop 03/18/18 at 14:47; Status DC Divalproex Sodium (Depakote Sprinkles) 500 mg BID PO Last administered on at 11:43; Start 03/15/18 at 21:15; Stop 03/26/18 at 12:10; Status DC Quetiapine Fumarate (SEROquel) 12.5 mg 0900,1700 PO Last administered on at 17:15; Start 03/18/18 at 09:00 Buspirone HCl (Buspar) 10 mg BID@0900,1700 PO Last administered on 03/29/18at 17 :15; Start 03/18/18 at 17:00 Rivastigmine (Exelon) 1 patch DAILY TD Last administered on 03/24/18at 12:02; Start 03/20/18 at 09:00; Stop 03/24/18 at 11:01; Status DC Rivastigmine (Exelon) 1 patch DAILY TD Last administered on 03/29/18at 12:00; Start 03/25/18 at 09:00 Memantine (Namenda) 5 mg HS PO Last administered on 03/21/18at 20:19; Start 12/26 at 21:00; Stop 03/21/18 at 23:00; Status DC Memantine (Namenda) 5 mg BID PO Last administered on 03/24/18at 12:02; Start at 09:00; Stop 03/24/18 at 17:21; Status DC Olanzapine (ZyPREXA IM) 5 mg 1X ONCE IM Last administered on 03/19/18at 20:05; Start 03/19/18 at 19:45; Stop 03/19/18 at 19:46; Status DC Olanzapine (ZyPREXA IM) 5 mg 1X ONCE IM Last administered on 03/20/18at 19:39; Start 03/20/18 at 19:15; Stop 03/20/18 at 19:16; Status DC Quetiapine Fumarate (SEROquel) 50 mg QHS PO Last administered on 03/29/18at 20: 29; Start 03/20/18 at 21:00 Quetiapine Fumarate (SEROquel) 25 mg PRN Q8HRS PRN PO agitation/aggression; Start 03/20/18 at 19:30 Olanzapine (ZyPREXA IM) 5 mg 1X ONCE IM Last administered on 03/21/18at 17:18; Start 03/21/18 at 17:30; Stop 03/21/18 at 17:31; Status DC Olanzapine (ZyPREXA IM) 5 mg 1X ONCE IM Last administered on 03/21/18at 19:45; Start 03/21/18 at 19:45; Stop 03/21/18 at 19:46; Status DC Olanzapine (ZyPREXA IM) 5 mg DAILY PRN IM PSYCHOSIS Last administered on at 21:01; Start 03/22/18 at 11:45; Stop 03/26/18 at 08:09; Status DC Sertraline HCl (Zoloft) 25 mg DAILY PO Last administered on 03/25/18at 11:25; Start 03/24/18 at 09:00; Stop 03/25/18 at 11:00; Status DC Sertraline HCl (Zoloft) 50 mg DAILY PO Last administered on 03/29/18at 11:59; Start 03/26/18 at 09:00 Memantine (Namenda) 10 mg BID PO Last administered on 03/29/18at 20:28; Start at 21:00 Olanzapine (ZyPREXA ZYDIS) 5 mg PRN Q2HR PRN PO PSYCHOSIS Last administered on 03/28/18at 15:44; Start 03/26/18 at 10:30 Divalproex Sodium (Depakote Sprinkles) 500 mg DAILY PO Last administered on at 11:58; Start 03/27/18 at 09:00; Stop 03/29/18 at 18:25; Status DC Divalproex Sodium (Depakote Sprinkles) 750 mg HS PO Last administered on at 20:28; Start 03/26/18 at 21:00 Divalproex Sodium (Depakote Sprinkles) 750 mg DAILY PO ; Start 03/30/18 at 09:00 Active Scripts Active Reported Plavix (Clopidogrel Bisulfate) 75 Mg Tablet 75 Mg PO DAILY Lorazepam 0.5 Mg Tablet 1 Mg PO PRN Q8HRS PRN Flomax (Tamsulosin Hcl) 0.4 Mg Cap.er.24h 0.4 Mg PO HS PRN Depakote Sprinkle (Divalproex Sodium) 125 Mg Cap.sprink 500 Mg PO TID Colace (Docusate Sodium) 100 Mg Capsule 100 Mg PO BID Vitamin D (Cholecalciferol (Vitamin D3)) 1,000 Unit Capsule 2,000 Unit PO DAILY Atorvastatin Calcium 20 Mg Tablet 20 Mg PO QHS Atenolol 100 Mg Tablet 100 Mg PO DAILY Tylenol (Acetaminophen) 325 Mg Tablet 650 Mg PO PRN Q4HRS PRN I have reviewed the current psychotropics carefully including drug interactions. Risk benefit ratio favors no change other than as noted in my dictated progress note. 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
--- NOTE | 2018-03-30 07:17 | PDOC ---
Exam Note: Apvel Note: PSYCHIATRIC PROGRESS NOTE This late entry 03/28/2018 covers elements, not covered in my initial note. SUBJECTIVE: I met with the patient individually in the evening of 03/28/2018. Reviewed information from nursing staff. Reviewed the chart. He slept 7-1/4 hours. He slept well the previous night. He received Zyprexa Zydis at 1545 hours because of his agitation, then did better after that. No visitors came on 03/28/2018. REVIEW OF SYSTEMS: Ambulation impaired. Gait unsteady. No CV, , Eye, ENT, pulmonary system symptoms on review. MENTAL STATUS EXAMINATION: Oriented to himself. He is sometimes quite anxious , impulsive in his verbalizations but slowly showing some improvement. Insight and judgment, recent memory impaired. Language function is intact. LABORATORY DATA: Reviewed. IMPRESSION: Major neurocognitive disorder, Lewy body with delusion, depression. Anxiety disorder, unspecified. Impulse control disorder, unspecified. PLAN: I have carefully reviewed current psychotropics. There is no change from my initial note. Assessment: Vital Signs: VS - Last 72 Hours, by Label Date Time Temp Pulse Resp B/P (MAP) Pulse Ox O2 Delivery O2 Flow Rate FiO2 03/30/18 05:59 97.3 65 18 153/77 (102) 97 03/29/18 15:41 97.6 60 18 107/66 (80) 98 03/29/18 11:59 70 167/98 03/29/18 05:56 98.3 70 16 167/98 (121) 99 03/28/18 15:35 97.6 99 18 117/75 (89) 95 03/28/18 12:11 66 139/76 03/28/18 05:30 97.6 66 18 139/76 (97) 94 03/27/18 16:19 98.2 80 20 128/81 (97) 96 03/27/18 08:11 61 136/73 Vital Signs Date Time Temp Pulse Resp B/P (MAP) Pulse Ox O2 Delivery O2 Flow Rate FiO2 03/30/18 05:59 97.3 65 18 153/77 (102) 97 03/27/18 05:50 Room Air I&O Intake and Output 03/30/18 07:01 Intake Total 720 ml Output Total 1375 ml Balance -655 ml Intake Oral 720 ml Output Urine Total 1375 ml # Bowel Movements 1 Labs: Laboratory Tests Test 03/29/18 11:33 White Blood Count 6.9 x10^3/uL (4.0-11.0) Red Blood Count 3.67 x10^6/uL (4.30-5.70) L Hemoglobin 12.0 g/dL (13.0-17.5) L Hematocrit 35.8 % (39.0-53.0) L Mean Corpuscular Volume 98 fL (79-100) Mean Corpuscular Hemoglobin 33 pg (25-35) Mean Corpuscular Hemoglobin Concent 34 g/dL (31-37) Red Cell Distribution Width 15.4 % (11.5-14.5) H Platelet Count 162 x10^3/uL (140-400) Neutrophils (%) (Auto) 60 % (31-73) Lymphocytes (%) (Auto) 23 % (24-48) L Monocytes (%) (Auto) 10 % (0-9) H Eosinophils (%) (Auto) 6 % (0-3) H Basophils (%) (Auto) 1 % (0-3) Neutrophils # (Auto) 4.1 x10^3uL (1.8-7.7) Lymphocytes # (Auto) 1.6 x10^3/uL (1.0-4.8) Monocytes # (Auto) 0.7 x10^3/uL (0.0-1.1) Eosinophils # (Auto) 0.4 x10^3/uL (0.0-0.7) Basophils # (Auto) 0.1 x10^3/uL (0.0-0.2) Sodium Level 144 mmol/L (136-145) Potassium Level 3.7 mmol/L (3.5-5.1) Chloride Level 109 mmol/L (98-107) H Carbon Dioxide Level 28 mmol/L (21-32) Anion Gap 7 (6-14) Blood Urea Nitrogen 17 mg/dL (8-26) Creatinine 1.0 mg/dL (0.7-1.3) Estimated GFR (Cockcroft-Gault) 73.5 BUN/Creatinine Ratio 17 (6-20) Glucose Level 93 mg/dL (70-99) Calcium Level 8.3 mg/dL (8.5-10.1) L Total Bilirubin 0.5 mg/dL (0.2-1.0) Aspartate Amino Transferase (AST) 12 U/L (15-37) L Alanine Aminotransferase (ALT) 15 U/L (16-63) L Alkaline Phosphatase 58 U/L (46-116) Total Protein 5.9 g/dL (6.4-8.2) L Albumin 2.5 g/dL (3.4-5.0) L Albumin/Globulin Ratio 0.7 (1.0-1.7) L Valproic Acid Level 47 mcg/mL (50-100) L Valproic Acid Last Dose Date 03/28/18 Valproic Acid Last Dose Time 2100 Current Medications: Meds: Current Medications Acetaminophen (Tylenol) 650 mg PRN Q4HRS PRN PO PAIN / TEMP Last administered on 03/29/18 05:26; Start 02/20/18 at 18:30 Atorvastatin Calcium (Lipitor) 20 mg QHS PO Last administered on 03/29/18 20: 29; Start 02/20/18 at 21:00 Clopidogrel Bisulfate (Plavix) 75 mg DAILY PO Last administered on 03/29/18 11 :58; Start 02/21/18 at 09:00 Tamsulosin HCl (Flomax) 0.4 mg PRN QHS PRN PO retention; Start 02/20/18 at 18: 30; Stop 03/01/18 at 11:14; Status DC Atenolol (Tenormin) 100 mg DAILY PO Last administered on 03/29/18 11:59; Start 02/21/18 at 09:00 Vitamin D (Vitamin D3) 2,000 unit DAILY PO Last administered on 03/29/18 11:59 ; Start 02/21/18 at 09:00 Divalproex Sodium (Depakote Sprinkles) 500 mg TID PO Last administered on 02/26at 07:53; Start 02/20/18 at 21:00; Stop 02/26/18 at 10:36; Status DC Docusate Sodium (Colace) 100 mg BID PO Last administered on 03/29/18 20:28; Start 02/20/18 at 21:00 Lorazepam (Ativan) 1 mg PRN Q8HRS PRN PO ANXIETY / AGITATION Last administered on 03/26/18 21:07; Start 02/20/18 at 19:00 Multi-Ingredient Ointment (Analgesic [place]) 1 devika PRN QID PRN TP MUSCLE PAIN Last administered on 03/27/18at 11:48; Start 02/20/18 at 18:45 Al Hydroxide/Mg Hydroxide (Mylanta Plus Xs) 15 ml PRN AFTMEALHC PRN PO DYSPEPSIA Last administered on 03/07/18 09:56; Start 02/20/18 at 18:45 Magnesium Hydroxide (Milk Of Magnesia) 2,400 mg PRN QHS PRN PO CONSTIPATION; Start 02/20/18 at 18:45 Nystatin (Nystop) 1 devika BID TP Last administered on 03/29/18at 20:29; Start at 21:00 Bupropion HCl (Wellbutrin) 75 mg DAILY PO Last administered on 02/26/18at 07:53 ; Start 02/24/18 at 09:00; Stop 02/27/18 at 08:59; Status DC Bupropion HCl (Wellbutrin) 75 mg BIDACBL PO Last administered on 03/17/18at 14:16 ; Start 02/27/18 at 08:00; Stop 03/17/18 at 18:46; Status DC Divalproex Sodium (Depakote Er) 1,000 mg QHS PO Last administered on at 19:46; Start 02/26/18 at 21:00; Stop 02/28/18 at 19:35; Status DC Divalproex Sodium (Depakote Sprinkles) 1,000 mg HS PO Last administered on at 18:50; Start 02/28/18 at 21:00; Stop 03/04/18 at 18:24; Status DC Quetiapine Fumarate (SEROquel) 25 mg QHS PO Last administered on 03/11/18at 19:35 ; Start 03/01/18 at 21:00; Stop 03/12/18 at 11:05; Status DC Tamsulosin HCl (Flomax) 0.4 mg HS PO Last administered on 03/02/18at 20:26; Start 03/01/18 at 21:00; Stop 03/03/18 at 12:25; Status DC Mirtazapine (Remeron) 7.5 mg QHS PO Last administered on 03/10/18 19:28; Start 03/01/18 at 21:00; Stop 03/11/18 at 18:17; Status DC Tamsulosin HCl (Flomax) 0.4 mg BID PO Last administered on 03/29/18 20:28; Start 03/03/18 at 21:00 Amoxicillin (Amoxil) 500 mg [id number] PO Last administered on 03/14/18 19:28; Start 03/04/18 at 21:00; Stop 03/15/18 at 09:14; Status DC Divalproex Sodium (Depakote Er) 500 mg BID PO Last administered on 03/05/18at 19:44; Start 03/04/18 at 21:00; Stop 03/05/18 at 23:00; Status DC Lactobacillus Rhamnosus (Culturelle) 1 cap BID PO Last administered on 19:28; Start 03/05/18 at 21:00; Stop 03/15/18 at 09:14; Status DC Divalproex Sodium (Depakote Er) 1,000 mg QHS PO Last administered on 03/14/18 19:29; Start 03/06/18 at 21:00; Stop 03/15/18 at 21:12; Status DC Quetiapine Fumarate (SEROquel) 12.5 mg DAILY@1700 PO Last administered on 16:20; Start 03/11/18 at 17:00; Stop 03/17/18 at 18:46; Status DC Loperamide HCl (Imodium) 2 mg PRN Q1HR PRN PO DIARRHEA Last administered on 03/11 16:16; Start 03/11/18 at 16:15 Mirtazapine (Remeron) 15 mg QHS PO Last administered on 03/29/18 20:29; Start 03/11/18 at 21:00 Quetiapine Fumarate (SEROquel) 25 mg BID PO Last administered on 03/13/18 07:55 ; Start 03/12/18 at 21:00; Stop 03/13/18 at 16:36; Status DC Quetiapine Fumarate (SEROquel) 25 mg QHS PO Last administered on 03/19/18 19: 21; Start 03/13/18 at 21:00; Stop 03/20/18 at 19:30; Status DC Olanzapine (ZyPREXA ZYDIS) 2.5 mg PRN Q2HR PRN PO PSYCHOSIS Last administered on 03/24/18at 15:09; Start 03/14/18 at 12:00; Stop 03/26/18 at 10:20; Status DC Trazodone HCl (Desyrel) 50 mg PRN QHS PRN PO INSOMNIA, MAY REPEAT X1 Last administered on 03/28/18at 19:48; Start 03/14/18 at 21:45 Buspirone HCl (Buspar) 5 mg [id number] PO Last administered on 03/18/18at 11:19; Start 03/16/18 at 09:00; Stop 03/18/18 at 14:47; Status DC Divalproex Sodium (Depakote Sprinkles) 500 mg BID PO Last administered on at 11:43; Start 03/15/18 at 21:15; Stop 03/26/18 at 12:10; Status DC Quetiapine Fumarate (SEROquel) 12.5 mg 0900,1700 PO Last administered on at 17:15; Start 03/18/18 at 09:00 Buspirone HCl (Buspar) 10 mg BID@0900,1700 PO Last administered on 03/29/18at 17 :15; Start 03/18/18 at 17:00 Rivastigmine (Exelon) 1 patch DAILY TD Last administered on 03/24/18at 12:02; Start 03/20/18 at 09:00; Stop 03/24/18 at 11:01; Status DC Rivastigmine (Exelon) 1 patch DAILY TD Last administered on 03/29/18at 12:00; Start 03/25/18 at 09:00 Memantine (Namenda) 5 mg HS PO Last administered on 03/21/18at 20:19; Start 12/26 at 21:00; Stop 03/21/18 at 23:00; Status DC Memantine (Namenda) 5 mg BID PO Last administered on 03/24/18at 12:02; Start at 09:00; Stop 03/24/18 at 17:21; Status DC Olanzapine (ZyPREXA IM) 5 mg 1X ONCE IM Last administered on 03/19/18at 20:05; Start 03/19/18 at 19:45; Stop 03/19/18 at 19:46; Status DC Olanzapine (ZyPREXA IM) 5 mg 1X ONCE IM Last administered on 03/20/18at 19:39; Start 03/20/18 at 19:15; Stop 03/20/18 at 19:16; Status DC Quetiapine Fumarate (SEROquel) 50 mg QHS PO Last administered on 03/29/18at 20: 29; Start 03/20/18 at 21:00 Quetiapine Fumarate (SEROquel) 25 mg PRN Q8HRS PRN PO agitation/aggression; Start 03/20/18 at 19:30 Olanzapine (ZyPREXA IM) 5 mg 1X ONCE IM Last administered on 03/21/18at 17:18; Start 03/21/18 at 17:30; Stop 03/21/18 at 17:31; Status DC Olanzapine (ZyPREXA IM) 5 mg 1X ONCE IM Last administered on 03/21/18at 19:45; Start 03/21/18 at 19:45; Stop 03/21/18 at 19:46; Status DC Olanzapine (ZyPREXA IM) 5 mg DAILY PRN IM PSYCHOSIS Last administered on at 21:01; Start 03/22/18 at 11:45; Stop 03/26/18 at 08:09; Status DC Sertraline HCl (Zoloft) 25 mg DAILY PO Last administered on 03/25/18at 11:25; Start 03/24/18 at 09:00; Stop 03/25/18 at 11:00; Status DC Sertraline HCl (Zoloft) 50 mg DAILY PO Last administered on 03/29/18at 11:59; Start 03/26/18 at 09:00 Memantine (Namenda) 10 mg BID PO Last administered on 03/29/18at 20:28; Start at 21:00 Olanzapine (ZyPREXA ZYDIS) 5 mg PRN Q2HR PRN PO PSYCHOSIS Last administered on 03/28/18at 15:44; Start 03/26/18 at 10:30 Divalproex Sodium (Depakote Sprinkles) 500 mg DAILY PO Last administered on at 11:58; Start 03/27/18 at 09:00; Stop 03/29/18 at 18:25; Status DC Divalproex Sodium (Depakote Sprinkles) 750 mg HS PO Last administered on at 20:28; Start 03/26/18 at 21:00 Divalproex Sodium (Depakote Sprinkles) 750 mg DAILY PO ; Start 03/30/18 at 09:00 Active Scripts Active Reported Plavix (Clopidogrel Bisulfate) 75 Mg Tablet 75 Mg PO DAILY Lorazepam 0.5 Mg Tablet 1 Mg PO PRN Q8HRS PRN Flomax (Tamsulosin Hcl) 0.4 Mg Cap.er.24h 0.4 Mg PO HS PRN Depakote Sprinkle (Divalproex Sodium) 125 Mg Cap.sprink 500 Mg PO TID Colace (Docusate Sodium) 100 Mg Capsule 100 Mg PO BID Vitamin D (Cholecalciferol (Vitamin D3)) 1,000 Unit Capsule 2,000 Unit PO DAILY Atorvastatin Calcium 20 Mg Tablet 20 Mg PO QHS Atenolol 100 Mg Tablet 100 Mg PO DAILY Tylenol (Acetaminophen) 325 Mg Tablet 650 Mg PO PRN Q4HRS PRN I have reviewed the current psychotropics carefully including drug interactions. Risk benefit ratio favors no change other than as noted in my dictated progress note. 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
[2018-03-30] MEDS: CLOPIDOGREL BISULFATE 75 MG TABLET PO SCH (07:31)
[2018-03-30] MEDS: QUEtiapine 25 MG TABLET. PO SCH ×2 (07:32→17:25)
[2018-03-30] MEDS: TAMSULOSIN 0.4 MG CAP.ER.24H. PO SCH ×3 (07:32→19:24)
[2018-03-30] MEDS: DOCUSATE SODIUM 100 MG CAPSULE PO SCH ×3 (07:32→19:24)
[2018-03-30] MEDS: MEMANTINE 10 MG TABLET. PO SCH ×3 (07:32→19:23)
[2018-03-30] MEDS: busPIRone 10 MG TABLET. PO SCH ×2 (07:32→17:25)
[2018-03-30] MEDS: SERTRALINE 50 MG TABLET. PO SCH (07:33)
[2018-03-30] MEDS: CHOLECALCIFEROL (VITAMIN D3) 1,000 UNIT TABLET PO SCH (07:33)
[2018-03-30] MEDS: RIVASTIGMINE 9.5MG PATCH. TD SCH (07:34)
[2018-03-30] MEDS: ATENOLOL 50 MG TABLET PO SCH ×2 (07:34→11:30)
[2018-03-30] MEDS: NYSTATIN TOPICAL POWDER 15GM BOTTLE. TP SCH ×2 (07:35→19:20)
[2018-03-30] MEDS: DIVALPROEX 125 MG CAP.SPRINK PO SCH ×2 (13:05→19:21)
[2018-03-30 16:42] VITALS: BP 121/74
[2018-03-30] MEDS: MIRTAZAPINE 15 MG TABLET PO SCH (19:21)
[2018-03-30] MEDS: ATORVASTATIN CALCIUM 20 MG TABLET PO SCH (19:21)
[2018-03-30] MEDS: QUEtiapine 50 MG TABLET. PO SCH (19:22)
[2018-03-30] MEDS: ACETAMINOPHEN 325 MG TABLET PO PRN (19:36)
[2018-03-30 20:57] LABS: BILIRUBIN,URINE NEG (NEG); CLARITY,URINE CLOUDY; COLOR,URINE AMBER; GLUCOSE,URINE NEG (NEG)
[2018-03-30 20:58] LABS: BACTERIA,URINE MOD /HPF (0-FEW); NITRITE,URINE POS (NEG); RBC,URINE >40 /HPF (0-2); SQUAMOUS EPITHELIAL CELL,UR FEW /LPF; UROBILINOGEN,URINE 2 mg/dL (0.2 mg/dL); WBC,URINE >40 /HPF (0-4)
--- NOTE | 2018-03-30 22:34 | PDOC ---
Exam Note: Pavel Note: Please also refer to the separate dictated note~for this date of service dictated separately.~Patient seen individually. Discussed the patient with Nursing staff reviewed the chart.~Reviewed interim history and current functioning. Reviewed vital signs,~Labs/ Radiology~and current medications noted below. Continue current treatment with the changes noted in the dictated addendum note Assessment: Vital Signs: Vital Signs Date Time Temp Pulse Resp B/P (MAP) Pulse Ox O2 Delivery O2 Flow Rate FiO2 03/30/18 16:42 98.6 61 18 121/74 (90) 97 03/27/18 05:50 Room Air I&O Intake and Output 03/30/18 07:01 Intake Total 720 ml Output Total 1375 ml Balance -655 ml Intake Oral 720 ml Output Urine Total 1375 ml # Bowel Movements 1 Labs: Laboratory Tests Test 03/30/18 18:30 Urine Collection Type Void Urine Color Cyn Urine Clarity Cloudy Urine pH 6.0 Urine Specific [place] 1.025 Urine Protein >100 mg/dl (NEG-TRACE) Urine Glucose (UA) Neg mg/dL (NEG) Urine Ketones (Stick) 15 mg/dL (NEG) Urine Blood Large (NEG) Urine Nitrite Pos (NEG) Urine Bilirubin Neg (NEG) Urine Urobilinogen Dipstick 2 mg/dL (0.2 mg/dL) Urine Leukocyte Esterase Mod (NEG) Urine RBC >40 /HPF (0-2) Urine WBC >40 /HPF (0-4) Urine Squamous Epithelial Cells Few /LPF Urine Bacteria Mod /HPF (0-FEW) Urine Mucus Slight /LPF Current Medications: Meds: Current Medications Acetaminophen (Tylenol) 650 mg PRN Q4HRS PRN PO PAIN / TEMP Last administered on 03/30/18at 19:36; Start 02/20/18 at 18:30 Atorvastatin Calcium (Lipitor) 20 mg QHS PO Last administered on 03/30/18at 19: 21; Start 02/20/18 at 21:00 Clopidogrel Bisulfate (Plavix) 75 mg DAILY PO Last administered on 03/30/18at 07 :31; Start 02/21/18 at 09:00 Tamsulosin HCl (Flomax) 0.4 mg PRN QHS PRN PO retention; Start 02/20/18 at 18: 30; Stop 03/01/18 at 11:14; Status DC Atenolol (Tenormin) 100 mg DAILY PO Last administered on 03/30/18 07:34; Start 02/21/18 at 09:00 Vitamin D (Vitamin D3) 2,000 unit DAILY PO Last administered on 03/30/18 07:33 ; Start 02/21/18 at 09:00 Divalproex Sodium (Depakote Sprinkles) 500 mg TID PO Last administered on 02/26 07:53; Start 02/20/18 at 21:00; Stop 02/26/18 at 10:36; Status DC Docusate Sodium (Colace) 100 mg BID PO Last administered on 03/30/18 19:24; Start 02/20/18 at 21:00 Lorazepam (Ativan) 1 mg PRN Q8HRS PRN PO ANXIETY / AGITATION Last administered on 03/26/18 21:07; Start 02/20/18 at 19:00 Multi-Ingredient Ointment (Analgesic [place]) 1 devika PRN QID PRN TP MUSCLE PAIN Last administered on 03/27/18 11:48; Start 02/20/18 at 18:45 Al Hydroxide/Mg Hydroxide (Mylanta Plus Xs) 15 ml PRN AFTMEALHC PRN PO DYSPEPSIA Last administered on 03/07/18 09:56; Start 02/20/18 at 18:45 Magnesium Hydroxide (Milk Of Magnesia) 2,400 mg PRN QHS PRN PO CONSTIPATION; Start 02/20/18 at 18:45 Nystatin (Nystop) 1 devika BID TP Last administered on 03/30/18 19:20; Start at 21:00 Bupropion HCl (Wellbutrin) 75 mg DAILY PO Last administered on 02/26/18 07:53 ; Start 02/24/18 at 09:00; Stop 02/27/18 at 08:59; Status DC Bupropion HCl (Wellbutrin) 75 mg BIDACBL PO Last administered on 03/17/18 14:16 ; Start 02/27/18 at 08:00; Stop 03/17/18 at 18:46; Status DC Divalproex Sodium (Depakote Er) 1,000 mg QHS PO Last administered on at 19:46; Start 02/26/18 at 21:00; Stop 02/28/18 at 19:35; Status DC Divalproex Sodium (Depakote Sprinkles) 1,000 mg HS PO Last administered on at 18:50; Start 02/28/18 at 21:00; Stop 03/04/18 at 18:24; Status DC Quetiapine Fumarate (SEROquel) 25 mg QHS PO Last administered on 03/11/18 19:35 ; Start 03/01/18 at 21:00; Stop 03/12/18 at 11:05; Status DC Tamsulosin HCl (Flomax) 0.4 mg HS PO Last administered on 03/02/18at 20:26; Start 03/01/18 at 21:00; Stop 03/03/18 at 12:25; Status DC Mirtazapine (Remeron) 7.5 mg QHS PO Last administered on 03/10/18 19:28; Start 03/01/18 at 21:00; Stop 03/11/18 at 18:17; Status DC Tamsulosin HCl (Flomax) 0.4 mg BID PO Last administered on 03/30/18at 19:24; Start 03/03/18 at 21:00 Amoxicillin (Amoxil) 500 mg [id number] PO Last administered on 03/14/18 19:28; Start 03/04/18 at 21:00; Stop 03/15/18 at 09:14; Status DC Divalproex Sodium (Depakote Er) 500 mg BID PO Last administered on 03/05/18at 19:44; Start 03/04/18 at 21:00; Stop 03/05/18 at 23:00; Status DC Lactobacillus Rhamnosus (Culturelle) 1 cap BID PO Last administered on 19:28; Start 03/05/18 at 21:00; Stop 03/15/18 at 09:14; Status DC Divalproex Sodium (Depakote Er) 1,000 mg QHS PO Last administered on 03/14/18 19:29; Start 03/06/18 at 21:00; Stop 03/15/18 at 21:12; Status DC Quetiapine Fumarate (SEROquel) 12.5 mg DAILY@1700 PO Last administered on at 16:20; Start 03/11/18 at 17:00; Stop 03/17/18 at 18:46; Status DC Loperamide HCl (Imodium) 2 mg PRN Q1HR PRN PO DIARRHEA Last administered on 03/11at 16:16; Start 03/11/18 at 16:15 Mirtazapine (Remeron) 15 mg QHS PO Last administered on 03/30/18at 19:21; Start 03/11/18 at 21:00 Quetiapine Fumarate (SEROquel) 25 mg BID PO Last administered on 03/13/18at 07:55 ; Start 03/12/18 at 21:00; Stop 03/13/18 at 16:36; Status DC Quetiapine Fumarate (SEROquel) 25 mg QHS PO Last administered on 03/19/18at 19: 21; Start 03/13/18 at 21:00; Stop 03/20/18 at 19:30; Status DC Olanzapine (ZyPREXA ZYDIS) 2.5 mg PRN Q2HR PRN PO PSYCHOSIS Last administered on 03/24/18at 15:09; Start 03/14/18 at 12:00; Stop 03/26/18 at 10:20; Status DC Trazodone HCl (Desyrel) 50 mg PRN QHS PRN PO INSOMNIA, MAY REPEAT X1 Last administered on 03/28/18at 19:48; Start 03/14/18 at 21:45 Buspirone HCl (Buspar) 5 mg [id number] PO Last administered on 03/18/18at 11:19; Start 03/16/18 at 09:00; Stop 03/18/18 at 14:47; Status DC Divalproex Sodium (Depakote Sprinkles) 500 mg BID PO Last administered on at 11:43; Start 03/15/18 at 21:15; Stop 03/26/18 at 12:10; Status DC Quetiapine Fumarate (SEROquel) 12.5 mg 0900,1700 PO Last administered on at 17:25; Start 03/18/18 at 09:00 Buspirone HCl (Buspar) 10 mg BID@0900,1700 PO Last administered on 03/30/18at 17 :25; Start 03/18/18 at 17:00 Rivastigmine (Exelon) 1 patch DAILY TD Last administered on 03/24/18at 12:02; Start 03/20/18 at 09:00; Stop 03/24/18 at 11:01; Status DC Rivastigmine (Exelon) 1 patch DAILY TD Last administered on 03/30/18at 07:34; Start 03/25/18 at 09:00 Memantine (Namenda) 5 mg HS PO Last administered on 03/21/18at 20:19; Start 12/26 at 21:00; Stop 03/21/18 at 23:00; Status DC Memantine (Namenda) 5 mg BID PO Last administered on 03/24/18at 12:02; Start at 09:00; Stop 03/24/18 at 17:21; Status DC Olanzapine (ZyPREXA IM) 5 mg 1X ONCE IM Last administered on 03/19/18at 20:05; Start 03/19/18 at 19:45; Stop 03/19/18 at 19:46; Status DC Olanzapine (ZyPREXA IM) 5 mg 1X ONCE IM Last administered on 03/20/18at 19:39; Start 03/20/18 at 19:15; Stop 03/20/18 at 19:16; Status DC Quetiapine Fumarate (SEROquel) 50 mg QHS PO Last administered on 03/30/18at 19: 22; Start 03/20/18 at 21:00 Quetiapine Fumarate (SEROquel) 25 mg PRN Q8HRS PRN PO agitation/aggression; Start 03/20/18 at 19:30 Olanzapine (ZyPREXA IM) 5 mg 1X ONCE IM Last administered on 03/21/18at 17:18; Start 03/21/18 at 17:30; Stop 03/21/18 at 17:31; Status DC Olanzapine (ZyPREXA IM) 5 mg 1X ONCE IM Last administered on 03/21/18at 19:45; Start 03/21/18 at 19:45; Stop 03/21/18 at 19:46; Status DC Olanzapine (ZyPREXA IM) 5 mg DAILY PRN IM PSYCHOSIS Last administered on at 21:01; Start 03/22/18 at 11:45; Stop 03/26/18 at 08:09; Status DC Sertraline HCl (Zoloft) 25 mg DAILY PO Last administered on 03/25/18at 11:25; Start 03/24/18 at 09:00; Stop 03/25/18 at 11:00; Status DC Sertraline HCl (Zoloft) 50 mg DAILY PO Last administered on 03/30/18at 07:33; Start 03/26/18 at 09:00 Memantine (Namenda) 10 mg BID PO Last administered on 03/30/18at 19:23; Start at 21:00 Olanzapine (ZyPREXA ZYDIS) 5 mg PRN Q2HR PRN PO PSYCHOSIS Last administered on 03/28/18at 15:44; Start 03/26/18 at 10:30 Divalproex Sodium (Depakote Sprinkles) 500 mg DAILY PO Last administered on at 11:58; Start 03/27/18 at 09:00; Stop 03/29/18 at 18:25; Status DC Divalproex Sodium (Depakote Sprinkles) 750 mg HS PO Last administered on at 19:21; Start 03/26/18 at 21:00 Divalproex Sodium (Depakote Sprinkles) 750 mg DAILY PO Last administered on at 13:05; Start 03/30/18 at 09:00 Active Scripts Active Reported Plavix (Clopidogrel Bisulfate) 75 Mg Tablet 75 Mg PO DAILY Lorazepam 0.5 Mg Tablet 1 Mg PO PRN Q8HRS PRN Flomax (Tamsulosin Hcl) 0.4 Mg Cap.er.24h 0.4 Mg PO HS PRN Depakote Sprinkle (Divalproex Sodium) 125 Mg Cap.sprink 500 Mg PO TID Colace (Docusate Sodium) 100 Mg Capsule 100 Mg PO BID Vitamin D (Cholecalciferol (Vitamin D3)) 1,000 Unit Capsule 2,000 Unit PO DAILY Atorvastatin Calcium 20 Mg Tablet 20 Mg PO QHS Atenolol 100 Mg Tablet 100 Mg PO DAILY Tylenol (Acetaminophen) 325 Mg Tablet 650 Mg PO PRN Q4HRS PRN I have reviewed the current psychotropics carefully including drug interactions. Risk benefit ratio favors no change other than as noted in my dictated progress note. 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
[2018-03-31 05:44] VITALS: BP 170/95
[2018-03-31] MEDS: CLOPIDOGREL BISULFATE 75 MG TABLET PO SCH (11:55)
[2018-03-31] MEDS: busPIRone 10 MG TABLET. PO SCH ×2 (11:56→17:15)
[2018-03-31] MEDS: SERTRALINE 50 MG TABLET. PO SCH (11:56)
[2018-03-31] MEDS: QUEtiapine 25 MG TABLET. PO SCH ×2 (11:56→17:16)
[2018-03-31] MEDS: MEMANTINE 10 MG TABLET. PO SCH ×2 (11:57→20:00)
[2018-03-31] MEDS: DIVALPROEX 125 MG CAP.SPRINK PO SCH ×2 (11:57→20:01)
[2018-03-31] MEDS: RIVASTIGMINE 9.5MG PATCH. TD SCH (12:00)
[2018-03-31] MEDS: DOCUSATE SODIUM 100 MG CAPSULE PO SCH ×2 (12:01→20:00)
[2018-03-31] MEDS: TAMSULOSIN 0.4 MG CAP.ER.24H. PO SCH ×2 (12:01→20:00)
[2018-03-31] MEDS: CHOLECALCIFEROL (VITAMIN D3) 1,000 UNIT TABLET PO SCH (12:01)
[2018-03-31] MEDS: NYSTATIN TOPICAL POWDER 15GM BOTTLE. TP SCH ×2 (15:44→20:01)
[2018-03-31 15:48] VITALS: BP 127/82
[2018-03-31] MEDS: QUEtiapine 50 MG TABLET. PO SCH (20:00)
[2018-03-31] MEDS: ATORVASTATIN CALCIUM 20 MG TABLET PO SCH (20:00)
[2018-03-31] MEDS: MIRTAZAPINE 15 MG TABLET PO SCH (20:00)
[2018-03-31] MEDS: ACETAMINOPHEN 325 MG TABLET PO PRN (21:15)
--- NOTE | 2018-03-31 22:04 | PN ---
DATE: 03/29/2018 PSYCHIATRIC PROGRESS NOTE This late entry 03/29/2018 covers elements, not covered in my initial note. SUBJECTIVE: The patient slept 7 hours previous night, somewhat withdrawn. Valproic acid level is 47, on Depakote 750 at night and 500 in the morning and we will increase to 750 twice a day. Check CBC, CMP, valproic acid level in 3 days. He was angry around lunchtime. Slept till lunchtime in the morning, somewhat sedated. REVIEW OF SYSTEMS: Ambulation impaired, in wheelchair. No CV, , pulmonary, eye system symptoms on review. MENTAL STATUS EXAM: Oriented to himself and situation. Speech has some latency, often responses monosyllabic. Attention span short. Language function intact. Mood and affect remains intermittently labile. LABORATORY DATA: Reviewed. IMPRESSION: Major neurocognitive disorder, Lewy body with delusion, depression, behavioral disturbance. Rest unchanged. PLAN: Continue unchanged from initial note other than change the Depakote as above. MAN Diony JORGE MD DR: LOVE/lilly JOB#: [id number] / [id number]
--- NOTE | 2018-03-31 22:09 | PN ---
DATE: 03/30/2018 PSYCHIATRIC PROGRESS NOTE This late entry 03/30/2018 covers elements not covered in my initial note. SUBJECTIVE: I met with the patient in the evening. He slept till noon, took half his medications. Slept 8-3/4 hours previous night. Previous day, he was irritable at lunchtime. Today on 03/30/2018, he has been somewhat drowsy, did well previous night. Valproic acid level is 47. He did have a recent UTI and we will repeat a UA to make sure he does not have a recurrent UTI. REVIEW OF SYSTEMS: Ambulation impaired, in wheelchair. No CV, , pulmonary, eye, ENT system symptoms on review. MENTAL STATUS EXAM: Oriented to himself. Insight, judgment, recent and remote memory, attention, concentration, fund of knowledge poor, consistent with his diagnosis mentioned in my initial note. IMPRESSION: Major neurocognitive disorder, probably Lewy body with delusion, depression, behavioral disturbance; anxiety disorder, unspecified. Rest unchanged. PLAN: Check UA for UTI. Continue rest unchanged for now. Repeat labs, level on the Depakote since we increased it because of the subtherapeutic valproic acid level is 47. MAN Diony JORGE MD DR: LOVE/lilly JOB#: [id number] / [id number]
--- NOTE | 2018-03-31 22:24 | PDOC ---
Exam Note: Pavel Note: Please also refer to the separate dictated note~for this date of service dictated separately.~Patient seen individually. Discussed the patient with Nursing staff reviewed the chart.~Reviewed interim history and current functioning. Reviewed vital signs,~Labs/ Radiology~and current medications noted below. Continue current treatment with the changes noted in the dictated addendum note Assessment: Vital Signs: Vital Signs Date Time Temp Pulse Resp B/P (MAP) Pulse Ox O2 Delivery O2 Flow Rate FiO2 03/31/18 15:48 98.2 72 18 127/82 (97) 99 03/31/18 05:44 Room Air I&O Intake and Output 03/31/18 07:01 Intake Total 1200 ml Output Total 550 ml Balance 650 ml Intake Oral 1200 ml Output Urine Total 550 ml # Bowel Movements 1 Current Medications: Meds: Current Medications Acetaminophen (Tylenol) 650 mg PRN Q4HRS PRN PO PAIN / TEMP Last administered on 03/31/18 21:15; Start 02/20/18 at 18:30 Atorvastatin Calcium (Lipitor) 20 mg QHS PO Last administered on 03/31/18 20: 00; Start 02/20/18 at 21:00 Clopidogrel Bisulfate (Plavix) 75 mg DAILY PO Last administered on 03/31/18 11 :55; Start 02/21/18 at 09:00 Tamsulosin HCl (Flomax) 0.4 mg PRN QHS PRN PO retention; Start 02/20/18 at 18: 30; Stop 03/01/18 at 11:14; Status DC Atenolol (Tenormin) 100 mg DAILY PO Last administered on 03/30/18 07:34; Start 02/21/18 at 09:00 Vitamin D (Vitamin D3) 2,000 unit DAILY PO Last administered on 03/31/18 12:01 ; Start 02/21/18 at 09:00 Divalproex Sodium (Depakote Sprinkles) 500 mg TID PO Last administered on 02/26at 07:53; Start 02/20/18 at 21:00; Stop 02/26/18 at 10:36; Status DC Docusate Sodium (Colace) 100 mg BID PO Last administered on 03/31/18 20:00; Start 02/20/18 at 21:00 Lorazepam (Ativan) 1 mg PRN Q8HRS PRN PO ANXIETY / AGITATION Last administered on 03/26/18 21:07; Start 02/20/18 at 19:00 Multi-Ingredient Ointment (Analgesic [place]) 1 devika PRN QID PRN TP MUSCLE PAIN Last administered on 03/27/18 11:48; Start 02/20/18 at 18:45 Al Hydroxide/Mg Hydroxide (Mylanta Plus Xs) 15 ml PRN AFTMEALHC PRN PO DYSPEPSIA Last administered on 03/07/18 09:56; Start 02/20/18 at 18:45 Magnesium Hydroxide (Milk Of Magnesia) 2,400 mg PRN QHS PRN PO CONSTIPATION; Start 02/20/18 at 18:45 Nystatin (Nystop) 1 devika BID TP Last administered on 03/31/18 20:01; Start at 21:00 Bupropion HCl (Wellbutrin) 75 mg DAILY PO Last administered on 02/26/18 07:53 ; Start 02/24/18 at 09:00; Stop 02/27/18 at 08:59; Status DC Bupropion HCl (Wellbutrin) 75 mg BIDACBL PO Last administered on 03/17/18 14:16 ; Start 02/27/18 at 08:00; Stop 03/17/18 at 18:46; Status DC Divalproex Sodium (Depakote Er) 1,000 mg QHS PO Last administered on at 19:46; Start 02/26/18 at 21:00; Stop 02/28/18 at 19:35; Status DC Divalproex Sodium (Depakote Sprinkles) 1,000 mg HS PO Last administered on at 18:50; Start 02/28/18 at 21:00; Stop 03/04/18 at 18:24; Status DC Quetiapine Fumarate (SEROquel) 25 mg QHS PO Last administered on 03/11/18 19:35 ; Start 03/01/18 at 21:00; Stop 03/12/18 at 11:05; Status DC Tamsulosin HCl (Flomax) 0.4 mg HS PO Last administered on 03/02/18at 20:26; Start 03/01/18 at 21:00; Stop 03/03/18 at 12:25; Status DC Mirtazapine (Remeron) 7.5 mg QHS PO Last administered on 03/10/18 19:28; Start 03/01/18 at 21:00; Stop 03/11/18 at 18:17; Status DC Tamsulosin HCl (Flomax) 0.4 mg BID PO Last administered on 03/31/18 20:00; Start 03/03/18 at 21:00 Amoxicillin (Amoxil) 500 mg [id number] PO Last administered on 03/14/18 19:28; Start 03/04/18 at 21:00; Stop 03/15/18 at 09:14; Status DC Divalproex Sodium (Depakote Er) 500 mg BID PO Last administered on 03/05/18at 19:44; Start 03/04/18 at 21:00; Stop 03/05/18 at 23:00; Status DC Lactobacillus Rhamnosus (Culturelle) 1 cap BID PO Last administered on 19:28; Start 03/05/18 at 21:00; Stop 03/15/18 at 09:14; Status DC Divalproex Sodium (Depakote Er) 1,000 mg QHS PO Last administered on 03/14/18 19:29; Start 03/06/18 at 21:00; Stop 03/15/18 at 21:12; Status DC Quetiapine Fumarate (SEROquel) 12.5 mg DAILY@1700 PO Last administered on 16:20; Start 03/11/18 at 17:00; Stop 03/17/18 at 18:46; Status DC Loperamide HCl (Imodium) 2 mg PRN Q1HR PRN PO DIARRHEA Last administered on 03/11 16:16; Start 03/11/18 at 16:15 Mirtazapine (Remeron) 15 mg QHS PO Last administered on 03/31/18 20:00; Start 03/11/18 at 21:00 Quetiapine Fumarate (SEROquel) 25 mg BID PO Last administered on 03/13/18at 07:55 ; Start 03/12/18 at 21:00; Stop 03/13/18 at 16:36; Status DC Quetiapine Fumarate (SEROquel) 25 mg QHS PO Last administered on 03/19/18at 19: 21; Start 03/13/18 at 21:00; Stop 03/20/18 at 19:30; Status DC Olanzapine (ZyPREXA ZYDIS) 2.5 mg PRN Q2HR PRN PO PSYCHOSIS Last administered on 03/24/18at 15:09; Start 03/14/18 at 12:00; Stop 03/26/18 at 10:20; Status DC Trazodone HCl (Desyrel) 50 mg PRN QHS PRN PO INSOMNIA, MAY REPEAT X1 Last administered on 03/28/18at 19:48; Start 03/14/18 at 21:45 Buspirone HCl (Buspar) 5 mg [id number] PO Last administered on 03/18/18at 11:19; Start 03/16/18 at 09:00; Stop 03/18/18 at 14:47; Status DC Divalproex Sodium (Depakote Sprinkles) 500 mg BID PO Last administered on at 11:43; Start 03/15/18 at 21:15; Stop 03/26/18 at 12:10; Status DC Quetiapine Fumarate (SEROquel) 12.5 mg 0900,1700 PO Last administered on at 17:16; Start 03/18/18 at 09:00 Buspirone HCl (Buspar) 10 mg BID@0900,1700 PO Last administered on 03/31/18at 17 :15; Start 03/18/18 at 17:00 Rivastigmine (Exelon) 1 patch DAILY TD Last administered on 03/24/18at 12:02; Start 03/20/18 at 09:00; Stop 03/24/18 at 11:01; Status DC Rivastigmine (Exelon) 1 patch DAILY TD Last administered on 03/31/18at 12:00; Start 03/25/18 at 09:00 Memantine (Namenda) 5 mg HS PO Last administered on 03/21/18at 20:19; Start 12/26 at 21:00; Stop 03/21/18 at 23:00; Status DC Memantine (Namenda) 5 mg BID PO Last administered on 03/24/18at 12:02; Start at 09:00; Stop 03/24/18 at 17:21; Status DC Olanzapine (ZyPREXA IM) 5 mg 1X ONCE IM Last administered on 03/19/18at 20:05; Start 03/19/18 at 19:45; Stop 03/19/18 at 19:46; Status DC Olanzapine (ZyPREXA IM) 5 mg 1X ONCE IM Last administered on 03/20/18at 19:39; Start 03/20/18 at 19:15; Stop 03/20/18 at 19:16; Status DC Quetiapine Fumarate (SEROquel) 50 mg QHS PO Last administered on 03/31/18at 20: 00; Start 03/20/18 at 21:00 Quetiapine Fumarate (SEROquel) 25 mg PRN Q8HRS PRN PO agitation/aggression; Start 03/20/18 at 19:30 Olanzapine (ZyPREXA IM) 5 mg 1X ONCE IM Last administered on 03/21/18at 17:18; Start 03/21/18 at 17:30; Stop 03/21/18 at 17:31; Status DC Olanzapine (ZyPREXA IM) 5 mg 1X ONCE IM Last administered on 03/21/18at 19:45; Start 03/21/18 at 19:45; Stop 03/21/18 at 19:46; Status DC Olanzapine (ZyPREXA IM) 5 mg DAILY PRN IM PSYCHOSIS Last administered on at 21:01; Start 03/22/18 at 11:45; Stop 03/26/18 at 08:09; Status DC Sertraline HCl (Zoloft) 25 mg DAILY PO Last administered on 03/25/18at 11:25; Start 03/24/18 at 09:00; Stop 03/25/18 at 11:00; Status DC Sertraline HCl (Zoloft) 50 mg DAILY PO Last administered on 03/31/18at 11:56; Start 03/26/18 at 09:00 Memantine (Namenda) 10 mg BID PO Last administered on 03/31/18at 20:00; Start at 21:00 Olanzapine (ZyPREXA ZYDIS) 5 mg PRN Q2HR PRN PO PSYCHOSIS Last administered on 03/28/18at 15:44; Start 03/26/18 at 10:30 Divalproex Sodium (Depakote Sprinkles) 500 mg DAILY PO Last administered on at 11:58; Start 03/27/18 at 09:00; Stop 03/29/18 at 18:25; Status DC Divalproex Sodium (Depakote Sprinkles) 750 mg HS PO Last administered on at 20:01; Start 03/26/18 at 21:00 Divalproex Sodium (Depakote Sprinkles) 750 mg DAILY PO Last administered on at 11:57; Start 03/30/18 at 09:00 Active Scripts Active Reported Plavix (Clopidogrel Bisulfate) 75 Mg Tablet 75 Mg PO DAILY Lorazepam 0.5 Mg Tablet 1 Mg PO PRN Q8HRS PRN Flomax (Tamsulosin Hcl) 0.4 Mg Cap.er.24h 0.4 Mg PO HS PRN Depakote Sprinkle (Divalproex Sodium) 125 Mg Cap.sprink 500 Mg PO TID Colace (Docusate Sodium) 100 Mg Capsule 100 Mg PO BID Vitamin D (Cholecalciferol (Vitamin D3)) 1,000 Unit Capsule 2,000 Unit PO DAILY Atorvastatin Calcium 20 Mg Tablet 20 Mg PO QHS Atenolol 100 Mg Tablet 100 Mg PO DAILY Tylenol (Acetaminophen) 325 Mg Tablet 650 Mg PO PRN Q4HRS PRN I have reviewed the current psychotropics carefully including drug interactions. Risk benefit ratio favors no change other than as noted in my dictated progress note. 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
[2018-04-01 06:21] VITALS: BP 138/74
[2018-04-01] MEDS: RIVASTIGMINE 9.5MG PATCH. TD SCH (11:50)
[2018-04-01] MEDS: MEMANTINE 10 MG TABLET. PO SCH ×2 (11:50→20:06)
[2018-04-01] MEDS: TAMSULOSIN 0.4 MG CAP.ER.24H. PO SCH ×2 (11:50→20:05)
[2018-04-01] MEDS: SERTRALINE 50 MG TABLET. PO SCH (11:51)
[2018-04-01] MEDS: busPIRone 10 MG TABLET. PO SCH ×2 (11:51→17:15)
[2018-04-01] MEDS: CHOLECALCIFEROL (VITAMIN D3) 1,000 UNIT TABLET PO SCH (11:51)
[2018-04-01] MEDS: DOCUSATE SODIUM 100 MG CAPSULE PO SCH ×2 (11:52→20:05)
[2018-04-01] MEDS: CLOPIDOGREL BISULFATE 75 MG TABLET PO SCH (11:52)
[2018-04-01] MEDS: QUEtiapine 25 MG TABLET. PO SCH ×2 (11:52→17:15)
[2018-04-01] MEDS: NYSTATIN TOPICAL POWDER 15GM BOTTLE. TP SCH ×2 (11:53→20:09)
[2018-04-01] MEDS: DIVALPROEX 125 MG CAP.SPRINK PO SCH ×2 (11:53→20:06)
[2018-04-01 12:00] VITALS: BP 115/53
[2018-04-01] MEDS: ATENOLOL 50 MG TABLET PO SCH (12:01)
[2018-04-01 17:00] VITALS: BP 155/82
[2018-04-01] MEDS: QUEtiapine 50 MG TABLET. PO SCH (20:05)
[2018-04-01] MEDS: MIRTAZAPINE 15 MG TABLET PO SCH (20:05)
[2018-04-01] MEDS: ATORVASTATIN CALCIUM 20 MG TABLET PO SCH (20:05)
[2018-04-01] MEDS: AMOXICILLIN 250 MG CAPSULE PO SCH (20:10)
[2018-04-01] MEDS: LACTOBACILLUS RHAMNOSUS GG 1 CAPSULE. PO SCH (20:10)
--- NOTE | 2018-04-01 22:37 | PDOC ---
Exam Note: Pavel Note: Please also refer to the separate dictated note~for this date of service dictated separately.~Patient seen individually. Discussed the patient with Nursing staff reviewed the chart.~Reviewed interim history and current functioning. Reviewed vital signs,~Labs/ Radiology~and current medications noted below. Continue current treatment with the changes noted in the dictated addendum note Assessment: Vital Signs: Vital Signs Date Time Temp Pulse Resp B/P (MAP) Pulse Ox O2 Delivery O2 Flow Rate FiO2 04/01/18 17:00 98.7 74 20 155/82 (106) 96 04/01/18 12:00 Room Air I&O Intake and Output 04/01/18 07:01 Intake Total 720 ml Output Total 150 ml Balance 570 ml Intake Oral 720 ml Output Urine Total 150 ml # Bowel Movements 2 Current Medications: Meds: Current Medications Acetaminophen (Tylenol) 650 mg PRN Q4HRS PRN PO PAIN / TEMP Last administered on 03/31/18 21:15; Start 02/20/18 at 18:30 Atorvastatin Calcium (Lipitor) 20 mg QHS PO Last administered on 04/01/18 20: 05; Start 02/20/18 at 21:00 Clopidogrel Bisulfate (Plavix) 75 mg DAILY PO Last administered on 04/01/18 11 :52; Start 02/21/18 at 09:00 Tamsulosin HCl (Flomax) 0.4 mg PRN QHS PRN PO retention; Start 02/20/18 at 18: 30; Stop 03/01/18 at 11:14; Status DC Atenolol (Tenormin) 100 mg DAILY PO Last administered on 04/01/18 12:01; Start 02/21/18 at 09:00 Vitamin D (Vitamin D3) 2,000 unit DAILY PO Last administered on 04/01/18 11:51 ; Start 02/21/18 at 09:00 Divalproex Sodium (Depakote Sprinkles) 500 mg TID PO Last administered on 02/26at 07:53; Start 02/20/18 at 21:00; Stop 02/26/18 at 10:36; Status DC Docusate Sodium (Colace) 100 mg BID PO Last administered on 04/01/18 20:05; Start 02/20/18 at 21:00 Lorazepam (Ativan) 1 mg PRN Q8HRS PRN PO ANXIETY / AGITATION Last administered on 03/26/18 21:07; Start 02/20/18 at 19:00 Multi-Ingredient Ointment (Analgesic [place]) 1 devika PRN QID PRN TP MUSCLE PAIN Last administered on 03/27/18 11:48; Start 02/20/18 at 18:45 Al Hydroxide/Mg Hydroxide (Mylanta Plus Xs) 15 ml PRN AFTMEALHC PRN PO DYSPEPSIA Last administered on 03/07/18 09:56; Start 02/20/18 at 18:45 Magnesium Hydroxide (Milk Of Magnesia) 2,400 mg PRN QHS PRN PO CONSTIPATION; Start 02/20/18 at 18:45 Nystatin (Nystop) 1 devika BID TP Last administered on 04/01/18 20:09; Start at 21:00 Bupropion HCl (Wellbutrin) 75 mg DAILY PO Last administered on 02/26/18 07:53 ; Start 02/24/18 at 09:00; Stop 02/27/18 at 08:59; Status DC Bupropion HCl (Wellbutrin) 75 mg BIDACBL PO Last administered on 03/17/18 14:16 ; Start 02/27/18 at 08:00; Stop 03/17/18 at 18:46; Status DC Divalproex Sodium (Depakote Er) 1,000 mg QHS PO Last administered on at 19:46; Start 02/26/18 at 21:00; Stop 02/28/18 at 19:35; Status DC Divalproex Sodium (Depakote Sprinkles) 1,000 mg HS PO Last administered on at 18:50; Start 02/28/18 at 21:00; Stop 03/04/18 at 18:24; Status DC Quetiapine Fumarate (SEROquel) 25 mg QHS PO Last administered on 03/11/18 19:35 ; Start 03/01/18 at 21:00; Stop 03/12/18 at 11:05; Status DC Tamsulosin HCl (Flomax) 0.4 mg HS PO Last administered on 03/02/18at 20:26; Start 03/01/18 at 21:00; Stop 03/03/18 at 12:25; Status DC Mirtazapine (Remeron) 7.5 mg QHS PO Last administered on 03/10/18 19:28; Start 03/01/18 at 21:00; Stop 03/11/18 at 18:17; Status DC Tamsulosin HCl (Flomax) 0.4 mg BID PO Last administered on 04/01/18 20:05; Start 03/03/18 at 21:00 Amoxicillin (Amoxil) 500 mg [id number] PO Last administered on 03/14/18 19:28; Start 03/04/18 at 21:00; Stop 03/15/18 at 09:14; Status DC Divalproex Sodium (Depakote Er) 500 mg BID PO Last administered on 03/05/18at 19:44; Start 03/04/18 at 21:00; Stop 03/05/18 at 23:00; Status DC Lactobacillus Rhamnosus (Culturelle) 1 cap BID PO Last administered on 19:28; Start 03/05/18 at 21:00; Stop 03/15/18 at 09:14; Status DC Divalproex Sodium (Depakote Er) 1,000 mg QHS PO Last administered on 03/14/18 19:29; Start 03/06/18 at 21:00; Stop 03/15/18 at 21:12; Status DC Quetiapine Fumarate (SEROquel) 12.5 mg DAILY@1700 PO Last administered on 16:20; Start 03/11/18 at 17:00; Stop 03/17/18 at 18:46; Status DC Loperamide HCl (Imodium) 2 mg PRN Q1HR PRN PO DIARRHEA Last administered on 03/11 16:16; Start 03/11/18 at 16:15 Mirtazapine (Remeron) 15 mg QHS PO Last administered on 04/01/18 20:05; Start 03/11/18 at 21:00 Quetiapine Fumarate (SEROquel) 25 mg BID PO Last administered on 03/13/18at 07:55 ; Start 03/12/18 at 21:00; Stop 03/13/18 at 16:36; Status DC Quetiapine Fumarate (SEROquel) 25 mg QHS PO Last administered on 03/19/18at 19: 21; Start 03/13/18 at 21:00; Stop 03/20/18 at 19:30; Status DC Olanzapine (ZyPREXA ZYDIS) 2.5 mg PRN Q2HR PRN PO PSYCHOSIS Last administered on 03/24/18at 15:09; Start 03/14/18 at 12:00; Stop 03/26/18 at 10:20; Status DC Trazodone HCl (Desyrel) 50 mg PRN QHS PRN PO INSOMNIA, MAY REPEAT X1 Last administered on 03/28/18at 19:48; Start 03/14/18 at 21:45 Buspirone HCl (Buspar) 5 mg [id number] PO Last administered on 03/18/18at 11:19; Start 03/16/18 at 09:00; Stop 03/18/18 at 14:47; Status DC Divalproex Sodium (Depakote Sprinkles) 500 mg BID PO Last administered on at 11:43; Start 03/15/18 at 21:15; Stop 03/26/18 at 12:10; Status DC Quetiapine Fumarate (SEROquel) 12.5 mg 0900,1700 PO Last administered on at 17:15; Start 03/18/18 at 09:00 Buspirone HCl (Buspar) 10 mg BID@0900,1700 PO Last administered on 04/01/18at 17 :15; Start 03/18/18 at 17:00 Rivastigmine (Exelon) 1 patch DAILY TD Last administered on 03/24/18at 12:02; Start 03/20/18 at 09:00; Stop 03/24/18 at 11:01; Status DC Rivastigmine (Exelon) 1 patch DAILY TD Last administered on 04/01/18at 11:50; Start 03/25/18 at 09:00 Memantine (Namenda) 5 mg HS PO Last administered on 03/21/18at 20:19; Start 12/26 at 21:00; Stop 03/21/18 at 23:00; Status DC Memantine (Namenda) 5 mg BID PO Last administered on 03/24/18at 12:02; Start at 09:00; Stop 03/24/18 at 17:21; Status DC Olanzapine (ZyPREXA IM) 5 mg 1X ONCE IM Last administered on 03/19/18at 20:05; Start 03/19/18 at 19:45; Stop 03/19/18 at 19:46; Status DC Olanzapine (ZyPREXA IM) 5 mg 1X ONCE IM Last administered on 03/20/18at 19:39; Start 03/20/18 at 19:15; Stop 03/20/18 at 19:16; Status DC Quetiapine Fumarate (SEROquel) 50 mg QHS PO Last administered on 04/01/18at 20: 05; Start 03/20/18 at 21:00 Quetiapine Fumarate (SEROquel) 25 mg PRN Q8HRS PRN PO agitation/aggression; Start 03/20/18 at 19:30 Olanzapine (ZyPREXA IM) 5 mg 1X ONCE IM Last administered on 03/21/18at 17:18; Start 03/21/18 at 17:30; Stop 03/21/18 at 17:31; Status DC Olanzapine (ZyPREXA IM) 5 mg 1X ONCE IM Last administered on 03/21/18at 19:45; Start 03/21/18 at 19:45; Stop 03/21/18 at 19:46; Status DC Olanzapine (ZyPREXA IM) 5 mg DAILY PRN IM PSYCHOSIS Last administered on at 21:01; Start 03/22/18 at 11:45; Stop 03/26/18 at 08:09; Status DC Sertraline HCl (Zoloft) 25 mg DAILY PO Last administered on 03/25/18at 11:25; Start 03/24/18 at 09:00; Stop 03/25/18 at 11:00; Status DC Sertraline HCl (Zoloft) 50 mg DAILY PO Last administered on 04/01/18at 11:51; Start 03/26/18 at 09:00 Memantine (Namenda) 10 mg BID PO Last administered on 04/01/18at 20:06; Start at 21:00 Olanzapine (ZyPREXA ZYDIS) 5 mg PRN Q2HR PRN PO PSYCHOSIS Last administered on 03/28/18at 15:44; Start 03/26/18 at 10:30 Divalproex Sodium (Depakote Sprinkles) 500 mg DAILY PO Last administered on at 11:58; Start 03/27/18 at 09:00; Stop 03/29/18 at 18:25; Status DC Divalproex Sodium (Depakote Sprinkles) 750 mg HS PO Last administered on at 20:06; Start 03/26/18 at 21:00 Divalproex Sodium (Depakote Sprinkles) 750 mg DAILY PO Last administered on at 11:53; Start 03/30/18 at 09:00 Amoxicillin (Amoxil) 500 mg [id number] PO Last administered on 04/01/18at 20:10; Start 04/01/18 at 21:00; Stop 04/08/18 at 20:59 Lactobacillus Rhamnosus (Culturelle) 1 cap BID PO Last administered on at 20:10; Start 04/01/18 at 21:00 Active Scripts Active Reported Plavix (Clopidogrel Bisulfate) 75 Mg Tablet 75 Mg PO DAILY Lorazepam 0.5 Mg Tablet 1 Mg PO PRN Q8HRS PRN Flomax (Tamsulosin Hcl) 0.4 Mg Cap.er.24h 0.4 Mg PO HS PRN Depakote Sprinkle (Divalproex Sodium) 125 Mg Cap.sprink 500 Mg PO TID Colace (Docusate Sodium) 100 Mg Capsule 100 Mg PO BID Vitamin D (Cholecalciferol (Vitamin D3)) 1,000 Unit Capsule 2,000 Unit PO DAILY Atorvastatin Calcium 20 Mg Tablet 20 Mg PO QHS Atenolol 100 Mg Tablet 100 Mg PO DAILY Tylenol (Acetaminophen) 325 Mg Tablet 650 Mg PO PRN Q4HRS PRN I have reviewed the current psychotropics carefully including drug interactions. Risk benefit ratio favors no change other than as noted in my dictated progress note. 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
--- NOTE | 2018-04-02 00:39 | PN ---
DATE: 03/31/2018 PSYCHIATRIC PROGRESS NOTE This late entry of 03/31/2018 covers elements not covered in my initial note. SUBJECTIVE: I met with the patient in the evening. The patient slept 7-1/2 hours previous night. He remains confused, forgetful, cooperative. Gait is unsteady, needs assistance per nursing staff. He slept until around lunchtime, somewhat sedated. UA has reflex to culture. He did have 2 visitors. His and daughter visit him. REVIEW OF SYSTEMS: Ambulation impaired. He does have a Pires in place. No CV, , eyes, ENT system symptoms on review other than above. Reliability poor. MENTAL STATUS EXAM: Oriented to himself, situation. Insight, judgment, recent memory is impaired, remote is better. Language function intact, attention span short. Mood and affect somewhat anxious, labile at times. LABORATORY DATA: Reviewed. IMPRESSION: Major neurocognitive disorder, possibly Lewy body with delusion, depression, behavioral disturbance; anxiety disorder, unspecified; impulse control disorder, unspecified; rule out urinary tract infection. PLAN: Continue psychotropics from initial note, await urine culture results. Maintain Depakote at current dosage. Repeat level to ensure it is therapeutic. Adjust further as clinically indicated. CANDELARIA JORGE MD DR: LOVE/lilly JOB#: [id number] / [id number]
[2018-04-02 05:36] VITALS: BP 171/94
[2018-04-02 08:17] LABS: BASO % 1 % (0-3); EOS # 0.4 x10^3/uL (0.0-0.7); EOS % 5 % (0-3); HEMATOCRIT 31.4 % (39.0-53.0); HEMOGLOBIN 10.8 g/dL (13.0-17.5); LYMPH # 1.9 x10^3/uL (1.0-4.8); LYMPH % 25 % (24-48); MEAN CORPUSCULAR HEMOGLOBIN 33 pg (25-35); MEAN CORPUSCULAR HGB CONC 34 g/dL (31-37); MEAN CORPUSCULAR VOLUME 97 fL (79-100); MONO # 0.9 x10^3/uL (0.0-1.1); MONO % 12 % (0-9); NEUT # 4.1 x10^3uL (1.8-7.7); NEUT % 56 % (31-73); PLATELET COUNT 169 x10^3/uL (140-400); RED BLOOD COUNT 3.26 x10^6/uL (4.30-5.70); RED CELL DISTRIBUTION WIDTH 15.5 % (11.5-14.5); WHITE BLOOD COUNT 7.3 x10^3/uL (4.0-11.0)
[2018-04-02 08:20] LABS: ALBUMIN 2.4 g/dL (3.4-5.0); ALBUMIN/GLOBULIN RATIO 0.8 (1.0-1.7); ALK PHOS 51 U/L (46-116); ALT (SGPT) 15 U/L (16-63); ANION GAP 4 (6-14); AST (SGOT) 11 U/L (15-37); BLOOD UREA NITROGEN 29 mg/dL (8-26); BUN/CREATININE RATIO 24 (6-20); CALCIUM 8.3 mg/dL (8.5-10.1); CARBON DIOXIDE 30 mmol/L (21-32); CHLORIDE 109 mmol/L (98-107); CREATININE 1.2 mg/dL (0.7-1.3); GFR 59.5; GLUCOSE 85 mg/dL (70-99); POTASSIUM 3.6 mmol/L (3.5-5.1); SODIUM 143 mmol/L (136-145); TOTAL BILIRUBIN 0.6 mg/dL (0.2-1.0); TOTAL PROTEIN 5.4 g/dL (6.4-8.2)
[2018-04-02 08:22] LABS: VAL ACID 34 mcg/mL (50-100)
[2018-04-02] MEDS: busPIRone 10 MG TABLET. PO SCH ×2 (11:06→16:41)
[2018-04-02] MEDS: RIVASTIGMINE 9.5MG PATCH. TD SCH (11:06)
[2018-04-02] MEDS: CHOLECALCIFEROL (VITAMIN D3) 1,000 UNIT TABLET PO SCH (11:06)
[2018-04-02] MEDS: DIVALPROEX 125 MG CAP.SPRINK PO SCH ×2 (11:06→19:21)
[2018-04-02] MEDS: CLOPIDOGREL BISULFATE 75 MG TABLET PO SCH (11:06)
[2018-04-02] MEDS: DOCUSATE SODIUM 100 MG CAPSULE PO SCH ×2 (11:06→19:22)
[2018-04-02] MEDS: SERTRALINE 50 MG TABLET. PO SCH (11:07)
[2018-04-02] MEDS: MEMANTINE 10 MG TABLET. PO SCH ×2 (11:07→19:24)
[2018-04-02] MEDS: AMOXICILLIN 250 MG CAPSULE PO SCH ×3 (11:07→19:24)
[2018-04-02] MEDS: QUEtiapine 25 MG TABLET. PO SCH ×2 (11:07→16:34)
[2018-04-02] MEDS: NYSTATIN TOPICAL POWDER 15GM BOTTLE. TP SCH ×2 (11:13→19:24)
[2018-04-02] MEDS: ATENOLOL 50 MG TABLET PO SCH (11:15)
[2018-04-02] MEDS: TAMSULOSIN 0.4 MG CAP.ER.24H. PO SCH ×2 (11:15→19:24)
[2018-04-02] MEDS: LACTOBACILLUS RHAMNOSUS GG 1 CAPSULE. PO SCH ×2 (11:15→19:24)
[2018-04-02 16:41] VITALS: BP 112/69
[2018-04-02] MEDS: QUEtiapine 50 MG TABLET. PO SCH (19:24)
[2018-04-02] MEDS: MIRTAZAPINE 15 MG TABLET PO SCH (19:24)
[2018-04-02] MEDS: ATORVASTATIN CALCIUM 20 MG TABLET PO SCH (19:24)
--- NOTE | 2018-04-02 22:52 | PDOC ---
Exam Note: Pavel Note: Please also refer to the separate dictated note~for this date of service dictated separately.~Patient seen individually. Discussed the patient with Nursing staff reviewed the chart.~Reviewed interim history and current functioning. Reviewed vital signs,~Labs/ Radiology~and current medications noted below. Continue current treatment with the changes noted in the dictated addendum note Assessment: Vital Signs: Vital Signs Date Time Temp Pulse Resp B/P (MAP) Pulse Ox O2 Delivery O2 Flow Rate FiO2 04/02/18 16:41 98.4 55 18 112/69 (83) 98 04/01/18 12:00 Room Air I&O Intake and Output 04/02/18 07:01 Intake Total 960 ml Output Total 350 ml Balance 610 ml Intake Oral 960 ml Output Urine Total 350 ml # Bowel Movements 1 Labs: Laboratory Tests Test 04/02/18 07:41 White Blood Count 7.3 x10^3/uL (4.0-11.0) Red Blood Count 3.26 x10^6/uL (4.30-5.70) L Hemoglobin 10.8 g/dL (13.0-17.5) L Hematocrit 31.4 % (39.0-53.0) L Mean Corpuscular Volume 97 fL (79-100) Mean Corpuscular Hemoglobin 33 pg (25-35) Mean Corpuscular Hemoglobin Concent 34 g/dL (31-37) Red Cell Distribution Width 15.5 % (11.5-14.5) H Platelet Count 169 x10^3/uL (140-400) Neutrophils (%) (Auto) 56 % (31-73) Lymphocytes (%) (Auto) 25 % (24-48) Monocytes (%) (Auto) 12 % (0-9) H Eosinophils (%) (Auto) 5 % (0-3) H Basophils (%) (Auto) 1 % (0-3) Neutrophils # (Auto) 4.1 x10^3uL (1.8-7.7) Lymphocytes # (Auto) 1.9 x10^3/uL (1.0-4.8) Monocytes # (Auto) 0.9 x10^3/uL (0.0-1.1) Eosinophils # (Auto) 0.4 x10^3/uL (0.0-0.7) Basophils # (Auto) 0.0 x10^3/uL (0.0-0.2) Sodium Level 143 mmol/L (136-145) Potassium Level 3.6 mmol/L (3.5-5.1) Chloride Level 109 mmol/L (98-107) H Carbon Dioxide Level 30 mmol/L (21-32) Anion Gap 4 (6-14) L Blood Urea Nitrogen 29 mg/dL (8-26) H Creatinine 1.2 mg/dL (0.7-1.3) Estimated GFR (Cockcroft-Gault) 59.5 BUN/Creatinine Ratio 24 (6-20) H Glucose Level 85 mg/dL (70-99) Calcium Level 8.3 mg/dL (8.5-10.1) L Total Bilirubin 0.6 mg/dL (0.2-1.0) Aspartate Amino Transferase (AST) 11 U/L (15-37) L Alanine Aminotransferase (ALT) 15 U/L (16-63) L Alkaline Phosphatase 51 U/L (46-116) Total Protein 5.4 g/dL (6.4-8.2) L Albumin 2.4 g/dL (3.4-5.0) L Albumin/Globulin Ratio 0.8 (1.0-1.7) L Valproic Acid Level 34 mcg/mL (50-100) L Valproic Acid Last Dose Date 04/01/2018 Valproic Acid Last Dose Time 2100 Current Medications: Meds: Current Medications Acetaminophen (Tylenol) 650 mg PRN Q4HRS PRN PO PAIN / TEMP Last administered on 03/31/18 21:15; Start 02/20/18 at 18:30 Atorvastatin Calcium (Lipitor) 20 mg QHS PO Last administered on 04/02/18 19: 24; Start 02/20/18 at 21:00 Clopidogrel Bisulfate (Plavix) 75 mg DAILY PO Last administered on 04/02/18 11 :06; Start 02/21/18 at 09:00 Tamsulosin HCl (Flomax) 0.4 mg PRN QHS PRN PO retention; Start 02/20/18 at 18: 30; Stop 03/01/18 at 11:14; Status DC Atenolol (Tenormin) 100 mg DAILY PO Last administered on 04/02/18 11:15; Start 02/21/18 at 09:00 Vitamin D (Vitamin D3) 2,000 unit DAILY PO Last administered on 04/02/18 11:06 ; Start 02/21/18 at 09:00 Divalproex Sodium (Depakote Sprinkles) 500 mg TID PO Last administered on 02/26at 07:53; Start 02/20/18 at 21:00; Stop 02/26/18 at 10:36; Status DC Docusate Sodium (Colace) 100 mg BID PO Last administered on 04/02/18 19:22; Start 02/20/18 at 21:00 Lorazepam (Ativan) 1 mg PRN Q8HRS PRN PO ANXIETY / AGITATION Last administered on 03/26/18 21:07; Start 02/20/18 at 19:00 Multi-Ingredient Ointment (Analgesic [place]) 1 devika PRN QID PRN TP MUSCLE PAIN Last administered on 03/27/18at 11:48; Start 02/20/18 at 18:45 Al Hydroxide/Mg Hydroxide (Mylanta Plus Xs) 15 ml PRN AFTMEALHC PRN PO DYSPEPSIA Last administered on 03/07/18at 09:56; Start 02/20/18 at 18:45 Magnesium Hydroxide (Milk Of Magnesia) 2,400 mg PRN QHS PRN PO CONSTIPATION; Start 02/20/18 at 18:45 Nystatin (Nystop) 1 devika BID TP Last administered on 04/02/18 19:24; Start at 21:00 Bupropion HCl (Wellbutrin) 75 mg DAILY PO Last administered on 02/26/18at 07:53 ; Start 02/24/18 at 09:00; Stop 02/27/18 at 08:59; Status DC Bupropion HCl (Wellbutrin) 75 mg BIDACBL PO Last administered on 03/17/18 14:16 ; Start 02/27/18 at 08:00; Stop 03/17/18 at 18:46; Status DC Divalproex Sodium (Depakote Er) 1,000 mg QHS PO Last administered on at 19:46; Start 02/26/18 at 21:00; Stop 02/28/18 at 19:35; Status DC Divalproex Sodium (Depakote Sprinkles) 1,000 mg HS PO Last administered on at 18:50; Start 02/28/18 at 21:00; Stop 03/04/18 at 18:24; Status DC Quetiapine Fumarate (SEROquel) 25 mg QHS PO Last administered on 03/11/18 19:35 ; Start 03/01/18 at 21:00; Stop 03/12/18 at 11:05; Status DC Tamsulosin HCl (Flomax) 0.4 mg HS PO Last administered on 03/02/18at 20:26; Start 03/01/18 at 21:00; Stop 03/03/18 at 12:25; Status DC Mirtazapine (Remeron) 7.5 mg QHS PO Last administered on 03/10/18 19:28; Start 03/01/18 at 21:00; Stop 03/11/18 at 18:17; Status DC Tamsulosin HCl (Flomax) 0.4 mg BID PO Last administered on 04/02/18 19:24; Start 03/03/18 at 21:00 Amoxicillin (Amoxil) 500 mg [id number] PO Last administered on 03/14/18 19:28; Start 03/04/18 at 21:00; Stop 03/15/18 at 09:14; Status DC Divalproex Sodium (Depakote Er) 500 mg BID PO Last administered on 03/05/18at 19:44; Start 03/04/18 at 21:00; Stop 03/05/18 at 23:00; Status DC Lactobacillus Rhamnosus (Culturelle) 1 cap BID PO Last administered on 19:28; Start 03/05/18 at 21:00; Stop 03/15/18 at 09:14; Status DC Divalproex Sodium (Depakote Er) 1,000 mg QHS PO Last administered on 03/14/18 19:29; Start 03/06/18 at 21:00; Stop 03/15/18 at 21:12; Status DC Quetiapine Fumarate (SEROquel) 12.5 mg DAILY@1700 PO Last administered on at 16:20; Start 03/11/18 at 17:00; Stop 03/17/18 at 18:46; Status DC Loperamide HCl (Imodium) 2 mg PRN Q1HR PRN PO DIARRHEA Last administered on 03/11 16:16; Start 03/11/18 at 16:15 Mirtazapine (Remeron) 15 mg QHS PO Last administered on 04/02/18at 19:24; Start 03/11/18 at 21:00 Quetiapine Fumarate (SEROquel) 25 mg BID PO Last administered on 03/13/18at 07:55 ; Start 03/12/18 at 21:00; Stop 03/13/18 at 16:36; Status DC Quetiapine Fumarate (SEROquel) 25 mg QHS PO Last administered on 03/19/18at 19: 21; Start 03/13/18 at 21:00; Stop 03/20/18 at 19:30; Status DC Olanzapine (ZyPREXA ZYDIS) 2.5 mg PRN Q2HR PRN PO PSYCHOSIS Last administered on 03/24/18at 15:09; Start 03/14/18 at 12:00; Stop 03/26/18 at 10:20; Status DC Trazodone HCl (Desyrel) 50 mg PRN QHS PRN PO INSOMNIA, MAY REPEAT X1 Last administered on 03/28/18at 19:48; Start 03/14/18 at 21:45 Buspirone HCl (Buspar) 5 mg [id number] PO Last administered on 03/18/18at 11:19; Start 03/16/18 at 09:00; Stop 03/18/18 at 14:47; Status DC Divalproex Sodium (Depakote Sprinkles) 500 mg BID PO Last administered on at 11:43; Start 03/15/18 at 21:15; Stop 03/26/18 at 12:10; Status DC Quetiapine Fumarate (SEROquel) 12.5 mg 0900,1700 PO Last administered on 16:34; Start 03/18/18 at 09:00 Buspirone HCl (Buspar) 10 mg BID@0900,1700 PO Last administered on 04/02/18 16 :41; Start 03/18/18 at 17:00 Rivastigmine (Exelon) 1 patch DAILY TD Last administered on 1/15/19at 12:02; Start 03/20/18 at 09:00; Stop 03/24/18 at 11:01; Status DC Rivastigmine (Exelon) 1 patch DAILY TD Last administered on 04/02/18at 11:06; Start 03/25/18 at 09:00 Memantine (Namenda) 5 mg HS PO Last administered on 03/21/18at 20:19; Start 12/26 at 21:00; Stop 03/21/18 at 23:00; Status DC Memantine (Namenda) 5 mg BID PO Last administered on 03/24/18at 12:02; Start at 09:00; Stop 03/24/18 at 17:21; Status DC Olanzapine (ZyPREXA IM) 5 mg 1X ONCE IM Last administered on 03/19/18at 20:05; Start 03/19/18 at 19:45; Stop 03/19/18 at 19:46; Status DC Olanzapine (ZyPREXA IM) 5 mg 1X ONCE IM Last administered on 03/20/18at 19:39; Start 03/20/18 at 19:15; Stop 03/20/18 at 19:16; Status DC Quetiapine Fumarate (SEROquel) 50 mg QHS PO Last administered on 04/02/18at 19: 24; Start 03/20/18 at 21:00 Quetiapine Fumarate (SEROquel) 25 mg PRN Q8HRS PRN PO agitation/aggression; Start 03/20/18 at 19:30 Olanzapine (ZyPREXA IM) 5 mg 1X ONCE IM Last administered on 03/21/18at 17:18; Start 03/21/18 at 17:30; Stop 03/21/18 at 17:31; Status DC Olanzapine (ZyPREXA IM) 5 mg 1X ONCE IM Last administered on 03/21/18at 19:45; Start 03/21/18 at 19:45; Stop 03/21/18 at 19:46; Status DC Olanzapine (ZyPREXA IM) 5 mg DAILY PRN IM PSYCHOSIS Last administered on at 21:01; Start 03/22/18 at 11:45; Stop 03/26/18 at 08:09; Status DC Sertraline HCl (Zoloft) 25 mg DAILY PO Last administered on 03/25/18 11:25; Start 03/24/18 at 09:00; Stop 03/25/18 at 11:00; Status DC Sertraline HCl (Zoloft) 50 mg DAILY PO Last administered on 04/02/18 11:07; Start 03/26/18 at 09:00 Memantine (Namenda) 10 mg BID PO Last administered on 04/02/18 19:24; Start at 21:00 Olanzapine (ZyPREXA ZYDIS) 5 mg PRN Q2HR PRN PO PSYCHOSIS Last administered on 03/28/18 15:44; Start 03/26/18 at 10:30 Divalproex Sodium (Depakote Sprinkles) 500 mg DAILY PO Last administered on 11:58; Start 03/27/18 at 09:00; Stop 03/29/18 at 18:25; Status DC Divalproex Sodium (Depakote Sprinkles) 750 mg HS PO Last administered on 19:21; Start 03/26/18 at 21:00 Divalproex Sodium (Depakote Sprinkles) 750 mg DAILY PO Last administered on 11:06; Start 03/30/18 at 09:00 Amoxicillin (Amoxil) 500 mg [id number] PO Last administered on 04/02/18 19:24; Start 04/01/18 at 21:00; Stop 04/08/18 at 20:59 Lactobacillus Rhamnosus (Culturelle) 1 cap BID PO Last administered on 19:24; Start 04/01/18 at 21:00 Active Scripts Active Reported Plavix (Clopidogrel Bisulfate) 75 Mg Tablet 75 Mg PO DAILY Lorazepam 0.5 Mg Tablet 1 Mg PO PRN Q8HRS PRN Flomax (Tamsulosin Hcl) 0.4 Mg Cap.er.24h 0.4 Mg PO HS PRN Depakote Sprinkle (Divalproex Sodium) 125 Mg Cap.sprink 500 Mg PO TID Colace (Docusate Sodium) 100 Mg Capsule 100 Mg PO BID Vitamin D (Cholecalciferol (Vitamin D3)) 1,000 Unit Capsule 2,000 Unit PO DAILY Atorvastatin Calcium 20 Mg Tablet 20 Mg PO QHS Atenolol 100 Mg Tablet 100 Mg PO DAILY Tylenol (Acetaminophen) 325 Mg Tablet 650 Mg PO PRN Q4HRS PRN I have reviewed the current psychotropics carefully including drug interactions. Risk benefit ratio favors no change other than as noted in my dictated progress note. 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
[2018-04-03 06:01] VITALS: BP 116/52
[2018-04-03] MEDS: ATENOLOL 50 MG TABLET PO SCH (09:00)
[2018-04-03] MEDS: NYSTATIN TOPICAL POWDER 15GM BOTTLE. TP SCH (11:30)
[2018-04-03] MEDS: AMOXICILLIN 250 MG CAPSULE PO SCH ×3 (12:00→19:39)
[2018-04-03] MEDS: LACTOBACILLUS RHAMNOSUS GG 1 CAPSULE. PO SCH ×2 (12:01→19:39)
[2018-04-03] MEDS: DIVALPROEX 125 MG CAP.SPRINK PO SCH ×2 (12:03→19:39)
[2018-04-03] MEDS: busPIRone 10 MG TABLET. PO SCH ×2 (12:04→17:50)
[2018-04-03] MEDS: CHOLECALCIFEROL (VITAMIN D3) 1,000 UNIT TABLET PO SCH (12:04)
[2018-04-03] MEDS: QUEtiapine 25 MG TABLET. PO SCH ×2 (12:05→17:50)
[2018-04-03] MEDS: CLOPIDOGREL BISULFATE 75 MG TABLET PO SCH (12:05)
[2018-04-03] MEDS: SERTRALINE 50 MG TABLET. PO SCH (12:06)
[2018-04-03] MEDS: MEMANTINE 10 MG TABLET. PO SCH ×2 (12:06→19:39)
[2018-04-03] MEDS: TAMSULOSIN 0.4 MG CAP.ER.24H. PO SCH ×2 (12:06→19:39)
[2018-04-03] MEDS: DOCUSATE SODIUM 100 MG CAPSULE PO SCH ×2 (12:07→19:39)
[2018-04-03] MEDS: RIVASTIGMINE 9.5MG PATCH. TD SCH (12:08)
--- NOTE | 2018-04-03 16:07 | PN ---
DATE: 04/01/2018 PSYCHIATRIC PROGRESS NOTE This is a late entry 04/01/2018 covers elements not covered in my initial note. SUBJECTIVE: I met with the patient in the evening. The patient slept 6-1/2 hours previous night. He does have a UTI and we will defer to Dr. Sanchez to treat this. He did well previous night, agitated in the morning, slept in in the morning then did better, was running with his walker, but redirected after he was running into things. REVIEW OF SYSTEMS: Ambulation impaired with walker. No CV, , pulmonary, eye system symptoms on review. MENTAL STATUS EXAM: Oriented to himself and situation. Speech moderate latency, often responses monosyllabic. He is less labile, less agitated. Insight, judgment, recent and remote memory, attention, concentration, fund of knowledge poor, consistent with his diagnosis mentioned in my initial note. IMPRESSION: Major neurocognitive disorder, Lewy body with delusion, depression, behavioral disturbance, urinary tract infection, anxiety disorder, unspecified. Rest unchanged. PLAN: Treat the UTI. Rest psychotropics unchanged from initial note. MAN Diony JORGE MD DR: LOVE/lilly JOB#: [id number] / [id number]
[2018-04-03 16:52] VITALS: BP 119/71
[2018-04-03] MEDS: QUEtiapine 50 MG TABLET. PO SCH (19:39)
[2018-04-03] MEDS: ATORVASTATIN CALCIUM 20 MG TABLET PO SCH (19:39)
[2018-04-03] MEDS: MIRTAZAPINE 15 MG TABLET PO SCH (19:39)
[2018-04-03] MEDS: DOXYCYCLINE HYCLATE 100 MG TABLET PO SCH (19:40)
--- NOTE | 2018-04-03 21:10 | PN ---
DATE: 04/02/2018 PSYCHIATRIC PROGRESS NOTE This late entry 04/02/2018 covers elements not covered in my initial note. SUBJECTIVE: I met with the patient in the evening. The patient was also staffed at a treatment team meeting with the entire team in the morning. The patient slept 7 hours previous night. Appetite is 40%. The patient's , Roxanne, attended the treatment team meeting. She has looked at [facility] and we are waiting to see if there are finally accepting him. He takes his meds in ice cream and with cupcakes. He has been cooperative, wandering, not aggressive. Does have a UTI, started on Amoxil, we will defer to Dr. Sanchez. REVIEW OF SYSTEMS: Ambulation impaired with walker. No CV, , pulmonary, eye system symptoms on review. Reliability poor. MENTAL STATUS EXAMINATION: Oriented to himself. Insight, judgment, recent memory is impaired, remote is better. Language function intact, attention span short. Mood and affect remain somewhat anxious, labile. LABORATORY DATA: Reviewed. IMPRESSION: Major neurocognitive disorder, Lewy body with delusion, depression, behavioral disturbance; anxiety disorder, unspecified; impulse control disorder, unspecified. Rest unchanged including urinary tract infection. PLAN: Treat the UTI. Continue rest of the psychotropics unchanged for now. CANDELARIA JORGE MD DR: LOVE/lilly JOB#: [id number] / [id number]
--- NOTE | 2018-04-03 22:39 | PDOC ---
Exam Note: Pavel Note: Please also refer to the separate dictated note~for this date of service dictated separately.~Patient seen individually. Discussed the patient with Nursing staff reviewed the chart.~Reviewed interim history and current functioning. Reviewed vital signs,~Labs/ Radiology~and current medications noted below. Continue current treatment with the changes noted in the dictated addendum note Assessment: Vital Signs: Vital Signs Date Time Temp Pulse Resp B/P (MAP) Pulse Ox O2 Delivery O2 Flow Rate FiO2 04/03/18 16:52 98.3 66 16 119/71 (87) 99 04/01/18 12:00 Room Air I&O Intake and Output 04/03/18 07:01 Intake Total 480 ml Balance 480 ml Intake Oral 480 ml # Bowel Movements 2 Current Medications: Meds: Current Medications Acetaminophen (Tylenol) 650 mg PRN Q4HRS PRN PO PAIN / TEMP Last administered on 03/31/18 21:15; Start 02/20/18 at 18:30 Atorvastatin Calcium (Lipitor) 20 mg QHS PO Last administered on 04/03/18 19: 39; Start 02/20/18 at 21:00 Clopidogrel Bisulfate (Plavix) 75 mg DAILY PO Last administered on 04/03/18 12 :05; Start 02/21/18 at 09:00 Tamsulosin HCl (Flomax) 0.4 mg PRN QHS PRN PO retention; Start 02/20/18 at 18: 30; Stop 03/01/18 at 11:14; Status DC Atenolol (Tenormin) 100 mg DAILY PO Last administered on 04/02/18 11:15; Start 02/21/18 at 09:00 Vitamin D (Vitamin D3) 2,000 unit DAILY PO Last administered on 04/03/18 12:04 ; Start 02/21/18 at 09:00 Divalproex Sodium (Depakote Sprinkles) 500 mg TID PO Last administered on 02/26at 07:53; Start 02/20/18 at 21:00; Stop 02/26/18 at 10:36; Status DC Docusate Sodium (Colace) 100 mg BID PO Last administered on 04/03/18 19:39; Start 02/20/18 at 21:00 Lorazepam (Ativan) 1 mg PRN Q8HRS PRN PO ANXIETY / AGITATION Last administered on 03/26/18 21:07; Start 02/20/18 at 19:00 Multi-Ingredient Ointment (Analgesic [place]) 1 devika PRN QID PRN TP MUSCLE PAIN Last administered on 03/27/18 11:48; Start 02/20/18 at 18:45 Al Hydroxide/Mg Hydroxide (Mylanta Plus Xs) 15 ml PRN AFTMEALHC PRN PO DYSPEPSIA Last administered on 03/07/18at 09:56; Start 02/20/18 at 18:45 Magnesium Hydroxide (Milk Of Magnesia) 2,400 mg PRN QHS PRN PO CONSTIPATION; Start 02/20/18 at 18:45 Nystatin (Nystop) 1 devika BID TP Last administered on 04/03/18 11:30; Start at 21:00 Bupropion HCl (Wellbutrin) 75 mg DAILY PO Last administered on 02/26/18at 07:53 ; Start 02/24/18 at 09:00; Stop 02/27/18 at 08:59; Status DC Bupropion HCl (Wellbutrin) 75 mg BIDACBL PO Last administered on 03/17/18 14:16 ; Start 02/27/18 at 08:00; Stop 03/17/18 at 18:46; Status DC Divalproex Sodium (Depakote Er) 1,000 mg QHS PO Last administered on at 19:46; Start 02/26/18 at 21:00; Stop 02/28/18 at 19:35; Status DC Divalproex Sodium (Depakote Sprinkles) 1,000 mg HS PO Last administered on at 18:50; Start 02/28/18 at 21:00; Stop 03/04/18 at 18:24; Status DC Quetiapine Fumarate (SEROquel) 25 mg QHS PO Last administered on 03/11/18 19:35 ; Start 03/01/18 at 21:00; Stop 03/12/18 at 11:05; Status DC Tamsulosin HCl (Flomax) 0.4 mg HS PO Last administered on 03/02/18at 20:26; Start 03/01/18 at 21:00; Stop 03/03/18 at 12:25; Status DC Mirtazapine (Remeron) 7.5 mg QHS PO Last administered on 03/10/18 19:28; Start 03/01/18 at 21:00; Stop 03/11/18 at 18:17; Status DC Tamsulosin HCl (Flomax) 0.4 mg BID PO Last administered on 04/03/18 19:39; Start 03/03/18 at 21:00 Amoxicillin (Amoxil) 500 mg [id number] PO Last administered on 03/14/18 19:28; Start 03/04/18 at 21:00; Stop 03/15/18 at 09:14; Status DC Divalproex Sodium (Depakote Er) 500 mg BID PO Last administered on 03/05/18at 19:44; Start 03/04/18 at 21:00; Stop 03/05/18 at 23:00; Status DC Lactobacillus Rhamnosus (Culturelle) 1 cap BID PO Last administered on 19:28; Start 03/05/18 at 21:00; Stop 03/15/18 at 09:14; Status DC Divalproex Sodium (Depakote Er) 1,000 mg QHS PO Last administered on 03/14/18 19:29; Start 03/06/18 at 21:00; Stop 03/15/18 at 21:12; Status DC Quetiapine Fumarate (SEROquel) 12.5 mg DAILY@1700 PO Last administered on 16:20; Start 03/11/18 at 17:00; Stop 03/17/18 at 18:46; Status DC Loperamide HCl (Imodium) 2 mg PRN Q1HR PRN PO DIARRHEA Last administered on 03/11 16:16; Start 03/11/18 at 16:15 Mirtazapine (Remeron) 15 mg QHS PO Last administered on 04/03/18 19:39; Start 03/11/18 at 21:00 Quetiapine Fumarate (SEROquel) 25 mg BID PO Last administered on 03/13/18 07:55 ; Start 03/12/18 at 21:00; Stop 03/13/18 at 16:36; Status DC Quetiapine Fumarate (SEROquel) 25 mg QHS PO Last administered on 1/10/19at 19: 21; Start 03/13/18 at 21:00; Stop 03/20/18 at 19:30; Status DC Olanzapine (ZyPREXA ZYDIS) 2.5 mg PRN Q2HR PRN PO PSYCHOSIS Last administered on 03/24/18at 15:09; Start 03/14/18 at 12:00; Stop 03/26/18 at 10:20; Status DC Trazodone HCl (Desyrel) 50 mg PRN QHS PRN PO INSOMNIA, MAY REPEAT X1 Last administered on 03/28/18at 19:48; Start 03/14/18 at 21:45 Buspirone HCl (Buspar) 5 mg [id number] PO Last administered on 03/18/18at 11:19; Start 03/16/18 at 09:00; Stop 03/18/18 at 14:47; Status DC Divalproex Sodium (Depakote Sprinkles) 500 mg BID PO Last administered on at 11:43; Start 03/15/18 at 21:15; Stop 03/26/18 at 12:10; Status DC Quetiapine Fumarate (SEROquel) 12.5 mg 0900,1700 PO Last administered on at 17:50; Start 03/18/18 at 09:00 Buspirone HCl (Buspar) 10 mg BID@0900,1700 PO Last administered on 04/03/18at 17 :50; Start 03/18/18 at 17:00 Rivastigmine (Exelon) 1 patch DAILY TD Last administered on 03/24/18at 12:02; Start 03/20/18 at 09:00; Stop 03/24/18 at 11:01; Status DC Rivastigmine (Exelon) 1 patch DAILY TD Last administered on 04/03/18at 12:08; Start 03/25/18 at 09:00 Memantine (Namenda) 5 mg HS PO Last administered on 03/21/18at 20:19; Start 12/26 at 21:00; Stop 03/21/18 at 23:00; Status DC Memantine (Namenda) 5 mg BID PO Last administered on 03/24/18at 12:02; Start at 09:00; Stop 03/24/18 at 17:21; Status DC Olanzapine (ZyPREXA IM) 5 mg 1X ONCE IM Last administered on 03/19/18at 20:05; Start 03/19/18 at 19:45; Stop 03/19/18 at 19:46; Status DC Olanzapine (ZyPREXA IM) 5 mg 1X ONCE IM Last administered on 03/20/18at 19:39; Start 03/20/18 at 19:15; Stop 03/20/18 at 19:16; Status DC Quetiapine Fumarate (SEROquel) 50 mg QHS PO Last administered on 04/03/18at 19: 39; Start 03/20/18 at 21:00 Quetiapine Fumarate (SEROquel) 25 mg PRN Q8HRS PRN PO agitation/aggression; Start 03/20/18 at 19:30 Olanzapine (ZyPREXA IM) 5 mg 1X ONCE IM Last administered on 03/21/18at 17:18; Start 03/21/18 at 17:30; Stop 03/21/18 at 17:31; Status DC Olanzapine (ZyPREXA IM) 5 mg 1X ONCE IM Last administered on 03/21/18at 19:45; Start 03/21/18 at 19:45; Stop 03/21/18 at 19:46; Status DC Olanzapine (ZyPREXA IM) 5 mg DAILY PRN IM PSYCHOSIS Last administered on at 21:01; Start 03/22/18 at 11:45; Stop 03/26/18 at 08:09; Status DC Sertraline HCl (Zoloft) 25 mg DAILY PO Last administered on 03/25/18at 11:25; Start 03/24/18 at 09:00; Stop 03/25/18 at 11:00; Status DC Sertraline HCl (Zoloft) 50 mg DAILY PO Last administered on 04/03/18at 12:06; Start 03/26/18 at 09:00 Memantine (Namenda) 10 mg BID PO Last administered on 04/03/18at 19:39; Start at 21:00 Olanzapine (ZyPREXA ZYDIS) 5 mg PRN Q2HR PRN PO PSYCHOSIS Last administered on 03/28/18at 15:44; Start 03/26/18 at 10:30 Divalproex Sodium (Depakote Sprinkles) 500 mg DAILY PO Last administered on at 11:58; Start 03/27/18 at 09:00; Stop 03/29/18 at 18:25; Status DC Divalproex Sodium (Depakote Sprinkles) 750 mg HS PO Last administered on 19:39; Start 03/26/18 at 21:00 Divalproex Sodium (Depakote Sprinkles) 750 mg DAILY PO Last administered on 12:03; Start 03/30/18 at 09:00 Amoxicillin (Amoxil) 500 mg [id number] PO Last administered on 04/03/18 19:39; Start 04/01/18 at 21:00; Stop 04/08/18 at 20:59 Lactobacillus Rhamnosus (Culturelle) 1 cap BID PO Last administered on 19:39; Start 04/01/18 at 21:00 Doxycycline Hyclate (Vibra-Tab) 100 mg BID PO Last administered on 04/03/18 19 :40; Start 04/03/18 at 21:00; Stop 04/13/18 at 09:01 Active Scripts Active Reported Plavix (Clopidogrel Bisulfate) 75 Mg Tablet 75 Mg PO DAILY Lorazepam 0.5 Mg Tablet 1 Mg PO PRN Q8HRS PRN Flomax (Tamsulosin Hcl) 0.4 Mg Cap.er.24h 0.4 Mg PO HS PRN Depakote Sprinkle (Divalproex Sodium) 125 Mg Cap.sprink 500 Mg PO TID Colace (Docusate Sodium) 100 Mg Capsule 100 Mg PO BID Vitamin D (Cholecalciferol (Vitamin D3)) 1,000 Unit Capsule 2,000 Unit PO DAILY Atorvastatin Calcium 20 Mg Tablet 20 Mg PO QHS Atenolol 100 Mg Tablet 100 Mg PO DAILY Tylenol (Acetaminophen) 325 Mg Tablet 650 Mg PO PRN Q4HRS PRN I have reviewed the current psychotropics carefully including drug interactions. Risk benefit ratio favors no change other than as noted in my dictated progress note. 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
[2018-04-04] MEDS: NYSTATIN TOPICAL POWDER 15GM BOTTLE. TP SCH ×3 (02:03→21:44)
[2018-04-04 06:29] VITALS: BP 165/93
[2018-04-04] MEDS: AMOXICILLIN 250 MG CAPSULE PO SCH ×3 (12:25→19:45)
[2018-04-04] MEDS: busPIRone 10 MG TABLET. PO SCH ×2 (12:26→17:39)
[2018-04-04] MEDS: DOCUSATE SODIUM 100 MG CAPSULE PO SCH ×2 (12:26→19:44)
[2018-04-04] MEDS: QUEtiapine 25 MG TABLET. PO SCH ×2 (12:26→17:39)
[2018-04-04] MEDS: TAMSULOSIN 0.4 MG CAP.ER.24H. PO SCH ×2 (12:26→19:44)
[2018-04-04] MEDS: LACTOBACILLUS RHAMNOSUS GG 1 CAPSULE. PO SCH ×2 (12:26→19:43)
[2018-04-04] MEDS: DIVALPROEX 125 MG CAP.SPRINK PO SCH ×2 (12:26→19:43)
[2018-04-04] MEDS: MEMANTINE 10 MG TABLET. PO SCH ×2 (12:26→19:43)
[2018-04-04] MEDS: CLOPIDOGREL BISULFATE 75 MG TABLET PO SCH (12:26)
[2018-04-04] MEDS: ATENOLOL 50 MG TABLET PO SCH (12:27)
[2018-04-04] MEDS: SERTRALINE 50 MG TABLET. PO SCH (12:27)
[2018-04-04] MEDS: RIVASTIGMINE 9.5MG PATCH. TD SCH (12:27)
[2018-04-04] MEDS: CHOLECALCIFEROL (VITAMIN D3) 1,000 UNIT TABLET PO SCH (12:27)
[2018-04-04] MEDS: DOXYCYCLINE HYCLATE 100 MG TABLET PO SCH ×2 (12:27→19:44)
[2018-04-04 15:52] VITALS: BP 120/62
[2018-04-04] MEDS: ATORVASTATIN CALCIUM 20 MG TABLET PO SCH (19:43)
[2018-04-04] MEDS: MIRTAZAPINE 15 MG TABLET PO SCH (19:44)
[2018-04-04] MEDS: QUEtiapine 50 MG TABLET. PO SCH (19:44)
--- NOTE | 2018-04-04 22:18 | PDOC ---
Exam Note: Pavel Note: Please also refer to the separate dictated note~for this date of service dictated separately.~Patient seen individually. Discussed the patient with Nursing staff reviewed the chart.~Reviewed interim history and current functioning. Reviewed vital signs,~Labs/ Radiology~and current medications noted below. Continue current treatment with the changes noted in the dictated addendum note Assessment: Vital Signs: Vital Signs Date Time Temp Pulse Resp B/P (MAP) Pulse Ox O2 Delivery O2 Flow Rate FiO2 04/04/18 15:52 97.9 65 20 120/62 (81) 97 04/01/18 12:00 Room Air I&O Intake and Output 04/04/18 07:01 Intake Total 960 ml Output Total 600 ml Balance 360 ml Intake Oral 960 ml Output Urine Total 600 ml # Voids 1 # Bowel Movements 6 Current Medications: Meds: Current Medications Acetaminophen (Tylenol) 650 mg PRN Q4HRS PRN PO PAIN / TEMP Last administered on 03/31/18 21:15; Start 02/20/18 at 18:30 Atorvastatin Calcium (Lipitor) 20 mg QHS PO Last administered on 04/04/18 19: 43; Start 02/20/18 at 21:00 Clopidogrel Bisulfate (Plavix) 75 mg DAILY PO Last administered on 04/04/18 12 :26; Start 02/21/18 at 09:00 Tamsulosin HCl (Flomax) 0.4 mg PRN QHS PRN PO retention; Start 02/20/18 at 18: 30; Stop 03/01/18 at 11:14; Status DC Atenolol (Tenormin) 100 mg DAILY PO Last administered on 04/04/18 12:27; Start 02/21/18 at 09:00 Vitamin D (Vitamin D3) 2,000 unit DAILY PO Last administered on 04/04/18 12:27 ; Start 02/21/18 at 09:00 Divalproex Sodium (Depakote Sprinkles) 500 mg TID PO Last administered on 02/26at 07:53; Start 02/20/18 at 21:00; Stop 02/26/18 at 10:36; Status DC Docusate Sodium (Colace) 100 mg BID PO Last administered on 04/04/18 19:44; Start 02/20/18 at 21:00 Lorazepam (Ativan) 1 mg PRN Q8HRS PRN PO ANXIETY / AGITATION Last administered on 03/26/18 21:07; Start 02/20/18 at 19:00 Multi-Ingredient Ointment (Analgesic [place]) 1 devika PRN QID PRN TP MUSCLE PAIN Last administered on 03/27/18 11:48; Start 02/20/18 at 18:45 Al Hydroxide/Mg Hydroxide (Mylanta Plus Xs) 15 ml PRN AFTMEALHC PRN PO DYSPEPSIA Last administered on 03/07/18 09:56; Start 02/20/18 at 18:45 Magnesium Hydroxide (Milk Of Magnesia) 2,400 mg PRN QHS PRN PO CONSTIPATION; Start 02/20/18 at 18:45 Nystatin (Nystop) 1 devika BID TP Last administered on 04/04/18 21:44; Start at 21:00 Bupropion HCl (Wellbutrin) 75 mg DAILY PO Last administered on 02/26/18at 07:53 ; Start 02/24/18 at 09:00; Stop 02/27/18 at 08:59; Status DC Bupropion HCl (Wellbutrin) 75 mg BIDACBL PO Last administered on 03/17/18 14:16 ; Start 02/27/18 at 08:00; Stop 03/17/18 at 18:46; Status DC Divalproex Sodium (Depakote Er) 1,000 mg QHS PO Last administered on at 19:46; Start 02/26/18 at 21:00; Stop 02/28/18 at 19:35; Status DC Divalproex Sodium (Depakote Sprinkles) 1,000 mg HS PO Last administered on at 18:50; Start 02/28/18 at 21:00; Stop 03/04/18 at 18:24; Status DC Quetiapine Fumarate (SEROquel) 25 mg QHS PO Last administered on 03/11/18 19:35 ; Start 03/01/18 at 21:00; Stop 03/12/18 at 11:05; Status DC Tamsulosin HCl (Flomax) 0.4 mg HS PO Last administered on 03/02/18at 20:26; Start 12/23/18 at 21:00; Stop 03/03/18 at 12:25; Status DC Mirtazapine (Remeron) 7.5 mg QHS PO Last administered on 03/10/18 19:28; Start 03/01/18 at 21:00; Stop 03/11/18 at 18:17; Status DC Tamsulosin HCl (Flomax) 0.4 mg BID PO Last administered on 04/04/18 19:44; Start 03/03/18 at 21:00 Amoxicillin (Amoxil) 500 mg [id number] PO Last administered on 03/14/18 19:28; Start 03/04/18 at 21:00; Stop 03/15/18 at 09:14; Status DC Divalproex Sodium (Depakote Er) 500 mg BID PO Last administered on 03/05/18at 19:44; Start 03/04/18 at 21:00; Stop 03/05/18 at 23:00; Status DC Lactobacillus Rhamnosus (Culturelle) 1 cap BID PO Last administered on 19:28; Start 03/05/18 at 21:00; Stop 03/15/18 at 09:14; Status DC Divalproex Sodium (Depakote Er) 1,000 mg QHS PO Last administered on 03/14/18 19:29; Start 03/06/18 at 21:00; Stop 03/15/18 at 21:12; Status DC Quetiapine Fumarate (SEROquel) 12.5 mg DAILY@1700 PO Last administered on 16:20; Start 03/11/18 at 17:00; Stop 03/17/18 at 18:46; Status DC Loperamide HCl (Imodium) 2 mg PRN Q1HR PRN PO DIARRHEA Last administered on 03/11 16:16; Start 03/11/18 at 16:15 Mirtazapine (Remeron) 15 mg QHS PO Last administered on 04/04/18 19:44; Start 03/11/18 at 21:00 Quetiapine Fumarate (SEROquel) 25 mg BID PO Last administered on 03/13/18 07:55 ; Start 03/12/18 at 21:00; Stop 03/13/18 at 16:36; Status DC Quetiapine Fumarate (SEROquel) 25 mg QHS PO Last administered on 03/19/18at 19: 21; Start 03/13/18 at 21:00; Stop 03/20/18 at 19:30; Status DC Olanzapine (ZyPREXA ZYDIS) 2.5 mg PRN Q2HR PRN PO PSYCHOSIS Last administered on 03/24/18at 15:09; Start 03/14/18 at 12:00; Stop 03/26/18 at 10:20; Status DC Trazodone HCl (Desyrel) 50 mg PRN QHS PRN PO INSOMNIA, MAY REPEAT X1 Last administered on 03/28/18at 19:48; Start 03/14/18 at 21:45 Buspirone HCl (Buspar) 5 mg [id number] PO Last administered on 03/18/18at 11:19; Start 03/16/18 at 09:00; Stop 03/18/18 at 14:47; Status DC Divalproex Sodium (Depakote Sprinkles) 500 mg BID PO Last administered on at 11:43; Start 03/15/18 at 21:15; Stop 03/26/18 at 12:10; Status DC Quetiapine Fumarate (SEROquel) 12.5 mg 0900,1700 PO Last administered on at 17:39; Start 03/18/18 at 09:00 Buspirone HCl (Buspar) 10 mg BID@0900,1700 PO Last administered on 04/04/18at 17 :39; Start 03/18/18 at 17:00 Rivastigmine (Exelon) 1 patch DAILY TD Last administered on 03/24/18at 12:02; Start 03/20/18 at 09:00; Stop 03/24/18 at 11:01; Status DC Rivastigmine (Exelon) 1 patch DAILY TD Last administered on 04/04/18at 12:27; Start 03/25/18 at 09:00 Memantine (Namenda) 5 mg HS PO Last administered on 03/21/18at 20:19; Start 12/26 at 21:00; Stop 03/21/18 at 23:00; Status DC Memantine (Namenda) 5 mg BID PO Last administered on 03/24/18at 12:02; Start at 09:00; Stop 03/24/18 at 17:21; Status DC Olanzapine (ZyPREXA IM) 5 mg 1X ONCE IM Last administered on 03/19/18at 20:05; Start 03/19/18 at 19:45; Stop 03/19/18 at 19:46; Status DC Olanzapine (ZyPREXA IM) 5 mg 1X ONCE IM Last administered on 03/20/18at 19:39; Start 03/20/18 at 19:15; Stop 03/20/18 at 19:16; Status DC Quetiapine Fumarate (SEROquel) 50 mg QHS PO Last administered on 04/04/18at 19: 44; Start 03/20/18 at 21:00 Quetiapine Fumarate (SEROquel) 25 mg PRN Q8HRS PRN PO agitation/aggression; Start 03/20/18 at 19:30 Olanzapine (ZyPREXA IM) 5 mg 1X ONCE IM Last administered on 03/21/18at 17:18; Start 03/21/18 at 17:30; Stop 03/21/18 at 17:31; Status DC Olanzapine (ZyPREXA IM) 5 mg 1X ONCE IM Last administered on 03/21/18at 19:45; Start 03/21/18 at 19:45; Stop 03/21/18 at 19:46; Status DC Olanzapine (ZyPREXA IM) 5 mg DAILY PRN IM PSYCHOSIS Last administered on at 21:01; Start 03/22/18 at 11:45; Stop 03/26/18 at 08:09; Status DC Sertraline HCl (Zoloft) 25 mg DAILY PO Last administered on 03/25/18at 11:25; Start 03/24/18 at 09:00; Stop 03/25/18 at 11:00; Status DC Sertraline HCl (Zoloft) 50 mg DAILY PO Last administered on 04/04/18at 12:27; Start 03/26/18 at 09:00 Memantine (Namenda) 10 mg BID PO Last administered on 04/04/18at 19:43; Start at 21:00 Olanzapine (ZyPREXA ZYDIS) 5 mg PRN Q2HR PRN PO PSYCHOSIS Last administered on 03/28/18at 15:44; Start 03/26/18 at 10:30 Divalproex Sodium (Depakote Sprinkles) 500 mg DAILY PO Last administered on at 11:58; Start 03/27/18 at 09:00; Stop 03/29/18 at 18:25; Status DC Divalproex Sodium (Depakote Sprinkles) 750 mg HS PO Last administered on 19:43; Start 03/26/18 at 21:00 Divalproex Sodium (Depakote Sprinkles) 750 mg DAILY PO Last administered on 12:26; Start 03/30/18 at 09:00 Amoxicillin (Amoxil) 500 mg [id number] PO Last administered on 04/04/18 19:45; Start 04/01/18 at 21:00; Stop 04/08/18 at 20:59 Lactobacillus Rhamnosus (Culturelle) 1 cap BID PO Last administered on 19:43; Start 04/01/18 at 21:00 Doxycycline Hyclate (Vibra-Tab) 100 mg BID PO Last administered on 04/04/18 19 :44; Start 04/03/18 at 21:00; Stop 04/13/18 at 09:01 Active Scripts Active Reported Plavix (Clopidogrel Bisulfate) 75 Mg Tablet 75 Mg PO DAILY Lorazepam 0.5 Mg Tablet 1 Mg PO PRN Q8HRS PRN Flomax (Tamsulosin Hcl) 0.4 Mg Cap.er.24h 0.4 Mg PO HS PRN Depakote Sprinkle (Divalproex Sodium) 125 Mg Cap.sprink 500 Mg PO TID Colace (Docusate Sodium) 100 Mg Capsule 100 Mg PO BID Vitamin D (Cholecalciferol (Vitamin D3)) 1,000 Unit Capsule 2,000 Unit PO DAILY Atorvastatin Calcium 20 Mg Tablet 20 Mg PO QHS Atenolol 100 Mg Tablet 100 Mg PO DAILY Tylenol (Acetaminophen) 325 Mg Tablet 650 Mg PO PRN Q4HRS PRN I have reviewed the current psychotropics carefully including drug interactions. Risk benefit ratio favors no change other than as noted in my dictated progress note. 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
[2018-04-04] MEDS: METHYL SALICYLATE/MENTHOL TOPICAL OINTMENT 29GM TUBE. TP PRN (23:22)
[2018-04-04] MEDS: traZODone 50 MG TABLET. PO PRN (23:22)
[2018-04-04] MEDS: ACETAMINOPHEN 325 MG TABLET PO PRN (23:22)
--- NOTE | 2018-04-05 05:16 | PN ---
DATE: 04/03/2018 PSYCHIATRIC PROGRESS NOTE This late entry of date of service 04/03/2018, covers elements not covered in my initial note. SUBJECTIVE: I met with the patient in the evening. The patient slept 6-1/2 hours previous night. Urine is positive for MRSA, started on doxycycline, slept in the morning. Family visited him at lunch, spent some time in the day room, done better behaviorally. REVIEW OF SYSTEMS: Ambulation impaired with walker, difficulty with urination. No CV, pulmonary, eye, ENT system symptoms on review. Reliability poor. MENTAL STATUS EXAM: Oriented to himself and situation. Speech has some latency, often responses monosyllabic. Abstraction fair, computation impaired, language function intact, attention span short. Mood and affect somewhat anxious, labile. LABORATORY DATA: Reviewed. IMPRESSION: Major neurocognitive disorder, Lewy body with delusion, depression, behavioral disturbance. Rest unchanged. PLAN: No change from initial note and treat the UTI as indicated. MAN Diony JORGE MD DR: LOVE/lilly JOB#: [id number] / [id number]
[2018-04-05 05:57] VITALS: BP 159/81
[2018-04-05] MEDS: ATENOLOL 50 MG TABLET PO SCH (09:00)
[2018-04-05] MEDS: AMOXICILLIN 250 MG CAPSULE PO SCH ×2 (09:24→12:19)
[2018-04-05] MEDS: busPIRone 10 MG TABLET. PO SCH ×2 (09:26→17:23)
[2018-04-05] MEDS: TAMSULOSIN 0.4 MG CAP.ER.24H. PO SCH ×2 (09:26→20:36)
[2018-04-05] MEDS: LACTOBACILLUS RHAMNOSUS GG 1 CAPSULE. PO SCH ×2 (09:26→20:35)
[2018-04-05] MEDS: DOCUSATE SODIUM 100 MG CAPSULE PO SCH ×2 (09:26→20:35)
[2018-04-05] MEDS: DIVALPROEX 125 MG CAP.SPRINK PO SCH ×2 (09:26→20:35)
[2018-04-05] MEDS: RIVASTIGMINE 9.5MG PATCH. TD SCH (09:27)
[2018-04-05] MEDS: CHOLECALCIFEROL (VITAMIN D3) 1,000 UNIT TABLET PO SCH (09:27)
[2018-04-05] MEDS: SERTRALINE 50 MG TABLET. PO SCH (09:27)
[2018-04-05] MEDS: DOXYCYCLINE HYCLATE 100 MG TABLET PO SCH ×2 (09:27→20:35)
[2018-04-05] MEDS: CLOPIDOGREL BISULFATE 75 MG TABLET PO SCH (09:27)
[2018-04-05] MEDS: MEMANTINE 10 MG TABLET. PO SCH ×2 (09:27→20:35)
[2018-04-05] MEDS: QUEtiapine 25 MG TABLET. PO SCH ×2 (09:27→17:23)
[2018-04-05] MEDS: NYSTATIN TOPICAL POWDER 15GM BOTTLE. TP SCH ×2 (09:28→20:36)
[2018-04-05 16:14] VITALS: BP 135/81
[2018-04-05] MEDS: ATORVASTATIN CALCIUM 20 MG TABLET PO SCH (20:35)
[2018-04-05] MEDS: QUEtiapine 50 MG TABLET. PO SCH (20:35)
[2018-04-05] MEDS: traZODone 50 MG TABLET. PO PRN (20:35)
[2018-04-05] MEDS: MIRTAZAPINE 15 MG TABLET PO SCH (20:36)
--- NOTE | 2018-04-05 22:59 | PDOC ---
Exam Note: Pavel Note: Please also refer to the separate dictated note~for this date of service dictated separately.~Patient seen individually. Discussed the patient with Nursing staff reviewed the chart.~Reviewed interim history and current functioning. Reviewed vital signs,~Labs/ Radiology~and current medications noted below. Continue current treatment with the changes noted in the dictated addendum note Assessment: Vital Signs: Vital Signs Date Time Temp Pulse Resp B/P (MAP) Pulse Ox O2 Delivery O2 Flow Rate FiO2 04/05/18 16:14 98.6 71 18 135/81 (99) 98 04/01/18 12:00 Room Air I&O Intake and Output 04/05/18 07:01 Intake Total 840 ml Output Total 1400 ml Balance -560 ml Intake Oral 840 ml Output Urine Total 1400 ml # Bowel Movements 2 Current Medications: Meds: Current Medications Acetaminophen (Tylenol) 650 mg PRN Q4HRS PRN PO PAIN / TEMP Last administered on 04/04/18 23:22; Start 02/20/18 at 18:30 Atorvastatin Calcium (Lipitor) 20 mg QHS PO Last administered on 04/05/18 20: 35; Start 02/20/18 at 21:00 Clopidogrel Bisulfate (Plavix) 75 mg DAILY PO Last administered on 04/05/18 09 :27; Start 02/21/18 at 09:00 Tamsulosin HCl (Flomax) 0.4 mg PRN QHS PRN PO retention; Start 02/20/18 at 18: 30; Stop 03/01/18 at 11:14; Status DC Atenolol (Tenormin) 100 mg DAILY PO Last administered on 04/04/18 12:27; Start 02/21/18 at 09:00 Vitamin D (Vitamin D3) 2,000 unit DAILY PO Last administered on 04/05/18 09:27 ; Start 02/21/18 at 09:00 Divalproex Sodium (Depakote Sprinkles) 500 mg TID PO Last administered on 02/26at 07:53; Start 02/20/18 at 21:00; Stop 02/26/18 at 10:36; Status DC Docusate Sodium (Colace) 100 mg BID PO Last administered on 04/05/18 20:35; Start 02/20/18 at 21:00 Lorazepam (Ativan) 1 mg PRN Q8HRS PRN PO ANXIETY / AGITATION Last administered on 03/26/18 21:07; Start 02/20/18 at 19:00 Multi-Ingredient Ointment (Analgesic [place]) 1 devika PRN QID PRN TP MUSCLE PAIN Last administered on 04/04/18 23:22; Start 02/20/18 at 18:45 Al Hydroxide/Mg Hydroxide (Mylanta Plus Xs) 15 ml PRN AFTMEALHC PRN PO DYSPEPSIA Last administered on 03/07/18at 09:56; Start 02/20/18 at 18:45 Magnesium Hydroxide (Milk Of Magnesia) 2,400 mg PRN QHS PRN PO CONSTIPATION; Start 02/20/18 at 18:45 Nystatin (Nystop) 1 devika BID TP Last administered on 04/05/18at 20:36; Start at 21:00 Bupropion HCl (Wellbutrin) 75 mg DAILY PO Last administered on 02/26/18at 07:53 ; Start 02/24/18 at 09:00; Stop 02/27/18 at 08:59; Status DC Bupropion HCl (Wellbutrin) 75 mg BIDACBL PO Last administered on 03/17/18 14:16 ; Start 02/27/18 at 08:00; Stop 03/17/18 at 18:46; Status DC Divalproex Sodium (Depakote Er) 1,000 mg QHS PO Last administered on at 19:46; Start 02/26/18 at 21:00; Stop 02/28/18 at 19:35; Status DC Divalproex Sodium (Depakote Sprinkles) 1,000 mg HS PO Last administered on at 18:50; Start 02/28/18 at 21:00; Stop 03/04/18 at 18:24; Status DC Quetiapine Fumarate (SEROquel) 25 mg QHS PO Last administered on 03/11/18 19:35 ; Start 03/01/18 at 21:00; Stop 03/12/18 at 11:05; Status DC Tamsulosin HCl (Flomax) 0.4 mg HS PO Last administered on 03/02/18at 20:26; Start 03/01/18 at 21:00; Stop 03/03/18 at 12:25; Status DC Mirtazapine (Remeron) 7.5 mg QHS PO Last administered on 03/10/18 19:28; Start 03/01/18 at 21:00; Stop 03/11/18 at 18:17; Status DC Tamsulosin HCl (Flomax) 0.4 mg BID PO Last administered on 04/05/18 20:36; Start 03/03/18 at 21:00 Amoxicillin (Amoxil) 500 mg [id number] PO Last administered on 03/14/18 19:28; Start 03/04/18 at 21:00; Stop 03/15/18 at 09:14; Status DC Divalproex Sodium (Depakote Er) 500 mg BID PO Last administered on 03/05/18at 19:44; Start 03/04/18 at 21:00; Stop 03/05/18 at 23:00; Status DC Lactobacillus Rhamnosus (Culturelle) 1 cap BID PO Last administered on 19:28; Start 03/05/18 at 21:00; Stop 03/15/18 at 09:14; Status DC Divalproex Sodium (Depakote Er) 1,000 mg QHS PO Last administered on 03/14/18 19:29; Start 03/06/18 at 21:00; Stop 03/15/18 at 21:12; Status DC Quetiapine Fumarate (SEROquel) 12.5 mg DAILY@1700 PO Last administered on 16:20; Start 03/11/18 at 17:00; Stop 03/17/18 at 18:46; Status DC Loperamide HCl (Imodium) 2 mg PRN Q1HR PRN PO DIARRHEA Last administered on 03/11 16:16; Start 03/11/18 at 16:15 Mirtazapine (Remeron) 15 mg QHS PO Last administered on 04/05/18 20:36; Start 03/11/18 at 21:00 Quetiapine Fumarate (SEROquel) 25 mg BID PO Last administered on 03/13/18 07:55 ; Start 03/12/18 at 21:00; Stop 03/13/18 at 16:36; Status DC Quetiapine Fumarate (SEROquel) 25 mg QHS PO Last administered on 03/19/18at 19: 21; Start 03/13/18 at 21:00; Stop 03/20/18 at 19:30; Status DC Olanzapine (ZyPREXA ZYDIS) 2.5 mg PRN Q2HR PRN PO PSYCHOSIS Last administered on 03/24/18at 15:09; Start 03/14/18 at 12:00; Stop 03/26/18 at 10:20; Status DC Trazodone HCl (Desyrel) 50 mg PRN QHS PRN PO INSOMNIA, MAY REPEAT X1 Last administered on 04/05/18at 20:35; Start 03/14/18 at 21:45 Buspirone HCl (Buspar) 5 mg [id number] PO Last administered on 03/18/18at 11:19; Start 03/16/18 at 09:00; Stop 03/18/18 at 14:47; Status DC Divalproex Sodium (Depakote Sprinkles) 500 mg BID PO Last administered on at 11:43; Start 03/15/18 at 21:15; Stop 03/26/18 at 12:10; Status DC Quetiapine Fumarate (SEROquel) 12.5 mg 0900,1700 PO Last administered on at 17:23; Start 03/18/18 at 09:00 Buspirone HCl (Buspar) 10 mg BID@0900,1700 PO Last administered on 04/05/18at 17 :23; Start 03/18/18 at 17:00 Rivastigmine (Exelon) 1 patch DAILY TD Last administered on 03/24/18at 12:02; Start 03/20/18 at 09:00; Stop 03/24/18 at 11:01; Status DC Rivastigmine (Exelon) 1 patch DAILY TD Last administered on 04/05/18at 09:27; Start 03/25/18 at 09:00 Memantine (Namenda) 5 mg HS PO Last administered on 03/21/18at 20:19; Start 12/26 at 21:00; Stop 03/21/18 at 23:00; Status DC Memantine (Namenda) 5 mg BID PO Last administered on 03/24/18at 12:02; Start at 09:00; Stop 03/24/18 at 17:21; Status DC Olanzapine (ZyPREXA IM) 5 mg 1X ONCE IM Last administered on 03/19/18at 20:05; Start 03/19/18 at 19:45; Stop 03/19/18 at 19:46; Status DC Olanzapine (ZyPREXA IM) 5 mg 1X ONCE IM Last administered on 03/20/18at 19:39; Start 03/20/18 at 19:15; Stop 03/20/18 at 19:16; Status DC Quetiapine Fumarate (SEROquel) 50 mg QHS PO Last administered on 04/05/18at 20: 35; Start 03/20/18 at 21:00 Quetiapine Fumarate (SEROquel) 25 mg PRN Q8HRS PRN PO agitation/aggression; Start 03/20/18 at 19:30 Olanzapine (ZyPREXA IM) 5 mg 1X ONCE IM Last administered on 03/21/18at 17:18; Start 03/21/18 at 17:30; Stop 03/21/18 at 17:31; Status DC Olanzapine (ZyPREXA IM) 5 mg 1X ONCE IM Last administered on 03/21/18at 19:45; Start 03/21/18 at 19:45; Stop 03/21/18 at 19:46; Status DC Olanzapine (ZyPREXA IM) 5 mg DAILY PRN IM PSYCHOSIS Last administered on at 21:01; Start 03/22/18 at 11:45; Stop 03/26/18 at 08:09; Status DC Sertraline HCl (Zoloft) 25 mg DAILY PO Last administered on 03/25/18at 11:25; Start 03/24/18 at 09:00; Stop 03/25/18 at 11:00; Status DC Sertraline HCl (Zoloft) 50 mg DAILY PO Last administered on 04/05/18at 09:27; Start 03/26/18 at 09:00 Memantine (Namenda) 10 mg BID PO Last administered on 04/05/18at 20:35; Start at 21:00 Olanzapine (ZyPREXA ZYDIS) 5 mg PRN Q2HR PRN PO PSYCHOSIS Last administered on 03/28/18at 15:44; Start 03/26/18 at 10:30 Divalproex Sodium (Depakote Sprinkles) 500 mg DAILY PO Last administered on at 11:58; Start 03/27/18 at 09:00; Stop 03/29/18 at 18:25; Status DC Divalproex Sodium (Depakote Sprinkles) 750 mg HS PO Last administered on at 20:35; Start 03/26/18 at 21:00 Divalproex Sodium (Depakote Sprinkles) 750 mg DAILY PO Last administered on at 09:26; Start 03/30/18 at 09:00 Amoxicillin (Amoxil) 500 mg [id number] PO Last administered on 04/04/18at 19:45; Start 04/01/18 at 21:00; Stop 04/05/18 at 19:20; Status DC Lactobacillus Rhamnosus (Culturelle) 1 cap BID PO Last administered on at 20:35; Start 04/01/18 at 21:00 Doxycycline Hyclate (Vibra-Tab) 100 mg BID PO Last administered on 04/05/18at 20 :35; Start 04/03/18 at 21:00; Stop 04/13/18 at 09:01 Active Scripts Active Reported Plavix (Clopidogrel Bisulfate) 75 Mg Tablet 75 Mg PO DAILY Lorazepam 0.5 Mg Tablet 1 Mg PO PRN Q8HRS PRN Flomax (Tamsulosin Hcl) 0.4 Mg Cap.er.24h 0.4 Mg PO HS PRN Depakote Sprinkle (Divalproex Sodium) 125 Mg Cap.sprink 500 Mg PO TID Colace (Docusate Sodium) 100 Mg Capsule 100 Mg PO BID Vitamin D (Cholecalciferol (Vitamin D3)) 1,000 Unit Capsule 2,000 Unit PO DAILY Atorvastatin Calcium 20 Mg Tablet 20 Mg PO QHS Atenolol 100 Mg Tablet 100 Mg PO DAILY Tylenol (Acetaminophen) 325 Mg Tablet 650 Mg PO PRN Q4HRS PRN I have reviewed the current psychotropics carefully including drug interactions. Risk benefit ratio favors no change other than as noted in my dictated progress note. 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
[2018-04-05] MEDS: ACETAMINOPHEN 325 MG TABLET PO PRN (23:49)
[2018-04-06] MEDS: traZODone 50 MG TABLET. PO PRN (01:32)
[2018-04-06 06:13] VITALS: BP 163/95
[2018-04-06] MEDS: DIVALPROEX 125 MG CAP.SPRINK PO SCH ×2 (07:47→20:10)
[2018-04-06] MEDS: QUEtiapine 25 MG TABLET. PO SCH ×2 (07:48→17:42)
[2018-04-06] MEDS: SERTRALINE 50 MG TABLET. PO SCH (07:50)
[2018-04-06] MEDS: CHOLECALCIFEROL (VITAMIN D3) 1,000 UNIT TABLET PO SCH (07:50)
[2018-04-06] MEDS: DOXYCYCLINE HYCLATE 100 MG TABLET PO SCH ×2 (07:50→20:09)
[2018-04-06] MEDS: busPIRone 10 MG TABLET. PO SCH ×2 (07:50→17:41)
[2018-04-06] MEDS: CLOPIDOGREL BISULFATE 75 MG TABLET PO SCH (07:51)
[2018-04-06] MEDS: MEMANTINE 10 MG TABLET. PO SCH ×2 (07:51→20:09)
[2018-04-06] MEDS: LACTOBACILLUS RHAMNOSUS GG 1 CAPSULE. PO SCH ×2 (07:52→20:09)
[2018-04-06] MEDS: DOCUSATE SODIUM 100 MG CAPSULE PO SCH ×2 (07:52→20:09)
[2018-04-06] MEDS: ATENOLOL 50 MG TABLET PO SCH (07:53)
[2018-04-06] MEDS: TAMSULOSIN 0.4 MG CAP.ER.24H. PO SCH ×2 (07:54→20:09)
[2018-04-06] MEDS: NYSTATIN TOPICAL POWDER 15GM BOTTLE. TP SCH ×2 (09:00→20:08)
[2018-04-06] MEDS: RIVASTIGMINE 9.5MG PATCH. TD SCH (13:07)
[2018-04-06 15:45] VITALS: BP 177/96
[2018-04-06] MEDS: MIRTAZAPINE 15 MG TABLET PO SCH (20:09)
[2018-04-06] MEDS: QUEtiapine 50 MG TABLET. PO SCH (20:09)
[2018-04-06] MEDS: ATORVASTATIN CALCIUM 20 MG TABLET PO SCH (20:09)
--- NOTE | 2018-04-06 22:45 | PN ---
DATE: 04/05/2018 This is a late entry for 04/05/2018 covers elements not covered in my initial note. SUBJECTIVE: I met with the patient in the evening. The patient slept 5 hours previous night. UA is MRSA positive. He does have an indwelling catheter. REVIEW OF SYSTEMS: Ambulation impaired with a wheelchair. No CV, , pulmonary, eye, ENT system symptoms on review. Reliability poor. He is aware of his catheter, resents this somewhat. MENTAL STATUS EXAM: Oriented to himself. Insight, judgment, recent and remote memory, attention, concentration, fund of knowledge poor, consistent with his diagnosis. IMPRESSION: Major neurocognitive disorder, Lewy body with delusion, depression, behavioral disturbance. Rest unchanged. PLAN: No change from initial note. Treat the UTI. Continue Depakote along with Seroquel, Remeron, BuSpar, Namenda, Exelon patch, Zyprexa and trazodone p.r.n. CANDELARIA JORGE MD DR: LOVE/lilly JOB#: [id number] / [id number]
--- NOTE | 2018-04-06 22:56 | PDOC ---
Exam Note: Pavel Note: Please also refer to the separate dictated note~for this date of service dictated separately.~Patient seen individually. Discussed the patient with Nursing staff reviewed the chart.~Reviewed interim history and current functioning. Reviewed vital signs,~Labs/ Radiology~and current medications noted below. Continue current treatment with the changes noted in the dictated addendum note Assessment: Vital Signs: Vital Signs Date Time Temp Pulse Resp B/P (MAP) Pulse Ox O2 Delivery O2 Flow Rate FiO2 04/06/18 15:45 98.3 72 22 177/96 (123) 98 04/06/18 06:13 Room Air I&O Intake and Output 04/06/18 07:01 Intake Total 1080 ml Balance 1080 ml Intake Oral 1080 ml Current Medications: Meds: Current Medications Acetaminophen (Tylenol) 650 mg PRN Q4HRS PRN PO PAIN / TEMP Last administered on 04/04/18 23:22; Start 02/20/18 at 18:30 Atorvastatin Calcium (Lipitor) 20 mg QHS PO Last administered on 04/06/18 20: 09; Start 02/20/18 at 21:00 Clopidogrel Bisulfate (Plavix) 75 mg DAILY PO Last administered on 04/06/18 07 :51; Start 02/21/18 at 09:00 Tamsulosin HCl (Flomax) 0.4 mg PRN QHS PRN PO retention; Start 02/20/18 at 18: 30; Stop 03/01/18 at 11:14; Status DC Atenolol (Tenormin) 100 mg DAILY PO Last administered on 04/06/18 07:53; Start 02/21/18 at 09:00 Vitamin D (Vitamin D3) 2,000 unit DAILY PO Last administered on 04/06/18 07:50 ; Start 02/21/18 at 09:00 Divalproex Sodium (Depakote Sprinkles) 500 mg TID PO Last administered on 02/26at 07:53; Start 02/20/18 at 21:00; Stop 02/26/18 at 10:36; Status DC Docusate Sodium (Colace) 100 mg BID PO Last administered on 04/06/18 20:09; Start 02/20/18 at 21:00 Lorazepam (Ativan) 1 mg PRN Q8HRS PRN PO ANXIETY / AGITATION Last administered on 03/26/18 21:07; Start 02/20/18 at 19:00 Multi-Ingredient Ointment (Analgesic [place]) 1 devika PRN QID PRN TP MUSCLE PAIN Last administered on 04/04/18 23:22; Start 02/20/18 at 18:45 Al Hydroxide/Mg Hydroxide (Mylanta Plus Xs) 15 ml PRN AFTMEALHC PRN PO DYSPEPSIA Last administered on 03/07/18at 09:56; Start 02/20/18 at 18:45 Magnesium Hydroxide (Milk Of Magnesia) 2,400 mg PRN QHS PRN PO CONSTIPATION; Start 02/20/18 at 18:45 Nystatin (Nystop) 1 devika BID TP Last administered on 04/06/18at 20:08; Start at 21:00 Bupropion HCl (Wellbutrin) 75 mg DAILY PO Last administered on 02/26/18at 07:53 ; Start 02/24/18 at 09:00; Stop 02/27/18 at 08:59; Status DC Bupropion HCl (Wellbutrin) 75 mg BIDACBL PO Last administered on 03/17/18 14:16 ; Start 02/27/18 at 08:00; Stop 03/17/18 at 18:46; Status DC Divalproex Sodium (Depakote Er) 1,000 mg QHS PO Last administered on at 19:46; Start 02/26/18 at 21:00; Stop 02/28/18 at 19:35; Status DC Divalproex Sodium (Depakote Sprinkles) 1,000 mg HS PO Last administered on at 18:50; Start 02/28/18 at 21:00; Stop 03/04/18 at 18:24; Status DC Quetiapine Fumarate (SEROquel) 25 mg QHS PO Last administered on 03/11/18 19:35 ; Start 03/01/18 at 21:00; Stop 03/12/18 at 11:05; Status DC Tamsulosin HCl (Flomax) 0.4 mg HS PO Last administered on 03/02/18at 20:26; Start 03/01/18 at 21:00; Stop 03/03/18 at 12:25; Status DC Mirtazapine (Remeron) 7.5 mg QHS PO Last administered on 03/10/18 19:28; Start 03/01/18 at 21:00; Stop 03/11/18 at 18:17; Status DC Tamsulosin HCl (Flomax) 0.4 mg BID PO Last administered on 04/06/18 20:09; Start 03/03/18 at 21:00 Amoxicillin (Amoxil) 500 mg [id number] PO Last administered on 03/14/18 19:28; Start 03/04/18 at 21:00; Stop 03/15/18 at 09:14; Status DC Divalproex Sodium (Depakote Er) 500 mg BID PO Last administered on 03/05/18at 19:44; Start 03/04/18 at 21:00; Stop 03/05/18 at 23:00; Status DC Lactobacillus Rhamnosus (Culturelle) 1 cap BID PO Last administered on 19:28; Start 03/05/18 at 21:00; Stop 03/15/18 at 09:14; Status DC Divalproex Sodium (Depakote Er) 1,000 mg QHS PO Last administered on 03/14/18 19:29; Start 03/06/18 at 21:00; Stop 03/15/18 at 21:12; Status DC Quetiapine Fumarate (SEROquel) 12.5 mg DAILY@1700 PO Last administered on 16:20; Start 03/11/18 at 17:00; Stop 03/17/18 at 18:46; Status DC Loperamide HCl (Imodium) 2 mg PRN Q1HR PRN PO DIARRHEA Last administered on 03/11 16:16; Start 03/11/18 at 16:15 Mirtazapine (Remeron) 15 mg QHS PO Last administered on 04/06/18 20:09; Start 03/11/18 at 21:00 Quetiapine Fumarate (SEROquel) 25 mg BID PO Last administered on 03/13/18 07:55 ; Start 03/12/18 at 21:00; Stop 03/13/18 at 16:36; Status DC Quetiapine Fumarate (SEROquel) 25 mg QHS PO Last administered on 1/10/19at 19: 21; Start 03/13/18 at 21:00; Stop 03/20/18 at 19:30; Status DC Olanzapine (ZyPREXA ZYDIS) 2.5 mg PRN Q2HR PRN PO PSYCHOSIS Last administered on 03/24/18at 15:09; Start 03/14/18 at 12:00; Stop 03/26/18 at 10:20; Status DC Trazodone HCl (Desyrel) 50 mg PRN QHS PRN PO INSOMNIA, MAY REPEAT X1 Last administered on 04/06/18at 01:32; Start 03/14/18 at 21:45 Buspirone HCl (Buspar) 5 mg [id number] PO Last administered on 03/18/18at 11:19; Start 03/16/18 at 09:00; Stop 03/18/18 at 14:47; Status DC Divalproex Sodium (Depakote Sprinkles) 500 mg BID PO Last administered on at 11:43; Start 03/15/18 at 21:15; Stop 03/26/18 at 12:10; Status DC Quetiapine Fumarate (SEROquel) 12.5 mg 0900,1700 PO Last administered on at 17:42; Start 03/18/18 at 09:00 Buspirone HCl (Buspar) 10 mg BID@0900,1700 PO Last administered on 04/06/18at 17 :41; Start 03/18/18 at 17:00 Rivastigmine (Exelon) 1 patch DAILY TD Last administered on 03/24/18at 12:02; Start 03/20/18 at 09:00; Stop 03/24/18 at 11:01; Status DC Rivastigmine (Exelon) 1 patch DAILY TD Last administered on 04/06/18at 13:07; Start 03/25/18 at 09:00 Memantine (Namenda) 5 mg HS PO Last administered on 03/21/18at 20:19; Start 12/26 at 21:00; Stop 03/21/18 at 23:00; Status DC Memantine (Namenda) 5 mg BID PO Last administered on 03/24/18at 12:02; Start at 09:00; Stop 03/24/18 at 17:21; Status DC Olanzapine (ZyPREXA IM) 5 mg 1X ONCE IM Last administered on 03/19/18at 20:05; Start 03/19/18 at 19:45; Stop 03/19/18 at 19:46; Status DC Olanzapine (ZyPREXA IM) 5 mg 1X ONCE IM Last administered on 03/20/18at 19:39; Start 03/20/18 at 19:15; Stop 03/20/18 at 19:16; Status DC Quetiapine Fumarate (SEROquel) 50 mg QHS PO Last administered on 04/06/18at 20: 09; Start 03/20/18 at 21:00 Quetiapine Fumarate (SEROquel) 25 mg PRN Q8HRS PRN PO agitation/aggression; Start 03/20/18 at 19:30 Olanzapine (ZyPREXA IM) 5 mg 1X ONCE IM Last administered on 03/21/18at 17:18; Start 03/21/18 at 17:30; Stop 03/21/18 at 17:31; Status DC Olanzapine (ZyPREXA IM) 5 mg 1X ONCE IM Last administered on 03/21/18at 19:45; Start 03/21/18 at 19:45; Stop 03/21/18 at 19:46; Status DC Olanzapine (ZyPREXA IM) 5 mg DAILY PRN IM PSYCHOSIS Last administered on at 21:01; Start 03/22/18 at 11:45; Stop 03/26/18 at 08:09; Status DC Sertraline HCl (Zoloft) 25 mg DAILY PO Last administered on 03/25/18at 11:25; Start 03/24/18 at 09:00; Stop 03/25/18 at 11:00; Status DC Sertraline HCl (Zoloft) 50 mg DAILY PO Last administered on 04/06/18at 07:50; Start 03/26/18 at 09:00 Memantine (Namenda) 10 mg BID PO Last administered on 04/06/18at 20:09; Start at 21:00 Olanzapine (ZyPREXA ZYDIS) 5 mg PRN Q2HR PRN PO PSYCHOSIS Last administered on 03/28/18at 15:44; Start 03/26/18 at 10:30 Divalproex Sodium (Depakote Sprinkles) 500 mg DAILY PO Last administered on at 11:58; Start 03/27/18 at 09:00; Stop 03/29/18 at 18:25; Status DC Divalproex Sodium (Depakote Sprinkles) 750 mg HS PO Last administered on 20:10; Start 03/26/18 at 21:00 Divalproex Sodium (Depakote Sprinkles) 750 mg DAILY PO Last administered on 07:47; Start 03/30/18 at 09:00 Amoxicillin (Amoxil) 500 mg [id number] PO Last administered on 04/04/18 19:45; Start 04/01/18 at 21:00; Stop 04/05/18 at 19:20; Status DC Lactobacillus Rhamnosus (Culturelle) 1 cap BID PO Last administered on 20:09; Start 04/01/18 at 21:00 Doxycycline Hyclate (Vibra-Tab) 100 mg BID PO Last administered on 04/06/18 20 :09; Start 04/03/18 at 21:00; Stop 04/13/18 at 09:01 Active Scripts Active Reported Plavix (Clopidogrel Bisulfate) 75 Mg Tablet 75 Mg PO DAILY Lorazepam 0.5 Mg Tablet 1 Mg PO PRN Q8HRS PRN Flomax (Tamsulosin Hcl) 0.4 Mg Cap.er.24h 0.4 Mg PO HS PRN Depakote Sprinkle (Divalproex Sodium) 125 Mg Cap.sprink 500 Mg PO TID Colace (Docusate Sodium) 100 Mg Capsule 100 Mg PO BID Vitamin D (Cholecalciferol (Vitamin D3)) 1,000 Unit Capsule 2,000 Unit PO DAILY Atorvastatin Calcium 20 Mg Tablet 20 Mg PO QHS Atenolol 100 Mg Tablet 100 Mg PO DAILY Tylenol (Acetaminophen) 325 Mg Tablet 650 Mg PO PRN Q4HRS PRN I have reviewed the current psychotropics carefully including drug interactions. Risk benefit ratio favors no change other than as noted in my dictated progress note. 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
[2018-04-07 06:36] VITALS: BP 164/93
--- NOTE | 2018-04-07 06:42 | PN ---
DATE: 04/04/2018 This is a late entry for 04/04/2018 covers elements not covered in my initial note. SUBJECTIVE: I met with the patient in the evening. The patient slept 6-1/2 hours previous night. He slept 10 in the morning, took half of his meds with breakfast, was somewhat grumpy and nursing staff referred him as "grumpy nilsa." He is retaining urine, has a Pires, now in place and he has a UTI with MRSA, started on doxycycline. Amoxil was discontinued. We will defer to Dr. Sanchez. REVIEW OF SYSTEMS: Ambulation impaired with walker. No CV, , pulmonary, eye, ENT system symptoms on review other than complaints of the catheter. MENTAL STATUS EXAM: Oriented to himself. Insight, judgment, recent and remote memory, attention, concentration, fund of knowledge poor, consistent with his diagnosis. IMPRESSION: Major neurocognitive disorder, Lewy body with delusion, depression, behavioral disturbance, methicillin-resistant Staphylococcus aureus urinary tract infection. Rest unchanged. PLAN: Treat the UTI. Rest unchanged from initial note. MAN Diony JORGE MD DR: LOVE/lilly JOB#: [id number] / [id number]
[2018-04-07] MEDS: DOCUSATE SODIUM 100 MG CAPSULE PO SCH ×2 (09:17→20:19)
[2018-04-07] MEDS: SERTRALINE 50 MG TABLET. PO SCH (09:18)
[2018-04-07] MEDS: busPIRone 10 MG TABLET. PO SCH ×2 (09:18→17:11)
[2018-04-07] MEDS: CLOPIDOGREL BISULFATE 75 MG TABLET PO SCH (09:18)
[2018-04-07] MEDS: MEMANTINE 10 MG TABLET. PO SCH ×2 (09:18→20:20)
[2018-04-07] MEDS: RIVASTIGMINE 9.5MG PATCH. TD SCH (09:18)
[2018-04-07] MEDS: DOXYCYCLINE HYCLATE 100 MG TABLET PO SCH ×2 (09:18→20:19)
[2018-04-07] MEDS: CHOLECALCIFEROL (VITAMIN D3) 1,000 UNIT TABLET PO SCH (09:18)
[2018-04-07] MEDS: ATENOLOL 50 MG TABLET PO SCH (09:19)
[2018-04-07] MEDS: LACTOBACILLUS RHAMNOSUS GG 1 CAPSULE. PO SCH ×2 (09:19→20:19)
[2018-04-07] MEDS: QUEtiapine 25 MG TABLET. PO SCH ×2 (09:19→17:11)
[2018-04-07] MEDS: TAMSULOSIN 0.4 MG CAP.ER.24H. PO SCH ×2 (09:19→20:19)
[2018-04-07] MEDS: NYSTATIN TOPICAL POWDER 15GM BOTTLE. TP SCH (09:20)
[2018-04-07] MEDS: DIVALPROEX 125 MG CAP.SPRINK PO SCH ×2 (09:20→20:19)
[2018-04-07 16:15] VITALS: BP 95/60
[2018-04-07] MEDS: ATORVASTATIN CALCIUM 20 MG TABLET PO SCH (20:19)
[2018-04-07] MEDS: MIRTAZAPINE 15 MG TABLET PO SCH (20:20)
[2018-04-07] MEDS: QUEtiapine 50 MG TABLET. PO SCH (20:20)
--- NOTE | 2018-04-07 22:47 | PDOC ---
Exam Note: Pavel Note: Please also refer to the separate dictated note~for this date of service dictated separately.~Patient seen individually. Discussed the patient with Nursing staff reviewed the chart.~Reviewed interim history and current functioning. Reviewed vital signs,~Labs/ Radiology~and current medications noted below. Continue current treatment with the changes noted in the dictated addendum note Assessment: Vital Signs: Vital Signs Date Time Temp Pulse Resp B/P (MAP) Pulse Ox O2 Delivery O2 Flow Rate FiO2 04/07/18 16:15 97.1 63 17 95/60 (72) 98 Room Air I&O Intake and Output 04/07/18 07:01 Intake Total 240 ml Output Total 1000 ml Balance -760 ml Intake Oral 240 ml Output Urine Total 1000 ml Current Medications: Meds: Current Medications Acetaminophen (Tylenol) 650 mg PRN Q4HRS PRN PO PAIN / TEMP Last administered on 04/04/18 23:22; Start 02/20/18 at 18:30 Atorvastatin Calcium (Lipitor) 20 mg QHS PO Last administered on 04/07/18 20: 19; Start 02/20/18 at 21:00 Clopidogrel Bisulfate (Plavix) 75 mg DAILY PO Last administered on 04/07/18 09 :18; Start 02/21/18 at 09:00 Tamsulosin HCl (Flomax) 0.4 mg PRN QHS PRN PO retention; Start 02/20/18 at 18: 30; Stop 03/01/18 at 11:14; Status DC Atenolol (Tenormin) 100 mg DAILY PO Last administered on 04/07/18 09:19; Start 02/21/18 at 09:00 Vitamin D (Vitamin D3) 2,000 unit DAILY PO Last administered on 04/07/18 09:18 ; Start 02/21/18 at 09:00 Divalproex Sodium (Depakote Sprinkles) 500 mg TID PO Last administered on 02/26at 07:53; Start 02/20/18 at 21:00; Stop 02/26/18 at 10:36; Status DC Docusate Sodium (Colace) 100 mg BID PO Last administered on 04/07/18 20:19; Start 02/20/18 at 21:00 Lorazepam (Ativan) 1 mg PRN Q8HRS PRN PO ANXIETY / AGITATION Last administered on 03/26/18 21:07; Start 02/20/18 at 19:00 Multi-Ingredient Ointment (Analgesic [place]) 1 devika PRN QID PRN TP MUSCLE PAIN Last administered on 04/04/18 23:22; Start 02/20/18 at 18:45 Al Hydroxide/Mg Hydroxide (Mylanta Plus Xs) 15 ml PRN AFTMEALHC PRN PO DYSPEPSIA Last administered on 03/07/18 09:56; Start 02/20/18 at 18:45 Magnesium Hydroxide (Milk Of Magnesia) 2,400 mg PRN QHS PRN PO CONSTIPATION; Start 02/20/18 at 18:45 Nystatin (Nystop) 1 devika BID TP Last administered on 04/07/18 09:20; Start at 21:00 Bupropion HCl (Wellbutrin) 75 mg DAILY PO Last administered on 02/26/18at 07:53 ; Start 02/24/18 at 09:00; Stop 02/27/18 at 08:59; Status DC Bupropion HCl (Wellbutrin) 75 mg BIDACBL PO Last administered on 03/17/18 14:16 ; Start 02/27/18 at 08:00; Stop 03/17/18 at 18:46; Status DC Divalproex Sodium (Depakote Er) 1,000 mg QHS PO Last administered on at 19:46; Start 02/26/18 at 21:00; Stop 02/28/18 at 19:35; Status DC Divalproex Sodium (Depakote Sprinkles) 1,000 mg HS PO Last administered on at 18:50; Start 02/28/18 at 21:00; Stop 03/04/18 at 18:24; Status DC Quetiapine Fumarate (SEROquel) 25 mg QHS PO Last administered on 03/11/18 19:35 ; Start 03/01/18 at 21:00; Stop 03/12/18 at 11:05; Status DC Tamsulosin HCl (Flomax) 0.4 mg HS PO Last administered on 03/02/18at 20:26; Start 03/01/18 at 21:00; Stop 03/03/18 at 12:25; Status DC Mirtazapine (Remeron) 7.5 mg QHS PO Last administered on 03/10/18 19:28; Start 03/01/18 at 21:00; Stop 03/11/18 at 18:17; Status DC Tamsulosin HCl (Flomax) 0.4 mg BID PO Last administered on 04/07/18 20:19; Start 03/03/18 at 21:00 Amoxicillin (Amoxil) 500 mg [id number] PO Last administered on 03/14/18 19:28; Start 03/04/18 at 21:00; Stop 03/15/18 at 09:14; Status DC Divalproex Sodium (Depakote Er) 500 mg BID PO Last administered on 03/05/18at 19:44; Start 03/04/18 at 21:00; Stop 03/05/18 at 23:00; Status DC Lactobacillus Rhamnosus (Culturelle) 1 cap BID PO Last administered on 19:28; Start 03/05/18 at 21:00; Stop 03/15/18 at 09:14; Status DC Divalproex Sodium (Depakote Er) 1,000 mg QHS PO Last administered on 03/14/18 19:29; Start 03/06/18 at 21:00; Stop 03/15/18 at 21:12; Status DC Quetiapine Fumarate (SEROquel) 12.5 mg DAILY@1700 PO Last administered on 16:20; Start 03/11/18 at 17:00; Stop 03/17/18 at 18:46; Status DC Loperamide HCl (Imodium) 2 mg PRN Q1HR PRN PO DIARRHEA Last administered on 03/11 16:16; Start 03/11/18 at 16:15 Mirtazapine (Remeron) 15 mg QHS PO Last administered on 04/07/18 20:20; Start 03/11/18 at 21:00 Quetiapine Fumarate (SEROquel) 25 mg BID PO Last administered on 03/13/18 07:55 ; Start 03/12/18 at 21:00; Stop 03/13/18 at 16:36; Status DC Quetiapine Fumarate (SEROquel) 25 mg QHS PO Last administered on 1/10/19at 19: 21; Start 03/13/18 at 21:00; Stop 03/20/18 at 19:30; Status DC Olanzapine (ZyPREXA ZYDIS) 2.5 mg PRN Q2HR PRN PO PSYCHOSIS Last administered on 03/24/18at 15:09; Start 03/14/18 at 12:00; Stop 03/26/18 at 10:20; Status DC Trazodone HCl (Desyrel) 50 mg PRN QHS PRN PO INSOMNIA, MAY REPEAT X1 Last administered on 04/06/18at 01:32; Start 03/14/18 at 21:45 Buspirone HCl (Buspar) 5 mg [id number] PO Last administered on 03/18/18at 11:19; Start 03/16/18 at 09:00; Stop 03/18/18 at 14:47; Status DC Divalproex Sodium (Depakote Sprinkles) 500 mg BID PO Last administered on at 11:43; Start 03/15/18 at 21:15; Stop 03/26/18 at 12:10; Status DC Quetiapine Fumarate (SEROquel) 12.5 mg 0900,1700 PO Last administered on at 17:11; Start 03/18/18 at 09:00 Buspirone HCl (Buspar) 10 mg BID@0900,1700 PO Last administered on 04/07/18at 17 :11; Start 03/18/18 at 17:00 Rivastigmine (Exelon) 1 patch DAILY TD Last administered on 03/24/18at 12:02; Start 03/20/18 at 09:00; Stop 03/24/18 at 11:01; Status DC Rivastigmine (Exelon) 1 patch DAILY TD Last administered on 04/07/18at 09:18; Start 03/25/18 at 09:00 Memantine (Namenda) 5 mg HS PO Last administered on 03/21/18at 20:19; Start 12/26 at 21:00; Stop 03/21/18 at 23:00; Status DC Memantine (Namenda) 5 mg BID PO Last administered on 03/24/18at 12:02; Start at 09:00; Stop 03/24/18 at 17:21; Status DC Olanzapine (ZyPREXA IM) 5 mg 1X ONCE IM Last administered on 03/19/18at 20:05; Start 03/19/18 at 19:45; Stop 03/19/18 at 19:46; Status DC Olanzapine (ZyPREXA IM) 5 mg 1X ONCE IM Last administered on 03/20/18at 19:39; Start 03/20/18 at 19:15; Stop 03/20/18 at 19:16; Status DC Quetiapine Fumarate (SEROquel) 50 mg QHS PO Last administered on 04/07/18at 20: 20; Start 03/20/18 at 21:00 Quetiapine Fumarate (SEROquel) 25 mg PRN Q8HRS PRN PO agitation/aggression; Start 03/20/18 at 19:30 Olanzapine (ZyPREXA IM) 5 mg 1X ONCE IM Last administered on 03/21/18at 17:18; Start 03/21/18 at 17:30; Stop 03/21/18 at 17:31; Status DC Olanzapine (ZyPREXA IM) 5 mg 1X ONCE IM Last administered on 03/21/18at 19:45; Start 03/21/18 at 19:45; Stop 03/21/18 at 19:46; Status DC Olanzapine (ZyPREXA IM) 5 mg DAILY PRN IM PSYCHOSIS Last administered on at 21:01; Start 03/22/18 at 11:45; Stop 03/26/18 at 08:09; Status DC Sertraline HCl (Zoloft) 25 mg DAILY PO Last administered on 03/25/18at 11:25; Start 03/24/18 at 09:00; Stop 03/25/18 at 11:00; Status DC Sertraline HCl (Zoloft) 50 mg DAILY PO Last administered on 04/07/18at 09:18; Start 03/26/18 at 09:00 Memantine (Namenda) 10 mg BID PO Last administered on 04/07/18at 20:20; Start at 21:00 Olanzapine (ZyPREXA ZYDIS) 5 mg PRN Q2HR PRN PO PSYCHOSIS Last administered on 03/28/18at 15:44; Start 03/26/18 at 10:30 Divalproex Sodium (Depakote Sprinkles) 500 mg DAILY PO Last administered on at 11:58; Start 03/27/18 at 09:00; Stop 03/29/18 at 18:25; Status DC Divalproex Sodium (Depakote Sprinkles) 750 mg HS PO Last administered on 20:19; Start 03/26/18 at 21:00 Divalproex Sodium (Depakote Sprinkles) 750 mg DAILY PO Last administered on 09:20; Start 03/30/18 at 09:00 Amoxicillin (Amoxil) 500 mg [id number] PO Last administered on 04/04/18 19:45; Start 04/01/18 at 21:00; Stop 04/05/18 at 19:20; Status DC Lactobacillus Rhamnosus (Culturelle) 1 cap BID PO Last administered on 20:19; Start 04/01/18 at 21:00 Doxycycline Hyclate (Vibra-Tab) 100 mg BID PO Last administered on 04/07/18 20 :19; Start 04/03/18 at 21:00; Stop 04/13/18 at 09:01 Active Scripts Active Reported Plavix (Clopidogrel Bisulfate) 75 Mg Tablet 75 Mg PO DAILY Lorazepam 0.5 Mg Tablet 1 Mg PO PRN Q8HRS PRN Flomax (Tamsulosin Hcl) 0.4 Mg Cap.er.24h 0.4 Mg PO HS PRN Depakote Sprinkle (Divalproex Sodium) 125 Mg Cap.sprink 500 Mg PO TID Colace (Docusate Sodium) 100 Mg Capsule 100 Mg PO BID Vitamin D (Cholecalciferol (Vitamin D3)) 1,000 Unit Capsule 2,000 Unit PO DAILY Atorvastatin Calcium 20 Mg Tablet 20 Mg PO QHS Atenolol 100 Mg Tablet 100 Mg PO DAILY Tylenol (Acetaminophen) 325 Mg Tablet 650 Mg PO PRN Q4HRS PRN I have reviewed the current psychotropics carefully including drug interactions. Risk benefit ratio favors no change other than as noted in my dictated progress note. 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
--- NOTE | 2018-04-08 00:27 | PN ---
DATE: 04/06/2018 This late entry 04/06/2018 covers elements not covered in my initial note. SUBJECTIVE: I met with the patient in the evening. The patient slept 3-1/4 hours previous night. He has been spending much time in bed, slept at 2:00 a.m., did not get up until about 3 p.m. Behaviorally, he is doing better, remains confused, not aggressive. REVIEW OF SYSTEMS: Ambulation impaired, in wheelchair. No CV, , pulmonary, eye system symptoms on review. MENTAL STATUS EXAM: Oriented to himself. Insight, judgment, recent and remote memory, attention, concentration, fund of knowledge poor, consistent with his diagnosis. IMPRESSION: Major neurocognitive disorder, Lewy body with delusion, depression, behavioral disturbance; anxiety disorder, unspecified. Rest unchanged. PLAN: No change from initial note. Continue psychotropics from initial note. MAN Diony JORGE MD DR: LOVE/lilly JOB#: [id number] / [id number]
[2018-04-08 06:01] VITALS: BP 145/78
[2018-04-08] MEDS: NYSTATIN TOPICAL POWDER 15GM BOTTLE. TP SCH ×3 (09:02→23:06)
[2018-04-08] MEDS: LACTOBACILLUS RHAMNOSUS GG 1 CAPSULE. PO SCH ×2 (09:10→19:31)
[2018-04-08] MEDS: busPIRone 10 MG TABLET. PO SCH ×2 (09:10→17:28)
[2018-04-08] MEDS: DOCUSATE SODIUM 100 MG CAPSULE PO SCH ×2 (09:10→19:31)
[2018-04-08] MEDS: CLOPIDOGREL BISULFATE 75 MG TABLET PO SCH (09:11)
[2018-04-08] MEDS: MEMANTINE 10 MG TABLET. PO SCH ×2 (09:11→19:31)
[2018-04-08] MEDS: QUEtiapine 25 MG TABLET. PO SCH ×2 (09:11→17:28)
[2018-04-08] MEDS: TAMSULOSIN 0.4 MG CAP.ER.24H. PO SCH ×2 (09:11→19:31)
[2018-04-08] MEDS: DIVALPROEX 125 MG CAP.SPRINK PO SCH ×2 (09:11→19:31)
[2018-04-08] MEDS: SERTRALINE 50 MG TABLET. PO SCH (09:12)
[2018-04-08] MEDS: CHOLECALCIFEROL (VITAMIN D3) 1,000 UNIT TABLET PO SCH (09:12)
[2018-04-08] MEDS: RIVASTIGMINE 9.5MG PATCH. TD SCH (09:12)
[2018-04-08] MEDS: ATENOLOL 50 MG TABLET PO SCH (09:19)
[2018-04-08] MEDS: DOXYCYCLINE HYCLATE 100 MG TABLET PO SCH ×2 (09:24→19:31)
[2018-04-08 09:37] LABS: BASO # 0.1 x10^3/uL (0.0-0.2); BASO % 1 % (0-3); EOS # 0.2 x10^3/uL (0.0-0.7); EOS % 2 % (0-3); HEMATOCRIT 38.6 % (39.0-53.0); HEMOGLOBIN 12.8 g/dL (13.0-17.5); LYMPH # 1.8 x10^3/uL (1.0-4.8); LYMPH % 17 % (24-48); MEAN CORPUSCULAR HEMOGLOBIN 33 pg (25-35); MEAN CORPUSCULAR HGB CONC 33 g/dL (31-37); MEAN CORPUSCULAR VOLUME 99 fL (79-100); MONO # 0.8 x10^3/uL (0.0-1.1); MONO % 8 % (0-9); NEUT # 7.7 x10^3uL (1.8-7.7); NEUT % 73 % (31-73); PLATELET COUNT 202 x10^3/uL (140-400); RED BLOOD COUNT 3.89 x10^6/uL (4.30-5.70); RED CELL DISTRIBUTION WIDTH 16.1 % (11.5-14.5); WHITE BLOOD COUNT 10.6 x10^3/uL (4.0-11.0)
[2018-04-08 09:54] LABS: ALBUMIN/GLOBULIN RATIO 0.8 (1.0-1.7); CALCIUM 8.6 mg/dL (8.5-10.1); CREATININE 1.3 mg/dL (0.7-1.3); GFR 54.3; POTASSIUM 3.7 mmol/L (3.5-5.1); TOTAL BILIRUBIN 0.7 mg/dL (0.2-1.0); TOTAL PROTEIN 6.7 g/dL (6.4-8.2)
[2018-04-08 16:37] VITALS: BP 129/80
[2018-04-08] MEDS: QUEtiapine 50 MG TABLET. PO SCH (19:31)
[2018-04-08] MEDS: MIRTAZAPINE 15 MG TABLET PO SCH (19:31)
[2018-04-08] MEDS: ATORVASTATIN CALCIUM 20 MG TABLET PO SCH (19:31)
--- NOTE | 2018-04-08 22:44 | PDOC ---
Exam Note: Pavel Note: Please also refer to the separate dictated note~for this date of service dictated separately.~Patient seen individually. Discussed the patient with Nursing staff reviewed the chart.~Reviewed interim history and current functioning. Reviewed vital signs,~Labs/ Radiology~and current medications noted below. Continue current treatment with the changes noted in the dictated addendum note Assessment: Vital Signs: Vital Signs Date Time Temp Pulse Resp B/P (MAP) Pulse Ox O2 Delivery O2 Flow Rate FiO2 04/08/18 16:37 98.7 60 18 129/80 (96) 99 04/07/18 16:15 Room Air I&O Intake and Output 04/08/18 07:01 Intake Total 840 ml Output Total 550 ml Balance 290 ml Intake Oral 840 ml Output Urine Total 550 ml # Bowel Movements 1 Labs: Laboratory Tests Test 04/08/18 09:23 White Blood Count 10.6 x10^3/uL (4.0-11.0) Red Blood Count 3.89 x10^6/uL (4.30-5.70) L Hemoglobin 12.8 g/dL (13.0-17.5) L Hematocrit 38.6 % (39.0-53.0) L Mean Corpuscular Volume 99 fL (79-100) Mean Corpuscular Hemoglobin 33 pg (25-35) Mean Corpuscular Hemoglobin Concent 33 g/dL (31-37) Red Cell Distribution Width 16.1 % (11.5-14.5) H Platelet Count 202 x10^3/uL (140-400) Neutrophils (%) (Auto) 73 % (31-73) Lymphocytes (%) (Auto) 17 % (24-48) L Monocytes (%) (Auto) 8 % (0-9) Eosinophils (%) (Auto) 2 % (0-3) Basophils (%) (Auto) 1 % (0-3) Neutrophils # (Auto) 7.7 x10^3uL (1.8-7.7) Lymphocytes # (Auto) 1.8 x10^3/uL (1.0-4.8) Monocytes # (Auto) 0.8 x10^3/uL (0.0-1.1) Eosinophils # (Auto) 0.2 x10^3/uL (0.0-0.7) Basophils # (Auto) 0.1 x10^3/uL (0.0-0.2) Sodium Level 143 mmol/L (136-145) Potassium Level 3.7 mmol/L (3.5-5.1) Chloride Level 106 mmol/L (98-107) Carbon Dioxide Level 28 mmol/L (21-32) Anion Gap 9 (6-14) Blood Urea Nitrogen 21 mg/dL (8-26) Creatinine 1.3 mg/dL (0.7-1.3) Estimated GFR (Cockcroft-Gault) 54.3 BUN/Creatinine Ratio 16 (6-20) Glucose Level 114 mg/dL (70-99) H Calcium Level 8.6 mg/dL (8.5-10.1) Total Bilirubin 0.7 mg/dL (0.2-1.0) Aspartate Amino Transferase (AST) 14 U/L (15-37) L Alanine Aminotransferase (ALT) 19 U/L (16-63) Alkaline Phosphatase 64 U/L (46-116) Total Protein 6.7 g/dL (6.4-8.2) Albumin 3.0 g/dL (3.4-5.0) L Albumin/Globulin Ratio 0.8 (1.0-1.7) L Current Medications: Meds: Current Medications Acetaminophen (Tylenol) 650 mg PRN Q4HRS PRN PO PAIN / TEMP Last administered on 04/04/18 23:22; Start 02/20/18 at 18:30 Atorvastatin Calcium (Lipitor) 20 mg QHS PO Last administered on 04/08/18 19: 31; Start 02/20/18 at 21:00 Clopidogrel Bisulfate (Plavix) 75 mg DAILY PO Last administered on 04/08/18 09 :11; Start 02/21/18 at 09:00 Tamsulosin HCl (Flomax) 0.4 mg PRN QHS PRN PO retention; Start 02/20/18 at 18: 30; Stop 03/01/18 at 11:14; Status DC Atenolol (Tenormin) 100 mg DAILY PO Last administered on 04/07/18 09:19; Start 02/21/18 at 09:00 Vitamin D (Vitamin D3) 2,000 unit DAILY PO Last administered on 04/08/18 09:12 ; Start 02/21/18 at 09:00 Divalproex Sodium (Depakote Sprinkles) 500 mg TID PO Last administered on 02/26 07:53; Start 02/20/18 at 21:00; Stop 02/26/18 at 10:36; Status DC Docusate Sodium (Colace) 100 mg BID PO Last administered on 04/08/18 19:31; Start 02/20/18 at 21:00 Lorazepam (Ativan) 1 mg PRN Q8HRS PRN PO ANXIETY / AGITATION Last administered on 03/26/18 21:07; Start 02/20/18 at 19:00 Multi-Ingredient Ointment (Analgesic [place]) 1 devika PRN QID PRN TP MUSCLE PAIN Last administered on 04/04/18 23:22; Start 02/20/18 at 18:45 Al Hydroxide/Mg Hydroxide (Mylanta Plus Xs) 15 ml PRN AFTMEALHC PRN PO DYSPEPSIA Last administered on 03/07/18 09:56; Start 02/20/18 at 18:45 Magnesium Hydroxide (Milk Of Magnesia) 2,400 mg PRN QHS PRN PO CONSTIPATION; Start 02/20/18 at 18:45 Nystatin (Nystop) 1 devika BID TP Last administered on 04/08/18 09:19; Start at 21:00 Bupropion HCl (Wellbutrin) 75 mg DAILY PO Last administered on 02/26/18at 07:53 ; Start 02/24/18 at 09:00; Stop 02/27/18 at 08:59; Status DC Bupropion HCl (Wellbutrin) 75 mg BIDACBL PO Last administered on 03/17/18at 14:16 ; Start 02/27/18 at 08:00; Stop 03/17/18 at 18:46; Status DC Divalproex Sodium (Depakote Er) 1,000 mg QHS PO Last administered on at 19:46; Start 02/26/18 at 21:00; Stop 02/28/18 at 19:35; Status DC Divalproex Sodium (Depakote Sprinkles) 1,000 mg HS PO Last administered on at 18:50; Start 02/28/18 at 21:00; Stop 03/04/18 at 18:24; Status DC Quetiapine Fumarate (SEROquel) 25 mg QHS PO Last administered on 03/11/18 19:35 ; Start 03/01/18 at 21:00; Stop 03/12/18 at 11:05; Status DC Tamsulosin HCl (Flomax) 0.4 mg HS PO Last administered on 03/02/18 20:26; Start 03/01/18 at 21:00; Stop 03/03/18 at 12:25; Status DC Mirtazapine (Remeron) 7.5 mg QHS PO Last administered on 03/10/18 19:28; Start 03/01/18 at 21:00; Stop 03/11/18 at 18:17; Status DC Tamsulosin HCl (Flomax) 0.4 mg BID PO Last administered on 04/08/18 19:31; Start 03/03/18 at 21:00 Amoxicillin (Amoxil) 500 mg [id number] PO Last administered on 03/14/18 19:28; Start 03/04/18 at 21:00; Stop 03/15/18 at 09:14; Status DC Divalproex Sodium (Depakote Er) 500 mg BID PO Last administered on 03/05/18at 19:44; Start 03/04/18 at 21:00; Stop 03/05/18 at 23:00; Status DC Lactobacillus Rhamnosus (Culturelle) 1 cap BID PO Last administered on 19:28; Start 03/05/18 at 21:00; Stop 03/15/18 at 09:14; Status DC Divalproex Sodium (Depakote Er) 1,000 mg QHS PO Last administered on 03/14/18 19:29; Start 03/06/18 at 21:00; Stop 03/15/18 at 21:12; Status DC Quetiapine Fumarate (SEROquel) 12.5 mg DAILY@1700 PO Last administered on 16:20; Start 03/11/18 at 17:00; Stop 03/17/18 at 18:46; Status DC Loperamide HCl (Imodium) 2 mg PRN Q1HR PRN PO DIARRHEA Last administered on 03/11 16:16; Start 03/11/18 at 16:15 Mirtazapine (Remeron) 15 mg QHS PO Last administered on 04/08/18at 19:31; Start 03/11/18 at 21:00 Quetiapine Fumarate (SEROquel) 25 mg BID PO Last administered on 03/13/18at 07:55 ; Start 03/12/18 at 21:00; Stop 03/13/18 at 16:36; Status DC Quetiapine Fumarate (SEROquel) 25 mg QHS PO Last administered on 03/19/18at 19: 21; Start 03/13/18 at 21:00; Stop 03/20/18 at 19:30; Status DC Olanzapine (ZyPREXA ZYDIS) 2.5 mg PRN Q2HR PRN PO PSYCHOSIS Last administered on 03/24/18at 15:09; Start 03/14/18 at 12:00; Stop 03/26/18 at 10:20; Status DC Trazodone HCl (Desyrel) 50 mg PRN QHS PRN PO INSOMNIA, MAY REPEAT X1 Last administered on 04/06/18at 01:32; Start 03/14/18 at 21:45 Buspirone HCl (Buspar) 5 mg [id number] PO Last administered on 03/18/18at 11:19; Start 03/16/18 at 09:00; Stop 03/18/18 at 14:47; Status DC Divalproex Sodium (Depakote Sprinkles) 500 mg BID PO Last administered on at 11:43; Start 03/15/18 at 21:15; Stop 03/26/18 at 12:10; Status DC Quetiapine Fumarate (SEROquel) 12.5 mg 0900,1700 PO Last administered on at 17:28; Start 03/18/18 at 09:00 Buspirone HCl (Buspar) 10 mg BID@0900,1700 PO Last administered on 04/08/18at 17 :28; Start 03/18/18 at 17:00 Rivastigmine (Exelon) 1 patch DAILY TD Last administered on 03/24/18at 12:02; Start 03/20/18 at 09:00; Stop 03/24/18 at 11:01; Status DC Rivastigmine (Exelon) 1 patch DAILY TD Last administered on 04/08/18at 09:12; Start 03/25/18 at 09:00 Memantine (Namenda) 5 mg HS PO Last administered on 03/21/18at 20:19; Start 12/26 at 21:00; Stop 03/21/18 at 23:00; Status DC Memantine (Namenda) 5 mg BID PO Last administered on 03/24/18at 12:02; Start at 09:00; Stop 03/24/18 at 17:21; Status DC Olanzapine (ZyPREXA IM) 5 mg 1X ONCE IM Last administered on 03/19/18at 20:05; Start 03/19/18 at 19:45; Stop 03/19/18 at 19:46; Status DC Olanzapine (ZyPREXA IM) 5 mg 1X ONCE IM Last administered on 03/20/18at 19:39; Start 03/20/18 at 19:15; Stop 03/20/18 at 19:16; Status DC Quetiapine Fumarate (SEROquel) 50 mg QHS PO Last administered on 04/08/18at 19: 31; Start 03/20/18 at 21:00 Quetiapine Fumarate (SEROquel) 25 mg PRN Q8HRS PRN PO agitation/aggression; Start 03/20/18 at 19:30 Olanzapine (ZyPREXA IM) 5 mg 1X ONCE IM Last administered on 03/21/18at 17:18; Start 03/21/18 at 17:30; Stop 03/21/18 at 17:31; Status DC Olanzapine (ZyPREXA IM) 5 mg 1X ONCE IM Last administered on 03/21/18at 19:45; Start 03/21/18 at 19:45; Stop 03/21/18 at 19:46; Status DC Olanzapine (ZyPREXA IM) 5 mg DAILY PRN IM PSYCHOSIS Last administered on at 21:01; Start 03/22/18 at 11:45; Stop 03/26/18 at 08:09; Status DC Sertraline HCl (Zoloft) 25 mg DAILY PO Last administered on 03/25/18at 11:25; Start 03/24/18 at 09:00; Stop 03/25/18 at 11:00; Status DC Sertraline HCl (Zoloft) 50 mg DAILY PO Last administered on 04/08/18 09:12; Start 03/26/18 at 09:00 Memantine (Namenda) 10 mg BID PO Last administered on 04/08/18 19:31; Start at 21:00 Olanzapine (ZyPREXA ZYDIS) 5 mg PRN Q2HR PRN PO PSYCHOSIS Last administered on 03/28/18 15:44; Start 03/26/18 at 10:30 Divalproex Sodium (Depakote Sprinkles) 500 mg DAILY PO Last administered on 11:58; Start 03/27/18 at 09:00; Stop 03/29/18 at 18:25; Status DC Divalproex Sodium (Depakote Sprinkles) 750 mg HS PO Last administered on 19:31; Start 03/26/18 at 21:00 Divalproex Sodium (Depakote Sprinkles) 750 mg DAILY PO Last administered on 09:11; Start 03/30/18 at 09:00 Amoxicillin (Amoxil) 500 mg [id number] PO Last administered on 04/04/18 19:45; Start 04/01/18 at 21:00; Stop 04/05/18 at 19:20; Status DC Lactobacillus Rhamnosus (Culturelle) 1 cap BID PO Last administered on 19:31; Start 04/01/18 at 21:00 Doxycycline Hyclate (Vibra-Tab) 100 mg BID PO Last administered on 04/08/18 19 :31; Start 04/03/18 at 21:00; Stop 04/13/18 at 09:01 Active Scripts Active Reported Plavix (Clopidogrel Bisulfate) 75 Mg Tablet 75 Mg PO DAILY Lorazepam 0.5 Mg Tablet 1 Mg PO PRN Q8HRS PRN Flomax (Tamsulosin Hcl) 0.4 Mg Cap.er.24h 0.4 Mg PO HS PRN Depakote Sprinkle (Divalproex Sodium) 125 Mg Cap.sprink 500 Mg PO TID Colace (Docusate Sodium) 100 Mg Capsule 100 Mg PO BID Vitamin D (Cholecalciferol (Vitamin D3)) 1,000 Unit Capsule 2,000 Unit PO DAILY Atorvastatin Calcium 20 Mg Tablet 20 Mg PO QHS Atenolol 100 Mg Tablet 100 Mg PO DAILY Tylenol (Acetaminophen) 325 Mg Tablet 650 Mg PO PRN Q4HRS PRN I have reviewed the current psychotropics carefully including drug interactions. Risk benefit ratio favors no change other than as noted in my dictated progress note. 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
[2018-04-09 06:56] VITALS: BP 180/82
[2018-04-09] MEDS: RIVASTIGMINE 9.5MG PATCH. TD SCH (08:32)
[2018-04-09] MEDS: DOXYCYCLINE HYCLATE 100 MG TABLET PO SCH ×2 (08:33→19:54)
[2018-04-09] MEDS: MEMANTINE 10 MG TABLET. PO SCH ×2 (08:33→19:50)
[2018-04-09] MEDS: QUEtiapine 25 MG TABLET. PO SCH ×2 (08:33→17:18)
[2018-04-09] MEDS: CHOLECALCIFEROL (VITAMIN D3) 1,000 UNIT TABLET PO SCH (08:33)
[2018-04-09] MEDS: ATENOLOL 50 MG TABLET PO SCH (08:33)
[2018-04-09] MEDS: CLOPIDOGREL BISULFATE 75 MG TABLET PO SCH (08:33)
[2018-04-09] MEDS: TAMSULOSIN 0.4 MG CAP.ER.24H. PO SCH ×2 (08:33→19:50)
[2018-04-09] MEDS: DIVALPROEX 125 MG CAP.SPRINK PO SCH ×2 (08:34→19:50)
[2018-04-09] MEDS: busPIRone 10 MG TABLET. PO SCH ×2 (08:34→17:18)
[2018-04-09] MEDS: LACTOBACILLUS RHAMNOSUS GG 1 CAPSULE. PO SCH ×2 (08:34→19:50)
[2018-04-09] MEDS: DOCUSATE SODIUM 100 MG CAPSULE PO SCH ×2 (08:34→19:50)
[2018-04-09] MEDS: SERTRALINE 50 MG TABLET. PO SCH (08:34)
--- NOTE | 2018-04-09 09:38 | PN ---
DATE: 04/07/2018 This is a late entry for 04/07/2018 covers elements not covered in my initial note. SUBJECTIVE: I met with the patient in the evening. The patient slept 6-3/4 hours previous night. He remains somewhat withdrawn, disorganized, but not aggressive. REVIEW OF SYSTEMS: Ambulation impaired with walker. No CV, , pulmonary, eye system symptoms on review. Does have UTI. MENTAL STATUS EXAM: Oriented to himself. Insight, judgment, recent and remote memory, attention, concentration, fund of knowledge poor, consistent with his diagnosis. IMPRESSION: Major neurocognitive disorder, Lewy body with delusion, depression, behavioral disturbance. Rest unchanged. PLAN: No change from initial note. Treat the UTI per Dr. Sanchez. MAN Diony JORGE MD DR: LOVE/lilly JOB#: [id number] / [id number]
[2018-04-09] MEDS: NYSTATIN TOPICAL POWDER 15GM BOTTLE. TP SCH ×2 (10:09→19:53)
[2018-04-09 16:23] VITALS: BP 107/72
[2018-04-09] MEDS: QUEtiapine 50 MG TABLET. PO SCH (19:50)
[2018-04-09] MEDS: ATORVASTATIN CALCIUM 20 MG TABLET PO SCH (19:50)
[2018-04-09] MEDS: MIRTAZAPINE 15 MG TABLET PO SCH (19:50)
--- NOTE | 2018-04-09 22:39 | PDOC ---
Exam Note: Pavel Note: Please also refer to the separate dictated note~for this date of service dictated separately.~Patient seen individually. Discussed the patient with Nursing staff reviewed the chart.~Reviewed interim history and current functioning. Reviewed vital signs,~Labs/ Radiology~and current medications noted below. Continue current treatment with the changes noted in the dictated addendum note Assessment: Vital Signs: Vital Signs Date Time Temp Pulse Resp B/P (MAP) Pulse Ox O2 Delivery O2 Flow Rate FiO2 04/09/18 16:23 98.3 71 16 107/72 (84) 95 04/07/18 16:15 Room Air I&O Intake and Output 04/09/18 07:01 Intake Total 385 ml Output Total 250 ml Balance 135 ml Intake Oral 385 ml Output Urine Total 250 ml # Bowel Movements 1 Current Medications: Meds: Current Medications Acetaminophen (Tylenol) 650 mg PRN Q4HRS PRN PO PAIN / TEMP Last administered on 04/04/18 23:22; Start 02/20/18 at 18:30 Atorvastatin Calcium (Lipitor) 20 mg QHS PO Last administered on 04/09/18 19: 50; Start 02/20/18 at 21:00 Clopidogrel Bisulfate (Plavix) 75 mg DAILY PO Last administered on 04/09/18 08 :33; Start 02/21/18 at 09:00 Tamsulosin HCl (Flomax) 0.4 mg PRN QHS PRN PO retention; Start 02/20/18 at 18: 30; Stop 03/01/18 at 11:14; Status DC Atenolol (Tenormin) 100 mg DAILY PO Last administered on 04/09/18 08:33; Start 02/21/18 at 09:00 Vitamin D (Vitamin D3) 2,000 unit DAILY PO Last administered on 04/09/18 08:33 ; Start 02/21/18 at 09:00 Divalproex Sodium (Depakote Sprinkles) 500 mg TID PO Last administered on 02/26at 07:53; Start 02/20/18 at 21:00; Stop 02/26/18 at 10:36; Status DC Docusate Sodium (Colace) 100 mg BID PO Last administered on 04/09/18 19:50; Start 02/20/18 at 21:00 Lorazepam (Ativan) 1 mg PRN Q8HRS PRN PO ANXIETY / AGITATION Last administered on 03/26/18 21:07; Start 02/20/18 at 19:00 Multi-Ingredient Ointment (Analgesic [place]) 1 devika PRN QID PRN TP MUSCLE PAIN Last administered on 04/04/18 23:22; Start 02/20/18 at 18:45 Al Hydroxide/Mg Hydroxide (Mylanta Plus Xs) 15 ml PRN AFTMEALHC PRN PO DYSPEPSIA Last administered on 03/07/18 09:56; Start 02/20/18 at 18:45 Magnesium Hydroxide (Milk Of Magnesia) 2,400 mg PRN QHS PRN PO CONSTIPATION; Start 02/20/18 at 18:45 Nystatin (Nystop) 1 devika BID TP Last administered on 04/09/18 19:53; Start at 21:00 Bupropion HCl (Wellbutrin) 75 mg DAILY PO Last administered on 02/26/18 07:53 ; Start 02/24/18 at 09:00; Stop 02/27/18 at 08:59; Status DC Bupropion HCl (Wellbutrin) 75 mg BIDACBL PO Last administered on 03/17/18 14:16 ; Start 02/27/18 at 08:00; Stop 03/17/18 at 18:46; Status DC Divalproex Sodium (Depakote Er) 1,000 mg QHS PO Last administered on at 19:46; Start 02/26/18 at 21:00; Stop 02/28/18 at 19:35; Status DC Divalproex Sodium (Depakote Sprinkles) 1,000 mg HS PO Last administered on at 18:50; Start 02/28/18 at 21:00; Stop 03/04/18 at 18:24; Status DC Quetiapine Fumarate (SEROquel) 25 mg QHS PO Last administered on 03/11/18 19:35 ; Start 03/01/18 at 21:00; Stop 03/12/18 at 11:05; Status DC Tamsulosin HCl (Flomax) 0.4 mg HS PO Last administered on 03/02/18 20:26; Start 03/01/18 at 21:00; Stop 03/03/18 at 12:25; Status DC Mirtazapine (Remeron) 7.5 mg QHS PO Last administered on 03/10/18 19:28; Start 03/01/18 at 21:00; Stop 03/11/18 at 18:17; Status DC Tamsulosin HCl (Flomax) 0.4 mg BID PO Last administered on 04/09/18 19:50; Start 03/03/18 at 21:00 Amoxicillin (Amoxil) 500 mg [id number] PO Last administered on 03/14/18 19:28; Start 03/04/18 at 21:00; Stop 03/15/18 at 09:14; Status DC Divalproex Sodium (Depakote Er) 500 mg BID PO Last administered on 03/05/18at 19:44; Start 03/04/18 at 21:00; Stop 03/05/18 at 23:00; Status DC Lactobacillus Rhamnosus (Culturelle) 1 cap BID PO Last administered on 19:28; Start 03/05/18 at 21:00; Stop 03/15/18 at 09:14; Status DC Divalproex Sodium (Depakote Er) 1,000 mg QHS PO Last administered on 03/14/18 19:29; Start 03/06/18 at 21:00; Stop 03/15/18 at 21:12; Status DC Quetiapine Fumarate (SEROquel) 12.5 mg DAILY@1700 PO Last administered on 16:20; Start 03/11/18 at 17:00; Stop 03/17/18 at 18:46; Status DC Loperamide HCl (Imodium) 2 mg PRN Q1HR PRN PO DIARRHEA Last administered on 03/11 16:16; Start 03/11/18 at 16:15 Mirtazapine (Remeron) 15 mg QHS PO Last administered on 04/09/18 19:50; Start 03/11/18 at 21:00 Quetiapine Fumarate (SEROquel) 25 mg BID PO Last administered on 03/13/18at 07:55 ; Start 03/12/18 at 21:00; Stop 03/13/18 at 16:36; Status DC Quetiapine Fumarate (SEROquel) 25 mg QHS PO Last administered on 03/19/18 19: 21; Start 03/13/18 at 21:00; Stop 03/20/18 at 19:30; Status DC Olanzapine (ZyPREXA ZYDIS) 2.5 mg PRN Q2HR PRN PO PSYCHOSIS Last administered on 03/24/18at 15:09; Start 03/14/18 at 12:00; Stop 03/26/18 at 10:20; Status DC Trazodone HCl (Desyrel) 50 mg PRN QHS PRN PO INSOMNIA, MAY REPEAT X1 Last administered on 04/06/18at 01:32; Start 03/14/18 at 21:45 Buspirone HCl (Buspar) 5 mg [id number] PO Last administered on 03/18/18at 11:19; Start 03/16/18 at 09:00; Stop 03/18/18 at 14:47; Status DC Divalproex Sodium (Depakote Sprinkles) 500 mg BID PO Last administered on at 11:43; Start 03/15/18 at 21:15; Stop 03/26/18 at 12:10; Status DC Quetiapine Fumarate (SEROquel) 12.5 mg 0900,1700 PO Last administered on 17:18; Start 03/18/18 at 09:00 Buspirone HCl (Buspar) 10 mg BID@0900,1700 PO Last administered on 04/09/18 17 :18; Start 03/18/18 at 17:00 Rivastigmine (Exelon) 1 patch DAILY TD Last administered on 03/24/18at 12:02; Start 03/20/18 at 09:00; Stop 03/24/18 at 11:01; Status DC Rivastigmine (Exelon) 1 patch DAILY TD Last administered on 04/09/18at 08:32; Start 03/25/18 at 09:00 Memantine (Namenda) 5 mg HS PO Last administered on 03/21/18at 20:19; Start 12/26 at 21:00; Stop 03/21/18 at 23:00; Status DC Memantine (Namenda) 5 mg BID PO Last administered on 03/24/18at 12:02; Start at 09:00; Stop 03/24/18 at 17:21; Status DC Olanzapine (ZyPREXA IM) 5 mg 1X ONCE IM Last administered on 03/19/18at 20:05; Start 03/19/18 at 19:45; Stop 03/19/18 at 19:46; Status DC Olanzapine (ZyPREXA IM) 5 mg 1X ONCE IM Last administered on 03/20/18at 19:39; Start 03/20/18 at 19:15; Stop 03/20/18 at 19:16; Status DC Quetiapine Fumarate (SEROquel) 50 mg QHS PO Last administered on 04/09/18at 19: 50; Start 03/20/18 at 21:00 Quetiapine Fumarate (SEROquel) 25 mg PRN Q8HRS PRN PO agitation/aggression; Start 03/20/18 at 19:30 Olanzapine (ZyPREXA IM) 5 mg 1X ONCE IM Last administered on 03/21/18at 17:18; Start 03/21/18 at 17:30; Stop 03/21/18 at 17:31; Status DC Olanzapine (ZyPREXA IM) 5 mg 1X ONCE IM Last administered on 03/21/18at 19:45; Start 03/21/18 at 19:45; Stop 03/21/18 at 19:46; Status DC Olanzapine (ZyPREXA IM) 5 mg DAILY PRN IM PSYCHOSIS Last administered on at 21:01; Start 03/22/18 at 11:45; Stop 03/26/18 at 08:09; Status DC Sertraline HCl (Zoloft) 25 mg DAILY PO Last administered on 03/25/18at 11:25; Start 03/24/18 at 09:00; Stop 03/25/18 at 11:00; Status DC Sertraline HCl (Zoloft) 50 mg DAILY PO Last administered on 04/09/18at 08:34; Start 03/26/18 at 09:00 Memantine (Namenda) 10 mg BID PO Last administered on 04/09/18at 19:50; Start at 21:00 Olanzapine (ZyPREXA ZYDIS) 5 mg PRN Q2HR PRN PO PSYCHOSIS Last administered on 03/28/18at 15:44; Start 03/26/18 at 10:30 Divalproex Sodium (Depakote Sprinkles) 500 mg DAILY PO Last administered on at 11:58; Start 03/27/18 at 09:00; Stop 03/29/18 at 18:25; Status DC Divalproex Sodium (Depakote Sprinkles) 750 mg HS PO Last administered on at 19:50; Start 03/26/18 at 21:00 Divalproex Sodium (Depakote Sprinkles) 750 mg DAILY PO Last administered on at 08:34; Start 03/30/18 at 09:00 Amoxicillin (Amoxil) 500 mg [id number] PO Last administered on 04/04/18at 19:45; Start 04/01/18 at 21:00; Stop 04/05/18 at 19:20; Status DC Lactobacillus Rhamnosus (Culturelle) 1 cap BID PO Last administered on at 19:50; Start 04/01/18 at 21:00 Doxycycline Hyclate (Vibra-Tab) 100 mg BID PO Last administered on 04/09/18at 19 :54; Start 04/03/18 at 21:00; Stop 04/13/18 at 09:01 Active Scripts Active Reported Plavix (Clopidogrel Bisulfate) 75 Mg Tablet 75 Mg PO DAILY Lorazepam 0.5 Mg Tablet 1 Mg PO PRN Q8HRS PRN Flomax (Tamsulosin Hcl) 0.4 Mg Cap.er.24h 0.4 Mg PO HS PRN Depakote Sprinkle (Divalproex Sodium) 125 Mg Cap.sprink 500 Mg PO TID Colace (Docusate Sodium) 100 Mg Capsule 100 Mg PO BID Vitamin D (Cholecalciferol (Vitamin D3)) 1,000 Unit Capsule 2,000 Unit PO DAILY Atorvastatin Calcium 20 Mg Tablet 20 Mg PO QHS Atenolol 100 Mg Tablet 100 Mg PO DAILY Tylenol (Acetaminophen) 325 Mg Tablet 650 Mg PO PRN Q4HRS PRN I have reviewed the current psychotropics carefully including drug interactions. Risk benefit ratio favors no change other than as noted in my dictated progress note. 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
[2018-04-10 06:30] VITALS: BP 146/75
[2018-04-10] MEDS: RIVASTIGMINE 9.5MG PATCH. TD SCH (08:50)
[2018-04-10] MEDS: DOXYCYCLINE HYCLATE 100 MG TABLET PO SCH ×2 (08:50→19:29)
[2018-04-10] MEDS: MEMANTINE 10 MG TABLET. PO SCH ×2 (08:51→19:24)
[2018-04-10] MEDS: busPIRone 10 MG TABLET. PO SCH ×2 (08:51→17:40)
[2018-04-10] MEDS: ATENOLOL 50 MG TABLET PO SCH (08:51)
[2018-04-10] MEDS: LACTOBACILLUS RHAMNOSUS GG 1 CAPSULE. PO SCH ×2 (08:51→19:26)
[2018-04-10] MEDS: CHOLECALCIFEROL (VITAMIN D3) 1,000 UNIT TABLET PO SCH (08:51)
[2018-04-10] MEDS: QUEtiapine 25 MG TABLET. PO SCH ×2 (08:51→17:40)
[2018-04-10] MEDS: TAMSULOSIN 0.4 MG CAP.ER.24H. PO SCH ×2 (08:51→19:24)
[2018-04-10] MEDS: SERTRALINE 50 MG TABLET. PO SCH (08:51)
[2018-04-10] MEDS: DOCUSATE SODIUM 100 MG CAPSULE PO SCH ×2 (08:51→19:24)
[2018-04-10] MEDS: CLOPIDOGREL BISULFATE 75 MG TABLET PO SCH (08:52)
[2018-04-10] MEDS: DIVALPROEX 125 MG CAP.SPRINK PO SCH ×2 (08:52→19:24)
[2018-04-10] MEDS: NYSTATIN TOPICAL POWDER 15GM BOTTLE. TP SCH ×2 (09:16→19:26)
[2018-04-10 16:10] VITALS: BP 141/83
[2018-04-10] MEDS: traZODone 50 MG TABLET. PO PRN (19:23)
[2018-04-10] MEDS: ATORVASTATIN CALCIUM 20 MG TABLET PO SCH (19:24)
[2018-04-10] MEDS: QUEtiapine 50 MG TABLET. PO SCH (19:24)
[2018-04-10] MEDS: MIRTAZAPINE 15 MG TABLET PO SCH (19:24)
--- NOTE | 2018-04-10 23:01 | PDOC ---
Exam Note: Pavel Note: Please also refer to the separate dictated note~for this date of service dictated separately.~Patient seen individually. Discussed the patient with Nursing staff reviewed the chart.~Reviewed interim history and current functioning. Reviewed vital signs,~Labs/ Radiology~and current medications noted below. Continue current treatment with the changes noted in the dictated addendum note Assessment: Vital Signs: Vital Signs Date Time Temp Pulse Resp B/P (MAP) Pulse Ox O2 Delivery O2 Flow Rate FiO2 04/10/18 16:10 97.9 70 20 141/83 (102) 94 Room Air I&O Intake and Output 04/10/18 07:01 Intake Total 840 ml Output Total 500 ml Balance 340 ml Intake Oral 840 ml Output Urine Total 500 ml # Bowel Movements 2 Current Medications: Meds: Current Medications Acetaminophen (Tylenol) 650 mg PRN Q4HRS PRN PO PAIN / TEMP Last administered on 04/04/18 23:22; Start 02/20/18 at 18:30 Atorvastatin Calcium (Lipitor) 20 mg QHS PO Last administered on 04/10/18 19:24 ; Start 02/20/18 at 21:00 Clopidogrel Bisulfate (Plavix) 75 mg DAILY PO Last administered on 04/10/18 08: 52; Start 02/21/18 at 09:00 Tamsulosin HCl (Flomax) 0.4 mg PRN QHS PRN PO retention; Start 02/20/18 at 18: 30; Stop 03/01/18 at 11:14; Status DC Atenolol (Tenormin) 100 mg DAILY PO Last administered on 04/10/18 08:51; Start 02/21/18 at 09:00 Vitamin D (Vitamin D3) 2,000 unit DAILY PO Last administered on 04/10/18 08:51 ; Start 02/21/18 at 09:00 Divalproex Sodium (Depakote Sprinkles) 500 mg TID PO Last administered on 02/26at 07:53; Start 02/20/18 at 21:00; Stop 02/26/18 at 10:36; Status DC Docusate Sodium (Colace) 100 mg BID PO Last administered on 04/10/18 19:24; Start 02/20/18 at 21:00 Lorazepam (Ativan) 1 mg PRN Q8HRS PRN PO ANXIETY / AGITATION Last administered on 03/26/18 21:07; Start 02/20/18 at 19:00 Multi-Ingredient Ointment (Analgesic [place]) 1 devika PRN QID PRN TP MUSCLE PAIN Last administered on 04/04/18 23:22; Start 02/20/18 at 18:45 Al Hydroxide/Mg Hydroxide (Mylanta Plus Xs) 15 ml PRN AFTMEALHC PRN PO DYSPEPSIA Last administered on 03/07/18at 09:56; Start 02/20/18 at 18:45 Magnesium Hydroxide (Milk Of Magnesia) 2,400 mg PRN QHS PRN PO CONSTIPATION; Start 02/20/18 at 18:45 Nystatin (Nystop) 1 devika BID TP Last administered on 04/10/18 19:26; Start at 21:00 Bupropion HCl (Wellbutrin) 75 mg DAILY PO Last administered on 02/26/18at 07:53 ; Start 02/24/18 at 09:00; Stop 02/27/18 at 08:59; Status DC Bupropion HCl (Wellbutrin) 75 mg BIDACBL PO Last administered on 03/17/18 14:16 ; Start 02/27/18 at 08:00; Stop 03/17/18 at 18:46; Status DC Divalproex Sodium (Depakote Er) 1,000 mg QHS PO Last administered on at 19:46; Start 02/26/18 at 21:00; Stop 02/28/18 at 19:35; Status DC Divalproex Sodium (Depakote Sprinkles) 1,000 mg HS PO Last administered on at 18:50; Start 02/28/18 at 21:00; Stop 03/04/18 at 18:24; Status DC Quetiapine Fumarate (SEROquel) 25 mg QHS PO Last administered on 03/11/18 19:35 ; Start 03/01/18 at 21:00; Stop 03/12/18 at 11:05; Status DC Tamsulosin HCl (Flomax) 0.4 mg HS PO Last administered on 03/02/18 20:26; Start 03/01/18 at 21:00; Stop 03/03/18 at 12:25; Status DC Mirtazapine (Remeron) 7.5 mg QHS PO Last administered on 03/10/18 19:28; Start 03/01/18 at 21:00; Stop 03/11/18 at 18:17; Status DC Tamsulosin HCl (Flomax) 0.4 mg BID PO Last administered on 04/10/18 19:24; Start 03/03/18 at 21:00 Amoxicillin (Amoxil) 500 mg [id number] PO Last administered on 03/14/18 19:28; Start 03/04/18 at 21:00; Stop 03/15/18 at 09:14; Status DC Divalproex Sodium (Depakote Er) 500 mg BID PO Last administered on 03/05/18at 19:44; Start 03/04/18 at 21:00; Stop 03/05/18 at 23:00; Status DC Lactobacillus Rhamnosus (Culturelle) 1 cap BID PO Last administered on 19:28; Start 03/05/18 at 21:00; Stop 03/15/18 at 09:14; Status DC Divalproex Sodium (Depakote Er) 1,000 mg QHS PO Last administered on 03/14/18 19:29; Start 03/06/18 at 21:00; Stop 03/15/18 at 21:12; Status DC Quetiapine Fumarate (SEROquel) 12.5 mg DAILY@1700 PO Last administered on 16:20; Start 03/11/18 at 17:00; Stop 03/17/18 at 18:46; Status DC Loperamide HCl (Imodium) 2 mg PRN Q1HR PRN PO DIARRHEA Last administered on 03/11 16:16; Start 03/11/18 at 16:15 Mirtazapine (Remeron) 15 mg QHS PO Last administered on 04/10/18 19:24; Start 03/11/18 at 21:00 Quetiapine Fumarate (SEROquel) 25 mg BID PO Last administered on 03/13/18at 07:55 ; Start 03/12/18 at 21:00; Stop 03/13/18 at 16:36; Status DC Quetiapine Fumarate (SEROquel) 25 mg QHS PO Last administered on 03/19/18at 19: 21; Start 03/13/18 at 21:00; Stop 03/20/18 at 19:30; Status DC Olanzapine (ZyPREXA ZYDIS) 2.5 mg PRN Q2HR PRN PO PSYCHOSIS Last administered on 03/24/18at 15:09; Start 03/14/18 at 12:00; Stop 03/26/18 at 10:20; Status DC Trazodone HCl (Desyrel) 50 mg PRN QHS PRN PO INSOMNIA, MAY REPEAT X1 Last administered on 04/10/18at 19:23; Start 03/14/18 at 21:45 Buspirone HCl (Buspar) 5 mg [id number] PO Last administered on 03/18/18at 11:19; Start 03/16/18 at 09:00; Stop 03/18/18 at 14:47; Status DC Divalproex Sodium (Depakote Sprinkles) 500 mg BID PO Last administered on at 11:43; Start 03/15/18 at 21:15; Stop 03/26/18 at 12:10; Status DC Quetiapine Fumarate (SEROquel) 12.5 mg 0900,1700 PO Last administered on at 17:40; Start 03/18/18 at 09:00 Buspirone HCl (Buspar) 10 mg BID@0900,1700 PO Last administered on 04/10/18at 17: 40; Start 03/18/18 at 17:00 Rivastigmine (Exelon) 1 patch DAILY TD Last administered on 03/24/18at 12:02; Start 03/20/18 at 09:00; Stop 03/24/18 at 11:01; Status DC Rivastigmine (Exelon) 1 patch DAILY TD Last administered on 04/10/18at 08:50; Start 03/25/18 at 09:00 Memantine (Namenda) 5 mg HS PO Last administered on 03/21/18at 20:19; Start 12/26 at 21:00; Stop 03/21/18 at 23:00; Status DC Memantine (Namenda) 5 mg BID PO Last administered on 03/24/18at 12:02; Start at 09:00; Stop 03/24/18 at 17:21; Status DC Olanzapine (ZyPREXA IM) 5 mg 1X ONCE IM Last administered on 03/19/18at 20:05; Start 03/19/18 at 19:45; Stop 03/19/18 at 19:46; Status DC Olanzapine (ZyPREXA IM) 5 mg 1X ONCE IM Last administered on 03/20/18at 19:39; Start 03/20/18 at 19:15; Stop 03/20/18 at 19:16; Status DC Quetiapine Fumarate (SEROquel) 50 mg QHS PO Last administered on 04/10/18at 19:24 ; Start 03/20/18 at 21:00 Quetiapine Fumarate (SEROquel) 25 mg PRN Q8HRS PRN PO agitation/aggression; Start 03/20/18 at 19:30 Olanzapine (ZyPREXA IM) 5 mg 1X ONCE IM Last administered on 03/21/18at 17:18; Start 03/21/18 at 17:30; Stop 03/21/18 at 17:31; Status DC Olanzapine (ZyPREXA IM) 5 mg 1X ONCE IM Last administered on 03/21/18at 19:45; Start 03/21/18 at 19:45; Stop 03/21/18 at 19:46; Status DC Olanzapine (ZyPREXA IM) 5 mg DAILY PRN IM PSYCHOSIS Last administered on at 21:01; Start 03/22/18 at 11:45; Stop 03/26/18 at 08:09; Status DC Sertraline HCl (Zoloft) 25 mg DAILY PO Last administered on 03/25/18at 11:25; Start 03/24/18 at 09:00; Stop 03/25/18 at 11:00; Status DC Sertraline HCl (Zoloft) 50 mg DAILY PO Last administered on 04/10/18at 08:51; Start 03/26/18 at 09:00 Memantine (Namenda) 10 mg BID PO Last administered on 04/10/18at 19:24; Start at 21:00 Olanzapine (ZyPREXA ZYDIS) 5 mg PRN Q2HR PRN PO PSYCHOSIS Last administered on 03/28/18at 15:44; Start 03/26/18 at 10:30 Divalproex Sodium (Depakote Sprinkles) 500 mg DAILY PO Last administered on at 11:58; Start 03/27/18 at 09:00; Stop 03/29/18 at 18:25; Status DC Divalproex Sodium (Depakote Sprinkles) 750 mg HS PO Last administered on 19:24; Start 03/26/18 at 21:00 Divalproex Sodium (Depakote Sprinkles) 750 mg DAILY PO Last administered on 04/10 08:52; Start 03/30/18 at 09:00 Amoxicillin (Amoxil) 500 mg [id number] PO Last administered on 04/04/18 19:45; Start 04/01/18 at 21:00; Stop 04/05/18 at 19:20; Status DC Lactobacillus Rhamnosus (Culturelle) 1 cap BID PO Last administered on 19:26; Start 04/01/18 at 21:00 Doxycycline Hyclate (Vibra-Tab) 100 mg BID PO Last administered on 04/10/18 19: 29; Start 04/03/18 at 21:00; Stop 04/13/18 at 09:01 Active Scripts Active Reported Plavix (Clopidogrel Bisulfate) 75 Mg Tablet 75 Mg PO DAILY Lorazepam 0.5 Mg Tablet 1 Mg PO PRN Q8HRS PRN Flomax (Tamsulosin Hcl) 0.4 Mg Cap.er.24h 0.4 Mg PO HS PRN Depakote Sprinkle (Divalproex Sodium) 125 Mg Cap.sprink 500 Mg PO TID Colace (Docusate Sodium) 100 Mg Capsule 100 Mg PO BID Vitamin D (Cholecalciferol (Vitamin D3)) 1,000 Unit Capsule 2,000 Unit PO DAILY Atorvastatin Calcium 20 Mg Tablet 20 Mg PO QHS Atenolol 100 Mg Tablet 100 Mg PO DAILY Tylenol (Acetaminophen) 325 Mg Tablet 650 Mg PO PRN Q4HRS PRN I have reviewed the current psychotropics carefully including drug interactions. Risk benefit ratio favors no change other than as noted in my dictated progress note. 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
[2018-04-11] MEDS ORDERED: RIVA1PAT23 TD (00:38)
[2018-04-11] MEDS ORDERED: SERT50TA PO (00:40)
[2018-04-11] MEDS ORDERED: MIRT15TA PO (00:40)
[2018-04-11] MEDS ORDERED: TRAZ-85 PO (00:41)
[2018-04-11] MEDS ORDERED: OLAN5TAB5 PO (00:43)
[2018-04-11] MEDS ORDERED: QUET50TA5 PO (00:45)
[2018-04-11] MEDS ORDERED: QUET25TA5 PO ×2 (00:48→00:56)
[2018-04-11] MEDS ORDERED: BUSP10TA PO (01:02)
[2018-04-11] MEDS ORDERED: MEMA10TA PO (01:03)
[2018-04-11] MEDS ORDERED: LACT1CAP19 PO (01:13)
[2018-04-11] MEDS ORDERED: NYST15PO9 TP (01:14)
[2018-04-11] MEDS ORDERED: MAGN2400 PO (01:20)
[2018-04-11] MEDS ORDERED: LOPE2CAP PO (01:25)
[2018-04-11] MEDS ORDERED: MAG355OR17 PO (01:26)
--- NOTE | 2018-04-11 03:59 | PN ---
DATE: 04/09/2018 PSYCHIATRIC PROGRESS NOTE This late entry, 04/09/2018, covers elements not covered in my initial note. SUBJECTIVE: I met with the patient in the evening and staffed at treatment team meeting with the entire team in the morning and the patient's , Roxanne, attended the conference. We reviewed the patient's history at length, diagnosis, prognosis, medications, discharge plans. The patient slept 7-3/4 hours previous night. REVIEW OF SYSTEMS: Ambulation impaired. No CV, , pulmonary, eye, ENT system symptoms on review. Reliability poor. MENTAL STATUS EXAM: Oriented to himself. Insight, judgment, recent and remote memory, attention, concentration, fund of knowledge poor, consistent with his diagnosis mentioned in my initial note. PLAN: No change from initial note. MAN Diony JORGE MD DR: LOVE/lilly JOB#: [id number] / [id number]
--- NOTE | 2018-04-11 04:01 | PN ---
DATE: 04/08/2018 This late entry for 04/08/2018 covers elements not covered in my initial note. SUBJECTIVE: I met with the patient in the evening. The patient slept 9-1/4 hours previous night. He has been somewhat sedated during the day, but behaviorally doing better. REVIEW OF SYSTEMS: Ambulation impaired with walker. No CV, , pulmonary, eye, ENT system symptoms on review. MENTAL STATUS EXAM: Oriented to himself. Insight, judgment, recent and remote memory, attention, concentration, fund of knowledge poor, consistent with his diagnosis. IMPRESSION: Major neurocognitive disorder, Lewy body with delusion, depression, behavioral disturbance. Rest unchanged. PLAN: No change from initial note. UA is being treated on doxycycline for MRSA. MAN Diony JORGE MD DR: LOVE/lilly JOB#: [id number] / [id number]
[2018-04-11 06:21] VITALS: BP 175/87
[2018-04-11] MEDS: DOCUSATE SODIUM 100 MG CAPSULE PO SCH ×2 (12:18→19:16)
[2018-04-11] MEDS: busPIRone 10 MG TABLET. PO SCH ×2 (12:18→16:30)
[2018-04-11] MEDS: LACTOBACILLUS RHAMNOSUS GG 1 CAPSULE. PO SCH ×2 (12:18→19:15)
[2018-04-11] MEDS: DIVALPROEX 125 MG CAP.SPRINK PO SCH ×2 (12:19→19:16)
[2018-04-11] MEDS: MEMANTINE 10 MG TABLET. PO SCH ×2 (12:20→19:15)
[2018-04-11] MEDS: ATENOLOL 50 MG TABLET PO SCH (12:20)
[2018-04-11] MEDS: QUEtiapine 25 MG TABLET. PO SCH ×2 (12:20→16:30)
[2018-04-11] MEDS: CLOPIDOGREL BISULFATE 75 MG TABLET PO SCH (12:20)
[2018-04-11] MEDS: TAMSULOSIN 0.4 MG CAP.ER.24H. PO SCH ×2 (12:20→19:15)
[2018-04-11] MEDS: SERTRALINE 50 MG TABLET. PO SCH (12:21)
[2018-04-11] MEDS: DOXYCYCLINE HYCLATE 100 MG TABLET PO SCH ×2 (12:21→19:15)
[2018-04-11] MEDS: CHOLECALCIFEROL (VITAMIN D3) 1,000 UNIT TABLET PO SCH (12:21)
[2018-04-11] MEDS: NYSTATIN TOPICAL POWDER 15GM BOTTLE. TP SCH ×2 (12:21→19:16)
[2018-04-11] MEDS: RIVASTIGMINE 9.5MG PATCH. TD SCH (12:21)
[2018-04-11 16:09] VITALS: BP 107/71
[2018-04-11] MEDS: LORazepam 1 MG TABLET PO PRN (16:31)
[2018-04-11] MEDS: QUEtiapine 50 MG TABLET. PO SCH (19:15)
[2018-04-11] MEDS: ATORVASTATIN CALCIUM 20 MG TABLET PO SCH (19:15)
[2018-04-11] MEDS: MIRTAZAPINE 15 MG TABLET PO SCH (19:15)
--- NOTE | 2018-04-11 22:28 | PDOC ---
Exam Note: Pavel Note: Please also refer to the separate dictated note~for this date of service dictated separately.~Patient seen individually. Discussed the patient with Nursing staff reviewed the chart.~Reviewed interim history and current functioning. Reviewed vital signs,~Labs/ Radiology~and current medications noted below. Continue current treatment with the changes noted in the dictated addendum note Assessment: Vital Signs: Vital Signs Date Time Temp Pulse Resp B/P (MAP) Pulse Ox O2 Delivery O2 Flow Rate FiO2 04/11/18 16:09 97.5 82 20 107/71 (83) 98 Room Air I&O Intake and Output 04/11/18 07:01 Intake Total 480 ml Output Total 540 ml Balance -60 ml Intake Oral 480 ml Output Urine Total 540 ml # Bowel Movements 1 Current Medications: Meds: Current Medications Acetaminophen (Tylenol) 650 mg PRN Q4HRS PRN PO PAIN / TEMP Last administered on 04/04/18 23:22; Start 02/20/18 at 18:30 Atorvastatin Calcium (Lipitor) 20 mg QHS PO Last administered on 04/11/18 19:15 ; Start 02/20/18 at 21:00 Clopidogrel Bisulfate (Plavix) 75 mg DAILY PO Last administered on 04/11/18 12: 20; Start 02/21/18 at 09:00 Tamsulosin HCl (Flomax) 0.4 mg PRN QHS PRN PO retention; Start 02/20/18 at 18: 30; Stop 03/01/18 at 11:14; Status DC Atenolol (Tenormin) 100 mg DAILY PO Last administered on 04/11/18 12:20; Start 02/21/18 at 09:00 Vitamin D (Vitamin D3) 2,000 unit DAILY PO Last administered on 04/11/18 12:21 ; Start 02/21/18 at 09:00 Divalproex Sodium (Depakote Sprinkles) 500 mg TID PO Last administered on 02/26at 07:53; Start 02/20/18 at 21:00; Stop 02/26/18 at 10:36; Status DC Docusate Sodium (Colace) 100 mg BID PO Last administered on 04/11/18 19:16; Start 02/20/18 at 21:00 Lorazepam (Ativan) 1 mg PRN Q8HRS PRN PO ANXIETY / AGITATION Last administered on 04/11/18 16:31; Start 02/20/18 at 19:00 Multi-Ingredient Ointment (Analgesic [place]) 1 devika PRN QID PRN TP MUSCLE PAIN Last administered on 04/04/18 23:22; Start 02/20/18 at 18:45 Al Hydroxide/Mg Hydroxide (Mylanta Plus Xs) 15 ml PRN AFTMEALHC PRN PO DYSPEPSIA Last administered on 03/07/18 09:56; Start 02/20/18 at 18:45 Magnesium Hydroxide (Milk Of Magnesia) 2,400 mg PRN QHS PRN PO CONSTIPATION; Start 02/20/18 at 18:45 Nystatin (Nystop) 1 devika BID TP Last administered on 04/11/18 19:16; Start at 21:00 Bupropion HCl (Wellbutrin) 75 mg DAILY PO Last administered on 02/26/18at 07:53 ; Start 02/24/18 at 09:00; Stop 02/27/18 at 08:59; Status DC Bupropion HCl (Wellbutrin) 75 mg BIDACBL PO Last administered on 03/17/18 14:16 ; Start 02/27/18 at 08:00; Stop 03/17/18 at 18:46; Status DC Divalproex Sodium (Depakote Er) 1,000 mg QHS PO Last administered on at 19:46; Start 02/26/18 at 21:00; Stop 02/28/18 at 19:35; Status DC Divalproex Sodium (Depakote Sprinkles) 1,000 mg HS PO Last administered on at 18:50; Start 02/28/18 at 21:00; Stop 03/04/18 at 18:24; Status DC Quetiapine Fumarate (SEROquel) 25 mg QHS PO Last administered on 03/11/18 19:35 ; Start 03/01/18 at 21:00; Stop 03/12/18 at 11:05; Status DC Tamsulosin HCl (Flomax) 0.4 mg HS PO Last administered on 03/02/18 20:26; Start 03/01/18 at 21:00; Stop 03/03/18 at 12:25; Status DC Mirtazapine (Remeron) 7.5 mg QHS PO Last administered on 03/10/18 19:28; Start 03/01/18 at 21:00; Stop 03/11/18 at 18:17; Status DC Tamsulosin HCl (Flomax) 0.4 mg BID PO Last administered on 04/11/18 19:15; Start 03/03/18 at 21:00 Amoxicillin (Amoxil) 500 mg [id number] PO Last administered on 03/14/18 19:28; Start 03/04/18 at 21:00; Stop 03/15/18 at 09:14; Status DC Divalproex Sodium (Depakote Er) 500 mg BID PO Last administered on 03/05/18at 19:44; Start 03/04/18 at 21:00; Stop 03/05/18 at 23:00; Status DC Lactobacillus Rhamnosus (Culturelle) 1 cap BID PO Last administered on 19:28; Start 03/05/18 at 21:00; Stop 03/15/18 at 09:14; Status DC Divalproex Sodium (Depakote Er) 1,000 mg QHS PO Last administered on 03/14/18 19:29; Start 03/06/18 at 21:00; Stop 03/15/18 at 21:12; Status DC Quetiapine Fumarate (SEROquel) 12.5 mg DAILY@1700 PO Last administered on 16:20; Start 03/11/18 at 17:00; Stop 03/17/18 at 18:46; Status DC Loperamide HCl (Imodium) 2 mg PRN Q1HR PRN PO DIARRHEA Last administered on 03/11 16:16; Start 03/11/18 at 16:15 Mirtazapine (Remeron) 15 mg QHS PO Last administered on 04/11/18 19:15; Start 03/11/18 at 21:00 Quetiapine Fumarate (SEROquel) 25 mg BID PO Last administered on 03/13/18 07:55 ; Start 03/12/18 at 21:00; Stop 03/13/18 at 16:36; Status DC Quetiapine Fumarate (SEROquel) 25 mg QHS PO Last administered on 03/19/18 19: 21; Start 03/13/18 at 21:00; Stop 03/20/18 at 19:30; Status DC Olanzapine (ZyPREXA ZYDIS) 2.5 mg PRN Q2HR PRN PO PSYCHOSIS Last administered on 03/24/18at 15:09; Start 03/14/18 at 12:00; Stop 03/26/18 at 10:20; Status DC Trazodone HCl (Desyrel) 50 mg PRN QHS PRN PO INSOMNIA, MAY REPEAT X1 Last administered on 04/10/18at 19:23; Start 03/14/18 at 21:45 Buspirone HCl (Buspar) 5 mg [id number] PO Last administered on 03/18/18 11:19; Start 03/16/18 at 09:00; Stop 03/18/18 at 14:47; Status DC Divalproex Sodium (Depakote Sprinkles) 500 mg BID PO Last administered on at 11:43; Start 03/15/18 at 21:15; Stop 03/26/18 at 12:10; Status DC Quetiapine Fumarate (SEROquel) 12.5 mg 0900,1700 PO Last administered on 16:30; Start 03/18/18 at 09:00 Buspirone HCl (Buspar) 10 mg BID@0900,1700 PO Last administered on 04/11/18 16: 30; Start 03/18/18 at 17:00 Rivastigmine (Exelon) 1 patch DAILY TD Last administered on 03/24/18at 12:02; Start 03/20/18 at 09:00; Stop 03/24/18 at 11:01; Status DC Rivastigmine (Exelon) 1 patch DAILY TD Last administered on 04/11/18 12:21; Start 03/25/18 at 09:00 Memantine (Namenda) 5 mg HS PO Last administered on 03/21/18 20:19; Start 12/26 at 21:00; Stop 03/21/18 at 23:00; Status DC Memantine (Namenda) 5 mg BID PO Last administered on 03/24/18at 12:02; Start at 09:00; Stop 03/24/18 at 17:21; Status DC Olanzapine (ZyPREXA IM) 5 mg 1X ONCE IM Last administered on 03/19/18at 20:05; Start 03/19/18 at 19:45; Stop 03/19/18 at 19:46; Status DC Olanzapine (ZyPREXA IM) 5 mg 1X ONCE IM Last administered on 03/20/18at 19:39; Start 03/20/18 at 19:15; Stop 03/20/18 at 19:16; Status DC Quetiapine Fumarate (SEROquel) 50 mg QHS PO Last administered on 04/11/18 19:15 ; Start 03/20/18 at 21:00 Quetiapine Fumarate (SEROquel) 25 mg PRN Q8HRS PRN PO agitation/aggression; Start 03/20/18 at 19:30 Olanzapine (ZyPREXA IM) 5 mg 1X ONCE IM Last administered on 03/21/18at 17:18; Start 03/21/18 at 17:30; Stop 03/21/18 at 17:31; Status DC Olanzapine (ZyPREXA IM) 5 mg 1X ONCE IM Last administered on 03/21/18at 19:45; Start 03/21/18 at 19:45; Stop 03/21/18 at 19:46; Status DC Olanzapine (ZyPREXA IM) 5 mg DAILY PRN IM PSYCHOSIS Last administered on at 21:01; Start 03/22/18 at 11:45; Stop 03/26/18 at 08:09; Status DC Sertraline HCl (Zoloft) 25 mg DAILY PO Last administered on 03/25/18at 11:25; Start 03/24/18 at 09:00; Stop 03/25/18 at 11:00; Status DC Sertraline HCl (Zoloft) 50 mg DAILY PO Last administered on 04/11/18 12:21; Start 03/26/18 at 09:00 Memantine (Namenda) 10 mg BID PO Last administered on 04/11/18 19:15; Start at 21:00 Olanzapine (ZyPREXA ZYDIS) 5 mg PRN Q2HR PRN PO PSYCHOSIS Last administered on 03/28/18at 15:44; Start 03/26/18 at 10:30 Divalproex Sodium (Depakote Sprinkles) 500 mg DAILY PO Last administered on at 11:58; Start 03/27/18 at 09:00; Stop 03/29/18 at 18:25; Status DC Divalproex Sodium (Depakote Sprinkles) 750 mg HS PO Last administered on 19:16; Start 03/26/18 at 21:00 Divalproex Sodium (Depakote Sprinkles) 750 mg DAILY PO Last administered on 04/11 12:19; Start 03/30/18 at 09:00 Amoxicillin (Amoxil) 500 mg [id number] PO Last administered on 04/04/18 19:45; Start 04/01/18 at 21:00; Stop 04/05/18 at 19:20; Status DC Lactobacillus Rhamnosus (Culturelle) 1 cap BID PO Last administered on 19:15; Start 04/01/18 at 21:00 Doxycycline Hyclate (Vibra-Tab) 100 mg BID PO Last administered on 04/11/18 19: 15; Start 04/03/18 at 21:00; Stop 04/13/18 at 09:01 Active Scripts Active Reported Advanced Antacid Liquid (Mag Hydrox/Al Hydrox/Simeth) 355 Ml Oral.susp 355 Ml PO PRN QID PRN Loperamide (Loperamide Hcl) 2 Mg Capsule 2 Mg PO PRN Q1HR PRN Milk Of Magnesia (Magnesium Hydroxide) 2,400 Mg/10 Ml Oral.susp 2,400 Mg PO PRN QHS PRN Nystatin 15 Gm Powder 15 Gm TP BID Culturelle (Lactobacillus Rhamnosus Gg) 1 Each Cap.sprink 1 Each PO BID Namenda (Memantine Hcl) 10 Mg Tablet 10 Mg PO BID Buspirone Hcl 10 Mg Tablet 10 Mg PO [id number] Seroquel (Quetiapine Fumarate) 25 Mg Tablet 25 Mg PO PRN Q8HRS PRN Seroquel (Quetiapine Fumarate) 25 Mg Tablet 25 Mg PO [id number] Seroquel (Quetiapine Fumarate) 50 Mg Tablet 50 Mg PO HS Zyprexa Zydis (Olanzapine) 5 Mg Tab.rapdis 5 Mg PO PRN Q2HR PRN Trazodone Hcl 50 Mg Tablet 50 Mg PO PRN QHS PRN Zoloft (Sertraline Hcl) 50 Mg Tablet 50 Mg PO DAILY Remeron (Mirtazapine) 15 Mg Tablet 15 Mg PO HS EXELON 9.5mg/24hr (Rivastigmine) 1 Each Patch.td24 1 Patch TD DAILY Plavix (Clopidogrel Bisulfate) 75 Mg Tablet 75 Mg PO DAILY Lorazepam 0.5 Mg Tablet 1 Mg PO PRN Q8HRS PRN Flomax (Tamsulosin Hcl) 0.4 Mg Cap.er.24h 0.4 Mg PO HS PRN Depakote Sprinkle (Divalproex Sodium) 125 Mg Cap.sprink 500 Mg PO TID Colace (Docusate Sodium) 100 Mg Capsule 100 Mg PO BID Vitamin D (Cholecalciferol (Vitamin D3)) 1,000 Unit Capsule 2,000 Unit PO DAILY Atorvastatin Calcium 20 Mg Tablet 20 Mg PO QHS Atenolol 100 Mg Tablet 100 Mg PO DAILY Tylenol (Acetaminophen) 325 Mg Tablet 650 Mg PO PRN Q4HRS PRN I have reviewed the current psychotropics carefully including drug interactions. Risk benefit ratio favors no change other than as noted in my dictated progress note. 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
[2018-04-12 06:09] VITALS: BP 161/89
[2018-04-12] MEDS: CLOPIDOGREL BISULFATE 75 MG TABLET PO SCH (07:40)
[2018-04-12] MEDS: MEMANTINE 10 MG TABLET. PO SCH ×2 (07:40→21:01)
[2018-04-12] MEDS: DIVALPROEX 125 MG CAP.SPRINK PO SCH ×2 (07:40→21:01)
[2018-04-12] MEDS: SERTRALINE 50 MG TABLET. PO SCH (07:40)
[2018-04-12] MEDS: DOCUSATE SODIUM 100 MG CAPSULE PO SCH ×2 (07:40→21:01)
[2018-04-12] MEDS: CHOLECALCIFEROL (VITAMIN D3) 1,000 UNIT TABLET PO SCH (07:40)
[2018-04-12] MEDS: TAMSULOSIN 0.4 MG CAP.ER.24H. PO SCH ×2 (07:40→21:01)
[2018-04-12] MEDS: LACTOBACILLUS RHAMNOSUS GG 1 CAPSULE. PO SCH ×2 (07:41→21:01)
[2018-04-12] MEDS: QUEtiapine 25 MG TABLET. PO SCH ×2 (07:41→17:10)
[2018-04-12] MEDS: ATENOLOL 50 MG TABLET PO SCH (07:41)
[2018-04-12] MEDS: RIVASTIGMINE 9.5MG PATCH. TD SCH (07:42)
[2018-04-12] MEDS: busPIRone 10 MG TABLET. PO SCH ×2 (07:42→17:10)
[2018-04-12] MEDS: DOXYCYCLINE HYCLATE 100 MG TABLET PO SCH ×2 (07:42→21:06)
[2018-04-12] MEDS: NYSTATIN TOPICAL POWDER 15GM BOTTLE. TP SCH ×2 (07:42→21:02)
[2018-04-12 16:16] VITALS: BP 99/66
[2018-04-12] MEDS: QUEtiapine 50 MG TABLET. PO SCH (21:02)
[2018-04-12] MEDS: MIRTAZAPINE 15 MG TABLET PO SCH (21:02)
[2018-04-12] MEDS: ATORVASTATIN CALCIUM 20 MG TABLET PO SCH (21:02)
--- NOTE | 2018-04-12 22:29 | PDOC ---
Exam Note: Pavel Note: Please also refer to the separate dictated note~for this date of service dictated separately.~Patient seen individually. Discussed the patient with Nursing staff reviewed the chart.~Reviewed interim history and current functioning. Reviewed vital signs,~Labs/ Radiology~and current medications noted below. Continue current treatment with the changes noted in the dictated addendum note Assessment: Vital Signs: Vital Signs Date Time Temp Pulse Resp B/P (MAP) Pulse Ox O2 Delivery O2 Flow Rate FiO2 04/12/18 16:16 97.1 73 16 99/66 (77) 97 Room Air I&O Intake and Output 04/12/18 07:01 Intake Total 960 ml Output Total 1000 ml Balance -40 ml Intake Oral 960 ml Output Urine Total 1000 ml Current Medications: Meds: Current Medications Acetaminophen (Tylenol) 650 mg PRN Q4HRS PRN PO PAIN / TEMP Last administered on 04/04/18 23:22; Start 02/20/18 at 18:30 Atorvastatin Calcium (Lipitor) 20 mg QHS PO Last administered on 04/12/18 21:02 ; Start 02/20/18 at 21:00 Clopidogrel Bisulfate (Plavix) 75 mg DAILY PO Last administered on 04/12/18 07: 40; Start 02/21/18 at 09:00 Tamsulosin HCl (Flomax) 0.4 mg PRN QHS PRN PO retention; Start 02/20/18 at 18: 30; Stop 03/01/18 at 11:14; Status DC Atenolol (Tenormin) 100 mg DAILY PO Last administered on 04/12/18 07:41; Start 02/21/18 at 09:00 Vitamin D (Vitamin D3) 2,000 unit DAILY PO Last administered on 04/12/18 07:40 ; Start 02/21/18 at 09:00 Divalproex Sodium (Depakote Sprinkles) 500 mg TID PO Last administered on 02/26at 07:53; Start 02/20/18 at 21:00; Stop 02/26/18 at 10:36; Status DC Docusate Sodium (Colace) 100 mg BID PO Last administered on 04/12/18 21:01; Start 02/20/18 at 21:00 Lorazepam (Ativan) 1 mg PRN Q8HRS PRN PO ANXIETY / AGITATION Last administered on 04/11/18 16:31; Start 02/20/18 at 19:00 Multi-Ingredient Ointment (Analgesic Tyler) 1 devika PRN QID PRN TP MUSCLE PAIN Last administered on 04/04/18 23:22; Start 02/20/18 at 18:45 Al Hydroxide/Mg Hydroxide (Mylanta Plus Xs) 15 ml PRN AFTMEALHC PRN PO DYSPEPSIA Last administered on 03/07/18at 09:56; Start 02/20/18 at 18:45 Magnesium Hydroxide (Milk Of Magnesia) 2,400 mg PRN QHS PRN PO CONSTIPATION; Start 02/20/18 at 18:45 Nystatin (Nystop) 1 devika BID TP Last administered on 04/12/18 21:02; Start at 21:00 Bupropion HCl (Wellbutrin) 75 mg DAILY PO Last administered on 02/26/18at 07:53 ; Start 02/24/18 at 09:00; Stop 02/27/18 at 08:59; Status DC Bupropion HCl (Wellbutrin) 75 mg BIDACBL PO Last administered on 03/17/18 14:16 ; Start 02/27/18 at 08:00; Stop 03/17/18 at 18:46; Status DC Divalproex Sodium (Depakote Er) 1,000 mg QHS PO Last administered on at 19:46; Start 02/26/18 at 21:00; Stop 02/28/18 at 19:35; Status DC Divalproex Sodium (Depakote Sprinkles) 1,000 mg HS PO Last administered on at 18:50; Start 02/28/18 at 21:00; Stop 03/04/18 at 18:24; Status DC Quetiapine Fumarate (SEROquel) 25 mg QHS PO Last administered on 03/11/18 19:35 ; Start 03/01/18 at 21:00; Stop 03/12/18 at 11:05; Status DC Tamsulosin HCl (Flomax) 0.4 mg HS PO Last administered on 03/02/18at 20:26; Start 03/01/18 at 21:00; Stop 03/03/18 at 12:25; Status DC Mirtazapine (Remeron) 7.5 mg QHS PO Last administered on 03/10/18 19:28; Start 03/01/18 at 21:00; Stop 03/11/18 at 18:17; Status DC Tamsulosin HCl (Flomax) 0.4 mg BID PO Last administered on 04/12/18 21:01; Start 03/03/18 at 21:00 Amoxicillin (Amoxil) 500 mg [id number] PO Last administered on 03/14/18 19:28; Start 03/04/18 at 21:00; Stop 03/15/18 at 09:14; Status DC Divalproex Sodium (Depakote Er) 500 mg BID PO Last administered on 03/05/18at 19:44; Start 03/04/18 at 21:00; Stop 03/05/18 at 23:00; Status DC Lactobacillus Rhamnosus (Culturelle) 1 cap BID PO Last administered on 19:28; Start 03/05/18 at 21:00; Stop 03/15/18 at 09:14; Status DC Divalproex Sodium (Depakote Er) 1,000 mg QHS PO Last administered on 03/14/18 19:29; Start 03/06/18 at 21:00; Stop 03/15/18 at 21:12; Status DC Quetiapine Fumarate (SEROquel) 12.5 mg DAILY@1700 PO Last administered on 16:20; Start 03/11/18 at 17:00; Stop 03/17/18 at 18:46; Status DC Loperamide HCl (Imodium) 2 mg PRN Q1HR PRN PO DIARRHEA Last administered on 03/11 16:16; Start 03/11/18 at 16:15 Mirtazapine (Remeron) 15 mg QHS PO Last administered on 04/12/18 21:02; Start 03/11/18 at 21:00 Quetiapine Fumarate (SEROquel) 25 mg BID PO Last administered on 03/13/18 07:55 ; Start 03/12/18 at 21:00; Stop 03/13/18 at 16:36; Status DC Quetiapine Fumarate (SEROquel) 25 mg QHS PO Last administered on 03/19/18 19: 21; Start 03/13/18 at 21:00; Stop 03/20/18 at 19:30; Status DC Olanzapine (ZyPREXA ZYDIS) 2.5 mg PRN Q2HR PRN PO PSYCHOSIS Last administered on 03/24/18at 15:09; Start 03/14/18 at 12:00; Stop 03/26/18 at 10:20; Status DC Trazodone HCl (Desyrel) 50 mg PRN QHS PRN PO INSOMNIA, MAY REPEAT X1 Last administered on 04/10/18at 19:23; Start 03/14/18 at 21:45 Buspirone HCl (Buspar) 5 mg [id number] PO Last administered on 03/18/18 11:19; Start 03/16/18 at 09:00; Stop 03/18/18 at 14:47; Status DC Divalproex Sodium (Depakote Sprinkles) 500 mg BID PO Last administered on at 11:43; Start 03/15/18 at 21:15; Stop 03/26/18 at 12:10; Status DC Quetiapine Fumarate (SEROquel) 12.5 mg 0900,1700 PO Last administered on 17:10; Start 03/18/18 at 09:00 Buspirone HCl (Buspar) 10 mg BID@0900,1700 PO Last administered on 04/12/18 17: 10; Start 03/18/18 at 17:00 Rivastigmine (Exelon) 1 patch DAILY TD Last administered on 03/24/18at 12:02; Start 03/20/18 at 09:00; Stop 03/24/18 at 11:01; Status DC Rivastigmine (Exelon) 1 patch DAILY TD Last administered on 04/12/18 07:42; Start 03/25/18 at 09:00 Memantine (Namenda) 5 mg HS PO Last administered on 03/21/18 20:19; Start 12/26 at 21:00; Stop 03/21/18 at 23:00; Status DC Memantine (Namenda) 5 mg BID PO Last administered on 03/24/18at 12:02; Start at 09:00; Stop 03/24/18 at 17:21; Status DC Olanzapine (ZyPREXA IM) 5 mg 1X ONCE IM Last administered on 03/19/18at 20:05; Start 03/19/18 at 19:45; Stop 03/19/18 at 19:46; Status DC Olanzapine (ZyPREXA IM) 5 mg 1X ONCE IM Last administered on 03/20/18at 19:39; Start 03/20/18 at 19:15; Stop 03/20/18 at 19:16; Status DC Quetiapine Fumarate (SEROquel) 50 mg QHS PO Last administered on 04/12/18at 21:02 ; Start 03/20/18 at 21:00 Quetiapine Fumarate (SEROquel) 25 mg PRN Q8HRS PRN PO agitation/aggression; Start 03/20/18 at 19:30 Olanzapine (ZyPREXA IM) 5 mg 1X ONCE IM Last administered on 03/21/18at 17:18; Start 03/21/18 at 17:30; Stop 03/21/18 at 17:31; Status DC Olanzapine (ZyPREXA IM) 5 mg 1X ONCE IM Last administered on 03/21/18at 19:45; Start 03/21/18 at 19:45; Stop 03/21/18 at 19:46; Status DC Olanzapine (ZyPREXA IM) 5 mg DAILY PRN IM PSYCHOSIS Last administered on at 21:01; Start 03/22/18 at 11:45; Stop 03/26/18 at 08:09; Status DC Sertraline HCl (Zoloft) 25 mg DAILY PO Last administered on 03/25/18at 11:25; Start 03/24/18 at 09:00; Stop 03/25/18 at 11:00; Status DC Sertraline HCl (Zoloft) 50 mg DAILY PO Last administered on 04/12/18 07:40; Start 03/26/18 at 09:00 Memantine (Namenda) 10 mg BID PO Last administered on 04/12/18at 21:01; Start at 21:00 Olanzapine (ZyPREXA ZYDIS) 5 mg PRN Q2HR PRN PO PSYCHOSIS Last administered on 03/28/18at 15:44; Start 03/26/18 at 10:30 Divalproex Sodium (Depakote Sprinkles) 500 mg DAILY PO Last administered on at 11:58; Start 03/27/18 at 09:00; Stop 03/29/18 at 18:25; Status DC Divalproex Sodium (Depakote Sprinkles) 750 mg HS PO Last administered on 21:01; Start 03/26/18 at 21:00 Divalproex Sodium (Depakote Sprinkles) 750 mg DAILY PO Last administered on 04/12at 07:40; Start 03/30/18 at 09:00 Amoxicillin (Amoxil) 500 mg [id number] PO Last administered on 04/04/18 19:45; Start 04/01/18 at 21:00; Stop 04/05/18 at 19:20; Status DC Lactobacillus Rhamnosus (Culturelle) 1 cap BID PO Last administered on 21:01; Start 04/01/18 at 21:00 Doxycycline Hyclate (Vibra-Tab) 100 mg BID PO Last administered on 04/12/18 21: 06; Start 04/03/18 at 21:00; Stop 04/13/18 at 09:01 Active Scripts Active Reported Advanced Antacid Liquid (Mag Hydrox/Al Hydrox/Simeth) 355 Ml Oral.susp 355 Ml PO PRN QID PRN Loperamide (Loperamide Hcl) 2 Mg Capsule 2 Mg PO PRN Q1HR PRN Milk Of Magnesia (Magnesium Hydroxide) 2,400 Mg/10 Ml Oral.susp 2,400 Mg PO PRN QHS PRN Nystatin 15 Gm Powder 15 Gm TP BID Culturelle (Lactobacillus Rhamnosus Gg) 1 Each Cap.sprink 1 Each PO BID Namenda (Memantine Hcl) 10 Mg Tablet 10 Mg PO BID Buspirone Hcl 10 Mg Tablet 10 Mg PO [id number] Seroquel (Quetiapine Fumarate) 25 Mg Tablet 25 Mg PO PRN Q8HRS PRN Seroquel (Quetiapine Fumarate) 25 Mg Tablet 25 Mg PO [id number] Seroquel (Quetiapine Fumarate) 50 Mg Tablet 50 Mg PO HS Zyprexa Zydis (Olanzapine) 5 Mg Tab.rapdis 5 Mg PO PRN Q2HR PRN Trazodone Hcl 50 Mg Tablet 50 Mg PO PRN QHS PRN Zoloft (Sertraline Hcl) 50 Mg Tablet 50 Mg PO DAILY Remeron (Mirtazapine) 15 Mg Tablet 15 Mg PO HS EXELON 9.5mg/24hr (Rivastigmine) 1 Each Patch.td24 1 Patch TD DAILY Plavix (Clopidogrel Bisulfate) 75 Mg Tablet 75 Mg PO DAILY Lorazepam 0.5 Mg Tablet 1 Mg PO PRN Q8HRS PRN Flomax (Tamsulosin Hcl) 0.4 Mg Cap.er.24h 0.4 Mg PO HS PRN Depakote Sprinkle (Divalproex Sodium) 125 Mg Cap.sprink 500 Mg PO TID Colace (Docusate Sodium) 100 Mg Capsule 100 Mg PO BID Vitamin D (Cholecalciferol (Vitamin D3)) 1,000 Unit Capsule 2,000 Unit PO DAILY Atorvastatin Calcium 20 Mg Tablet 20 Mg PO QHS Atenolol 100 Mg Tablet 100 Mg PO DAILY Tylenol (Acetaminophen) 325 Mg Tablet 650 Mg PO PRN Q4HRS PRN I have reviewed the current psychotropics carefully including drug interactions. Risk benefit ratio favors no change other than as noted in my dictated progress note. 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
[2018-04-13] MEDS ORDERED: METH29OI TP (02:23)
--- NOTE | 2018-04-13 02:30 | PN ---
DATE: 04/10/2018 PSYCHIATRIC PROGRESS NOTE This late entry of 04/10/2018, covers elements not covered in my initial note. SUBJECTIVE: I met with the patient in the evening. The patient slept 7-1/2 hours previous night. Overall, he has done better behaviorally. The previous night he was having some nausea, vomiting, did take his bedtime meds. REVIEW OF SYSTEMS: No CV, , pulmonary, eye, ENT system symptoms on review. Reliability poor. Gait unsteady with walker. MENTAL STATUS EXAM: Oriented to himself. Insight, judgment, recent and remote memory, attention, concentration, fund of knowledge poor, consistent with his diagnosis mentioned in my initial note. PLAN: No change from initial note. MAN Diony JORGE MD DR: LOVE/lilly JOB#: [id number] / [id number]
[2018-04-13 06:15] VITALS: BP 153/84
[2018-04-13] MEDS: busPIRone 10 MG TABLET. PO SCH (08:29)
[2018-04-13] MEDS: TAMSULOSIN 0.4 MG CAP.ER.24H. PO SCH (08:29)
[2018-04-13] MEDS: SERTRALINE 50 MG TABLET. PO SCH (08:29)
[2018-04-13] MEDS: MEMANTINE 10 MG TABLET. PO SCH (08:29)
[2018-04-13] MEDS: DOCUSATE SODIUM 100 MG CAPSULE PO SCH (08:29)
[2018-04-13] MEDS: DOXYCYCLINE HYCLATE 100 MG TABLET PO SCH (08:29)
[2018-04-13] MEDS: CLOPIDOGREL BISULFATE 75 MG TABLET PO SCH (08:29)
[2018-04-13] MEDS: QUEtiapine 25 MG TABLET. PO SCH (08:30)
[2018-04-13] MEDS: NYSTATIN TOPICAL POWDER 15GM BOTTLE. TP SCH (08:30)
[2018-04-13] MEDS: DIVALPROEX 125 MG CAP.SPRINK PO SCH (08:30)
[2018-04-13] MEDS: RIVASTIGMINE 9.5MG PATCH. TD SCH (08:30)
[2018-04-13 08:32] VITALS: BP 153/84
[2018-04-13] MEDS: ATENOLOL 50 MG TABLET PO SCH (08:32)
[2018-04-13] MEDS: CHOLECALCIFEROL (VITAMIN D3) 1,000 UNIT TABLET PO SCH (08:34)
[2018-04-13] MEDS: LACTOBACILLUS RHAMNOSUS GG 1 CAPSULE. PO SCH (08:34)
--- NOTE | 2018-04-13 18:22 | DS ---
DATE OF DISCHARGE: 04/13/2018 DISCHARGE SUMMARY/PSYCHIATRIC PROGRESS NOTE This note covers elements, not covered in my initial note of 04/13/2018. REASON FOR ADMISSION: Please refer to the admission history for details. HISTORY OF PRESENT ILLNESS: Briefly, the patient is a 73-year-old male referred to us from [facility] by his primary care physician/psychiatrist with a probable diagnosis of Lewy body dementia. The patient has been refusing medications, agitated, hallucinating, physically and verbally aggressive. This has been the context of his Parkinson's disease. SIGNIFICANT FINDINGS AND CLINICAL COURSE: Following admission, the patient was seen daily individually by myself from a psychiatric standpoint, medical followup with Dr. Sanchez. The patient was extremely labile, anxious, psychotic initially. Adjustments were made in his psychotropics and he did also have a UTI, MRSA positive, which was treated on doxycycline. He appeared to stabilize on a combination of Depakote Sprinkles 750 mg a.m., 750 at bedtime with a valproic acid level of 34, slightly subtherapeutic, but clinically adequate. Ativan 1 mg q. 8 hours p.r.n. anxiety, Seroquel 12.5 mg 0900 and 1700, 50 mg at bedtime and 25 mg q.8 hours p.r.n. psychosis, Remeron 15 mg at bedtime, BuSpar 10 mg twice a day, Exelon patch 9.5 mg a day, Namenda 10 mg b.i.d., trazodone 50 mg at bedtime p.r.n. insomnia, may repeat x 1. Zoloft 50 mg a day, Zyprexa 5 mg q. 2 hours p.r.n. psychosis, agitation, max 15 mg in 24 hours. Gradually, the patient's mood lability, psychosis, agitation, all improved prior to discharge on 04/13/2018. REVIEW OF SYSTEMS: Ambulation impaired with walker. No CV, , pulmonary, eye, ENT system symptoms on review. Reliability poor. MENTAL STATUS EXAM: Oriented to himself. Insight, judgment, recent and remote memory, attention, concentration, fund of knowledge poor, consistent with his diagnosis. FINAL DIAGNOSES: Major neurocognitive disorder, Lewy body, Alzheimer, vascular with delusion, depression, behavioral disturbance; anxiety disorder, unspecified; impulse control disorder, unspecified, status post methicillin-resistant Staphylococcus aureus positive, Urinary tract infection. Rest unchanged from admission. DISCHARGE MEDICATIONS: Please refer to the MRAD. DISCHARGE INSTRUCTIONS: [facility] psychiatric and [facility]up at [facility]. MAN Diony JORGE MD DR: LOVE/lilly JOB#: [id number] / [id number]
--- NOTE | 2018-04-13 20:16 | PN ---
DATE: 04/11/2018 PSYCHIATRIC PROGRESS NOTE This late entry 04/11/2018, covers elements not covered in my initial note. SUBJECTIVE: I met with the patient in the evening. The patient slept 8 hours previous night. He has been confused, withdrawn, somewhat restless. REVIEW OF SYSTEMS: Ambulation impaired with walker. No CV, , pulmonary, eye system symptoms on review. MENTAL STATUS EXAM: Oriented to himself. Insight, judgment, recent and remote memory, attention, concentration, fund of knowledge poor, consistent with his diagnosis mentioned in my initial note. PLAN: No change from initial note. Last bowel movement was on 04/10/2018. MAN Diony JORGE MD DR: LOVE/lilly JOB#: [id number] / [id number]
--- NOTE | 2018-04-13 22:22 | PDOC ---
Exam Note: Pavel Note: Please also refer to the separate dictated note~for this date of service dictated separately.~Patient seen individually. Discussed the patient with Nursing staff reviewed the chart.~Reviewed interim history and current functioning. Reviewed vital signs,~Labs/ Radiology~and current medications noted below. Continue current treatment with the changes noted in the dictated addendum note Assessment: Vital Signs: Vital Signs Date Time Temp Pulse Resp B/P (MAP) Pulse Ox O2 Delivery O2 Flow Rate FiO2 04/13/18 08:32 62 153/84 04/13/18 06:15 97.4 16 97 04/12/18 16:16 Room Air I&O Intake and Output 04/13/18 07:01 Intake Total 480 ml Output Total 600 ml Balance -120 ml Intake Oral 480 ml Output Urine Total 600 ml Current Medications: Meds: Current Medications Acetaminophen (Tylenol) 650 mg PRN Q4HRS PRN PO PAIN / TEMP Last administered on 04/04/18 23:22; Start 02/20/18 at 18:30; Stop 04/13/18 at 12:55; Status DC Atorvastatin Calcium (Lipitor) 20 mg QHS PO Last administered on 04/12/18 21:02 ; Start 02/20/18 at 21:00; Stop 04/13/18 at 12:55; Status DC Clopidogrel Bisulfate (Plavix) 75 mg DAILY PO Last administered on 04/13/18 08: 29; Start 02/21/18 at 09:00; Stop 04/13/18 at 12:55; Status DC Tamsulosin HCl (Flomax) 0.4 mg PRN QHS PRN PO retention; Start 02/20/18 at 18: 30; Stop 03/01/18 at 11:14; Status DC Atenolol (Tenormin) 100 mg DAILY PO Last administered on 04/13/18 08:32; Start 02/21/18 at 09:00; Stop 04/13/18 at 12:55; Status DC Vitamin D (Vitamin D3) 2,000 unit DAILY PO Last administered on 04/13/18 08:34 ; Start 02/21/18 at 09:00; Stop 04/13/18 at 12:55; Status DC Divalproex Sodium (Depakote Sprinkles) 500 mg TID PO Last administered on 02/26at 07:53; Start 02/20/18 at 21:00; Stop 02/26/18 at 10:36; Status DC Docusate Sodium (Colace) 100 mg BID PO Last administered on 04/13/18 08:29; Start 02/20/18 at 21:00; Stop 04/13/18 at 12:55; Status DC Lorazepam (Ativan) 1 mg PRN Q8HRS PRN PO ANXIETY / AGITATION Last administered on 04/11/18 16:31; Start 02/20/18 at 19:00; Stop 04/13/18 at 12:55; Status DC Multi-Ingredient Ointment (Analgesic Drybranch) 1 pankaj PRN QID PRN TP MUSCLE PAIN Last administered on 04/04/18 23:22; Start 02/20/18 at 18:45; Stop 04/13/18 at 12:55; Status DC Al Hydroxide/Mg Hydroxide (Mylanta Plus Xs) 15 ml PRN AFTMEALHC PRN PO DYSPEPSIA Last administered on 03/07/18at 09:56; Start 02/20/18 at 18:45; Stop 04/13/18 at 12:55; Status DC Magnesium Hydroxide (Milk Of Magnesia) 2,400 mg PRN QHS PRN PO CONSTIPATION; Start 02/20/18 at 18:45; Stop 04/13/18 at 12:55; Status DC Nystatin (Nystop) 1 pankaj BID TP Last administered on 04/13/18 08:30; Start at 21:00; Stop 04/13/18 at 12:55; Status DC Bupropion HCl (Wellbutrin) 75 mg DAILY PO Last administered on 02/26/18at 07:53 ; Start 02/24/18 at 09:00; Stop 02/27/18 at 08:59; Status DC Bupropion HCl (Wellbutrin) 75 mg BIDACBL PO Last administered on 03/17/18at 14:16 ; Start 02/27/18 at 08:00; Stop 03/17/18 at 18:46; Status DC Divalproex Sodium (Depakote Er) 1,000 mg QHS PO Last administered on at 19:46; Start 02/26/18 at 21:00; Stop 02/28/18 at 19:35; Status DC Divalproex Sodium (Depakote Sprinkles) 1,000 mg HS PO Last administered on at 18:50; Start 02/28/18 at 21:00; Stop 03/04/18 at 18:24; Status DC Quetiapine Fumarate (SEROquel) 25 mg QHS PO Last administered on 03/11/18 19:35 ; Start 03/01/18 at 21:00; Stop 03/12/18 at 11:05; Status DC Tamsulosin HCl (Flomax) 0.4 mg HS PO Last administered on 03/02/18at 20:26; Start 03/01/18 at 21:00; Stop 03/03/18 at 12:25; Status DC Mirtazapine (Remeron) 7.5 mg QHS PO Last administered on 03/10/18 19:28; Start 03/01/18 at 21:00; Stop 03/11/18 at 18:17; Status DC Tamsulosin HCl (Flomax) 0.4 mg BID PO Last administered on 04/13/18 08:29; Start 03/03/18 at 21:00; Stop 04/13/18 at 12:55; Status DC Amoxicillin (Amoxil) 500 mg [id number] PO Last administered on 03/14/18 19:28; Start 03/04/18 at 21:00; Stop 03/15/18 at 09:14; Status DC Divalproex Sodium (Depakote Er) 500 mg BID PO Last administered on 03/05/18at 19:44; Start 03/04/18 at 21:00; Stop 03/05/18 at 23:00; Status DC Lactobacillus Rhamnosus (Culturelle) 1 cap BID PO Last administered on 19:28; Start 03/05/18 at 21:00; Stop 03/15/18 at 09:14; Status DC Divalproex Sodium (Depakote Er) 1,000 mg QHS PO Last administered on 03/14/18 19:29; Start 03/06/18 at 21:00; Stop 03/15/18 at 21:12; Status DC Quetiapine Fumarate (SEROquel) 12.5 mg DAILY@1700 PO Last administered on at 16:20; Start 03/11/18 at 17:00; Stop 03/17/18 at 18:46; Status DC Loperamide HCl (Imodium) 2 mg PRN Q1HR PRN PO DIARRHEA Last administered on 03/11at 16:16; Start 03/11/18 at 16:15; Stop 04/13/18 at 12:55; Status DC Mirtazapine (Remeron) 15 mg QHS PO Last administered on 04/12/18at 21:02; Start 03/11/18 at 21:00; Stop 04/13/18 at 12:55; Status DC Quetiapine Fumarate (SEROquel) 25 mg BID PO Last administered on 03/13/18at 07:55 ; Start 03/12/18 at 21:00; Stop 03/13/18 at 16:36; Status DC Quetiapine Fumarate (SEROquel) 25 mg QHS PO Last administered on 03/19/18at 19: 21; Start 03/13/18 at 21:00; Stop 03/20/18 at 19:30; Status DC Olanzapine (ZyPREXA ZYDIS) 2.5 mg PRN Q2HR PRN PO PSYCHOSIS Last administered on 03/24/18at 15:09; Start 03/14/18 at 12:00; Stop 03/26/18 at 10:20; Status DC Trazodone HCl (Desyrel) 50 mg PRN QHS PRN PO INSOMNIA, MAY REPEAT X1 Last administered on 04/10/18at 19:23; Start 03/14/18 at 21:45; Stop 04/13/18 at 12:55; Status DC Buspirone HCl (Buspar) 5 mg [id number] PO Last administered on 03/18/18at 11:19; Start 03/16/18 at 09:00; Stop 03/18/18 at 14:47; Status DC Divalproex Sodium (Depakote Sprinkles) 500 mg BID PO Last administered on at 11:43; Start 03/15/18 at 21:15; Stop 03/26/18 at 12:10; Status DC Quetiapine Fumarate (SEROquel) 12.5 mg 0900,1700 PO Last administered on at 08:30; Start 03/18/18 at 09:00; Stop 04/13/18 at 12:55; Status DC Buspirone HCl (Buspar) 10 mg BID@0900,1700 PO Last administered on 04/13/18at 08: 29; Start 03/18/18 at 17:00; Stop 04/13/18 at 12:55; Status DC Rivastigmine (Exelon) 1 patch DAILY TD Last administered on 03/24/18at 12:02; Start 03/20/18 at 09:00; Stop 03/24/18 at 11:01; Status DC Rivastigmine (Exelon) 1 patch DAILY TD Last administered on 04/13/18at 08:30; Start 03/25/18 at 09:00; Stop 04/13/18 at 12:55; Status DC Memantine (Namenda) 5 mg HS PO Last administered on 03/21/18at 20:19; Start 12/26 at 21:00; Stop 03/21/18 at 23:00; Status DC Memantine (Namenda) 5 mg BID PO Last administered on 03/24/18at 12:02; Start at 09:00; Stop 03/24/18 at 17:21; Status DC Olanzapine (ZyPREXA IM) 5 mg 1X ONCE IM Last administered on 03/19/18at 20:05; Start 03/19/18 at 19:45; Stop 03/19/18 at 19:46; Status DC Olanzapine (ZyPREXA IM) 5 mg 1X ONCE IM Last administered on 03/20/18at 19:39; Start 03/20/18 at 19:15; Stop 03/20/18 at 19:16; Status DC Quetiapine Fumarate (SEROquel) 50 mg QHS PO Last administered on 04/12/18at 21:02 ; Start 03/20/18 at 21:00; Stop 04/13/18 at 12:55; Status DC Quetiapine Fumarate (SEROquel) 25 mg PRN Q8HRS PRN PO agitation/aggression; Start 03/20/18 at 19:30; Stop 04/13/18 at 12:55; Status DC Olanzapine (ZyPREXA IM) 5 mg 1X ONCE IM Last administered on 03/21/18at 17:18; Start 03/21/18 at 17:30; Stop 03/21/18 at 17:31; Status DC Olanzapine (ZyPREXA IM) 5 mg 1X ONCE IM Last administered on 03/21/18at 19:45; Start 03/21/18 at 19:45; Stop 03/21/18 at 19:46; Status DC Olanzapine (ZyPREXA IM) 5 mg DAILY PRN IM PSYCHOSIS Last administered on at 21:01; Start 03/22/18 at 11:45; Stop 03/26/18 at 08:09; Status DC Sertraline HCl (Zoloft) 25 mg DAILY PO Last administered on 03/25/18at 11:25; Start 03/24/18 at 09:00; Stop 03/25/18 at 11:00; Status DC Sertraline HCl (Zoloft) 50 mg DAILY PO Last administered on 04/13/18 08:29; Start 03/26/18 at 09:00; Stop 04/13/18 at 12:55; Status DC Memantine (Namenda) 10 mg BID PO Last administered on 04/13/18 08:29; Start at 21:00; Stop 04/13/18 at 12:55; Status DC Olanzapine (ZyPREXA ZYDIS) 5 mg PRN Q2HR PRN PO PSYCHOSIS Last administered on 03/28/18at 15:44; Start 03/26/18 at 10:30; Stop 04/13/18 at 12:55; Status DC Divalproex Sodium (Depakote Sprinkles) 500 mg DAILY PO Last administered on at 11:58; Start 03/27/18 at 09:00; Stop 03/29/18 at 18:25; Status DC Divalproex Sodium (Depakote Sprinkles) 750 mg HS PO Last administered on 21:01; Start 03/26/18 at 21:00; Stop 04/13/18 at 12:55; Status DC Divalproex Sodium (Depakote Sprinkles) 750 mg DAILY PO Last administered on 04/13 08:30; Start 03/30/18 at 09:00; Stop 04/13/18 at 12:55; Status DC Amoxicillin (Amoxil) 500 mg [id number] PO Last administered on 04/04/18at 19:45; Start 04/01/18 at 21:00; Stop 04/05/18 at 19:20; Status DC Lactobacillus Rhamnosus (Culturelle) 1 cap BID PO Last administered on at 08:34; Start 04/01/18 at 21:00; Stop 04/13/18 at 12:55; Status DC Doxycycline Hyclate (Vibra-Tab) 100 mg BID PO Last administered on 04/13/18at 08: 29; Start 04/03/18 at 21:00; Stop 04/13/18 at 09:01; Status DC Active Scripts Active Reported Analgesic Drybranch (Methyl Salicylate/Menthol) 28 Gm Oint...g. 1 Pankaj TP PRN QID PRN Advanced Antacid Liquid (Mag Hydrox/Al Hydrox/Simeth) 355 Ml Oral.susp 15 Ml PO PRN QID PRN Loperamide (Loperamide Hcl) 2 Mg Capsule 2 Mg PO PRN Q1HR PRN Milk Of Magnesia (Magnesium Hydroxide) 2,400 Mg/10 Ml Oral.susp 2,400 Mg PO PRN QHS PRN Nystatin 15 Gm Powder 15 Gm TP BID Culturelle (Lactobacillus Rhamnosus Gg) 1 Each Cap.sprink 1 Each PO BID Namenda (Memantine Hcl) 10 Mg Tablet 10 Mg PO BID Buspirone Hcl 10 Mg Tablet 10 Mg PO 0900,1700 Seroquel (Quetiapine Fumarate) 25 Mg Tablet 25 Mg PO PRN Q8HRS PRN Seroquel (Quetiapine Fumarate) 25 Mg Tablet 12.5 Mg PO 0900,1700 Seroquel (Quetiapine Fumarate) 50 Mg Tablet 50 Mg PO HS Zyprexa Zydis (Olanzapine) 5 Mg Tab.rapdis 5 Mg PO PRN Q2HR PRN Trazodone Hcl 50 Mg Tablet 50 Mg PO PRN QHS PRN Zoloft (Sertraline Hcl) 50 Mg Tablet 50 Mg PO DAILY Remeron (Mirtazapine) 15 Mg Tablet 15 Mg PO HS EXELON 9.5mg/24hr (Rivastigmine) 1 Each Patch.td24 1 Patch TD DAILY Plavix (Clopidogrel Bisulfate) 75 Mg Tablet 75 Mg PO DAILY Lorazepam 0.5 Mg Tablet 1 Mg PO PRN Q8HRS PRN Flomax (Tamsulosin Hcl) 0.4 Mg Cap.er.24h 0.4 Mg PO BID Depakote Sprinkle (Divalproex Sodium) 125 Mg Cap.sprink 750 Mg PO BID Colace (Docusate Sodium) 100 Mg Capsule 100 Mg PO BID Vitamin D (Cholecalciferol (Vitamin D3)) 1,000 Unit Capsule 2,000 Unit PO DAILY Atorvastatin Calcium 20 Mg Tablet 20 Mg PO QHS Atenolol 100 Mg Tablet 100 Mg PO DAILY Tylenol (Acetaminophen) 325 Mg Tablet 650 Mg PO PRN Q4HRS PRN I have reviewed the current psychotropics carefully including drug interactions. Risk benefit ratio favors no change other than as noted in my dictated progress note. 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
--- NOTE | 2018-04-14 00:49 | PN ---
DATE: 04/12/2018 PSYCHIATRIC PROGRESS NOTE This late entry 04/12/2018, covers elements not covered in my initial note. SUBJECTIVE: I met with the patient in the evening. The patient slept 7-3/4 hours previous night, slept in the day room for part of the night. REVIEW OF SYSTEMS: Ambulation impaired. No CV, , pulmonary, eye, ENT system symptoms on review. Reliability poor. MENTAL STATUS EXAM: Oriented to himself, situation. Insight, judgment, recent and remote memory, attention, concentration, fund of knowledge poor, consistent with his diagnosis mentioned in my initial note. PLAN: No change from initial note with tentative discharge on 04/13. MAN Diony JORGE MD DR: LOVE/lilly JOB#: [id number] / [id number]
== END 2018-04-13 11:25 | DRG 56 ==
LOC: ER 14:49 → GEROPSY 16:28 → ER 16:32
PROVIDERS: ADMIT Psychiatry & Neurology Psychiatry; ATTEND Psychiatry & Neurology Psychiatry
DX: G30.9 Alzheimer's disease, unspecified (principal); S06.5X9A Traumatic subdural hemorrhage with loss of consciousness of unspecified duration, initial encounter; E43 Unspecified severe protein-calorie malnutrition; F02.81 Dementia in other diseases classified elsewhere, unspecified severity, with behavioral disturbance; F01.51 Vascular dementia, unspecified severity, with behavioral disturbance; N39.0 Urinary tract infection, site not specified; F33.3 Major depressive disorder, recurrent, severe with psychotic symptoms; R47.01 Aphasia; Z68.22 Body mass index [BMI] 22.0-22.9, adult; B95.62 Methicillin resistant Staphylococcus aureus infection as the cause of diseases classified elsewhere; E78.5 Hyperlipidemia, unspecified; F41.1 Generalized anxiety disorder; F63.9 Impulse disorder, unspecified; G31.83 Neurocognitive disorder with Lewy bodies; X58.XXXA Exposure to other specified factors, initial encounter; W18.39XA Other fall on same level, initial encounter; I10 Essential (primary) hypertension; L21.9 Seborrheic dermatitis, unspecified; N40.0 Benign prostatic hyperplasia without lower urinary tract symptoms; Z86.14 Personal history of Methicillin resistant Staphylococcus aureus infection; Z86.73 Personal history of transient ischemic attack (TIA), and cerebral infarction without residual deficits; Z91.81 History of falling; Z79.899 Other long term (current) drug therapy; Y93.89 Activity, other specified; Y92.89 Other specified places as the place of occurrence of the external cause; Y99.8 Other external cause status
CPT/HCPCS: 36415; 70450; 71045; 73030; 80053; 80061; 80164; 81001; 82306; 82607; 83036; 83540; 83550; 83735; 84436; 84443; 84480; 85025; 86592; 87086; 87186; 93005; J3490; 92610; 97116; 97530; 97535; 99285-25